=== PATIENT | male | born 1965 | race Hispanic/Latino ===

== ENCOUNTER 2017-11-17 18:06 | Emergency (ER) | payer SELFPAY ==
[~2017-11-17] VITALS: Ht 165.1 cm; Wt 72.0 kg
[~2017-11-17 18:06] MED LIST: ADVIL200 MG OR; AZITHROMYCIN250 MG PO; BACTRIM1 TAB OR; CIPROFLOXACN500 MG PO; DARVOCET-N 100100 MG OR; FLEXERIL PO; GLUCOPHAGE500 MG OR; GLUCOVANCE5 MG/500 M OR; GLYBURIDE2.5 MG OR; LASIX 40 MG TAB40 MG PO; LORTAB5 PO; MED FOR DIABETES; METFORMIN500 M1 PO; METFORMIN850 MG OR; MICRONASE5 MG OR; MOTRIN600 MG OR; NAPROSYN500 MG PO; PERCOCET 5/325M1 TAB OR; PERCOCET 5/325M1 TAB PO; PRILOSEC40 MG OR; TRAMADOL HCL50 MG OR; TRAMADOL HCL50 MG PO; ULTRAM50 M1 PO; ULTRAM50 MG OR; ULTRAM50 MG PO; ZANTAC150 MG OR; ZESTRIL2.5 MG OR; [UNRECOGNIZED DRUG - REMARK]
[2017-11-17 19:06] LABS: INFLUENZA A NONE DETECTED (NONE DETECT); INFLUENZA B NONE DETECTED (NONE DETECT)
[2017-11-17] MEDS ORDERED: CODEINE/GUAIFEN1 SOL PO (19:10)
[2017-11-17] MEDS ORDERED: ZITHROMAX250 MG PO (19:10)
[2017-11-17 19:15] VITALS: BP 139/74
== END 2017-11-17 19:15 | disposition home or self-care (01) | DRG 203 ==
LOC: ED 18:06
PROVIDERS: Emergency Medicine
DX: J40 Bronchitis, not specified as acute or chronic (principal); L40.9 Psoriasis, unspecified; E11.40 Type 2 diabetes mellitus with diabetic neuropathy, unspecified; J02.0 Streptococcal pharyngitis

== ENCOUNTER 2018-02-09 14:34 | Emergency (ER) | payer SELFPAY ==
[~2018-02-09] VITALS: Ht 165.1 cm; Wt 95.4 kg
[~2018-02-09 14:34] MED LIST changes: +CODEINE/GUAIFEN1 SOL PO; +ZITHROMAX250 MG PO
[2018-02-09] MEDS ORDERED: BENADRYL 50MG C50 MG PO (15:21)
[2018-02-09] MEDS ORDERED: PREDNISONE50 MG PO (15:21)
[2018-02-09 15:54] VITALS: BP 148/80
== END 2018-02-09 15:50 | disposition home or self-care (01) | DRG 607 ==
LOC: ED 14:34
DX: L27.0 Generalized skin eruption due to drugs and medicaments taken internally (principal); R50.9 Fever, unspecified; T39.315A Adverse effect of propionic acid derivatives, initial encounter; Y92.009 Unspecified place in unspecified non-institutional (private) residence as the place of occurrence of the external cause

== ENCOUNTER 2018-02-12 16:47 | Inpatient (IN) | payer OTHER ==
[~2018-02-12] VITALS: Ht 165.1 cm; Wt 93.2 kg
[~2018-02-12 16:47] MED LIST changes: +BENADRYL 50MG C50 MG PO; +PREDNISONE50 MG PO
[2018-02-12 18:09] LABS: HEMATOCRIT 35.7 % (39.0-50.0); HEMOGLOBIN 12.1 g/dl (14.0-18.0); IMMATURE GRANULOCYTES 0.6 % (0.0-1.0); MEAN CORPUSCULAR HGB 32.2 pG CALC (26.0-32.0); MEAN CORPUSCULAR HGB CONC 33.9 g/L CALC (32.0-36.0); NEUT# 6.87 thou/uL (1.82-7.42); RED BLOOD COUNT 3.76 mill/uL (4.70-6.10); RED CELL DISTRI WIDTH 13.2 % (11.5-15.5)
[2018-02-12 18:25] LABS: MEAN CELL VOLUME 94.9 fL CALC (80.0-100.0)
[2018-02-12 18:38] LABS: BILIRUBIN, TOTAL 0.1 mg/dL (0.0-1.4); C-REACTIVE PROTEIN 2.1 mg/dL (0-0.9); POTASSIUM 4.8 mmol/l (3.5-5.1); TOTAL PROTEIN 5.1 g/dL (6.3-8.2)
[2018-02-12 18:39] LABS: ALBUMIN 2.3 g/dL (3.2-5.0); CREATININE 2.5 mg/dL (0.7-1.3)
[2018-02-12] MEDS ORDERED: METFORMIN1000 MG PO (19:42)
[2018-02-12 20:10] VITALS: BP 170/89
[2018-02-13 00:03] VITALS: BP 161/84
[2018-02-13 05:31] VITALS: BP 168/91
[2018-02-13 06:39] LABS: URINE BILIRUBIN - DIPSTICK NEGATIVE (NEGATIVE); URINE BLOOD DIPSTICK SMALL (NEGATIVE); URINE COLOR YELLOW; URINE GLUCOSE - DIPSTICK 500 mg/dL (NEGATIVE); URINE KETONE NEGATIVE (NEGATIVE); URINE LEUK ESTERASE NEGATIVE (Negative); URINE NITRITE - DIPSTICK NEGATIVE (Negative); URINE PROTEIN - DIPSTICK >=300 mg/dL (NEG-TRACE); URINE UROBILINOGEN - DIPSTICK 0.2 E.U./dL (0.2)
[2018-02-13 06:44] LABS: BARBITURATES NEGATIVE (NEGATIVE); COCAINE NEGATIVE (NEGATIVE); METHADONE NEGATIVE (NEGATIVE); OXCYCODONE NEGATIVE (NEGATIVE); TETRAHYDROCANNABIONOL NEGATIVE (NEGATIVE); TRICYLIC ANTIDEPRESSANTS NEGATIVE (NEGATIVE); URINE CLARITY SL CLOUDY
[2018-02-13 06:52] LABS: URINE BACTERIA FEW hpf; URINE SQUAMOUS EPITHELIAL CELL MODERATE EPI/hpf (0-FEW)
[2018-02-13 07:32] VITALS: BP 185/89
[2018-02-13 08:59] LABS: CREATININE 1.7 mg/dL (0.7-1.3); POTASSIUM 4.6 mmol/l (3.5-5.1)
[2018-02-13 12:00] VITALS: BP 157/85
[2018-02-13 16:55] VITALS: BP 180/100
[2018-02-13] MEDS ORDERED: ENALAPRIL5 MG PO (18:35)
[2018-02-13 20:26] VITALS: BP 173/88
[2018-02-14] VITALS (7 sets, daily range): BP systolic 155–184; BP diastolic 82–95
[2018-02-15] VITALS (7 sets, daily range): BP systolic 125–176; BP diastolic 70–92
[2018-02-15 05:26] LABS: HEMATOCRIT 36.8 % (39.0-50.0); MEAN CELL VOLUME 92.9 fL CALC (80.0-100.0); MEAN CORPUSCULAR HGB 32.8 pG CALC (26.0-32.0); MEAN CORPUSCULAR HGB CONC 35.3 g/L CALC (32.0-36.0); RED BLOOD COUNT 3.96 mill/uL (4.70-6.10); RED CELL DISTRI WIDTH 13.1 % (11.5-15.5)
[2018-02-15 05:53] LABS: ANION GAP 8 (6-22 (CALC)); BUN 33 mg/dL (9-20); BUN/CREATININE RATIO 25 (12-20 (CALC)); CARBON DIOXIDE 20 mmol/l (22-30); CHLORIDE 115 mmol/l (95-108); CREATININE 1.3 mg/dL (0.7-1.3); GFR 58 ML/MIN (>=60 (CALC)); GFR FOR AFR.AMER. > 60 ML/MIN (>=60 (CALC)); HDL CHOLESTEROL 82 mg/dL (>=40); POTASSIUM 4.3 mmol/l (3.5-5.1); SODIUM 139 mmol/l (137-146); TOTAL TRIGLYCERIDES 232 mg/dl (30-149); VLDL CHOLESTROL 46 mg/dl (8-62 (CALC))
[2018-02-15 06:00] LABS: CALCULATED LDLCHOLESTEROL 197 mg/dL (62-129 (CALC)); TOTAL CHOLESTEROL 325 mg/dl (0-199)
[2018-02-16 00:25] VITALS: BP 140/81
[2018-02-16 04:38] VITALS: BP 135/73
[2018-02-16 07:44] LABS: HEMATOCRIT 37.1 % (39.0-50.0); MEAN CELL VOLUME 92.3 fL CALC (80.0-100.0); MEAN CORPUSCULAR HGB 32.3 pG CALC (26.0-32.0); RED BLOOD COUNT 4.02 mill/uL (4.70-6.10); RED CELL DISTRI WIDTH 12.9 % (11.5-15.5)
[2018-02-16 08:05] VITALS: BP 159/88
[2018-02-16 08:05] LABS: CREATININE 1.5 mg/dL (0.7-1.3); POTASSIUM 4.1 mmol/l (3.5-5.1)
[2018-02-16 11:25] VITALS: BP 181/91
[2018-02-16] MEDS ORDERED: LIPITOR20 M1 PO (12:17)
[2018-02-16] MEDS ORDERED: PREDNISONE10 MG PO (12:17)
[2018-02-16] MEDS ORDERED: AMLODIPINE BESYL5 MG PO (12:17)
== END 2018-02-16 15:02 | disposition home or self-care (01) | DRG 596 ==
LOC: ED 16:47 → ED-I 18:41 → ED 18:57 → MS2 18:58
PROVIDERS: Emergency Medicine; Internal Medicine; Nurse Practitioner Family; ADMIT Internal Medicine; ATTEND Internal Medicine
DX: L51.8 Other erythema multiforme (principal); N17.9 Acute kidney failure, unspecified; T39.315A Adverse effect of propionic acid derivatives, initial encounter; T36.0X5A Adverse effect of penicillins, initial encounter; E11.65 Type 2 diabetes mellitus with hyperglycemia; I10 Essential (primary) hypertension; E78.5 Hyperlipidemia, unspecified; Z79.84 Long term (current) use of oral hypoglycemic drugs; Z88.0 Allergy status to penicillin

== ENCOUNTER → 2019-01-13 | Outpatient (REF) | payer SELFPAY ==
[~2019-01-13] MED LIST changes: +AMLODIPINE BESYL5 MG PO; +CLEOCIN300 MG PO; +ENALAPRIL5 MG PO; +LIPITOR20 M1 PO; +METFORMIN1000 MG PO; +PREDNISONE10 MG PO; +TORADOL PO; +TRAMADOL HYDROC50 MG PO
== END | disposition home or self-care (01) | DRG 684 ==
LOC: ULTRASND 09:30
PROVIDERS: ATTEND Physician Assistant Medical
DX: N18.4 Chronic kidney disease, stage 4 (severe) (principal); R60.0 Localized edema

== ENCOUNTER → 2019-01-18 | Outpatient (REF) | payer SELFPAY | END | disposition home or self-care (01) | DRG 948 | LOC: DI 16:56 | PROVIDERS: ATTEND Physician Assistant Medical | DX: R60.0 Localized edema (principal) ==

== ENCOUNTER 2019-02-16 18:58 | Emergency (ER) | payer SELFPAY ==
[~2019-02-16] VITALS: Ht 165.1 cm; Wt 97.6 kg
[2019-02-16 20:22] LABS: HEMATOCRIT 32.2 % (39.0-50.0); IMMATURE GRANULOCYTES 0.5 % (0.0-5.0); MEAN CELL VOLUME 95.3 fL CALC (80.0-100.0); MEAN CORPUSCULAR HGB 31.4 pG CALC (26.0-32.0); MEAN CORPUSCULAR HGB CONC 32.9 g/L CALC (32.0-36.0); NEUT# 5.67 thou/uL (1.82-7.42); RED BLOOD COUNT 3.38 mill/uL (4.70-6.10); RED CELL DISTRI WIDTH 13.2 % (11.5-15.5)
[2019-02-16 20:23] LABS: URINE BILIRUBIN - DIPSTICK NEGATIVE (NEGATIVE); URINE BLOOD DIPSTICK MODERATE (NEGATIVE); URINE COLOR YELLOW; URINE GLUCOSE - DIPSTICK 500 mg/dL (NEGATIVE); URINE KETONE NEGATIVE (NEGATIVE); URINE LEUK ESTERASE NEGATIVE (NEGATIVE); URINE NITRITE - DIPSTICK NEGATIVE (Negative); URINE PROTEIN - DIPSTICK >=300 mg/dL (NEG-TRACE); URINE SPECIFIC GRAVITY 1.025; URINE UROBILINOGEN - DIPSTICK 0.2 E.U./dL (0.2)
[2019-02-16 20:27] LABS: HEMOGLOBIN 10.6 g/dl (14.0-18.0)
[2019-02-16 20:39] LABS: BILIRUBIN, TOTAL 0.1 mg/dL (0.0-1.4); TOTAL PROTEIN 5.4 g/dL (6.3-8.2)
[2019-02-16 20:44] LABS: ALBUMIN 2.5 g/dL (3.2-5.0); CREATININE 3.6 mg/dL (0.7-1.3)
[2019-02-16 20:45] LABS: POTASSIUM 6.2 mmol/l (3.5-5.1)
[2019-02-16 22:39] VITALS: BP 147/76
== END 2019-02-16 22:40 | disposition home or self-care (01) | DRG 641 ==
LOC: ED 18:58
PROVIDERS: Emergency Medicine
DX: E87.5 Hyperkalemia (principal); E11.22 Type 2 diabetes mellitus with diabetic chronic kidney disease; N18.9 Chronic kidney disease, unspecified

== ENCOUNTER 2019-08-29 20:00 | Emergency (ER) | payer SELFPAY ==
[~2019-08-29] VITALS: Ht 165.1 cm; Wt 90.0 kg
[2019-08-29 20:52] LABS: HEMATOCRIT 28.8 % (39.0-50.0); HEMOGLOBIN 9.2 g/dl (14.0-18.0); IMMATURE GRANULOCYTES 0.5 % (0.0-5.0); MEAN CELL VOLUME 95.7 fL CALC (80.0-100.0); MEAN CORPUSCULAR HGB 30.6 pG CALC (26.0-32.0); MEAN CORPUSCULAR HGB CONC 31.9 g/L CALC (32.0-36.0); NEUT# 6.16 thou/uL (1.82-7.42); RED BLOOD COUNT 3.01 mill/uL (4.70-6.10); RED CELL DISTRI WIDTH 13.8 % (11.5-15.5)
[2019-08-29] MEDS ORDERED: LASIX 20 MG TAB20 MG PO (21:14)
[2019-08-29] MEDS ORDERED: GLIMEPIRIDE2 MG PO (21:15)
[2019-08-29] MEDS ORDERED: ROCALTROL0.25 MCG PO (21:15)
[2019-08-29] MEDS ORDERED: AFEDITAB30 MG PO (21:16)
[2019-08-29] MEDS ORDERED: SODIUM BICAR650 MG PO (21:18)
[2019-08-29 21:54] LABS: MAGNESIUM 2.2 mg/dL (1.6-2.3); TOTAL PROTEIN 6.4 g/dL (6.3-8.2)
[2019-08-29 21:56] LABS: BILIRUBIN, TOTAL 0.2 mg/dL (0.0-1.4); CREATININE 8.2 mg/dL (0.7-1.3); POTASSIUM 5.3 mmol/l (3.5-5.1)
[2019-08-30 00:35] VITALS: BP 145/80
== END 2019-08-30 00:35 | disposition home or self-care (01) | DRG 638 ==
LOC: ED 20:00
DX: E11.649 Type 2 diabetes mellitus with hypoglycemia without coma (principal); I12.0 Hypertensive chronic kidney disease with stage 5 chronic kidney disease or end stage renal disease; E11.22 Type 2 diabetes mellitus with diabetic chronic kidney disease; N18.6 End stage renal disease; Z79.84 Long term (current) use of oral hypoglycemic drugs

== ENCOUNTER 2019-11-04 08:48 | Emergency (ER) | payer MEDICAID ==
[~2019-11-04] VITALS: Ht 165.1 cm; Wt 90.9 kg
[~2019-11-04 08:48] MED LIST changes: +AFEDITAB30 MG PO; +GLIMEPIRIDE4 MG PO; +LASIX 20 MG TAB20 MG PO; +NIFEDIPINE ER30 M1 PO; +ROCALTROL0.25 MCG PO; +SODIUM BICAR650 MG PO
[2019-11-04 09:26] LABS: IMMATURE GRANULOCYTES 5.4 % (0.0-5.0); MEAN CELL VOLUME 95.7 fL CALC (80.0-100.0); MEAN CORPUSCULAR HGB 29.1 pG CALC (26.0-32.0); MEAN CORPUSCULAR HGB CONC 30.4 g/L CALC (32.0-36.0); NEUT# 8.14 thou/uL (1.82-7.42); RED BLOOD COUNT 2.34 mill/uL (4.70-6.10); RED CELL DISTRI WIDTH 15.3 % (11.5-15.5)
[2019-11-04 09:31] LABS: HEMATOCRIT 22.4 % (39.0-50.0); HEMOGLOBIN 6.8 g/dl (14.0-18.0)
[2019-11-04 09:55] LABS: ALBUMIN 2.9 g/dL (3.2-5.0); ALKALINE PHOSPHATASE 110 u/l (38-126); CHLORIDE 115 mmol/l (95-108); SGOT/AST 21 u/l (17-59); SODIUM 139 mmol/l (137-146); TOTAL PROTEIN 5.8 g/dL (6.3-8.2)
[2019-11-04 10:14] LABS: ANION GAP 25 (6-22 (CALC)); BILIRUBIN, TOTAL 0.3 mg/dL (0.0-1.4); BUN/CREATININE RATIO 7 (12-20 (CALC)); GFR 2 ML/MIN (>=60 (CALC)); GFR FOR AFR.AMER. 3 ML/MIN (>=60 (CALC)); POTASSIUM 6.1 mmol/l (3.5-5.1)
[2019-11-04 10:15] LABS: BUN 140 mg/dL (9-20)
[2019-11-04 10:16] LABS: CARBON DIOXIDE < 5 mmol/l (22-30); CREATININE 19.8 mg/dL (0.7-1.3)
[2019-11-04 11:20] VITALS: BP 120/60
[2019-11-04 11:32] VITALS: BP 120/60
--- NOTE | 2019-11-06 08:05 | NUR ---
PRELIMINARY BLOOD CULTURE SHOWS GRAM POSITIVE COCCI, FAXED TO [facility].
== END 2019-11-04 11:32 | disposition short-term general hospital (02) ==
LOC: ED 08:48
PROVIDERS: Family Medicine
DX: N17.9 Acute kidney failure, unspecified (principal); K35.80 Unspecified acute appendicitis; D64.9 Anemia, unspecified; I95.9 Hypotension, unspecified; E87.5 Hyperkalemia; E11.22 Type 2 diabetes mellitus with diabetic chronic kidney disease; I12.9 Hypertensive chronic kidney disease with stage 1 through stage 4 chronic kidney disease, or unspecified chronic kidney disease; N18.9 Chronic kidney disease, unspecified
CPT/HCPCS: P9016

== ENCOUNTER 2020-02-11 | Emergency (ER) | payer MEDICAID ==
[2020-02-11 18:50] LABS: IMMATURE GRANULOCYTES 0.3 % (0.0-5.0); MEAN CELL VOLUME 96.4 fL CALC (80.0-100.0); MEAN CORPUSCULAR HGB 29.9 pG CALC (26.0-32.0); MEAN CORPUSCULAR HGB CONC 31.1 g/L CALC (32.0-36.0); NEUT# 8.37 thou/uL (1.82-7.42); RED BLOOD COUNT 3.34 mill/uL (4.70-6.10); RED CELL DISTRI WIDTH 15.7 % (11.5-15.5)
[2020-02-11 18:51] LABS: ALBUMIN 3.8 g/dL (3.2-5.0); BILIRUBIN, TOTAL 0.5 mg/dL (0.0-1.4); CREATININE 7.7 mg/dL (0.7-1.3); POTASSIUM 4.6 mmol/l (3.5-5.1)
[2020-02-11 18:53] LABS: HEMATOCRIT 32.2 % (39.0-50.0)
[2020-02-11 20:23] LABS: URINE BILIRUBIN - DIPSTICK NEGATIVE (NEGATIVE); URINE BLOOD DIPSTICK MODERATE (NEGATIVE); URINE COLOR YELLOW; URINE GLUCOSE - DIPSTICK 250 mg/dL (NEGATIVE); URINE KETONE NEGATIVE (NEGATIVE); URINE LEUK ESTERASE NEGATIVE (NEGATIVE); URINE NITRITE - DIPSTICK NEGATIVE (Negative); URINE PH 7.5 (4.5-8.0); URINE PROTEIN - DIPSTICK >=300 mg/dL (NEG-TRACE); URINE SPECIFIC GRAVITY 1.015; URINE UROBILINOGEN - DIPSTICK 0.2 E.U./dL (0.2)
[2020-02-11 21:13] LABS: URINE SQUAMOUS EPITHELIAL CELL FEW EPI/hpf (0-FEW)
== END 2020-02-11 22:37 | disposition home or self-care (01) | DRG 638 ==
DX: E11.649 Type 2 diabetes mellitus with hypoglycemia without coma (principal); E11.22 Type 2 diabetes mellitus with diabetic chronic kidney disease; I12.0 Hypertensive chronic kidney disease with stage 5 chronic kidney disease or end stage renal disease; N18.6 End stage renal disease; Z99.2 Dependence on renal dialysis
CPT/HCPCS: J1610

== ENCOUNTER 2020-02-13 19:24 | Observation (INO) | payer MEDICAID ==
[~2020-02-13] VITALS: Ht 165.1 cm; Wt 85.0 kg
--- NOTE | 2020-02-13 19:54 | NUR ---
PT COMPLAINT WAS COUGH BUT THOUGHT BS WAS LOW. DID NOT CHECK SUGAR AT HOME BECAUSE HE DOES NOT HAVE A MACHINE. ACCUCHECK SHOWED CRITICALLY LOW ON GLUCOMETER. PT STRAIGHT BACK TO ROOM 12
--- NOTE | 2020-02-13 20:08 | NUR ---
PT PRESENTS WITH CRITICAL LOW 8G AND IS ALERT TO ONLY PERSON. PT STATES HAVING A COLD AND NOT "FEELING LIKE EATING OR DRINKING" PT IS ALSO UNA8LE TO TELL HER NAME OR WHO SHE IS. PT WAS PREVIOUSLY HER TWO DAYS AGO FOR LOW 8G. SYMPTOMS REAPPEARED SAT NIGHT AND PROGRESSED. VITALS ARE STA8LE WILL CONTINUE TO MONITOR.
--- NOTE | 2020-02-13 20:20 | NUR ---
D 10 TITRATED TO 8E COMPLETED WITHIN 20 MINS 8Y MD ORDERS. PT IS DIAPHORETIC AND STARTED TO MOAN. PT CANNOT RECALL DO8,PLACE OR TIME. PT ALSO CANNOT SAY NAME. PT ONLY RESPONDED WITH [id number] SLURRED WORDS 8Y VER8AL STIMULATION. WILL CONTINUE TO MONITOR
[2020-02-13 20:33] LABS: HEMATOCRIT 30.7 % (39.0-50.0); HEMOGLOBIN 9.8 g/dl (14.0-18.0); IMMATURE GRANULOCYTES 0.2 % (0.0-5.0); MEAN CORPUSCULAR HGB 29.7 pG CALC (26.0-32.0); MEAN CORPUSCULAR HGB CONC 31.9 g/L CALC (32.0-36.0); NEUT# 9.76 thou/uL (1.82-7.42); RED BLOOD COUNT 3.3 mill/uL (4.70-6.10); RED CELL DISTRI WIDTH 15.2 % (11.5-15.5)
--- NOTE | 2020-02-13 20:34 | NUR ---
PT AOX4, IS A8LE TO RECOLLECT NAME. PT IS NO LONGER SWEATING.
[2020-02-13] MEDS ORDERED: NIFEDIPINE30 MG PO (20:44)
[2020-02-13] MEDS ORDERED: XARELTO20 MG PO (20:45)
[2020-02-13] MEDS ORDERED: ATORVASTATIN CA20 MG PO (20:46)
[2020-02-13] MEDS ORDERED: CALCITRIOL0.25 MC1 PO (20:47)
[2020-02-13] MEDS ORDERED: VITAMIN D50000 UNIT PO (20:48)
[2020-02-13] MEDS ORDERED: ASPIRIN81 MG PO (20:48)
[2020-02-13 21:00] LABS: BILIRUBIN, TOTAL 0.4 mg/dL (0.0-1.4); POTASSIUM 4.8 mmol/l (3.5-5.1); TOTAL PROTEIN 7.7 g/dL (6.3-8.2)
[2020-02-13 21:02] LABS: ACT PARTIAL THROMBO TIME 33.6 SECONDS (20.0-32.5); INTERNATIONAL NORMALIZED RATIO 1.1 RATIO (0.7-1.3); PROTHROMBIN TIME 11.5 SECONDS (9.0-12.5)
--- NOTE | 2020-02-13 21:30 | NUR ---
PT SITTING UP IN 8ED TALKING WITH AND EATING FOOD A LITTLE AT A TIME. CALL LIGHT WITHIN REACH
--- NOTE | 2020-02-13 22:01 | NUR ---
TOOK OVER CARE OF PT.
--- NOTE | 2020-02-13 22:07 | NUR ---
GAVE REPORT TO TETE
--- NOTE | 2020-02-13 22:10 | NUR ---
TOOK OVER PT CARE FROM BARRY ASH.
--- NOTE | 2020-02-13 23:00 | NUR ---
URINE COLLECTED AND SENT TO LAB. WAITING ON RESULTS AND PLAN OF DISCHARGE.
[2020-02-14] VITALS (7 sets, daily range): BP systolic 112–158; BP diastolic 69–88
[2020-02-14 00:30] LABS: URINE BILIRUBIN - DIPSTICK NEGATIVE (NEGATIVE); URINE BLOOD DIPSTICK MODERATE (NEGATIVE); URINE CLARITY CLEAR; URINE COLOR YELLOW; URINE GLUCOSE - DIPSTICK 250 mg/dL (NEGATIVE); URINE KETONE NEGATIVE (NEGATIVE); URINE LEUK ESTERASE NEGATIVE (Negative); URINE NITRITE - DIPSTICK NEGATIVE (Negative); URINE PH 6.5 (4.5-8.0); URINE PROTEIN - DIPSTICK >=300 mg/dL (NEG-TRACE); URINE SPECIFIC GRAVITY 1.025; URINE UROBILINOGEN - DIPSTICK 0.2 E.U./dL (0.2)
[2020-02-14 00:32] LABS: BARBITURATES NEGATIVE (NEGATIVE); COCAINE NEGATIVE (NEGATIVE); METHADONE NEGATIVE (NEGATIVE); OXCYCODONE NEGATIVE (NEGATIVE); TETRAHYDROCANNABIONOL NEGATIVE (NEGATIVE); TRICYLIC ANTIDEPRESSANTS NEGATIVE (NEGATIVE)
--- NOTE | 2020-02-14 00:35 | NUR ---
DR RDZ WAS GOING TO DISCHARGE PT SINCE URINE BACK BUT REPEAT BS 54. PT TO BE ADMITED FOR OBSERVATION.
--- NOTE | 2020-02-14 00:55 | NUR ---
PT BACK FROM BATHROOM, D 10 INFUSING PER ORDER. PT WILL BE STAYING FOR OBSERVATION..
--- NOTE | 2020-02-14 01:20 | NUR ---
CALLED ICU TO GIVE REPORT, SHAHID IN WITH PT WILL CALL BACK.
--- NOTE | 2020-02-14 01:50 | NUR ---
REPORT GIVEN TO BARRY KEY
--- NOTE | 2020-02-14 02:00 | NUR ---
Admission Note Report Given to: BARRY KEY Transported by: X Wheelchair Stretcher Transported with: X Nurse Transporter X Patent IV O2 Shipyard Laborer Location: ICU MS2 PT TO ICU BED 3 FOR MED SURGE OVERFLOW
--- NOTE | 2020-02-14 02:00 | NUR ---
PT. ARRIVES BY WHEELCHAIR NOT ON TELEMETRY. IMMEDIATELY PLACED ON TELEMETRY ON ARRIVAL ORDERED. PT. AWAKE, ALERT, ORIENTED X 3. DENIES COMPLAINTS OF PAIN AND DENIES FEELINGS OF LOW BLOOD SUGAR. PT. RESTING IN NO DISTRESS. MONIQUE. MAYNOR. RESPS EVEN AND UNLABORED. FAINT CRACKLES TO BASES BILAT. PT. WITH NOTED SCANT DRY COUGH. BOWEL SOUNDS ACTIVE. TESSIO CATH NOTED TO RT. CHEST WALL. SHUNT TO LT. FOREARM/AC AREA. PT. WAS AMBULATORY WITHOUT ASSISTANCE FROM ER WHEELCHAIR TO ICU BED. INSTRUCTIONS MARINE DRAFTER LIGHT PROVIDED AND BELONGINGS LIST COMPLETED.
--- NOTE | 2020-02-14 02:27 | NUR ---
PT. RESTING IN BED WITH EYES CLOSED IN NO DISTRESS. IV FLUIDS INFUSING PER PHYSICIAN ORDERS. LIGHTS DIMMED FOR COMFORT. PT. DENIES COMPLAINTS OR NEEDS AT THIS TIME.
--- NOTE | 2020-02-14 04:50 | NUR ---
LAB AT BEDSIDE AT THIS TIME. BLOOD SUGAR READS CRITICAL LOW. PT. PROVIDED WITH 2 APPLE JUICES AND PEANUT BUTTER CRACKERS. WILL CONTINUE TO CLOSELY MONITOR.
[2020-02-14 05:44] LABS: POTASSIUM 4.9 mmol/l (3.5-5.1)
[2020-02-14 05:49] LABS: CREATININE 7.4 mg/dL (0.7-1.3)
--- NOTE | 2020-02-14 07:05 | NUR ---
REPORT FROM SHAHID REDDY. PT RESTING IN BED. NO APPARENT DISTRESS NOTED. PT OCCITAN SPEAKING. DENIES ANY PAIN OR DISCOMFORT. PT UNHOOKED FROM FLUIDS AND MONITOR AT THIS TIME, PT AMBULATED TO BATHROOM WITH STEADY GAIT. PT REPORTS MODERATED SIZE BM. DISCUSSED POC. PT VERBALIZED UNDERSTANDING. CALL LIGHT WITHIN REACH. WILL CONTINUE TO MONITOR.
--- NOTE | 2020-02-14 08:44 | NUR ---
DR MONTAÑO AT BEDSIDE DISCUSSING POC.
--- NOTE | 2020-02-14 09:41 | NUR ---
PHARMACY AT BEDSIDE, FAMILY BOUGHT HOME MEDS IN AT THIS TIME.
[2020-02-14] MEDS ORDERED: GLIMEPIRIDE4 MG PO (09:50)
[2020-02-14] MEDS ORDERED: LEVOTHYROXIN25 MC1 PO (09:50)
--- NOTE | 2020-02-14 11:11 | NUR ---
PT BS 41. DR. MONTAÑO NOTIFIED. VERBAL ORDERS RECEIVED. JUICE AND CRACKERS PROVIDED. PT REMAINS ALERT AND ORIENTED. FAMILY AT BEDSIDE. NO APPARENT DISTRESS NOTED.
--- NOTE | 2020-02-14 14:55 | NUR ---
BS 61. SNACK AND JUICE PROVIDED AT THIS TIME. NO APPARENT DISTRESS NOTED. PT ASYMPTOMATIC. CALL LIGHT WITHIN REACH. WILL CONTINUE TO MONITOR.
--- NOTE | 2020-02-14 15:45 | NUR ---
BS 76.
[2020-02-14] MEDS ORDERED: ZITHROMAX250 MG PO (17:31)
--- NOTE | 2020-02-14 19:25 | NUR ---
PATIENT SITS ON SIDE OF BED REQUESTS TO HAVE IV TO WALKTO THE BATHROOM, WALKS TO THE BATHROOM WITH NO DIFFICULTY. HAD A BM, DENIES DIARRHEA. ALERT AND ORIENTED X4. NURSING ASSESSMENT PERFORMED, BS CHECKED 57 MG/DL, ENCOURAGED TO DRINK OJ AND EAT HIS DINNER AT SIDE OF BED, HE REPORTS HE HAS A COLD AND HAS LOW APPETITE. RAC 20 G IV INTACT, D5 1/2 NS INFUSING AT KVO. ANTIOBIOTIC INFUSING WELL. POC FOR TONIGHT DISCUSSED. SELF REPOSITIONS. HAS A DRY EQUIPMENT CLEANER AND TESTER COUGH. COMPLAINS OF RIGHT LOWER BACK PAIN, HE REPORTS "KIDNEY PAIN." WILL CONTINUE TO MONITOR. CALL LIGHT WITHIN REACH.
--- NOTE | 2020-02-14 23:12 | NUR ---
LET PT KNOW COUGH MEDICATION HAS BEEN ORDERED. PATIENT HAS CONTINUOUS COUGH AND COMPLAINS HE IS NOT ABLE TO SLEEP. PILLOW PROVIDED PER REQUEST. CALL LIGHT WITHIN REACH.
--- NOTE | 2020-02-15 00:14 | NUR ---
PATIENT PLACED ON 1.5 L/MIN NC, WHEN SLEEPING HE DESATS TO 88%. NO SOB NOTED. COUH MEDICATION WAS GIVEN. NO OTHER NEEDS AT THIS TIME. CALL LIGHT WITHIN REACH.
--- NOTE | 2020-02-15 02:07 | NUR ---
PATIENT SHEAR ASSEMBLER LIGHT, UNHOOKED FROM TELEMETRY. ABLE TO WALK TO BATHROOM WITHOUT DIFFICULTY. NOW LAYS WITH HOB ABOUT 30 DEGREES. NO COMPLAINTS. CALL LIGHT WITHIN REACH.
--- NOTE | 2020-02-15 03:27 | NUR ---
PATIENT'S BS 62 MG/DL. PROVIDED A YOGURT, ADDED SUAGR. PAIENT ABLE TO EAT ALMOST ALL OF IT. ALSO REMINDED HIM HE WILL BE DISCHARGE AT 0500 IF HE IS STABLE WITH HIS BS AND EVEYRTHING ELSE. PT REPORTS HE WILL DRIVE HOME, I TOLD HIM HE CANNOT BE DISCHARGED TO DRIVE HIMSELF HOME, IT IS NOT SAFE TO DRIVE HIMSELF ANYWHERE AT THIS TIME. PATIENT REPORTS HE HAS HIS DIALYSIS AT 0800 AND CAN CALL HIS ANA SO THAT SHE CAN ARRANGE TRASPORTATION FOR HIM. WILL BE MONITORING.
[2020-02-15 04:00] VITALS: BP 135/71
--- NOTE | 2020-02-15 05:20 | NUR ---
PATIENT REPORTS HE WILL BE GETTING PICKED UP AT 0700. AGREES TO HAVE A FROZEN TURKEY MEAL AND A BOILED VEGEATBLE BROUGHT FROM HOME.
--- NOTE | 2020-02-15 05:28 | NUR ---
PATIENT SITS ON SIDE OF BED TO EAT HIS MEAL.
--- NOTE | 2020-02-15 06:37 | NUR ---
PATIENT WAS GIVEN DISCHARGE INSTRUCTIONS AND WRITTEN IN [place]. PATIENT WAS EDUCATED REGARDING DISCHARGE INSTRUCTIONS. PATIENT AGREES AND ABLE TO VERBALIZE BACK WHAT HE WAS EXPLAINED. PATIENT REPORTS HE WILL BE BUTING A BLOOD SUGAR MONITOR TO CHECK HIS SUGARS. PATIENT REPORTS HE DOES NOT MISS HIS DIALYSIS APPOINTMENTS, REPORTS HIS RIDE WILL BE HERE AT 0700. BS WAS 106 MG/DL. IV SITE DISCONTINUED, IV FLUIDS DISCONTINUED. PATIENT HAS DRESSED UP. CALL LIGHT WITHIN REACH.
[2020-02-15 06:40] VITALS: BP 154/83
--- NOTE | 2020-02-15 07:01 | NUR ---
Discharge instructions given. Patient verbalizes understanding of same. Discharged in stable condition via Wheelchair to Home with family. All belongings sent with pt.
== END 2020-02-15 06:50 | disposition home or self-care (01) | DRG 917 ==
LOC: ED 19:24 → ED-I 02-14 00:28 → ED 02-14 01:04 → ICU 02-14 01:05
PROVIDERS: Emergency Medicine; ADMIT Internal Medicine; ATTEND Internal Medicine
DX: T38.3X1A Poisoning by insulin and oral hypoglycemic [antidiabetic] drugs, accidental (unintentional), initial encounter (principal); N18.6 End stage renal disease; I12.0 Hypertensive chronic kidney disease with stage 5 chronic kidney disease or end stage renal disease; E11.649 Type 2 diabetes mellitus with hypoglycemia without coma; E11.22 Type 2 diabetes mellitus with diabetic chronic kidney disease; D63.1 Anemia in chronic kidney disease; Z99.2 Dependence on renal dialysis; Z91.14 Patient's other noncompliance with medication regimen; Z79.84 Long term (current) use of oral hypoglycemic drugs
CPT/HCPCS: J1610

== ENCOUNTER 2022-06-17 06:13 | Observation (INO) | payer MEDICAID ==
[~2022-06-17] VITALS: Ht 165.1 cm; Wt 81.8 kg
[~2022-06-17 06:13] MED LIST changes: +ASPIRIN81 MG PO; +ATORVASTATIN CA20 MG PO; +CALCITRIOL0.25 MC1 PO; +LEVOTHYROXIN25 MC1 PO; +NIFEDIPINE30 MG PO; +VITAMIN D50000 UNIT PO; +XARELTO20 MG PO
--- NOTE | 2022-06-17 06:15 | NUR ---
PT IN WAITING ROOM AND IS HERE FOR DIALYSIS. PT SITTING IN CHAIR AND SMILING. PT STATES HE IS "EARLY" FOR HIS APPT.
--- NOTE | 2022-06-17 07:00 | NUR ---
pt amb to room with steady gait
[2022-06-17 07:06] VITALS: BP 156/68
[2022-06-17] MEDS ORDERED: COZAAR50 MG PO (07:14)
[2022-06-17] MEDS ORDERED: ROCALTROL0.5 MC1 PO (07:14)
[2022-06-17 07:15] VITALS: BP 154/77
[2022-06-17] MEDS ORDERED: PROCARDIA XL60 MG PO (07:15)
[2022-06-17] MEDS ORDERED: HYDRALAZINE HCL50 MG PO (07:15)
[2022-06-17] MEDS ORDERED: VITAMIN D1.25 MG PO (07:16)
[2022-06-17 07:31] VITALS: BP 153/79
[2022-06-17 07:45] LABS: HEMATOCRIT 28.7 % (39.0-50.0); HEMOGLOBIN 9.4 g/dl (14.0-18.0); IMMATURE GRANULOCYTES 0.6 % (0.0-5.0); MEAN CELL VOLUME 97.6 fL CALC (80.0-100.0); MEAN CORPUSCULAR HGB CONC 32.8 g/dL CAL (32.0-36.0); NEUT# 5.61 thou/uL (1.82-7.42); RED BLOOD COUNT 2.94 mill/uL (4.70-6.10); RED CELL DISTRI WIDTH 13.6 % (11.5-15.5)
[2022-06-17 07:46] VITALS: BP 132/92
--- NOTE | 2022-06-17 08:00 | NUR ---
BREAKFAST TRAY PROVIDED; PT ADVISED OF CONTINUED WAIT TIME FOR DIALYSIS; CALL LIGHT WITHIN REACH; MONITORING DEVICES IN PLACE
[2022-06-17 08:03] LABS: ALBUMIN 3.7 g/dL (3.2-5.0); POTASSIUM 4.4 mmol/l (3.5-5.1); TOTAL PROTEIN 6.5 g/dL (6.3-8.2)
[2022-06-17 08:05] LABS: BILIRUBIN, TOTAL 0.6 mg/dL (0.0-1.4)
--- NOTE | 2022-06-17 09:00 | NUR ---
PT RESTING ON STRECHER; NO S/S OF DISTRESS NOTED
--- NOTE | 2022-06-17 10:20 | NUR ---
PT TO DIALYSIS ROOM 286 VIA WC WITH TELE IN PLACE IN STABLE CONDITION;
[2022-06-17 10:25] VITALS: BP 132/92
--- NOTE | 2022-06-17 15:33 | NUR ---
patient dialysis initiated at 1508. accessed dialysis fistula to left upper arm with 15 g needles x 1 attempt with success. patient tolerated without incident. kee noted to upper arm above fistula access. area clean dry intact. patient denies c/o at present requesting to take 1.5 l off, this infor from at home via phone. stated"if you take more that than he will get sick and vomit." V/S B/P 166/71, resp 18, P 67. Patient resting eyes closed, fistula lines secured with tape and are visible.
--- NOTE | 2022-06-17 17:02 | NUR ---
patient talking on phone, no evidence of pain or discomfort noted. Fluid removal to total 1.5 l per patient request. Fistula needles intact and visible. Dialysis running smoothly. Hepatitis results obtainted with negative results noted.Patient SR on monitor, no edema, pulses regular strong. No issues noted this treatment
--- NOTE | 2022-06-17 19:13 | NUR ---
Dialysis complete, blood returned, patient tolerated tx. without incident. fistula lines deaccessed without incident, total UF 1500. patient B/P wnl Epogen 6000 units given per Md. orders and B/P paramaters
== END 2022-06-17 19:30 | disposition left against medical advice (07) ==
LOC: ED 06:13 → ED-I 08:12 → ED 08:27 → MS2 08:28
PROVIDERS: Family Medicine; ADMIT Internal Medicine; ATTEND Internal Medicine
DX: I12.0 Hypertensive chronic kidney disease with stage 5 chronic kidney disease or end stage renal disease (principal); E11.22 Type 2 diabetes mellitus with diabetic chronic kidney disease; N18.6 End stage renal disease; Z99.2 Dependence on renal dialysis; D63.1 Anemia in chronic kidney disease; N25.81 Secondary hyperparathyroidism of renal origin; E78.5 Hyperlipidemia, unspecified; Z20.822 Contact with and (suspected) exposure to COVID-19
CPT/HCPCS: G0378; J1644; Q5106 EC

== ENCOUNTER 2022-06-19 06:38 | Observation (INO) | payer MEDICAID ==
[2022-06-19] VITALS (9 sets, daily range): BP systolic 174–203; BP diastolic 81–96
[~2022-06-19] VITALS: Ht 165.1 cm; Wt 91.0 kg
[~2022-06-19 06:38] MED LIST changes: +COZAAR50 MG PO; +HYDRALAZINE HCL50 MG PO; +PROCARDIA XL60 MG PO; +ROCALTROL0.5 MC1 PO; +VITAMIN D1.25 MG PO
--- NOTE | 2022-06-19 07:35 | NUR ---
PT ambulated to tx room, stable
--- NOTE | 2022-06-19 08:00 | NUR ---
PATIENT REPORTS HAVING NO SYMPTOMS, IS JUST HERE FOR HIS DIALYSIS. LAST TREATMENT WAS ON 06/17/22.
[2022-06-19 08:02] LABS: HEMATOCRIT 30.2 % (39.0-50.0); HEMOGLOBIN 9.7 g/dl (14.0-18.0); IMMATURE GRANULOCYTES 0.5 % (0.0-5.0); MEAN CELL VOLUME 99.7 fL CALC (80.0-100.0); MEAN CORPUSCULAR HGB CONC 32.1 g/dL CAL (32.0-36.0); NEUT# 4.43 thou/uL (1.82-7.42); RED BLOOD COUNT 3.03 mill/uL (4.70-6.10); RED CELL DISTRI WIDTH 13.4 % (11.5-15.5)
--- NOTE | 2022-06-19 08:19 | NUR ---
REMOVED 7 MERLE FROM LEFT UPPER ARM. PT NOT IN ANY VISIBLE DISTRESS. NO REDNESS OR SWELLING NOTED
[2022-06-19 08:28] LABS: ALBUMIN 3.9 g/dL (3.2-5.0); POTASSIUM 4.3 mmol/l (3.5-5.1); TOTAL PROTEIN 6.7 g/dL (6.3-8.2)
[2022-06-19 08:31] LABS: BILIRUBIN, TOTAL 0.3 mg/dL (0.0-1.4); CREATININE 9.8 mg/dL (0.7-1.3)
--- NOTE | 2022-06-19 09:27 | NUR ---
REPORT GIVEN TO NURSE AT BEDSIDE. TAKES PATIENT TO [place] [id number].
--- NOTE | 2022-06-19 11:32 | NUR ---
1000 PATIENT ON DIALYSIS TREATMENT. ACCESSED FISTULA TO RIGHT UPPER ARM WITH 165 GAUGE NEEDLES X 1 ATTEMPT. PATIENT TOLERATED WITHOUT INCIDENT. RECEIVED A CALL FROM MILKA WITH DR EGAN'S OFFICE ABOUT FLUID REMOVAL FOR PATIENT TO REMOVE ONLY 1 LITER, LAST TREATMENT PATIENT FELT UNWELL. ACKNOWLEDGED AND PROCEDUE. TREATMENT GOING WELL, DIALYSIS LINES VISABLE AND INTACT AND SECURED, PATIENT RESTING EYES CLOSED.EDUCATED ON DISEASE PROCESS AND EPOGEN WITH PATIENT VERBALIZING UNDERSTANDING. NO EDEMA THIS TREATMENT, HEART REGULAR WITH PULSES STRONG. CONSENTS SIGNED. NO EVIDENCED OF CLOTTING OR REACTIONS TO TREATMENT NOTED THUS FAR. B/P WNL 120/60 HEART RATE AT 70, RESPIRATION EASY NON LABORED AT 18. NO TEMP. START WEIGHT AT 85.8 KILOGRAMS. CONDUCTIVITY AND PH WNL TO START TREATMENT. NO LOW BLOOD PRESSURE ISSUES NOTED.
--- NOTE | 2022-06-19 12:30 | NUR ---
DR EGAN AND DR MONTAÑO TO VISIT WITH PATIENT. NO NEW ORDERS NOTED. PATIENT TOLERATING DIALYSIS TREATMENT FISTULA LINES SECURED, VISABLE AND INTACT. NO ISSUES WITH PATIENT, ASSESSMENT NEGATIVE. PATIENT DENIES C/O OF ANY KIND.
--- NOTE | 2022-06-19 13:16 | NUR ---
PATIENT TOLERATED MEAL TRAY WITHOUT INCIDENT. DIALYSIS CONTINUES, NO HYPOTENSION NOTED, NO CLOTTING, DIALYSIS LINES INTACT, SECURED AND VISABLE. TOTAL FLUID REMOVAL GOAL FOR THIS TREATMENT AT 1200. NO CRAMPING PER PATIENT
--- NOTE | 2022-06-19 14:16 | NUR ---
1402 DIALYSIS TREATMENT COMPLETED. BLOOD RETURNED. PATIENT TOLERATED WITHOUT INCIDENT. FISTULA LINES DEACCESSED, NO EVIDENCE OF CLORRING, SEIZURES, HYPOTENSIONOR, OR ADVERSE REACTIONS NOTED FROM TREATMENT. AV FISTULA WITH BRUIE AND THRILL AFTER DEACCESS. START WEIGHT 85.8 END WEIGHT 84.6. REMOVED 1200 ML FLUIDS.
== END 2022-06-19 14:10 | disposition left against medical advice (07) ==
LOC: ED 06:38 → ED-I 08:24 → ED 08:36 → MS2 08:36 → ED 09:27 → ED-I 09:27 → MS2 14:10
PROVIDERS: Family Medicine; ADMIT Internal Medicine; ATTEND Internal Medicine
DX: I12.0 Hypertensive chronic kidney disease with stage 5 chronic kidney disease or end stage renal disease (principal); E11.22 Type 2 diabetes mellitus with diabetic chronic kidney disease; N18.6 End stage renal disease; Z99.2 Dependence on renal dialysis; D63.1 Anemia in chronic kidney disease; N25.81 Secondary hyperparathyroidism of renal origin; E78.5 Hyperlipidemia, unspecified
CPT/HCPCS: G0378; J1644; Q5106 EC

== ENCOUNTER 2022-06-24 08:42 | Observation (INO) | payer MEDICAID ==
[2022-06-24] VITALS (12 sets, daily range): BP systolic 130–149; BP diastolic 68–86
[~2022-06-24] VITALS: Ht 165.1 cm; Wt 77.2 kg
--- NOTE | 2022-06-24 08:42 | NUR ---
PT AMBUALTORY TO ROOM
--- NOTE | 2022-06-24 08:55 | NUR ---
PATIENT RESTING BED. ALERT AND ORIENTED TIMES 3. NAD. VITALS STABLE. CALL LIGHT IN REACH. UPDATED ON PLAN OF CARE. VERBALIZED UNDERSTANDING.
[2022-06-24 09:53] LABS: HEMATOCRIT 28.2 % (39.0-50.0); HEMOGLOBIN 9.2 g/dl (14.0-18.0); IMMATURE GRANULOCYTES 0.2 % (0.0-5.0); MEAN CELL VOLUME 98.9 fL CALC (80.0-100.0); MEAN CORPUSCULAR HGB 32.3 pG CALC (26.0-32.0); MEAN CORPUSCULAR HGB CONC 32.6 g/dL CAL (32.0-36.0); NEUT# 4.58 thou/uL (1.82-7.42); RED BLOOD COUNT 2.85 mill/uL (4.70-6.10)
[2022-06-24 10:19] LABS: BILIRUBIN, TOTAL 0.3 mg/dL (0.0-1.4); POTASSIUM 4.7 mmol/l (3.5-5.1); TOTAL PROTEIN 7.2 g/dL (6.3-8.2)
[2022-06-24 10:23] LABS: CREATININE 12.5 mg/dL (0.7-1.3)
--- NOTE | 2022-06-24 12:54 | NUR ---
PATIENT AMBULATED TO ROOM 286 WITH david SOTO FROM DIALYSIS. VITALS STABLE. TELEMETRY CONNECTED. PLAN OF CARE DISCUSSED AND VERBALIZED UNDERSTANDING. FAMILY BEDSIDE.
--- NOTE | 2022-06-24 13:21 | NUR ---
1308 DIALYSIS TREATMENT INITIATED. 15 G FISTULA NEEDLES INITIATED X 1 ATTEMPT,BRUIE AND THRILL NOTED TO LEFT UPPER FOREARM. PATIENT TOLERATED ACCESSEING FISTULA WITHOUT INCIDENT. START WEIGHT 87.0 KG. B/P 160/75, NO EDEMA NOTED CONSTRUCTION SPECIALIST READS SR AT 68, RESP 18, EASY NON LABORED.SKIN INTACT, PATIENT ALERT AND ORIENTED X 4, DENIES C/O OF PAIN OR DISCOMFORT AT PRESENT. PATIENT AMBULATED TO ROOM FROM ER WITH STEADY GAIT AND ERECT POSTURE
--- NOTE | 2022-06-24 14:09 | NUR ---
PATIENT RESTING EYES CLOSED, FISTULA LINES INTACT, SECURED AND VISABLE. NO EVIDENCE OF ISSUES NOTED AT PRESENT
--- NOTE | 2022-06-24 15:15 | NUR ---
INSTRUCTED PATIENT ON ESRD, DIET AND FLUIDS, AND IMPORTANCE OF KEEPING DIALYSIS APPOINTMENTS. PATIENT VERBALIZED UNDERSTANDING. DIALYSIS TREATMENT CONTINUES, NO INFILTRATION TO 15 G DIALYSIS NEEDLES. NO ADVERSE EFFECTS RELATED TO DIALYSIS TREATMENT. TOLERATING TREATMENT WITHOUT INCIDENT. ADEQUATE ARTERIAL AND VENOUS PRESSURES.
--- NOTE | 2022-06-24 16:51 | NUR ---
PATIENT TALKING ON PHONE DENIES C/O AT PRESENT. DIALYSIS TREATMENT CONTINUES. FISTULA LINE INTACT, SECURED AND VISABLE. NO ISSUES NOTED
--- NOTE | 2022-06-24 17:09 | NUR ---
1730 DIALYSIS TREATMENT COMPLETE BLOOD RETURNED. PATIENT TOLERATED TREATMENT WITHOUT INCIDENT 1.2 L REMOVED. NO ISSUES WITH ACCESS FISTULA, PATIENT SIGNED AMA WAS TRANSPORTED TO ER TO PRIVATE CAR TO HOME.
== END 2022-06-24 17:09 | disposition left against medical advice (07) ==
LOC: ED 08:42 → ED-I 10:20 → ED 10:42 → MS2 10:43
PROVIDERS: Family Medicine; ADMIT Internal Medicine; ATTEND Internal Medicine
DX: I12.0 Hypertensive chronic kidney disease with stage 5 chronic kidney disease or end stage renal disease (principal); E11.22 Type 2 diabetes mellitus with diabetic chronic kidney disease; N18.6 End stage renal disease; Z99.2 Dependence on renal dialysis; D63.1 Anemia in chronic kidney disease; N25.81 Secondary hyperparathyroidism of renal origin; E78.5 Hyperlipidemia, unspecified; Z20.822 Contact with and (suspected) exposure to COVID-19
CPT/HCPCS: G0378; J1644

== ENCOUNTER 2022-06-26 06:47 | Observation (INO) | payer MEDICAID ==
[~2022-06-26] VITALS: Ht 165.1 cm; Wt 82.0 kg
[2022-06-26 07:04] VITALS: BP 180/81
[2022-06-26] MEDS ORDERED: EMLA CREAM5 GM/TUBE EX (07:20)
[2022-06-26 07:21] LABS: HEMATOCRIT 29.4 % (39.0-50.0); HEMOGLOBIN 9.5 g/dl (14.0-18.0); IMMATURE GRANULOCYTES 1.1 % (0.0-5.0); MEAN CORPUSCULAR HGB 32.3 pG CALC (26.0-32.0); MEAN CORPUSCULAR HGB CONC 32.3 g/dL CAL (32.0-36.0); NEUT# 4.15 thou/uL (1.82-7.42); RED BLOOD COUNT 2.94 mill/uL (4.70-6.10); RED CELL DISTRI WIDTH 13.1 % (11.5-15.5)
[2022-06-26 07:32] LABS: ALBUMIN 3.9 g/dL (3.2-5.0); BILIRUBIN, TOTAL 0.3 mg/dL (0.0-1.4); POTASSIUM 4.2 mmol/l (3.5-5.1); TOTAL PROTEIN 7.2 g/dL (6.3-8.2)
[2022-06-26 07:35] LABS: CREATININE 10.2 mg/dL (0.7-1.3)
[2022-06-26 07:39] VITALS: BP 180/81
== END 2022-06-26 12:30 | disposition left against medical advice (07) ==
LOC: ED 06:47 → ED-I 07:09 → ED 07:09 → ED-I 07:10 → ED 07:20 → MS2 07:21
PROVIDERS: Family Medicine; ADMIT Internal Medicine; ATTEND Internal Medicine
DX: I12.0 Hypertensive chronic kidney disease with stage 5 chronic kidney disease or end stage renal disease (principal); E11.22 Type 2 diabetes mellitus with diabetic chronic kidney disease; N18.6 End stage renal disease; Z99.2 Dependence on renal dialysis; D63.1 Anemia in chronic kidney disease; N25.81 Secondary hyperparathyroidism of renal origin; E78.5 Hyperlipidemia, unspecified
CPT/HCPCS: G0378; J1644

== ENCOUNTER 2022-06-28 07:06 | Observation (INO) | payer MEDICAID ==
[~2022-06-28] VITALS: Ht 165.1 cm; Wt 82.0 kg
[~2022-06-28 07:06] MED LIST changes: +EMLA CREAM5 GM/TUBE EX
--- NOTE | 2022-06-28 07:25 | NUR ---
PATIENT AMBULATED TO ROOM WITH STEADY GAIT IN NAD. DENIES COMPLAINTS AT THIS TIME AND IS HERE FOR DIALYSIS. PROVIDER MET AT BEDSIDE.
[2022-06-28 07:28] VITALS: BP 144/81
[2022-06-28 07:30] VITALS: BP 159/83
[2022-06-28 07:46] VITALS: BP 132/77
[2022-06-28 07:49] LABS: HEMATOCRIT 30.1 % (39.0-50.0); HEMOGLOBIN 9.7 g/dl (14.0-18.0); IMMATURE GRANULOCYTES 0.2 % (0.0-5.0); MEAN CELL VOLUME 99.7 fL CALC (80.0-100.0); MEAN CORPUSCULAR HGB 32.1 pG CALC (26.0-32.0); MEAN CORPUSCULAR HGB CONC 32.2 g/dL CAL (32.0-36.0); NEUT# 3.89 thou/uL (1.82-7.42); RED BLOOD COUNT 3.02 mill/uL (4.70-6.10); RED CELL DISTRI WIDTH 13.2 % (11.5-15.5)
[2022-06-28 07:58] LABS: ALBUMIN 4.1 g/dL (3.2-5.0); BILIRUBIN, TOTAL 0.4 mg/dL (0.0-1.4); TOTAL PROTEIN 7.3 g/dL (6.3-8.2)
[2022-06-28 07:59] LABS: POTASSIUM 4.1 mmol/l (3.5-5.1)
[2022-06-28 08:00] VITALS: BP 136/80
[2022-06-28 08:04] LABS: CREATININE 10.1 mg/dL (0.7-1.3)
--- NOTE | 2022-06-28 08:14 | NUR ---
PT LAYING IN BED SLEEPING AND WAITING FOR DIALYSIS ADMISSION. NO DISTRESS NOTED.
[2022-06-28 08:16] VITALS: BP 132/73
[2022-06-28 08:31] VITALS: BP 129/71
--- NOTE | 2022-06-28 08:38 | NUR ---
TRANSPORTED TO DIALYSIS, REPORT GIVEN
--- NOTE | 2022-06-28 10:49 | NUR ---
902 DIALYSIS TREATMENT INITIATED. 15 G FISTULA NEEDLES X 1 ATTEMPT, BRUIE AND THRILL NOTED. ACCESSED FISTULA WITHOUT INCIDENT, PATIENT TOLERATED. SECURED WITH TAPE. DIALYSIS LINES SECURED, VISABLE AND INTACT. V/S WNL, NO ELEVATED TEMP FROM PATIENT WEIGHT 86.3 KG. PATIENT AMBULATED TO DIALYSIS ROOM, STEADY GAIT ERECT POSTURE. DEMIES C/O OF PAIN OR DISCOMFROT AT PRESENT.
--- NOTE | 2022-06-28 11:28 | NUR ---
DIALYSIS TREATMENT CONTINUES, PATIENT TOLERATING WITHOUT INCIDENT, FISTULA LINES SECURED, INTACT, AND VISABLE. NO C/O, NO SEIZURE ACTIVITY NOTED, NO HYPOTENSION, B/P WNL, NO EDEMA NOTED. TEMP WNL.NO EVIDENCE OF TRANSFUSION REACTION, NO EVIDENCE OF LINES, CARTRIDGE FISTULA LINES CLOTTING. NO INFILTRATION OF FISTULA LINES NOTED. FISTULA ACCESS WITH BRUIE AND THRILL NOTED, NO EVIDENCE OF INFECTION. 1500 ML IF FLUID TO BE REMOVED.
--- NOTE | 2022-06-28 13:48 | NUR ---
1320 TREATMENT COMPLETE, BLOOD RETURNED, PATIENT TOLERATED TREATMENT WITHOUT INCIDENT, 15G DIALYSIS FISTULA NEEDLES REMOVED, PATIENT HELD ACCESS X 10 MINUTES. NO EVIDENCE OF SEIZURES, HUPOTENSION, ELEVATED TEMP, ARTERIAL AND VENOUS PRESSURES REMAINED WNL THROUGHOUT TREATMENT. NO PREMATURE ENDING OF TREATMENT. NO CLOTTING. PATIENT EDUCATED ON ESRD AND EPOGEN INDICATING UNDERSTANDING, HOWEVER NOT SURE OF UNDERSTANDING, NO CARDIAC ISSUES, NO EDEMA, POSITIVE PULSES NOTED, FISTULA SITE WITHOUT EVIDENCE OF INFECTION OR INFILTRATION. B/P REMAINED ADEQUATE FOR PATIENT
--- NOTE | 2022-06-28 13:53 | NUR ---
PATIENT LEFT AMA Patient decides to leave AMA. Multiple attempts made to ecourage patient to remain here for continued treatment. Explained to patient all risks of leaving against medical advice including . Pt verbalized understanding of all risks. Pt also encouraged to return to [facility] at any time, especially if symptoms continue or become worse. Pt verbalized understanding. PATIENT AMBULATED TO ER TO PRIVATE CAR TO HOME. STEADY GAIT, ERECT POSTURE
== END 2022-06-28 13:30 | disposition left against medical advice (07) ==
LOC: ED 07:06 → ED-I 07:28 → ED 07:32 → MS2 07:33
PROVIDERS: Family Medicine; ADMIT Internal Medicine; ATTEND Internal Medicine
DX: I12.0 Hypertensive chronic kidney disease with stage 5 chronic kidney disease or end stage renal disease (principal); E11.22 Type 2 diabetes mellitus with diabetic chronic kidney disease; N18.6 End stage renal disease; D63.1 Anemia in chronic kidney disease; N25.81 Secondary hyperparathyroidism of renal origin; Z99.2 Dependence on renal dialysis
CPT/HCPCS: G0378; Q5106 EC

== ENCOUNTER 2022-07-06 07:04 | Emergency (ER) | payer MEDICAID ==
[~2022-07-06] VITALS: Ht 165.1 cm; Wt 81.8 kg
[2022-07-06 07:10] VITALS: BP 164/87
[2022-07-06 07:16] VITALS: BP 176/89
[2022-07-06 07:17] VITALS: BP 176/89
== END 2022-07-06 07:32 | disposition home or self-care (01) ==
LOC: ED 07:04
DX: E11.22 Type 2 diabetes mellitus with diabetic chronic kidney disease (principal); I12.0 Hypertensive chronic kidney disease with stage 5 chronic kidney disease or end stage renal disease; N18.6 End stage renal disease; E78.5 Hyperlipidemia, unspecified; Z99.2 Dependence on renal dialysis

== ENCOUNTER 2022-07-07 06:44 | Observation (INO) | payer MEDICAID ==
[~2022-07-07] VITALS: Ht 165.1 cm; Wt 81.8 kg
--- NOTE | 2022-07-07 07:15 | NUR ---
PATIENT TO ROOM FOR TRIAGE
[2022-07-07 07:16] VITALS: BP 174/85
[2022-07-07 07:30] VITALS: BP 170/84
--- NOTE | 2022-07-07 07:30 | NUR ---
PATIENT DENIES ANY COMPLAINTS IS HERE TO DAY FOR DIALYSIS
[2022-07-07 07:38] LABS: HEMATOCRIT 31.9 % (39.0-50.0); HEMOGLOBIN 10.3 g/dl (14.0-18.0); IMMATURE GRANULOCYTES 0.4 % (0.0-5.0); MEAN CELL VOLUME 98.8 fL CALC (80.0-100.0); MEAN CORPUSCULAR HGB 31.9 pG CALC (26.0-32.0); MEAN CORPUSCULAR HGB CONC 32.3 g/dL CAL (32.0-36.0); NEUT# 4.87 thou/uL (1.82-7.42); RED BLOOD COUNT 3.23 mill/uL (4.70-6.10); RED CELL DISTRI WIDTH 13.6 % (11.5-15.5)
[2022-07-07 07:46] VITALS: BP 175/89
[2022-07-07 08:01] LABS: POTASSIUM 4.2 mmol/l (3.5-5.1)
[2022-07-07 08:22] LABS: CREATININE 11.1 mg/dL (0.7-1.3)
--- NOTE | 2022-07-07 08:37 | NUR ---
Admission Note Report Given to: BARRY VITAL Transported by: Wheelchair Stretcher Transported with: X Nurse Transporter Patent IV O2 X Blasting Coal Miner Location: ICU X MS2 DIALYSIS NURSE COME FOR PATIENT, REPORT GIVEN. PATIENT REFUSING WHEELCHAIR. HOUSE SUP AWARE. CARE RELINQUISHED.
--- NOTE | 2022-07-07 09:04 | NUR ---
DIALYSIS: PT RECEIVED ON ER, PT STABLE, ALERT, NO C/O'S, LUNGS CLEAR, NO EDEMA NOTED, AVF ON HIS LEFT ARM WITH THRILL AND BRUIT, NO S/S OF INFECTION, VSS, BP 148/81, P 75, R 17, TEMP 97.5, PT CANNULATED WITH 15G NEEDLES W/O PROBLEMS, TX STARTED UNDER ASEPTIC TECHNIQUES, TARGET SET TO 1 LT ANNALISE, WILL MONITOR HIS BP. LAB REVIEWED, HD TX CONSENT SIGNED, ORDERS GIVEN BY DR. EGAN. MACHINE- [id number] CARDTIGE- [id number] PH-7.4 COND. EXP.- 13.9 COND. ACT.- 13.9
--- NOTE | 2022-07-07 09:40 | NUR ---
DIALYSIS: CONT. PT EDUCATED ABOUT PROCEDURE, DENIES ANY PAIN
--- NOTE | 2022-07-07 12:06 | NUR ---
DIALYSYS: BLOOD RETURNED UNDER ASEPTIC TECHNIQUES, 700 ML REMOVED, VSS, NO C/O'S, DENIES ANY PAIN, AVF WITH THRILL AND BRUIT, NO BLEEDING, PT TRANSFERED TO ER. PT STABLE, ALERT.
--- NOTE | 2022-07-07 12:39 | NUR ---
Patient decides to leave AMA. Multiple attempts made to ecourage patient to remain here for continued treatment. Explained to patient all risks of leaving against medical advice including . Pt verbalized understanding of all risks. Pt also encouraged to return to [facility] at any time, especially if symptoms continue or become worse. Pt verbalized understanding.
== END 2022-07-07 11:35 | disposition left against medical advice (07) ==
LOC: ED 06:44 → ED-I 07:40 → ED 07:51 → MS2 07:52
PROVIDERS: Family Medicine; ADMIT Internal Medicine; ATTEND Internal Medicine
DX: I12.0 Hypertensive chronic kidney disease with stage 5 chronic kidney disease or end stage renal disease (principal); E11.22 Type 2 diabetes mellitus with diabetic chronic kidney disease; N18.6 End stage renal disease; E11.649 Type 2 diabetes mellitus with hypoglycemia without coma; D63.1 Anemia in chronic kidney disease; N25.81 Secondary hyperparathyroidism of renal origin; E78.5 Hyperlipidemia, unspecified; Z99.2 Dependence on renal dialysis
CPT/HCPCS: G0378

== ENCOUNTER 2022-07-09 06:48 | Observation (INO) | payer MEDICAID ==
[~2022-07-09] VITALS: Ht 165.1 cm; Wt 85.8 kg
--- NOTE | 2022-07-09 07:45 | NUR ---
PATIENT AMBULATED TO ROOM WITH STEADY EVEN GAIT IN NAD. PROVIDER MET AT BEDSIDE.
[2022-07-09 07:49] VITALS: BP 145/73
[2022-07-09 08:00] VITALS: BP 136/78
[2022-07-09 08:09] LABS: HEMATOCRIT 30.7 % (39.0-50.0); IMMATURE GRANULOCYTES 0.1 % (0.0-5.0); MEAN CELL VOLUME 97.5 fL CALC (80.0-100.0); MEAN CORPUSCULAR HGB 31.7 pG CALC (26.0-32.0); MEAN CORPUSCULAR HGB CONC 32.6 g/dL CAL (32.0-36.0); NEUT# 4.87 thou/uL (1.82-7.42); RED BLOOD COUNT 3.15 mill/uL (4.70-6.10); RED CELL DISTRI WIDTH 13.5 % (11.5-15.5)
[2022-07-09 08:26] LABS: POTASSIUM 4.3 mmol/l (3.5-5.1)
[2022-07-09 08:31] LABS: CREATININE 11.6 mg/dL (0.7-1.3)
--- NOTE | 2022-07-09 08:45 | NUR ---
Reassessment of patient completed. No distress noted.
--- NOTE | 2022-07-09 09:45 | NUR ---
Reassessment of patient completed. No distress noted.
--- NOTE | 2022-07-09 10:07 | NUR ---
PATIENT ESCORTED TO DIALYSIS ROOM UPSTAIRS AND HAND OFF REPORT PROVIDED. SAMUEL.
[2022-07-09 10:08] VITALS: BP 136/78
--- NOTE | 2022-07-09 10:32 | NUR ---
DIALYSIS: PT RECEIVED FROM ER AMBULATORY WITH RN, PT STABLE, ALERT, NO C/O'S, LUNGS CLEAR, NO EDEMA NOTED, HD TX CONSENT SIGNED, AVF WITH THRILL AND BRUIT, PT CANNULATED WITH 15G NEEDLES W/O PROBLEMS, PT WANTS TO TAKE 3 HOURS TODAY, DR. EGAN NOTIFIED, TX STARTED UNDER ASEPTIC TECHNIQUES, TARGET SET TO 1.5 LTS ANNALISE, WILL MONITOR HGIS BP. PT DENIES ANY PAIN. ORDERS RECEIVED BY DR. EGAN. BP-147/78, P-67, R-18, TEMP-96.8. PT EDUCATED ABOUT PROCEDURE. MACHINE- [id number] CARTRIDGE [id number] PH-7.2 COND. ACT.-13.7 COND. EXP.-13.9 WATER TEMP-78.6
--- NOTE | 2022-07-09 13:52 | NUR ---
DIALYSIS POST: BLOOD RETURNED UNDER ASEPTIC TECHNIQUES, 1.5 LTS REMOVED W/O PROBLEMS, AVF WITH THRILL AND BRUIT, NO BLEEDING, PT SIGNED AMA, PT EDUCATED TO COME TO ER NEED IT. PT LEFT FROM DIALYSIS AMBULATORY, PT STABLE, ALERT, NO C/O'S, DENIES ANY PAIN.
--- NOTE | 2022-07-09 15:18 | NUR ---
Patient decides to leave AMA. Multiple attempts made to ecourage patient to remain here for continued treatment. Explained to patient all risks of leaving against medical advice including . Pt verbalized understanding of all risks. Pt also encouraged to return to [facility] at any time, especially if symptoms continue or become worse. Pt verbalized understanding. Patient left at [phone]
== END 2022-07-09 13:39 | disposition left against medical advice (07) ==
LOC: ED 06:48 → ED-I 08:07 → MS2 08:41 → ED 08:41 → MS2 13:39
PROVIDERS: Family Medicine; ADMIT Internal Medicine; ATTEND Internal Medicine
DX: I12.0 Hypertensive chronic kidney disease with stage 5 chronic kidney disease or end stage renal disease (principal); E11.22 Type 2 diabetes mellitus with diabetic chronic kidney disease; N18.6 End stage renal disease; Z99.2 Dependence on renal dialysis; D63.1 Anemia in chronic kidney disease; N25.81 Secondary hyperparathyroidism of renal origin; E78.5 Hyperlipidemia, unspecified
CPT/HCPCS: G0378; J1644

== ENCOUNTER 2022-07-16 07:19 | Observation (INO) | payer MEDICAID ==
[~2022-07-16] VITALS: Ht 165.1 cm; Wt 87.0 kg
[2022-07-16 07:26] VITALS: BP 180/77
--- NOTE | 2022-07-16 07:28 | NUR ---
PATIENT AMBULATORY TO ROOM IN NAD. PROVIDER NOTIFIED OF PATIENT STATUS.
[2022-07-16 07:30] VITALS: BP 175/83
[2022-07-16 07:47] LABS: HEMATOCRIT 28.6 % (39.0-50.0); HEMOGLOBIN 9.5 g/dl (14.0-18.0); IMMATURE GRANULOCYTES 0.1 % (0.0-5.0); MEAN CELL VOLUME 95.7 fL CALC (80.0-100.0); MEAN CORPUSCULAR HGB 31.8 pG CALC (26.0-32.0); MEAN CORPUSCULAR HGB CONC 33.2 g/dL CAL (32.0-36.0); NEUT# 4.72 thou/uL (1.82-7.42); RED BLOOD COUNT 2.99 mill/uL (4.70-6.10); RED CELL DISTRI WIDTH 12.9 % (11.5-15.5)
[2022-07-16 08:00] VITALS: BP 149/71
--- NOTE | 2022-07-16 08:05 | NUR ---
Admission Note Report Given to: BARRY VITAL Transported by: Wheelchair Stretcher Transported with: X Nurse Transporter Patent IV O2 X Rn Imaging Location: ICU X MS2 DIALYSIS NURSE TO ED FOR PATIENT. PATIENT REFUSING WHEELCHAIR. CARE RELINQUISHED.
[2022-07-16 08:09] LABS: POTASSIUM 4.3 mmol/l (3.5-5.1)
[2022-07-16 08:14] LABS: CREATININE 12.6 mg/dL (0.7-1.3)
--- NOTE | 2022-07-16 08:17 | NUR ---
CRITICAL LAB CALLED IN FROM LAB. [facility]. 12.6 CALLED DIALYSIS NURSE AND INFORMED OF THE LAB LEVEL. SHE WILL INFORM MD SHE IS THE NURSE FOR THIS PATIENT.
--- NOTE | 2022-07-16 08:18 | NUR ---
Admission Note Report Given to: BARRY VITAL Transported by: Wheelchair Stretcher Transported with: X Nurse Transporter Patent IV O2 X Return Checker Location: ICU X MS2 DIALYYSIS NURSE COMES TO ED FOR PATIENT. PATIENT REFUSES WHEELCHAIR. AMBULATES TO FLOOR WITH STEADY GAIT.
--- NOTE | 2022-07-16 09:05 | NUR ---
DIALYSIS PRE: PT RECEIVED AMBULATORY FROM ER WITH LINE INSTALLER, PT STABLE, ALERT, DENIES ANY PAIN, PT WITH AVF ON HIS LEFT UPPER ARM WITH THRILL AND BRUIT, NO EDEMA NOTED, PT EDUCATED ABOUT PROCEDURE, HD TX CONSENT SIGNED, PT CANNULATED WITH 15G NEEDLES W/O PROBLEMS, TARGET SET TO 1.5 LTS ANNALISE. LUNGS CLEAR, TX STARTED UNDER ASEPTIC TECHNIQUES.WILL MONITOR HIS BP. MACHINE-[id number] CARTRIDGE [id number] PH-7.0 WATER TEMP-78.6 COND EXP.-13.9 COND ACT.-13.9
--- NOTE | 2022-07-16 13:15 | NUR ---
DIALYSIS POST: BLOOD RETURNED UNDER ASEPTIC TECHNIQUES, 1.5 LTS REMOVED W/O PROBLEMS, AVF WITH THRILL AND BRUIT, NO BLEEDING, PT DENIES ANY PAIN, VSS. AMA SIGNED. PT LEFT FROM THE UNIT AMBULATORY.
== END 2022-07-16 12:50 | disposition left against medical advice (07) ==
LOC: ED 07:19 → MS2 07:46
PROVIDERS: Family Medicine; ADMIT Internal Medicine; ATTEND Internal Medicine
DX: I12.0 Hypertensive chronic kidney disease with stage 5 chronic kidney disease or end stage renal disease (principal); E11.22 Type 2 diabetes mellitus with diabetic chronic kidney disease; N18.6 End stage renal disease; Z99.2 Dependence on renal dialysis; D63.1 Anemia in chronic kidney disease; N25.81 Secondary hyperparathyroidism of renal origin; E78.5 Hyperlipidemia, unspecified; Z20.822 Contact with and (suspected) exposure to COVID-19
CPT/HCPCS: G0378

== ENCOUNTER 2022-07-18 07:14 | Emergency (ER) | payer MEDICAID ==
[2022-07-18] VITALS (7 sets, daily range): BP systolic 135–151; BP diastolic 65–88
[~2022-07-18] VITALS: Ht 165.1 cm; Wt 82.0 kg
[2022-07-18 08:05] LABS: HEMATOCRIT 28.7 % (39.0-50.0); HEMOGLOBIN 9.4 g/dl (14.0-18.0); IMMATURE GRANULOCYTES 0.2 % (0.0-5.0); MEAN CELL VOLUME 96.6 fL CALC (80.0-100.0); MEAN CORPUSCULAR HGB 31.6 pG CALC (26.0-32.0); MEAN CORPUSCULAR HGB CONC 32.8 g/dL CAL (32.0-36.0); NEUT# 4.27 thou/uL (1.82-7.42); RED BLOOD COUNT 2.97 mill/uL (4.70-6.10); RED CELL DISTRI WIDTH 12.9 % (11.5-15.5)
[2022-07-18 08:49] LABS: ALBUMIN 4.2 g/dL (3.2-5.0); BILIRUBIN, TOTAL 0.4 mg/dL (0.0-1.4); POTASSIUM 4.1 mmol/l (3.5-5.1); TOTAL PROTEIN 7.5 g/dL (6.3-8.2)
[2022-07-18 08:56] LABS: CREATININE 11.1 mg/dL (0.7-1.3)
== END 2022-07-18 10:13 | disposition left against medical advice (07) ==
LOC: ED 07:14 → ED-I 08:30 → ED 09:11 → MS2 09:12 → ED 09:12
PROVIDERS: Emergency Medicine
DX: I12.0 Hypertensive chronic kidney disease with stage 5 chronic kidney disease or end stage renal disease (principal); E11.22 Type 2 diabetes mellitus with diabetic chronic kidney disease; N18.6 End stage renal disease
CPT/HCPCS: Q5106 EC

== ENCOUNTER 2022-08-01 07:08 | Observation (INO) | payer MEDICAID ==
[~2022-08-01] VITALS: Ht 165.1 cm; Wt 81.8 kg
[2022-08-01 07:13] VITALS: BP 156/78
[2022-08-01 07:30] VITALS: BP 163/84
[2022-08-01] MEDS ORDERED: EMLA CREAM5 GM/TUBE EX (07:30)
[2022-08-01 07:35] LABS: HEMATOCRIT 29.6 % (39.0-50.0); HEMOGLOBIN 9.7 g/dl (14.0-18.0); IMMATURE GRANULOCYTES 0.1 % (0.0-5.0); MEAN CELL VOLUME 96.7 fL CALC (80.0-100.0); MEAN CORPUSCULAR HGB 31.7 pG CALC (26.0-32.0); MEAN CORPUSCULAR HGB CONC 32.8 g/dL CAL (32.0-36.0); NEUT# 4.36 thou/uL (1.82-7.42); RED BLOOD COUNT 3.06 mill/uL (4.70-6.10); RED CELL DISTRI WIDTH 14.5 % (11.5-15.5)
[2022-08-01 07:59] LABS: POTASSIUM 4.8 mmol/l (3.5-5.1)
[2022-08-01 08:01] VITALS: BP 142/77
[2022-08-01 08:06] LABS: CREATININE 11.4 mg/dL (0.7-1.3)
[2022-08-01 09:03] VITALS: BP 142/77
== END 2022-08-01 14:00 | disposition left against medical advice (07) ==
LOC: ED 07:08 → ED-I 07:58 → ED 08:11 → MS2 08:12
PROVIDERS: Family Medicine; ADMIT Internal Medicine; ATTEND Internal Medicine
DX: I12.0 Hypertensive chronic kidney disease with stage 5 chronic kidney disease or end stage renal disease (principal); E11.22 Type 2 diabetes mellitus with diabetic chronic kidney disease; N18.6 End stage renal disease; Z99.2 Dependence on renal dialysis; D63.1 Anemia in chronic kidney disease; N25.81 Secondary hyperparathyroidism of renal origin; E78.5 Hyperlipidemia, unspecified; Z20.822 Contact with and (suspected) exposure to COVID-19
CPT/HCPCS: G0378; J1644; Q5106 EC

== ENCOUNTER 2022-08-03 06:59 | Observation (INO) | payer MEDICAID ==
[~2022-08-03] VITALS: Ht 165.1 cm; Wt 78.2 kg
[2022-08-03 07:30] LABS: HEMATOCRIT 30.4 % (39.0-50.0); HEMOGLOBIN 9.9 g/dl (14.0-18.0); IMMATURE GRANULOCYTES 0.3 % (0.0-5.0); MEAN CELL VOLUME 97.4 fL CALC (80.0-100.0); MEAN CORPUSCULAR HGB 31.7 pG CALC (26.0-32.0); MEAN CORPUSCULAR HGB CONC 32.6 g/dL CAL (32.0-36.0); NEUT# 4.2 thou/uL (1.82-7.42); RED BLOOD COUNT 3.12 mill/uL (4.70-6.10); RED CELL DISTRI WIDTH 14.6 % (11.5-15.5)
[2022-08-03 07:33] VITALS: BP 155/76
[2022-08-03 08:02] LABS: BILIRUBIN, TOTAL 0.5 mg/dL (0.0-1.4); POTASSIUM 4.3 mmol/l (3.5-5.1); TOTAL PROTEIN 7.2 g/dL (6.3-8.2)
[2022-08-03 08:07] LABS: CREATININE 10.8 mg/dL (0.7-1.3)
== END 2022-08-03 13:18 | disposition home or self-care (01) ==
LOC: ED 06:59 → ED-I 08:18 → ED 08:44 → MS2 08:45
PROVIDERS: Family Medicine; ADMIT Internal Medicine; ATTEND Internal Medicine
DX: I12.0 Hypertensive chronic kidney disease with stage 5 chronic kidney disease or end stage renal disease (principal); E11.22 Type 2 diabetes mellitus with diabetic chronic kidney disease; N18.6 End stage renal disease; Z99.2 Dependence on renal dialysis; D63.1 Anemia in chronic kidney disease; N25.81 Secondary hyperparathyroidism of renal origin
CPT/HCPCS: G0378; Q5106 EC

== ENCOUNTER 2022-08-06 07:13 | Observation (INO) | payer MEDICAID ==
[~2022-08-06] VITALS: Ht 165.1 cm; Wt 81.8 kg
[2022-08-06 07:22] VITALS: BP 153/73
[2022-08-06 07:30] VITALS: BP 155/81
[2022-08-06 07:36] LABS: HEMATOCRIT 29.3 % (39.0-50.0); HEMOGLOBIN 9.7 g/dl (14.0-18.0); IMMATURE GRANULOCYTES 0.1 % (0.0-5.0); MEAN CORPUSCULAR HGB 32.1 pG CALC (26.0-32.0); MEAN CORPUSCULAR HGB CONC 33.1 g/dL CAL (32.0-36.0); NEUT# 5.49 thou/uL (1.82-7.42); RED BLOOD COUNT 3.02 mill/uL (4.70-6.10); RED CELL DISTRI WIDTH 14.5 % (11.5-15.5)
[2022-08-06 07:57] LABS: ALBUMIN 4.2 g/dL (3.2-5.0); BILIRUBIN, TOTAL 0.6 mg/dL (0.0-1.4); TOTAL PROTEIN 7.2 g/dL (6.3-8.2)
[2022-08-06 08:00] LABS: CREATININE 12.7 mg/dL (0.7-1.3)
[2022-08-06 08:29] VITALS: BP 155/81
== END 2022-08-06 13:20 | disposition left against medical advice (07) ==
LOC: ED 07:13 → ED-I 07:50 → ED 08:07 → MS2 08:08
PROVIDERS: Family Medicine; ADMIT Internal Medicine; ATTEND Internal Medicine
DX: I12.0 Hypertensive chronic kidney disease with stage 5 chronic kidney disease or end stage renal disease (principal); E11.22 Type 2 diabetes mellitus with diabetic chronic kidney disease; N18.6 End stage renal disease; Z99.2 Dependence on renal dialysis; D63.1 Anemia in chronic kidney disease; N25.81 Secondary hyperparathyroidism of renal origin; E78.5 Hyperlipidemia, unspecified
CPT/HCPCS: G0378; Q5106 EC

== ENCOUNTER 2022-08-08 07:18 | Observation (INO) | payer MEDICAID ==
[~2022-08-08] VITALS: Ht 165.1 cm; Wt 81.8 kg
[2022-08-08 07:27] VITALS: BP 162/82
[2022-08-08 07:30] VITALS: BP 151/83
--- NOTE | 2022-08-08 07:32 | NUR ---
PATIENT AMBULATORY TO ROOM IN [facility].
[2022-08-08 07:55] LABS: HEMATOCRIT 29.5 % (39.0-50.0); HEMOGLOBIN 9.8 g/dl (14.0-18.0); IMMATURE GRANULOCYTES 0.2 % (0.0-5.0); MEAN CELL VOLUME 96.7 fL CALC (80.0-100.0); MEAN CORPUSCULAR HGB 32.1 pG CALC (26.0-32.0); MEAN CORPUSCULAR HGB CONC 33.2 g/dL CAL (32.0-36.0); NEUT# 4.07 thou/uL (1.82-7.42); RED BLOOD COUNT 3.05 mill/uL (4.70-6.10); RED CELL DISTRI WIDTH 14.6 % (11.5-15.5)
[2022-08-08 08:01] VITALS: BP 158/82
[2022-08-08 08:18] LABS: ALBUMIN 4.3 g/dL (3.2-5.0); BILIRUBIN, TOTAL 0.4 mg/dL (0.0-1.4); POTASSIUM 4.4 mmol/l (3.5-5.1); TOTAL PROTEIN 7.1 g/dL (6.3-8.2)
[2022-08-08 08:23] LABS: CREATININE 11.1 mg/dL (0.7-1.3)
--- NOTE | 2022-08-08 08:30 | NUR ---
Reassessment of patient completed. No distress noted.
[2022-08-08 08:31] VITALS: BP 171/83
[2022-08-08 08:57] VITALS: BP 171/83
--- NOTE | 2022-08-08 08:57 | NUR ---
Admission Note Report Given to: BARRY VITAL Transported by: X Wheelchair Stretcher Transported with: X Nurse Transporter Patent IV O2 X Garment Parts Cutter Machine Location: ICU X MS2
--- NOTE | 2022-08-08 09:27 | NUR ---
DIALYSIS PRE: PT RECEIVED FROM ER AMBULATORY WITH RN, PT STABLE, ALERT, NO C/O'S, LUNGS CLEAR, NO EDEMA NOTED, PT WITH AVF ON HIS LEFT UPPER ARM WITH THRILL AND BRUIT, PT EDUACTED ABOUT PROCEDURE, HD TX CONSENT SIGNED, ORDERS RECEIVED BY DR. EGAN. PT DENIES ANY PAIN, PT CANNULATED WITH 15G NEEDLES W/O PROBLEMS, TARGET SET TO 1 LT. PT REQUESTED TO TAKE 3.5 HOURS. TX STARTED UNDER ASEPTIC TECHNIQUES, VSS BP 145/83 P 74 R 20 TEMP 96.5. MACHINE-[id number] CARTRIDGE [id number] PH-7.2 COND ACT-13.9 COND EXP-13.9 WATER TEMP-89.6
--- NOTE | 2022-08-08 13:01 | NUR ---
DIALYSIS POST: DR EGAN ROUNDED, BLOOD RETURNED UNDER ASEPTIC TECHNIQUES, 1 LT REMOVED W/O PROBLEMS, AVF HELD BY 10 MIN, NO BLEEDING, VSS BP 152/75 P 67 R 20 TEMP 97.6 WEIGHT 85KG. AMA SIGNED, PT LEFT FROM THE UNIT AMBULATORY WITH FOOD PREPARER. PT DENIES ANY PAIN.
== END 2022-08-08 12:55 | disposition left against medical advice (07) ==
LOC: ED 07:18 → ED-I 08:15 → ED 08:28 → MS2 08:29
PROVIDERS: Family Medicine; ADMIT Internal Medicine; ATTEND Internal Medicine
DX: I12.0 Hypertensive chronic kidney disease with stage 5 chronic kidney disease or end stage renal disease (principal); E11.22 Type 2 diabetes mellitus with diabetic chronic kidney disease; N18.6 End stage renal disease; Z99.2 Dependence on renal dialysis; D63.1 Anemia in chronic kidney disease; N25.81 Secondary hyperparathyroidism of renal origin; E78.5 Hyperlipidemia, unspecified
CPT/HCPCS: G0378; J1644; Q5106 EC

== ENCOUNTER 2022-08-10 06:30 | Observation (INO) | payer MEDICAID ==
[~2022-08-10] VITALS: Ht 165.1 cm; Wt 81.6 kg
[2022-08-10 07:18] VITALS: BP 200/90
[2022-08-10 07:19] VITALS: BP 208/95
[2022-08-10 08:15] LABS: HEMATOCRIT 28.7 % (39.0-50.0); HEMOGLOBIN 9.5 g/dl (14.0-18.0); IMMATURE GRANULOCYTES 0.2 % (0.0-5.0); MEAN CORPUSCULAR HGB 32.4 pG CALC (26.0-32.0); MEAN CORPUSCULAR HGB CONC 33.1 g/dL CAL (32.0-36.0); NEUT# 3.99 thou/uL (1.82-7.42); RED BLOOD COUNT 2.93 mill/uL (4.70-6.10); RED CELL DISTRI WIDTH 15.2 % (11.5-15.5)
[2022-08-10 08:35] LABS: ALBUMIN 4.1 g/dL (3.2-5.0); BILIRUBIN, TOTAL 0.5 mg/dL (0.0-1.4); TOTAL PROTEIN 7.1 g/dL (6.3-8.2)
[2022-08-10 11:39] VITALS: BP 156/86
== END 2022-08-10 14:15 | disposition left against medical advice (07) ==
LOC: ED 06:30 → ED-I 09:27 → MS2 09:39 → ED 09:39 → MS2 14:15
PROVIDERS: Family Medicine; ADMIT Internal Medicine; ATTEND Internal Medicine
DX: I12.0 Hypertensive chronic kidney disease with stage 5 chronic kidney disease or end stage renal disease (principal); E11.22 Type 2 diabetes mellitus with diabetic chronic kidney disease; N18.6 End stage renal disease; I16.0 Hypertensive urgency; E21.3 Hyperparathyroidism, unspecified; D63.1 Anemia in chronic kidney disease; Z99.2 Dependence on renal dialysis
CPT/HCPCS: G0378; J1644; Q5106 EC

== ENCOUNTER 2022-08-13 06:38 | Observation (INO) | payer MEDICAID ==
[~2022-08-13] VITALS: Ht 165.1 cm; Wt 89.0 kg
[2022-08-13 07:35] LABS: HEMATOCRIT 30.3 % (39.0-50.0); IMMATURE GRANULOCYTES 0.2 % (0.0-5.0); MEAN CELL VOLUME 97.4 fL CALC (80.0-100.0); MEAN CORPUSCULAR HGB 32.2 pG CALC (26.0-32.0); NEUT# 4.09 thou/uL (1.82-7.42); RED BLOOD COUNT 3.11 mill/uL (4.70-6.10); RED CELL DISTRI WIDTH 15.2 % (11.5-15.5)
[2022-08-13 07:48] LABS: ALBUMIN 4.3 g/dL (3.2-5.0); BILIRUBIN, TOTAL 0.5 mg/dL (0.0-1.4); POTASSIUM 4.5 mmol/l (3.5-5.1); TOTAL PROTEIN 6.9 g/dL (6.3-8.2)
[2022-08-13 07:57] LABS: CREATININE 12.8 mg/dL (0.7-1.3)
[2022-08-13 09:28] VITALS: BP 151/72
== END 2022-08-13 14:00 | disposition left against medical advice (07) ==
LOC: ED 06:38 → ED-I 07:50 → MS2 08:13 → ED 08:13 → MS2 14:00
PROVIDERS: Family Medicine; ADMIT Internal Medicine; ATTEND Internal Medicine
DX: I12.0 Hypertensive chronic kidney disease with stage 5 chronic kidney disease or end stage renal disease (principal); E11.22 Type 2 diabetes mellitus with diabetic chronic kidney disease; N18.6 End stage renal disease; Z99.2 Dependence on renal dialysis; D63.1 Anemia in chronic kidney disease; N25.81 Secondary hyperparathyroidism of renal origin
CPT/HCPCS: G0378; J1644; Q5106 EC

== ENCOUNTER 2022-08-15 06:38 | Observation (INO) | payer MEDICAID ==
[~2022-08-15] VITALS: Ht 165.1 cm; Wt 81.0 kg
[2022-08-15 07:18] LABS: HEMATOCRIT 31.1 % (39.0-50.0); HEMOGLOBIN 10.1 g/dl (14.0-18.0); IMMATURE GRANULOCYTES 0.2 % (0.0-5.0); MEAN CELL VOLUME 97.5 fL CALC (80.0-100.0); MEAN CORPUSCULAR HGB 31.7 pG CALC (26.0-32.0); MEAN CORPUSCULAR HGB CONC 32.5 g/dL CAL (32.0-36.0); NEUT# 4.4 thou/uL (1.82-7.42); RED BLOOD COUNT 3.19 mill/uL (4.70-6.10); RED CELL DISTRI WIDTH 14.9 % (11.5-15.5)
[2022-08-15 07:53] LABS: ALBUMIN 4.3 g/dL (3.2-5.0); BILIRUBIN, TOTAL 0.3 mg/dL (0.0-1.4); POTASSIUM 4.4 mmol/l (3.5-5.1); TOTAL PROTEIN 6.9 g/dL (6.3-8.2)
[2022-08-15 08:00] LABS: CREATININE 11.6 mg/dL (0.7-1.3)
[2022-08-15 11:18] VITALS: BP 173/88
== END 2022-08-15 12:53 | disposition left against medical advice (07) ==
LOC: ED 06:38 → ED-I 07:50 → ED 08:07 → MS2 08:08 → ED 08:08 → MS2 08:25 → ED 08:37 → MS2 12:53
PROVIDERS: Family Medicine; ADMIT Internal Medicine; ATTEND Internal Medicine
DX: I12.0 Hypertensive chronic kidney disease with stage 5 chronic kidney disease or end stage renal disease (principal); E11.22 Type 2 diabetes mellitus with diabetic chronic kidney disease; N18.6 End stage renal disease; Z99.2 Dependence on renal dialysis; D63.1 Anemia in chronic kidney disease; N25.81 Secondary hyperparathyroidism of renal origin; E78.5 Hyperlipidemia, unspecified
CPT/HCPCS: G0378

== ENCOUNTER 2022-08-17 06:58 | Observation (INO) | payer MEDICAID ==
[2022-08-17] VITALS (7 sets, daily range): BP systolic 141–180; BP diastolic 70–90
[~2022-08-17] VITALS: Ht 165.1 cm; Wt 88.2 kg
[2022-08-17 07:30] LABS: HEMATOCRIT 33.2 % (39.0-50.0); HEMOGLOBIN 10.9 g/dl (14.0-18.0); IMMATURE GRANULOCYTES 0.1 % (0.0-5.0); MEAN CELL VOLUME 97.6 fL CALC (80.0-100.0); MEAN CORPUSCULAR HGB 32.1 pG CALC (26.0-32.0); MEAN CORPUSCULAR HGB CONC 32.8 g/dL CAL (32.0-36.0); NEUT# 4.53 thou/uL (1.82-7.42); RED BLOOD COUNT 3.4 mill/uL (4.70-6.10)
[2022-08-17 07:51] LABS: ALBUMIN 4.9 g/dL (3.2-5.0); BILIRUBIN, TOTAL 0.4 mg/dL (0.0-1.4); TOTAL PROTEIN 7.7 g/dL (6.3-8.2)
[2022-08-17 07:53] LABS: POTASSIUM 4.4 mmol/l (3.5-5.1)
[2022-08-17 07:55] LABS: CREATININE 11.1 mg/dL (0.7-1.3)
== END 2022-08-17 12:44 | disposition left against medical advice (07) ==
LOC: ED 06:58 → ED-I 08:11 → ED 08:14 → MS2 08:14
PROVIDERS: Family Medicine; ADMIT Internal Medicine; ATTEND Internal Medicine
DX: I12.0 Hypertensive chronic kidney disease with stage 5 chronic kidney disease or end stage renal disease (principal); E11.22 Type 2 diabetes mellitus with diabetic chronic kidney disease; N18.6 End stage renal disease; Z99.2 Dependence on renal dialysis; D63.1 Anemia in chronic kidney disease; N25.81 Secondary hyperparathyroidism of renal origin
CPT/HCPCS: G0378

== ENCOUNTER 2022-08-20 07:10 | Observation (INO) | payer MEDICAID ==
[~2022-08-20] VITALS: Ht 165.1 cm; Wt 83.9 kg
[2022-08-20 07:24] VITALS: BP 187/79
[2022-08-20 07:31] VITALS: BP 179/88
[2022-08-20 07:32] LABS: HEMOGLOBIN 9.9 g/dl (14.0-18.0); IMMATURE GRANULOCYTES 0.2 % (0.0-5.0); MEAN CELL VOLUME 95.8 fL CALC (80.0-100.0); MEAN CORPUSCULAR HGB 31.6 pG CALC (26.0-32.0); NEUT# 3.86 thou/uL (1.82-7.42); RED BLOOD COUNT 3.13 mill/uL (4.70-6.10); RED CELL DISTRI WIDTH 14.4 % (11.5-15.5)
[2022-08-20 07:44] LABS: ANION GAP 22 (6-22 (CALC)); BUN 71 mg/dL (9-20); CARBON DIOXIDE 21 mmol/l (22-30); CHLORIDE 99 mmol/l (95-108); POTASSIUM 4.8 mmol/l (3.5-5.1); SODIUM 137 mmol/l (137-146)
[2022-08-20 08:02] LABS: BUN/CREATININE RATIO 5 (12-20 (CALC)); GFR FOR AFR.AMER. 4 ML/MIN (>=60 (CALC)); GFR OTHER RACES 4 ML/MIN (>=60 (CALC))
[2022-08-20 08:03] LABS: CREATININE > 14.0 mg/dL (0.7-1.3)
[2022-08-20 08:11] VITALS: BP 187/79
== END 2022-08-20 12:16 | disposition left against medical advice (07) ==
LOC: ED 07:10 → ED-I 07:34 → ED 07:34 → MS2 07:45
PROVIDERS: Family Medicine; ADMIT Internal Medicine; ATTEND Internal Medicine
DX: I12.0 Hypertensive chronic kidney disease with stage 5 chronic kidney disease or end stage renal disease (principal); E11.22 Type 2 diabetes mellitus with diabetic chronic kidney disease; N18.6 End stage renal disease; D63.1 Anemia in chronic kidney disease; E78.5 Hyperlipidemia, unspecified; Z99.2 Dependence on renal dialysis; Z20.822 Contact with and (suspected) exposure to COVID-19
CPT/HCPCS: G0378; Q5106 EC

== ENCOUNTER 2022-08-22 06:50 | Observation (INO) | payer MEDICAID ==
[~2022-08-22] VITALS: Ht 165.1 cm; Wt 81.8 kg
[2022-08-22] VITALS (9 sets, daily range): BP systolic 153–183; BP diastolic 74–91
--- NOTE | 2022-08-22 07:05 | NUR ---
PT TO ROOM WITH STEADY GAIT
[2022-08-22 07:32] LABS: HEMATOCRIT 30.1 % (39.0-50.0); IMMATURE GRANULOCYTES 0.3 % (0.0-5.0); MEAN CELL VOLUME 95.6 fL CALC (80.0-100.0); MEAN CORPUSCULAR HGB 31.7 pG CALC (26.0-32.0); MEAN CORPUSCULAR HGB CONC 33.2 g/dL CAL (32.0-36.0); NEUT# 3.89 thou/uL (1.82-7.42); RED BLOOD COUNT 3.15 mill/uL (4.70-6.10)
[2022-08-22 08:48] LABS: ALBUMIN 4.7 g/dL (3.2-5.0); BILIRUBIN, TOTAL 0.4 mg/dL (0.0-1.4); POTASSIUM 4.5 mmol/l (3.5-5.1); TOTAL PROTEIN 7.7 g/dL (6.3-8.2)
[2022-08-22 08:54] LABS: CREATININE 11.9 mg/dL (0.7-1.3)
--- NOTE | 2022-08-22 08:54 | NUR ---
Reassessment of patient completed. No distress noted.
[2022-08-22] MEDS ORDERED: APRESOLINE50 MG PO (09:09)
[2022-08-22] MEDS ORDERED: HYDRALAZINE HYD50 MG PO (09:10)
--- NOTE | 2022-08-22 09:24 | NUR ---
PT TRANSFERED TO RM 286, REPORT GIVEN TO RN.
--- NOTE | 2022-08-22 10:17 | NUR ---
PRE-DIALYSIS NOTE: PT ARRIVES AMBULATORY, ACCOMPANIED BY TRAIN ATTENDANT. VERBAL REPORT RECEIVED, CARE OF PT ASSUMED AT THIS TIME. FOR HEMODIALYSIS TREATMENT. CONSENT HAS BEEN OBTAINED AND SIGNED BY PHYSICIAN. TREATMENT ORDERS OBTAINED FROM DR. CYR. EDUCATION PROVIDED VERBALLY, ALLOWING TIME FOR PT TO ASK ANY QUESTIONS. PT VERBALIZES UNDERSTANDING AND DENIES FURTHER QUESTIONS. LABS REVIEWED. WEIGHT: 88.2 KG VS: 181/84 mmH 69 bpm 20 RR/MIN 97.6 F HD ACCESS: PT WITH AVF ON HIS LEFT UPPER ARM WITH THRILL AND BRUIT, PT CANNULATED WITH 15G NEEDLES W/O PROBLEMS HEMODIALYSIS TREATMENT INITIATED AT 0936 WITHOUT DIFFICULTY OR COMPLICATION. PT TOLERATED PROCEDURE WELL. WILL REMAIN WITH PT FOR MONITORING. TX STARTED UNDER ASEPTIC TECHNIQUES, [employer] SET TO 2 LTS ANNALISE. LUNGS CLEAR, NO EDEMA NOTED, PT DENIES ANY PAIN, WILL MONITOR HIS BP. MACHINE # [id number] DIALYZER F [id number] CARTRIDGE LOT - [id number] PH - 7.2 COND. EXP. - 13.7 COND. ACT. - 13.8 WATER TEMP - 88.2 F
--- NOTE | 2022-08-22 13:32 | NUR ---
BLOOD RETURNED UNDER ASEPTIC TECHNIQUES, AVF HEL BY 10 MIN, NO BLEEDING, 2 LTS REMOVED W/O PROBLEMS, DR. JULISA ORTA, AMA SIGNED, BP 111/61 P 66 R 20 TEMP 96.9 F, PT DENIES ANY PAIN. PT LEFT FROM THE UNIT AMBULATORY.
== END 2022-08-22 13:32 | disposition left against medical advice (07) ==
LOC: ED 06:50 → ED-I 08:15 → ED 09:00 → MS2 09:01
PROVIDERS: Emergency Medicine; ADMIT Internal Medicine; ATTEND Internal Medicine
DX: I12.0 Hypertensive chronic kidney disease with stage 5 chronic kidney disease or end stage renal disease (principal); E11.22 Type 2 diabetes mellitus with diabetic chronic kidney disease; N18.6 End stage renal disease; Z99.2 Dependence on renal dialysis; D63.1 Anemia in chronic kidney disease; N25.81 Secondary hyperparathyroidism of renal origin; E78.5 Hyperlipidemia, unspecified
CPT/HCPCS: G0378

== ENCOUNTER 2022-08-24 07:11 | Observation (INO) | payer MEDICAID ==
[~2022-08-24] VITALS: Ht 165.1 cm; Wt 81.0 kg
[~2022-08-24 07:11] MED LIST changes: +APRESOLINE50 MG PO; +HYDRALAZINE HYD50 MG PO
[2022-08-24 07:21] VITALS: BP 159/81
[2022-08-24 07:46] LABS: HEMOGLOBIN 10.4 g/dl (14.0-18.0); IMMATURE GRANULOCYTES 0.1 % (0.0-5.0); MEAN CELL VOLUME 97.9 fL CALC (80.0-100.0); MEAN CORPUSCULAR HGB 31.8 pG CALC (26.0-32.0); MEAN CORPUSCULAR HGB CONC 32.5 g/dL CAL (32.0-36.0); NEUT# 4.49 thou/uL (1.82-7.42); RED BLOOD COUNT 3.27 mill/uL (4.70-6.10)
[2022-08-24 08:09] LABS: ALBUMIN 4.6 g/dL (3.2-5.0); BILIRUBIN, TOTAL 0.4 mg/dL (0.0-1.4); POTASSIUM 4.5 mmol/l (3.5-5.1); TOTAL PROTEIN 7.6 g/dL (6.3-8.2)
[2022-08-24 08:11] LABS: CREATININE 11.1 mg/dL (0.7-1.3)
[2022-08-24 09:29] VITALS: BP 159/81
== END 2022-08-24 13:46 | disposition left against medical advice (07) ==
LOC: ED 07:11 → MS2 08:55
PROVIDERS: Emergency Medicine; ADMIT Internal Medicine; ATTEND Internal Medicine
DX: I12.0 Hypertensive chronic kidney disease with stage 5 chronic kidney disease or end stage renal disease (principal); E11.22 Type 2 diabetes mellitus with diabetic chronic kidney disease; N18.6 End stage renal disease; Z99.2 Dependence on renal dialysis; D63.1 Anemia in chronic kidney disease; N25.81 Secondary hyperparathyroidism of renal origin; E78.5 Hyperlipidemia, unspecified
CPT/HCPCS: G0378

== ENCOUNTER 2022-08-26 07:08 | Observation (INO) | payer MEDICAID ==
[~2022-08-26] VITALS: Ht 165.1 cm; Wt 86.0 kg
[2022-08-26 07:14] VITALS: BP 155/75
[2022-08-26 07:31] VITALS: BP 156/66
[2022-08-26 07:59] LABS: HEMATOCRIT 31.2 % (39.0-50.0); HEMOGLOBIN 10.2 g/dl (14.0-18.0); IMMATURE GRANULOCYTES 0.1 % (0.0-5.0); MEAN CELL VOLUME 97.5 fL CALC (80.0-100.0); MEAN CORPUSCULAR HGB 31.9 pG CALC (26.0-32.0); MEAN CORPUSCULAR HGB CONC 32.7 g/dL CAL (32.0-36.0); NEUT# 4.47 thou/uL (1.82-7.42); RED BLOOD COUNT 3.2 mill/uL (4.70-6.10); RED CELL DISTRI WIDTH 13.7 % (11.5-15.5)
[2022-08-26 08:00] VITALS: BP 135/69
[2022-08-26 08:17] LABS: ALBUMIN 4.4 g/dL (3.2-5.0); BILIRUBIN, TOTAL 0.4 mg/dL (0.0-1.4); TOTAL PROTEIN 7.8 g/dL (6.3-8.2)
[2022-08-26 08:20] LABS: CREATININE 11.1 mg/dL (0.7-1.3)
[2022-08-26 08:30] VITALS: BP 136/68
[2022-08-26 09:37] VITALS: BP 136/68
== END 2022-08-26 13:25 | disposition left against medical advice (07) ==
LOC: ED 07:08 → ED-I 08:05 → ED 08:26 → MS2 08:27
PROVIDERS: Family Medicine; ADMIT Internal Medicine; ATTEND Internal Medicine
DX: I12.0 Hypertensive chronic kidney disease with stage 5 chronic kidney disease or end stage renal disease (principal); E11.22 Type 2 diabetes mellitus with diabetic chronic kidney disease; N18.6 End stage renal disease; Z99.2 Dependence on renal dialysis; E78.5 Hyperlipidemia, unspecified; D63.1 Anemia in chronic kidney disease; N25.81 Secondary hyperparathyroidism of renal origin; Z20.822 Contact with and (suspected) exposure to COVID-19
CPT/HCPCS: G0378; J1644; Q5106 EC

== ENCOUNTER 2022-08-27 07:25 | Observation (INO) | payer MEDICAID ==
[~2022-08-27] VITALS: Ht 165.1 cm; Wt 81.8 kg
[2022-08-27 07:34] VITALS: BP 152/80
[2022-08-27 08:01] LABS: HEMATOCRIT 31.3 % (39.0-50.0); HEMOGLOBIN 10.3 g/dl (14.0-18.0); IMMATURE GRANULOCYTES 0.3 % (0.0-5.0); MEAN CORPUSCULAR HGB 31.6 pG CALC (26.0-32.0); MEAN CORPUSCULAR HGB CONC 32.9 g/dL CAL (32.0-36.0); NEUT# 4.59 thou/uL (1.82-7.42); RED BLOOD COUNT 3.26 mill/uL (4.70-6.10); RED CELL DISTRI WIDTH 13.8 % (11.5-15.5)
[2022-08-27 08:09] LABS: ALBUMIN 4.6 g/dL (3.2-5.0); BILIRUBIN, TOTAL 0.3 mg/dL (0.0-1.4); POTASSIUM 3.9 mmol/l (3.5-5.1); TOTAL PROTEIN 8.3 g/dL (6.3-8.2)
[2022-08-27 08:24] LABS: CREATININE 8.7 mg/dL (0.7-1.3)
== END 2022-08-27 12:20 | disposition left against medical advice (07) ==
LOC: ED 07:25 → ED-I 08:25 → ED 08:39 → MS2 08:40
PROVIDERS: Family Medicine; ADMIT Internal Medicine; ATTEND Internal Medicine
DX: I12.0 Hypertensive chronic kidney disease with stage 5 chronic kidney disease or end stage renal disease (principal); E11.22 Type 2 diabetes mellitus with diabetic chronic kidney disease; N18.6 End stage renal disease; Z99.2 Dependence on renal dialysis; D63.1 Anemia in chronic kidney disease; E78.5 Hyperlipidemia, unspecified
CPT/HCPCS: G0378; J1644; Q5106 EC

== ENCOUNTER 2022-09-02 07:08 | Observation (INO) | payer MEDICAID ==
[~2022-09-02] VITALS: Ht 165.1 cm; Wt 82.0 kg
[2022-09-02 07:29] LABS: HEMATOCRIT 29.7 % (39.0-50.0); HEMOGLOBIN 9.8 g/dl (14.0-18.0); IMMATURE GRANULOCYTES 0.1 % (0.0-5.0); MEAN CELL VOLUME 97.4 fL CALC (80.0-100.0); MEAN CORPUSCULAR HGB 32.1 pG CALC (26.0-32.0); NEUT# 4.44 thou/uL (1.82-7.42); RED BLOOD COUNT 3.05 mill/uL (4.70-6.10); RED CELL DISTRI WIDTH 13.8 % (11.5-15.5)
[2022-09-02 08:02] LABS: ALBUMIN 4.3 g/dL (3.2-5.0); BILIRUBIN, TOTAL 0.5 mg/dL (0.0-1.4); POTASSIUM 4.5 mmol/l (3.5-5.1); TOTAL PROTEIN 7.2 g/dL (6.3-8.2)
[2022-09-02 08:14] LABS: CREATININE 14.7 mg/dL (0.7-1.3)
--- NOTE | 2022-09-02 08:55 | NUR ---
PT TO DIALYSIS
--- NOTE | 2022-09-02 09:00 | NUR ---
PATIENT TO DEPARTMENT. NO REPORT RECEIVED. VSS. PT AWARE OF WAIT TIME. CALL RAYO WITHIN REACH.
[2022-09-02 09:15] VITALS: BP 115/56
--- NOTE | 2022-09-02 11:00 | NUR ---
PATIENT AWARE OF WAIT TIME FOR DIALYSIS. HE WOULD LIKE TO LEAVE AMA AND COME BACK AT A LATER TIME TODAY. DISCUSSED THE RISKS OF LEAVING WITH HIM AND HE STILL CHOSE TO LEAVE. PATIENT AMBULATED OUT OF DEPT WITH A STEADY GAIT.
== END 2022-09-02 11:00 | disposition left against medical advice (07) ==
LOC: ED 07:08 → ED-I 08:24 → ED 08:24 → ANR-I 08:31
PROVIDERS: Family Medicine; ADMIT Internal Medicine; ATTEND Internal Medicine
DX: I12.0 Hypertensive chronic kidney disease with stage 5 chronic kidney disease or end stage renal disease (principal); N18.6 End stage renal disease; E11.22 Type 2 diabetes mellitus with diabetic chronic kidney disease; Z99.2 Dependence on renal dialysis; Z53.8 Procedure and treatment not carried out for other reasons
CPT/HCPCS: G0378

== ENCOUNTER 2022-09-02 18:25 | Observation (INO) | payer MEDICAID ==
[~2022-09-02] VITALS: Ht 165.1 cm; Wt 80.0 kg
[2022-09-02 18:40] VITALS: BP 148/75
== END 2022-09-03 04:00 | disposition home or self-care (01) ==
LOC: WW 18:25 → ANR-I 18:40 → WW 18:59 → ANR-I 19:00
PROVIDERS: ADMIT Internal Medicine; ATTEND Internal Medicine
DX: I12.0 Hypertensive chronic kidney disease with stage 5 chronic kidney disease or end stage renal disease (principal); E11.22 Type 2 diabetes mellitus with diabetic chronic kidney disease; N18.6 End stage renal disease; Z99.2 Dependence on renal dialysis; D63.1 Anemia in chronic kidney disease
CPT/HCPCS: G0378; J1644

== ENCOUNTER → 2022-09-02 | Emergency (ER) | payer MEDICAID ==
--- NOTE | 2022-09-02 18:24 | NUR ---
pt ambulated to room for bedside triage.
== END | disposition home or self-care (01) ==
LOC: ED 14:46
DX: I12.0 Hypertensive chronic kidney disease with stage 5 chronic kidney disease or end stage renal disease (principal); E11.22 Type 2 diabetes mellitus with diabetic chronic kidney disease; N18.6 End stage renal disease; Z99.2 Dependence on renal dialysis

== ENCOUNTER 2022-09-04 07:24 | Observation (INO) | payer MEDICAID ==
[~2022-09-04] VITALS: Ht 165.1 cm; Wt 88.0 kg
[2022-09-04 07:34] VITALS: BP 162/76
[2022-09-04 07:55] LABS: HEMATOCRIT 28.7 % (39.0-50.0); HEMOGLOBIN 9.4 g/dl (14.0-18.0); MEAN CORPUSCULAR HGB 32.1 pG CALC (26.0-32.0); MEAN CORPUSCULAR HGB CONC 32.8 g/dL CAL (32.0-36.0); NEUT# 4.12 thou/uL (1.82-7.42); RED BLOOD COUNT 2.93 mill/uL (4.70-6.10); RED CELL DISTRI WIDTH 13.8 % (11.5-15.5)
[2022-09-04 08:03] LABS: POTASSIUM 4.5 mmol/l (3.5-5.1)
[2022-09-04 08:07] LABS: CREATININE 13.7 mg/dL (0.7-1.3)
[2022-09-04 09:08] VITALS: BP 172/70
== END 2022-09-04 12:00 | disposition left against medical advice (07) ==
LOC: ED 07:24 → ED-I 07:53 → ED 07:53 → MS2 08:25 → ED 08:25 → MS2 12:00
PROVIDERS: Family Medicine; ADMIT Internal Medicine; ATTEND Internal Medicine
DX: I12.0 Hypertensive chronic kidney disease with stage 5 chronic kidney disease or end stage renal disease (principal); E11.22 Type 2 diabetes mellitus with diabetic chronic kidney disease; N18.6 End stage renal disease; Z99.2 Dependence on renal dialysis; D63.1 Anemia in chronic kidney disease; N25.81 Secondary hyperparathyroidism of renal origin; E78.5 Hyperlipidemia, unspecified
CPT/HCPCS: G0378; Q5106 EC

== ENCOUNTER 2022-09-06 07:07 | Observation (INO) | payer MEDICAID ==
[~2022-09-06] VITALS: Ht 165.1 cm; Wt 81.8 kg
[2022-09-06 07:23] VITALS: BP 161/81
--- NOTE | 2022-09-06 07:26 | NUR ---
PATIENT AMBULATORY TO ROOM IN [facility].
[2022-09-06 07:30] VITALS: BP 138/70
[2022-09-06 07:31] LABS: HEMOGLOBIN 9.9 g/dl (14.0-18.0); IMMATURE GRANULOCYTES 0.5 % (0.0-5.0); MEAN CELL VOLUME 97.4 fL CALC (80.0-100.0); MEAN CORPUSCULAR HGB 32.1 pG CALC (26.0-32.0); NEUT# 3.59 thou/uL (1.82-7.42); RED BLOOD COUNT 3.08 mill/uL (4.70-6.10); RED CELL DISTRI WIDTH 13.4 % (11.5-15.5)
[2022-09-06 08:01] VITALS: BP 121/64
[2022-09-06 08:05] LABS: POTASSIUM 4.7 mmol/l (3.5-5.1)
[2022-09-06 08:15] LABS: CREATININE 14.8 mg/dL (0.7-1.3)
[2022-09-06 08:30] VITALS: BP 120/65
--- NOTE | 2022-09-06 08:30 | NUR ---
Reassessment of patient completed. No distress noted.
[2022-09-06 09:00] VITALS: BP 111/62
[2022-09-06 10:30] VITALS: BP 111/62
== END 2022-09-06 10:07 | disposition left against medical advice (07) ==
LOC: ED 07:07 → ED-I 08:12 → ED 08:40 → MS2 08:41
PROVIDERS: Family Medicine; ADMIT Internal Medicine; ATTEND Internal Medicine
DX: I12.0 Hypertensive chronic kidney disease with stage 5 chronic kidney disease or end stage renal disease (principal); E11.22 Type 2 diabetes mellitus with diabetic chronic kidney disease; N18.6 End stage renal disease; Z99.2 Dependence on renal dialysis; E78.5 Hyperlipidemia, unspecified; N25.81 Secondary hyperparathyroidism of renal origin; D63.1 Anemia in chronic kidney disease
CPT/HCPCS: G0378

== ENCOUNTER 2022-09-06 12:04 | Observation (INO) | payer MEDICAID ==
[2022-09-06] VITALS (14 sets, daily range): BP systolic 97–169; BP diastolic 59–106
[~2022-09-06] VITALS: Ht 165.1 cm; Wt 83.9 kg
--- NOTE | 2022-09-06 12:17 | NUR ---
PATIENT AMBULATORY TO ROOM IN NAD. PROVIDER NOTIFIED
--- NOTE | 2022-09-06 13:15 | NUR ---
Reassessment of patient completed. No distress noted.
--- NOTE | 2022-09-06 13:47 | NUR ---
TRANSPORTED PATIENT UPSTAIRS TO DIALYSIS ROOM 286. BEDSIDE REPORT GIVEN. PATIENT AMBULATORY AND IN NAD.
--- NOTE | 2022-09-06 17:00 | NUR ---
Patient decides to leave AMA. Multiple attempts made to ecourage patient to remain here for continued treatment. Explained to patient all risks of leaving against medical advice including . Pt verbalized understanding of all risks. Pt also encouraged to return to [facility] at any time, especially if symptoms continue or become worse. Pt verbalized understanding.
--- NOTE | 2022-09-06 17:00 | NUR ---
DIALYSIS NOTE START TIME:1359 END TIME:1646 TIME COMPLETED:2.5 HOURS FLUID REMOVED:1999 PRE TX WEIGHT:57.6KG POST TX WEIGHT:55.6KG TAB SERIAL #[id number] PH: 7.3 WATER TEMP: 88.5F EXPECTED CONDUCTIVITY: 13.7 R/O REJECTION:99% ACTUAL CONDUCTIVITY: 13.8 DIALYZER: OPTIFLUX 200NR HEP B ANTIGEN:NEGATIVE 08/06/22 HEP B ANTIBODY:<5 06/17/22 PRE TX VS: 164/80mmHg HR 73bpm T 97.2F POST TX VS: 107/59mmHg HR 71bpm T 97.2F INFORMED CONSENT SIGNED BY PATIENT AND DR. EGAN, WITNESSED BY Howie GOMEZ RN. LABS REVIEWED, ASSESMENT COMPLETED. ORDERS FOR HEMODIALYSIS OBTAINED FROM DR. EGAN. EDUCATION PROVIDED TO PATIENT. ACCESS: LUE AVF +THRILL +BRUIT, CANNULATION WITH 15G NEEDLES W/O DIFFICULTY, ASEPTIC TECHNIQUE MAINTAINED. COLD SPRAY USED PRIOR TO CANNULATION FOR COMFORT. POST TX NEEDLE REMOVED AND INTACT, PRESSURE MAINTAINED X 10 MINUTES WITH FISTUAL CLAMPS UNTIL BLEEDING SUBSIDED. DRY DRESSING APPLIED AND SECURED WITH PAPER TAPE. MEDICATIONS ADMINISTERED:EMLA CREAM TOPICAL, NACL 0.9% 1000ML X2, HEPARIN 2000UNIT LOADING DOSE, RETACRIT 10,000 UNITS. ASSESMENT: PATIENT RECEIVED AMBULATORY TO DIALYSIS ROOM FROM ED, ACCOMPANIED BY Shelby URIBE RN, REPORT RECEIVED. PT IS AMBULATORY WITH STEADY BALANCED GAIT. A/OX3, PLEASANT AND COOPERATIVE. VOICES NO COMPLAINTS. RESPIRATIONS REGULAR AND UNLABORED. LUNGS CLEAR, NO GROSS EDEMA NOTED. PT REQUEST TREATMENT DURATION OF 2.5 HOURS ONLY. PT DOES DECIDE TO LEAVE AMA AFTER HEMODIALYSIS COMPLETED, SEE AMA NOTE.
== END 2022-09-06 16:57 | disposition left against medical advice (07) ==
LOC: ED 12:04 → ED-I 13:06 → ED 13:48 → ED-I 14:37 → ED 14:39 → MS2 14:40
PROVIDERS: ADMIT Internal Medicine; ATTEND Internal Medicine
DX: I12.0 Hypertensive chronic kidney disease with stage 5 chronic kidney disease or end stage renal disease (principal); E11.22 Type 2 diabetes mellitus with diabetic chronic kidney disease; N18.6 End stage renal disease; Z99.2 Dependence on renal dialysis; N25.81 Secondary hyperparathyroidism of renal origin; D63.1 Anemia in chronic kidney disease; E78.5 Hyperlipidemia, unspecified
CPT/HCPCS: G0378; J1644; Q5106 EC

== ENCOUNTER 2022-09-09 07:50 | Observation (INO) | payer MEDICAID ==
[~2022-09-09] VITALS: Ht 165.1 cm; Wt 87.6 kg
[2022-09-09 08:03] VITALS: BP 166/82
[2022-09-09 08:16] VITALS: BP 140/89
[2022-09-09 08:18] LABS: HEMATOCRIT 29.3 % (39.0-50.0); HEMOGLOBIN 9.6 g/dl (14.0-18.0); IMMATURE GRANULOCYTES 0.4 % (0.0-5.0); MEAN CELL VOLUME 96.1 fL CALC (80.0-100.0); MEAN CORPUSCULAR HGB 31.5 pG CALC (26.0-32.0); MEAN CORPUSCULAR HGB CONC 32.8 g/dL CAL (32.0-36.0); NEUT# 4.67 thou/uL (1.82-7.42); RED BLOOD COUNT 3.05 mill/uL (4.70-6.10); RED CELL DISTRI WIDTH 13.3 % (11.5-15.5)
[2022-09-09 08:30] VITALS: BP 169/88
[2022-09-09 08:30] LABS: POTASSIUM 4.5 mmol/l (3.5-5.1)
[2022-09-09 08:40] LABS: CREATININE 16.2 mg/dL (0.7-1.3)
[2022-09-09 08:45] VITALS: BP 167/87
--- NOTE | 2022-09-09 08:45 | NUR ---
PAIALEM STATES ALL MEDS TAKEN PRESCRIBED TODAY.
--- NOTE | 2022-09-09 09:37 | NUR ---
TRANSPORT TO ROOM 284
--- NOTE | 2022-09-09 13:05 | NUR ---
DIALYSIS NOTE START TIME:1006 END TIME:1253 TIME COMPLETED:2.5 HOURS FLUID REMOVED:1800 PRE TX WEIGHT:81.8KG POST TX WEIGHT:80KG TABLO SERIAL #[id number] PH: 7.2 WATER TEMP: 84.9F EXPECTED CONDUCTIVITY: 13.7 R/O REJECTION:99% ACTUAL CONDUCTIVITY: 13.8 DIALYZER: OPTIFLUX 200NR HEP B ANTIGEN:NEGATIVE 09/09/22 HEP B ANTIBODY: PENDING, DRAWN 09/09/22 PRE TX VS: 159/79mmHg HR 72bpm T 97.8F POST TX VS: 176/87mmHg HR 70bpm T 97.8F INFORMED CONSENT SIGNED BY PATIENT AND DR. EGAN, WITNESSED BY Janice DIEZ RN. LABS REVIEWED, ASSESMENT COMPLETED. ORDERS FOR HEMODIALYSIS OBTAINED FROM DR EGAN. EDUCATION PROVIDED TO PATIENT. ACCESS: LUE AVF +THRILL +BRUIT, CANNULATION WITH 15G NEEDLES W/O DIFFICULTY, PER Eri GOMEZ, RN. ASEPTIC TECHNIQUE MAINTAINED. COLD SPRAY USED PRIOR TO CANNULATION FOR COMFORT. POST TX NEEDLE REMOVED AND INTACT, PRESSURE MAINTAINED X 10 MINUTES WITH FISTUAL CLAMPS UNTIL BLEEDING SUBSIDED. DRY DRESSING APPLIED AND SECURED
== END 2022-09-09 13:00 | disposition left against medical advice (07) ==
LOC: ED 07:50 → ED-I 08:25 → ED 09:01 → MS2 09:02
PROVIDERS: Family Medicine; ADMIT Internal Medicine; ATTEND Internal Medicine
DX: I12.0 Hypertensive chronic kidney disease with stage 5 chronic kidney disease or end stage renal disease (principal); E11.22 Type 2 diabetes mellitus with diabetic chronic kidney disease; N18.6 End stage renal disease; Z99.2 Dependence on renal dialysis; D63.1 Anemia in chronic kidney disease; N25.81 Secondary hyperparathyroidism of renal origin; E78.5 Hyperlipidemia, unspecified; Z20.822 Contact with and (suspected) exposure to COVID-19
CPT/HCPCS: G0378; J1644; Q5106 EC

== ENCOUNTER 2022-09-11 07:57 | Observation (INO) | payer MEDICAID ==
[~2022-09-11] VITALS: Ht 165.1 cm; Wt 81.0 kg
--- NOTE | 2022-09-11 08:01 | NUR ---
PT TO ROOM WITH STEADY GAIT
[2022-09-11 08:03] VITALS: BP 166/83
[2022-09-11 08:15] VITALS: BP 166/81
[2022-09-11] MEDS ORDERED: VITAMIN D1.25 MG PO (08:26)
[2022-09-11 08:31] VITALS: BP 152/77
[2022-09-11 08:40] LABS: HEMATOCRIT 29.6 % (39.0-50.0); HEMOGLOBIN 9.7 g/dl (14.0-18.0); IMMATURE GRANULOCYTES 0.4 % (0.0-5.0); MEAN CELL VOLUME 96.4 fL CALC (80.0-100.0); MEAN CORPUSCULAR HGB 31.6 pG CALC (26.0-32.0); MEAN CORPUSCULAR HGB CONC 32.8 g/dL CAL (32.0-36.0); NEUT# 4.58 thou/uL (1.82-7.42); RED BLOOD COUNT 3.07 mill/uL (4.70-6.10); RED CELL DISTRI WIDTH 13.4 % (11.5-15.5)
[2022-09-11 08:45] VITALS: BP 159/83
[2022-09-11 08:50] LABS: ALBUMIN 4.3 g/dL (3.2-5.0); BILIRUBIN, TOTAL 0.4 mg/dL (0.0-1.4); POTASSIUM 4.2 mmol/l (3.5-5.1); TOTAL PROTEIN 7.5 g/dL (6.3-8.2)
--- NOTE | 2022-09-11 09:00 | NUR ---
Reassessment of patient completed. No distress noted.
[2022-09-11 09:01] VITALS: BP 147/77
[2022-09-11 09:11] LABS: CREATININE 14.9 mg/dL (0.7-1.3)
--- NOTE | 2022-09-11 09:35 | NUR ---
PT PICKED UP FROM ED, REFUSES OFFER FOR TRANSPORT IN WHEELCHAIR OR STRETCHER. AMBULATORY ACCOMPANIED BY Howie GOMEZ RN. GAIT STEADY AND BALANCED. PT BROUGHT UP TO ROOM 286 FOR HEMODIALYSIS TREATMENT. REPORT RECEIVED FROM Alex MORALES RN PRIOR TO TRANSFERRING PATIENT.
[2022-09-11 10:30] VITALS: BP 147/77
--- NOTE | 2022-09-11 10:30 | NUR ---
Admission Note Report Given to: BARRY KNENEDY Transported by: X Wheelchair Stretcher Transported with: X Nurse Transporter Patent IV O2 X Product Safety Head Location: ICU X MS2
--- NOTE | 2022-09-11 13:00 | NUR ---
AMA NOTE Patient decides to leave AMA. Multiple attempts made to ecourage patient to remain here for continued treatment. Explained to patient all risks of leaving against medical advice including . Pt verbalized understanding of all risks. Pt also encouraged to return to [facility] at any time, especially if symptoms continue or become worse. Pt verbalized understanding.
--- NOTE | 2022-09-11 13:11 | NUR ---
DIALYSIS NOTE START TIME:952 END TIME:0 TIME COMPLETED:2.5 HOURS FLUID REMOVED:1999 PRE TX WEIGHT:86.4KG POST TX WEIGHT:84.4KG TABLO SERIAL #[id number] PH: 7.4 WATER TEMP:73.4F EXPECTED CONDUCTIVITY: 13.7 R/O REJECTION:99% ACTUAL CONDUCTIVITY: 13.8 DIALYZER:[id number] TABLO CARTRIDGE LOT # [id number] HEP B ANTIGEN:NEGATIVE 09/09/22 HEP B ANTIBODY: <5, 06/17/22 PRE TX VS: 142/71mmHg HR 70bpm T 97.2F POST TX VS: 130/67mmHg HR 63bpm T 97.6F INFORMED CONSENT SIGNED BY PATIENT AND DR. EGAN, WITNESSED BY Howie GOMEZ RN. LABS REVIEWED, ASSESMENT COMPLETED. ORDERS FOR HEMODIALYSIS OBTAINED FROM DR EGAN. EDUCATION PROVIDED TO PATIENT. ACCESS: LUE AVF +THRILL +BRUIT, CANNULATION WITH 15G NEEDLES W/O DIFFICULTY, PER Eri GOMEZ RN. ASEPTIC TECHNIQUE MAINTAINED. COLD SPRAY USED PRIOR TO CANNULATION FOR COMFORT. POST TX NEEDLE REMOVED AND INTACT, PRESSURE MAINTAINED X 10 MINUTES WITH FISTUAL CLAMPS UNTIL BLEEDING SUBSIDED. DRY DRESSING APPLIED AND SECURED.
== END 2022-09-11 13:00 | disposition left against medical advice (07) ==
LOC: ED 07:57 → ED-I 08:15 → ED 09:41 → MS2 09:42
PROVIDERS: Emergency Medicine; ADMIT Internal Medicine; ATTEND Internal Medicine
DX: I12.0 Hypertensive chronic kidney disease with stage 5 chronic kidney disease or end stage renal disease (principal); E11.22 Type 2 diabetes mellitus with diabetic chronic kidney disease; N18.6 End stage renal disease; Z99.2 Dependence on renal dialysis; D63.1 Anemia in chronic kidney disease; N25.81 Secondary hyperparathyroidism of renal origin; E78.5 Hyperlipidemia, unspecified
CPT/HCPCS: G0378; J1644; Q5106 EC

== ENCOUNTER 2022-09-13 07:59 | Observation (INO) | payer MEDICAID ==
[~2022-09-13] VITALS: Ht 165.1 cm; Wt 81.0 kg
[2022-09-13 08:18] VITALS: BP 153/74
[2022-09-13 08:30] VITALS: BP 131/73
[2022-09-13 08:59] LABS: HEMATOCRIT 29.2 % (39.0-50.0); HEMOGLOBIN 9.5 g/dl (14.0-18.0); IMMATURE GRANULOCYTES 0.1 % (0.0-5.0); MEAN CORPUSCULAR HGB 31.9 pG CALC (26.0-32.0); MEAN CORPUSCULAR HGB CONC 32.5 g/dL CAL (32.0-36.0); NEUT# 4.79 thou/uL (1.82-7.42); RED BLOOD COUNT 2.98 mill/uL (4.70-6.10)
[2022-09-13 09:00] VITALS: BP 128/71
[2022-09-13 09:11] LABS: ALBUMIN 4.3 g/dL (3.2-5.0); BILIRUBIN, TOTAL 0.4 mg/dL (0.0-1.4); POTASSIUM 4.6 mmol/l (3.5-5.1); TOTAL PROTEIN 7.2 g/dL (6.3-8.2)
[2022-09-13 09:25] LABS: CREATININE 15.2 mg/dL (0.7-1.3)
[2022-09-13 09:30] VITALS: BP 122/56
[2022-09-13 09:59] VITALS: BP 122/56
== END 2022-09-13 13:15 | disposition left against medical advice (07) ==
LOC: ED 07:59 → ED-I 09:22 → ED 09:57 → MS2 09:58 → ED 10:00 → ED-I 11:03 → MS2 13:15
PROVIDERS: Emergency Medicine; ADMIT Internal Medicine; ATTEND Internal Medicine
DX: I12.0 Hypertensive chronic kidney disease with stage 5 chronic kidney disease or end stage renal disease (principal); E11.22 Type 2 diabetes mellitus with diabetic chronic kidney disease; N18.6 End stage renal disease; Z99.2 Dependence on renal dialysis; D63.1 Anemia in chronic kidney disease; N25.81 Secondary hyperparathyroidism of renal origin; E78.5 Hyperlipidemia, unspecified
CPT/HCPCS: G0378; J1644; Q5106 EC

== ENCOUNTER 2022-09-16 07:43 | Observation (INO) | payer MEDICAID ==
[~2022-09-16] VITALS: Ht 165.1 cm; Wt 81.0 kg
--- NOTE | 2022-09-16 07:43 | NUR ---
PT AMBUALTORY TO ROOM AT THIS TIME
[2022-09-16 07:51] VITALS: BP 158/81
[2022-09-16 08:00] VITALS: BP 145/91
[2022-09-16 08:07] LABS: HEMATOCRIT 30.9 % (39.0-50.0); HEMOGLOBIN 10.1 g/dl (14.0-18.0); IMMATURE GRANULOCYTES 0.1 % (0.0-5.0); MEAN CELL VOLUME 96.6 fL CALC (80.0-100.0); MEAN CORPUSCULAR HGB 31.6 pG CALC (26.0-32.0); MEAN CORPUSCULAR HGB CONC 32.7 g/dL CAL (32.0-36.0); NEUT# 4.81 thou/uL (1.82-7.42); RED BLOOD COUNT 3.2 mill/uL (4.70-6.10)
[2022-09-16 08:27] LABS: ALBUMIN 4.6 g/dL (3.2-5.0); BILIRUBIN, TOTAL 0.5 mg/dL (0.0-1.4); POTASSIUM 4.6 mmol/l (3.5-5.1); TOTAL PROTEIN 7.9 g/dL (6.3-8.2)
[2022-09-16 08:30] VITALS: BP 136/72
--- NOTE | 2022-09-16 08:30 | NUR ---
Reassessment of patient completed. No distress noted.
[2022-09-16 08:36] LABS: CREATININE 16.6 mg/dL (0.7-1.3)
[2022-09-16 09:00] VITALS: BP 120/73
[2022-09-16 09:30] VITALS: BP 149/77
--- NOTE | 2022-09-16 09:30 | NUR ---
Reassessment of patient completed. No distress noted.
--- NOTE | 2022-09-16 10:15 | NUR ---
PT TO DIALYSIS AT THIS TIME
[2022-09-16 10:17] VITALS: BP 149/77
--- NOTE | 2022-09-16 10:20 | NUR ---
ADMIT NOTE: REPORT RECEIVED FROM Trista ALCANTAR RN, PT AMBULATORY TO DIALYSIS SUITE AFTER DECLINING TRANSPORT BY WHEEL CHAIR OR STRETCHER. PT DECLINES TELEMETRY. ADMISSION COMPLETED.
--- NOTE | 2022-09-16 12:50 | NUR ---
DIALYSIS NOTE: START TIME:1029 END TIME:1246 TIME COMPLETED: 2 HOURS FLUID REMOVED: 2000 ml PRE TX WEIGHT: 86.8 KG POST TX WEIGHT: 84.8 KG PRE TX VS: NIBP 153/77 mmHg HR 73 bpm RR 18/MIN T 97.4 F POST TX VS: NIBP 95/56 mmHg HR 63 bpm RR 18/MIN T 97.1 F HEP B ANTIGEN: NEGATIVE HEP B ANTIBODY: NEGATIVE VERIFIED INFORMED CONSENT SIGNED BY PATIENT AND DR. EGAN, WITNESSED BY Howie GOMEZ RN. LABS REVIEWED, ASSESMENT COMPLETED. ORDERS FOR HEMODIALYSIS OBTAINED FROM DR. EGAN. EDUCATION PROVIDED TO PATIENT. ACCESS: LUE AVF, +THRILL, +BRUIT. CANNULATION COMPLETED WITH 15G NEEDLES. POST DIALYSIS TX NEEDLES REMOVED AND PRESSURE HELD WITH FISTULA CLAMP FOR 10 MINUTES UNTIL BLEEDING CONTROLLED, DRY DRESSING APPLIED AND SECURED WITH PAPER TAPE. MEDICATIONS ADMINISTERED: HEPARIN 2,000 UNITS LOADING DOSE, TYLENOL 650MG PO, EMLA CREAM TOPICAL ONE HOUR PRIOR TO CANNULATION, SEE E-MAR. ASSESMENT: PT A/OX3, PLEASANT AND COOPERATIVE. AMBULATORY FROM ED, REFUSED OFFER OF WHEEL CHAIR PER ED NURSE. RESPIRATIONS REGULAR AND UNLABORED. LUNGS CLEAR. REFUSES TELEMETRY. NO GROSS EDEMA NOTED. POST HD TX PT ELECTS TO SIGN OUT AMA, SEE AMA NOTE. TABLO SERIAL #:[id number] DIALYZER/LOT #: OPTIFLUX [id number] CARTRIDGE LOT #: [id number] PH: 7.2 WATER TEMP: 73 R/O REJECTION: 98.9% EXPECTED CONDUCTIVITY: 13.7 ACTUAL CONDUCTIVITY: 13.7
--- NOTE | 2022-09-16 13:00 | NUR ---
AMA NOTE: Patient decides to leave AMA. Multiple attempts made to ecourage patient to remain here for continued treatment. Explained to patient all risks of leaving against medical advice including . Pt verbalized understanding of all risks. Pt also encouraged to return to [facility] at any time, especially if symptoms continue or become worse. Pt verbalized understanding.
== END 2022-09-16 13:00 | disposition left against medical advice (07) ==
LOC: ED 07:43 → ED-I 08:25 → ED 08:50 → MS2 08:51
PROVIDERS: Family Medicine; ADMIT Internal Medicine; ATTEND Internal Medicine
DX: I12.0 Hypertensive chronic kidney disease with stage 5 chronic kidney disease or end stage renal disease (principal); E11.22 Type 2 diabetes mellitus with diabetic chronic kidney disease; N18.6 End stage renal disease; Z99.2 Dependence on renal dialysis; D63.1 Anemia in chronic kidney disease; N25.81 Secondary hyperparathyroidism of renal origin; E78.5 Hyperlipidemia, unspecified; Z20.822 Contact with and (suspected) exposure to COVID-19
CPT/HCPCS: G0378; J1644

== ENCOUNTER 2022-09-18 08:07 | Observation (INO) | payer MEDICAID ==
[2022-09-18] VITALS (7 sets, daily range): BP systolic 139–167; BP diastolic 73–79
[~2022-09-18] VITALS: Ht 165.1 cm; Wt 81.8 kg
[2022-09-18 08:35] LABS: HEMATOCRIT 31.3 % (39.0-50.0); HEMOGLOBIN 10.2 g/dl (14.0-18.0); IMMATURE GRANULOCYTES 0.1 % (0.0-5.0); MEAN CELL VOLUME 97.5 fL CALC (80.0-100.0); MEAN CORPUSCULAR HGB 31.8 pG CALC (26.0-32.0); MEAN CORPUSCULAR HGB CONC 32.6 g/dL CAL (32.0-36.0); NEUT# 4.65 thou/uL (1.82-7.42); RED BLOOD COUNT 3.21 mill/uL (4.70-6.10); RED CELL DISTRI WIDTH 14.1 % (11.5-15.5)
[2022-09-18 09:20] LABS: ALBUMIN 4.3 g/dL (3.2-5.0); BILIRUBIN, TOTAL 0.4 mg/dL (0.0-1.4); POTASSIUM 4.8 mmol/l (3.5-5.1); TOTAL PROTEIN 7.2 g/dL (6.3-8.2)
== END 2022-09-18 13:45 | disposition left against medical advice (07) ==
LOC: ED 08:07 → ED-I 08:48 → ED 09:57 → MS2 09:58
PROVIDERS: Family Medicine; ADMIT Internal Medicine; ATTEND Internal Medicine
DX: I12.0 Hypertensive chronic kidney disease with stage 5 chronic kidney disease or end stage renal disease (principal); E11.22 Type 2 diabetes mellitus with diabetic chronic kidney disease; N18.6 End stage renal disease; Z99.2 Dependence on renal dialysis; D63.1 Anemia in chronic kidney disease; N25.81 Secondary hyperparathyroidism of renal origin; E78.5 Hyperlipidemia, unspecified
CPT/HCPCS: G0378

== ENCOUNTER 2022-09-20 08:06 | Observation (INO) | payer MEDICAID ==
[2022-09-20] VITALS (8 sets, daily range): BP systolic 134–164; BP diastolic 72–115
[~2022-09-20] VITALS: Ht 165.1 cm; Wt 87.8 kg
[2022-09-20 08:46] LABS: HEMATOCRIT 31.9 % (39.0-50.0); HEMOGLOBIN 10.3 g/dl (14.0-18.0); IMMATURE GRANULOCYTES 0.1 % (0.0-5.0); MEAN CELL VOLUME 97.3 fL CALC (80.0-100.0); MEAN CORPUSCULAR HGB 31.4 pG CALC (26.0-32.0); MEAN CORPUSCULAR HGB CONC 32.3 g/dL CAL (32.0-36.0); NEUT# 4.55 thou/uL (1.82-7.42); RED BLOOD COUNT 3.28 mill/uL (4.70-6.10); RED CELL DISTRI WIDTH 13.7 % (11.5-15.5)
[2022-09-20 08:53] LABS: ALBUMIN 4.5 g/dL (3.2-5.0); BILIRUBIN, TOTAL 0.4 mg/dL (0.0-1.4); POTASSIUM 4.7 mmol/l (3.5-5.1); TOTAL PROTEIN 7.8 g/dL (6.3-8.2)
[2022-09-20 09:03] LABS: CREATININE 14.4 mg/dL (0.7-1.3)
== END 2022-09-20 13:00 | disposition left against medical advice (07) ==
LOC: ED 08:06 → ED-I 09:00 → ED 09:27 → MS2 09:27
PROVIDERS: Family Medicine; ADMIT Internal Medicine; ATTEND Internal Medicine
DX: I12.0 Hypertensive chronic kidney disease with stage 5 chronic kidney disease or end stage renal disease (principal); E11.22 Type 2 diabetes mellitus with diabetic chronic kidney disease; N18.6 End stage renal disease; Z99.2 Dependence on renal dialysis; D63.1 Anemia in chronic kidney disease; N25.81 Secondary hyperparathyroidism of renal origin; E78.5 Hyperlipidemia, unspecified
CPT/HCPCS: G0378; J1644

== ENCOUNTER 2022-09-23 08:09 | Observation (INO) | payer MEDICAID ==
[~2022-09-23] VITALS: Ht 165.1 cm; Wt 89.0 kg
[2022-09-23 08:33] LABS: HEMATOCRIT 29.3 % (39.0-50.0); HEMOGLOBIN 9.8 g/dl (14.0-18.0); IMMATURE GRANULOCYTES 0.1 % (0.0-5.0); MEAN CELL VOLUME 95.1 fL CALC (80.0-100.0); MEAN CORPUSCULAR HGB 31.8 pG CALC (26.0-32.0); MEAN CORPUSCULAR HGB CONC 33.4 g/dL CAL (32.0-36.0); NEUT# 4.37 thou/uL (1.82-7.42); RED BLOOD COUNT 3.08 mill/uL (4.70-6.10); RED CELL DISTRI WIDTH 13.2 % (11.5-15.5)
[2022-09-23 08:43] LABS: ALBUMIN 4.3 g/dL (3.2-5.0); BILIRUBIN, TOTAL 0.5 mg/dL (0.0-1.4); POTASSIUM 4.7 mmol/l (3.5-5.1); TOTAL PROTEIN 7.6 g/dL (6.3-8.2)
[2022-09-23 08:57] LABS: CREATININE 15.6 mg/dL (0.7-1.3)
[2022-09-23 10:36] VITALS: BP 150/70
== END 2022-09-23 13:42 | disposition left against medical advice (07) ==
LOC: ED 08:09 → ED-I 08:21 → ED 08:21 → MS2 09:00
PROVIDERS: Family Medicine; ADMIT Internal Medicine; ATTEND Internal Medicine
DX: I12.0 Hypertensive chronic kidney disease with stage 5 chronic kidney disease or end stage renal disease (principal); E11.22 Type 2 diabetes mellitus with diabetic chronic kidney disease; N18.6 End stage renal disease; Z99.2 Dependence on renal dialysis; D63.1 Anemia in chronic kidney disease; N25.81 Secondary hyperparathyroidism of renal origin; E78.5 Hyperlipidemia, unspecified
CPT/HCPCS: G0378; J1644

== ENCOUNTER 2022-09-25 07:54 | Observation (INO) | payer MEDICAID ==
[~2022-09-25] VITALS: Ht 165.1 cm; Wt 88.6 kg
[2022-09-25 07:58] VITALS: BP 153/72
[2022-09-25 08:00] VITALS: BP 150/71
[2022-09-25 08:24] LABS: HEMATOCRIT 30.6 % (39.0-50.0); HEMOGLOBIN 10.1 g/dl (14.0-18.0); IMMATURE GRANULOCYTES 0.1 % (0.0-5.0); MEAN CELL VOLUME 95.3 fL CALC (80.0-100.0); MEAN CORPUSCULAR HGB 31.5 pG CALC (26.0-32.0); NEUT# 4.25 thou/uL (1.82-7.42); RED BLOOD COUNT 3.21 mill/uL (4.70-6.10); RED CELL DISTRI WIDTH 13.2 % (11.5-15.5)
[2022-09-25 08:30] VITALS: BP 148/78
[2022-09-25 08:34] LABS: ALBUMIN 4.3 g/dL (3.2-5.0); BILIRUBIN, TOTAL 0.4 mg/dL (0.0-1.4); CREATININE 13.7 mg/dL (0.7-1.3); POTASSIUM 4.8 mmol/l (3.5-5.1); TOTAL PROTEIN 7.6 g/dL (6.3-8.2)
[2022-09-25 09:00] VITALS: BP 123/61
[2022-09-25 10:39] VITALS: BP 123/61
== END 2022-09-25 13:38 | disposition left against medical advice (07) ==
LOC: ED 07:54 → ED-I 08:17 → ED 08:17 → MS2 08:41
PROVIDERS: Emergency Medicine; ADMIT Internal Medicine; ATTEND Internal Medicine
DX: I12.0 Hypertensive chronic kidney disease with stage 5 chronic kidney disease or end stage renal disease (principal); E11.22 Type 2 diabetes mellitus with diabetic chronic kidney disease; N18.6 End stage renal disease; Z99.2 Dependence on renal dialysis; E78.5 Hyperlipidemia, unspecified; D63.1 Anemia in chronic kidney disease; N25.81 Secondary hyperparathyroidism of renal origin
CPT/HCPCS: G0378; J1644

== ENCOUNTER 2022-09-27 07:46 | Observation (INO) | payer MEDICAID ==
[~2022-09-27] VITALS: Ht 165.1 cm; Wt 85.4 kg
[2022-09-27 08:00] VITALS: BP 218/96
[2022-09-27 08:03] VITALS: BP 233/106
[2022-09-27 08:16] VITALS: BP 175/84
[2022-09-27 08:28] LABS: HEMATOCRIT 28.4 % (39.0-50.0); HEMOGLOBIN 9.2 g/dl (14.0-18.0); IMMATURE GRANULOCYTES 0.3 % (0.0-5.0); MEAN CELL VOLUME 96.3 fL CALC (80.0-100.0); MEAN CORPUSCULAR HGB 31.2 pG CALC (26.0-32.0); MEAN CORPUSCULAR HGB CONC 32.4 g/dL CAL (32.0-36.0); NEUT# 4.54 thou/uL (1.82-7.42); RED BLOOD COUNT 2.95 mill/uL (4.70-6.10); RED CELL DISTRI WIDTH 13.1 % (11.5-15.5)
[2022-09-27 08:30] VITALS: BP 174/84
[2022-09-27 08:46] VITALS: BP 198/146
[2022-09-27 09:05] LABS: ALBUMIN 4.1 g/dL (3.2-5.0); BILIRUBIN, TOTAL 0.4 mg/dL (0.0-1.4); POTASSIUM 4.6 mmol/l (3.5-5.1)
[2022-09-27 09:12] LABS: CREATININE 12.7 mg/dL (0.7-1.3)
[2022-09-27 10:00] VITALS: BP 214/97
== END 2022-09-27 13:30 | disposition left against medical advice (07) ==
LOC: ED 07:46 → ED-I 09:00 → MS2 09:30 → ED 09:30 → MS2 13:30
PROVIDERS: Emergency Medicine; ADMIT Internal Medicine; ATTEND Internal Medicine
DX: I12.0 Hypertensive chronic kidney disease with stage 5 chronic kidney disease or end stage renal disease (principal); E11.22 Type 2 diabetes mellitus with diabetic chronic kidney disease; N18.6 End stage renal disease; Z99.2 Dependence on renal dialysis; D63.1 Anemia in chronic kidney disease; N25.81 Secondary hyperparathyroidism of renal origin; E78.5 Hyperlipidemia, unspecified
CPT/HCPCS: G0378

== ENCOUNTER 2022-09-30 07:44 | Observation (INO) | payer MEDICAID ==
[~2022-09-30] VITALS: Ht 165.1 cm; Wt 89.9 kg
--- NOTE | 2022-09-30 07:46 | NUR ---
PATIENT TO ROOM FOR TRIAGE
[2022-09-30 07:49] VITALS: BP 143/69
[2022-09-30 08:00] VITALS: BP 151/78
[2022-09-30 08:14] LABS: HEMOGLOBIN 9.1 g/dl (14.0-18.0); IMMATURE GRANULOCYTES 0.3 % (0.0-5.0); MEAN CELL VOLUME 95.6 fL CALC (80.0-100.0); MEAN CORPUSCULAR HGB 31.1 pG CALC (26.0-32.0); MEAN CORPUSCULAR HGB CONC 32.5 g/dL CAL (32.0-36.0); NEUT# 4.72 thou/uL (1.82-7.42); RED BLOOD COUNT 2.93 mill/uL (4.70-6.10); RED CELL DISTRI WIDTH 13.3 % (11.5-15.5)
[2022-09-30 08:21] LABS: ALBUMIN 4.3 g/dL (3.2-5.0); BILIRUBIN, TOTAL 0.4 mg/dL (0.0-1.4); POTASSIUM 4.8 mmol/l (3.5-5.1); TOTAL PROTEIN 7.3 g/dL (6.3-8.2)
[2022-09-30] MEDS ORDERED: EMLA CREAM5 GM/TUBE EX (08:27)
[2022-09-30 08:30] VITALS: BP 136/67
--- NOTE | 2022-09-30 08:30 | NUR ---
PATIENT AMBULATES TO AND FROM BATHROOM. WAITING ON ADMIT
[2022-09-30 09:00] VITALS: BP 132/68
[2022-09-30 09:32] LABS: CREATININE 15.4 mg/dL (0.7-1.3)
--- NOTE | 2022-09-30 09:35 | NUR ---
Admission Note Report Given to: BARRY GARCIA Transported by: Wheelchair Stretcher Transported with: X Nurse Transporter Patent IV O2 X Guide Dog Trainer Location: ICU X MS2 PATIENT REFUSING WHEELCHAIR
--- NOTE | 2022-09-30 09:40 | NUR ---
pt ambulatory to room in no distress with steady gait. no appreciable swelling. Lungs clear, HR nsr 74. Has EMLA cream applied to LUE. Jolanta Martino at bedside and accessed fistula LUE with #16 dialysis needles, good pulsing blod return both lines, + thrill and bruit noted.Initiated dialysis as ordered.
[2022-09-30 10:00] VITALS: BP 148/72
--- NOTE | 2022-09-30 12:38 | NUR ---
POST DIALYSIS NOTE: START TIME: 953 END TIME: 1237 TIME COMPLETED: 2 HOURS AND 30 MINUTES FLUID REMOVED: 2500ml PRE TX WEIGHT: 89.9 KG POST TX WEIGHT: 87.2 KG PRE TX VS: NIBP 148/72 mmHg HR 73 bpm RR 18/MIN T 97.7 F POST TX VS: NIBP 1128/83 mmHg HR 74 bpm RR 18/MIN T 98.5 F HEP B ANTIGEN: NEGATIVE (09/09/22) HEP B ANTIBODY: NEGATIVE (09/09/22) VERIFIED INFORMED CONSENT SIGNED BY PATIENT AND DR. EGAN, WITNESSED BY JOSE BARRERA, BARRY LABS REVIEWED, ASSESMENT COMPLETED. ORDERS FOR HEMODIALYSIS OBTAINED FROM DR. EGAN. EDUCATION PROVIDED TO PATIENT. DIALYSIS TX NEEDLES REMOVED AND PRESSURE HELD WITH FISTULA CLAMP FOR 10 MINUTES UNTIL BLEEDING CONTROLLED, DRY DRESSING APPLIED AND SECURED WITH PAPER TAPE.LUE AVF + THRILL, + BRUIT MEDICATIONS ADMINISTERED: HEPARIN 2,000 UNITS LOADING DOSE, TYLENOL 650MG PO, EMLA CREAM TOPICAL ONE HOUR PRIOR TO CANNULATION, SEE E-MAR. ASSESMENT: PT A/OX3, PLEASANT AND COOPERATIVE. AMBULATORY FROM ED, REFUSED OFFER OF WHEEL CHAIR PER ED NURSE. RESPIRATIONS REGULAR AND UNLABORED. LUNGS CLEAR. TELEMETRY INTACT. NO GROSS EDEMA NOTED. POST HD TX PT ELECTS TO SIGN OUT AMA, SEE AMA NOTE. [employer] SERIAL #:[id number] DIALYZER/LOT #: OPTIFLUX [id number] CARTRIDGE LOT #: [id number] PH: 7.2 WATER TEMP: 73.5 R/O REJECTION: 98.9% EXPECTED CONDUCTIVITY: 13.7 ACTUAL CONDUCTIVITY: 13.8
--- NOTE | 2022-09-30 12:50 | NUR ---
Patient decides to leave AMA. Multiple attempts made to ecourage patient to remain here for continued treatment. Explained to patient all risks of leaving against medical advice including . Pt verbalized understanding of all risks. Pt also encouraged to return to [facility] at any time, especially if symptoms continue or become worse. Pt verbalized understanding. Pt left ambulatory in no distress, declined wc.
== END 2022-09-30 12:50 | disposition left against medical advice (07) ==
LOC: ED 07:44 → ED-I 08:28 → ED 08:28 → MS2 08:44
PROVIDERS: Family Medicine; ADMIT Internal Medicine; ATTEND Internal Medicine
DX: I12.0 Hypertensive chronic kidney disease with stage 5 chronic kidney disease or end stage renal disease (principal); E11.22 Type 2 diabetes mellitus with diabetic chronic kidney disease; N18.6 End stage renal disease; Z99.2 Dependence on renal dialysis; D63.1 Anemia in chronic kidney disease; N25.81 Secondary hyperparathyroidism of renal origin; E78.5 Hyperlipidemia, unspecified
CPT/HCPCS: G0378; J1644; Q5106 EC

== ENCOUNTER 2022-10-02 12:24 | Emergency (ER) | payer MEDICAID ==
[~2022-10-02] VITALS: Ht 165.1 cm; Wt 89.0 kg
[2022-10-02 12:42] VITALS: BP 144/78
== END 2022-10-02 13:00 | disposition left against medical advice (07) | DRG 951 ==
LOC: ED 12:24 → LWOBS 12:52
DX: Z53.21 Procedure and treatment not carried out due to patient leaving prior to being seen by health care provider (principal)

== ENCOUNTER 2022-10-03 07:47 | Observation (INO) | payer MEDICAID ==
[~2022-10-03] VITALS: Ht 165.1 cm; Wt 85.0 kg
[2022-10-03 07:59] VITALS: BP 159/83
[2022-10-03 08:00] VITALS: BP 145/70
[2022-10-03 08:16] VITALS: BP 144/71
[2022-10-03 08:17] LABS: HEMATOCRIT 25.9 % (39.0-50.0); HEMOGLOBIN 8.5 g/dl (14.0-18.0); IMMATURE GRANULOCYTES 0.3 % (0.0-5.0); MEAN CELL VOLUME 95.2 fL CALC (80.0-100.0); MEAN CORPUSCULAR HGB 31.3 pG CALC (26.0-32.0); MEAN CORPUSCULAR HGB CONC 32.8 g/dL CAL (32.0-36.0); NEUT# 4.55 thou/uL (1.82-7.42); RED BLOOD COUNT 2.72 mill/uL (4.70-6.10); RED CELL DISTRI WIDTH 13.4 % (11.5-15.5)
[2022-10-03 08:30] VITALS: BP 155/75
[2022-10-03 08:40] LABS: ALBUMIN 4.4 g/dL (3.2-5.0); BILIRUBIN, TOTAL 0.3 mg/dL (0.0-1.4); POTASSIUM 4.8 mmol/l (3.5-5.1); TOTAL PROTEIN 7.1 g/dL (6.3-8.2)
[2022-10-03 08:50] LABS: CREATININE 16.7 mg/dL (0.7-1.3)
[2022-10-03 09:57] VITALS: BP 155/75
== END 2022-10-03 12:30 | disposition left against medical advice (07) ==
LOC: ED 07:47 → ED-I 08:26 → ED 09:33 → MS2 09:34
PROVIDERS: Internal Medicine; ADMIT Internal Medicine; ATTEND Internal Medicine
DX: I12.0 Hypertensive chronic kidney disease with stage 5 chronic kidney disease or end stage renal disease (principal); E11.22 Type 2 diabetes mellitus with diabetic chronic kidney disease; N18.6 End stage renal disease; Z99.2 Dependence on renal dialysis; D63.1 Anemia in chronic kidney disease; N25.81 Secondary hyperparathyroidism of renal origin; E78.5 Hyperlipidemia, unspecified; I95.9 Hypotension, unspecified
CPT/HCPCS: G0378; J1644; Q5106 EC

== ENCOUNTER 2022-10-04 08:37 | Observation (INO) | payer MEDICAID ==
[~2022-10-04] VITALS: Ht 165.1 cm; Wt 88.0 kg
[2022-10-04 08:46] VITALS: BP 178/83
[2022-10-04 08:52] LABS: HEMATOCRIT 29.5 % (39.0-50.0); HEMOGLOBIN 9.6 g/dl (14.0-18.0); IMMATURE GRANULOCYTES 0.2 % (0.0-5.0); MEAN CELL VOLUME 96.1 fL CALC (80.0-100.0); MEAN CORPUSCULAR HGB 31.3 pG CALC (26.0-32.0); MEAN CORPUSCULAR HGB CONC 32.5 g/dL CAL (32.0-36.0); NEUT# 4.18 thou/uL (1.82-7.42); RED BLOOD COUNT 3.07 mill/uL (4.70-6.10); RED CELL DISTRI WIDTH 13.6 % (11.5-15.5)
[2022-10-04 09:00] VITALS: BP 189/89
[2022-10-04 09:18] LABS: ALBUMIN 4.4 g/dL (3.2-5.0); BILIRUBIN, TOTAL 0.4 mg/dL (0.0-1.4); POTASSIUM 4.3 mmol/l (3.5-5.1); TOTAL PROTEIN 7.4 g/dL (6.3-8.2)
[2022-10-04 09:19] LABS: CREATININE 13.4 mg/dL (0.7-1.3)
[2022-10-04 09:30] VITALS: BP 188/99
[2022-10-04 09:45] VITALS: BP 182/83
[2022-10-04 10:00] VITALS: BP 173/87
[2022-10-04 10:29] VITALS: BP 173/87
== END 2022-10-04 13:15 | disposition left against medical advice (07) ==
LOC: ED 08:37 → ED-I 09:00 → ED 09:34 → MS2 09:35
PROVIDERS: Family Medicine; ADMIT Internal Medicine; ATTEND Internal Medicine
DX: I12.0 Hypertensive chronic kidney disease with stage 5 chronic kidney disease or end stage renal disease (principal); E11.22 Type 2 diabetes mellitus with diabetic chronic kidney disease; N18.6 End stage renal disease; Z99.2 Dependence on renal dialysis; D63.1 Anemia in chronic kidney disease; N25.81 Secondary hyperparathyroidism of renal origin; E78.5 Hyperlipidemia, unspecified
CPT/HCPCS: G0378

== ENCOUNTER 2022-10-07 08:17 | Observation (INO) | payer MEDICAID ==
[~2022-10-07] VITALS: Ht 165.1 cm; Wt 98.8 kg
[2022-10-07 08:29] VITALS: BP 126/65
[2022-10-07 08:30] VITALS: BP 147/66
[2022-10-07 08:48] LABS: HEMATOCRIT 26.9 % (39.0-50.0); HEMOGLOBIN 8.8 g/dl (14.0-18.0); IMMATURE GRANULOCYTES 0.1 % (0.0-5.0); MEAN CELL VOLUME 96.8 fL CALC (80.0-100.0); MEAN CORPUSCULAR HGB 31.7 pG CALC (26.0-32.0); MEAN CORPUSCULAR HGB CONC 32.7 g/dL CAL (32.0-36.0); NEUT# 4.64 thou/uL (1.82-7.42); RED BLOOD COUNT 2.78 mill/uL (4.70-6.10); RED CELL DISTRI WIDTH 13.7 % (11.5-15.5)
[2022-10-07 09:00] VITALS: BP 124/63
[2022-10-07 09:23] LABS: ALBUMIN 4.3 g/dL (3.2-5.0); BILIRUBIN, TOTAL 0.3 mg/dL (0.0-1.4); POTASSIUM 4.8 mmol/l (3.5-5.1); TOTAL PROTEIN 7.2 g/dL (6.3-8.2)
[2022-10-07 09:30] VITALS: BP 141/75
[2022-10-07 10:01] VITALS: BP 125/73
[2022-10-07 11:20] VITALS: BP 125/73
== END 2022-10-07 14:00 | disposition left against medical advice (07) ==
LOC: ED 08:17 → ED-I 09:25 → ED 09:54 → MS2 09:55
PROVIDERS: Family Medicine; ADMIT Internal Medicine; ATTEND Internal Medicine
DX: I12.0 Hypertensive chronic kidney disease with stage 5 chronic kidney disease or end stage renal disease (principal); E11.22 Type 2 diabetes mellitus with diabetic chronic kidney disease; N18.6 End stage renal disease; Z99.2 Dependence on renal dialysis; D63.1 Anemia in chronic kidney disease; N25.81 Secondary hyperparathyroidism of renal origin; E78.5 Hyperlipidemia, unspecified
CPT/HCPCS: G0378; J1644; Q5106 EC

== ENCOUNTER 2022-10-09 07:59 | Observation (INO) | payer MEDICAID ==
[~2022-10-09] VITALS: Ht 165.1 cm; Wt 89.2 kg
[2022-10-09 08:12] VITALS: BP 186/89
[2022-10-09 08:31] LABS: HEMATOCRIT 27.9 % (39.0-50.0); IMMATURE GRANULOCYTES 0.3 % (0.0-5.0); MEAN CELL VOLUME 97.6 fL CALC (80.0-100.0); MEAN CORPUSCULAR HGB 31.5 pG CALC (26.0-32.0); MEAN CORPUSCULAR HGB CONC 32.3 g/dL CAL (32.0-36.0); NEUT# 4.56 thou/uL (1.82-7.42); RED BLOOD COUNT 2.86 mill/uL (4.70-6.10); RED CELL DISTRI WIDTH 14.1 % (11.5-15.5)
[2022-10-09 08:57] LABS: POTASSIUM 5.3 mmol/l (3.5-5.1)
[2022-10-09 08:58] LABS: CREATININE 14.9 mg/dL (0.7-1.3)
[2022-10-09 10:30] VITALS: BP 186/89
== END 2022-10-09 13:31 | disposition left against medical advice (07) ==
LOC: ED 07:59 → ED-I 08:48 → ED 09:04 → MS2 09:05
PROVIDERS: Internal Medicine; ADMIT Internal Medicine; ATTEND Internal Medicine
DX: I12.0 Hypertensive chronic kidney disease with stage 5 chronic kidney disease or end stage renal disease (principal); E11.22 Type 2 diabetes mellitus with diabetic chronic kidney disease; N18.6 End stage renal disease; Z99.2 Dependence on renal dialysis; D63.1 Anemia in chronic kidney disease; N25.81 Secondary hyperparathyroidism of renal origin; E87.5 Hyperkalemia; E78.5 Hyperlipidemia, unspecified
CPT/HCPCS: G0378; J1644; Q5106 EC

== ENCOUNTER 2022-10-11 08:40 | Observation (INO) | payer MEDICAID ==
[~2022-10-11] VITALS: Ht 165.1 cm; Wt 88.8 kg
[2022-10-11 08:49] VITALS: BP 186/82
--- NOTE | 2022-10-11 08:50 | NUR ---
PATIENT TO ROOM FOR TRIAGE
--- NOTE | 2022-10-11 08:50 | NUR ---
PT TO ROOM WITH STEADY GAIT
[2022-10-11 09:16] LABS: HEMATOCRIT 28.7 % (39.0-50.0); HEMOGLOBIN 9.2 g/dl (14.0-18.0); IMMATURE GRANULOCYTES 0.7 % (0.0-5.0); MEAN CORPUSCULAR HGB 31.7 pG CALC (26.0-32.0); MEAN CORPUSCULAR HGB CONC 32.1 g/dL CAL (32.0-36.0); NEUT# 5.04 thou/uL (1.82-7.42); RED BLOOD COUNT 2.9 mill/uL (4.70-6.10); RED CELL DISTRI WIDTH 14.2 % (11.5-15.5)
[2022-10-11 09:32] LABS: ALBUMIN 4.2 g/dL (3.2-5.0); BILIRUBIN, TOTAL 0.4 mg/dL (0.0-1.4); TOTAL PROTEIN 7.1 g/dL (6.3-8.2)
[2022-10-11 09:48] LABS: CREATININE 13.3 mg/dL (0.7-1.3)
--- NOTE | 2022-10-11 10:47 | NUR ---
Admission Note Report Given to: NACHO Transported by: Wheelchair Stretcher Transported with: X Nurse Transporter Patent IV O2 X Respiratory Therapy Instructor Location: ICU X MS2 TO DIALYSIS
[2022-10-11 10:48] VITALS: BP 186/82
--- NOTE | 2022-10-11 10:50 | NUR ---
ADMIT NOTE: PT ARRIVAL FROM ED @ 1050. ACCOMPANIED BY Niru FRANKLIN LPN. ARRIVES WITH ELEVATOR REPAIRER ATTATCHED. DECLINED WHEELCHAIR FOR TRANSPORT, ARRIVES AMBULATORY.
--- NOTE | 2022-10-11 13:45 | NUR ---
DIALYSIS NOTE- START TIME: 1056 END TIME: 1340 TIME COMPLETED: 2.5 HOURS FLUID REMOVED: 2400 ml PRE TX WEIGHT: 89 KG POST TX WEIGHT: 87.5 KG PRE TX VS: NIBP 203/95 mmHg HR 72 bpm RR 18/MIN T 97.2 F POST TX VS: NIBP 140/80 mmHg HR 69 bpm RR 18/MIN T 97.4 F HEP B ANTIGEN: NEGATIVE (10/04/22) HEP B ANTIBODY: NEGATIVE (09/09/22) VERIFIED INFORMED CONSENT SIGNED BY PATIENT AND DR. EGAN, WITNESSED BY Howie GOMEZ RN. LABS REVIEWED, ASSESMENT COMPLETED. ORDERS FOR HEMODIALYSIS OBTAINED FROM DR. EGAN. EDUCATION PROVIDED TO PATIENT. ACCESS: LUE AVF, +THRILL, +BRUIT. CANNULATION COMPLETED WITH 15G NEEDLES. POST DIALYSIS TX NEEDLES REMOVED AND PRESSURE HELD WITH FISTULA CLAMP FOR 10 MINUTES UNTIL BLEEDING CONTROLLED, DRY DRESSING APPLIED AND SECURED WITH PAPER TAPE. MEDICATIONS ADMINISTERED: HEPARIN 3,000 UNITS LOADING DOSE, TYLENOL 650MG PO, LIDOCAINE 5% TOPICAL, RETACRIT 10,000 UNITS, SEE E-MAR. ASSESMENT: PT A/OX3, PLEASANT AND COOPERATIVE. AMBULATORY FROM ED, REFUSED OFFER OF WHEEL CHAIR PER ED NURSE. RESPIRATIONS REGULAR AND UNLABORED. LUNGS CLEAR. SR ON TELEMETRY. ABDOMINE SOFT AND SLIGHTLY DISTENDED. NO GROSS EDEMA NOTED. PT ELECTS TO SIGN OUT AMA, TREATMENT ENDED PER PT'S REQUEST, SEE AMA NOTE. [facility] SERIAL #: [id number] DIALYZER/LOT #: OPTIFLUX [id number] CARTRIDGE LOT #: [id number] PH: 7.2 WATER TEMP: 72.6 R/O REJECTION: 98.9% EXPECTED CONDUCTIVITY: 13.7 ACTUAL CONDUCTIVITY: 13.6
--- NOTE | 2022-10-11 13:50 | NUR ---
AMA NOTE: Patient decides to leave AMA. Multiple attempts made to ecourage patient to remain here for continued treatment. Explained to patient all risks of leaving against medical advice including . Pt verbalized understanding of all risks. Pt also encouraged to return to [facility] at any time, especially if symptoms continue or become worse. Pt verbalized understanding. DR. MONTAÑO AWARE, REGULATORY ANALYST REMOVED FROM PT AND TURNED INTO MS NURSES STATION.
[2022-10-21] MEDS ORDERED: EMLA CREAM5 GM/TUBE EX (09:27)
[2022-10-25] MEDS ORDERED: ROCALTROL0.5 MC1 PO (11:38)
== END 2022-10-11 13:50 | disposition left against medical advice (07) ==
LOC: ED 08:40 → ED-I 09:39 → ED 09:52 → MS2 09:53
PROVIDERS: Emergency Medicine; ADMIT Internal Medicine; ATTEND Internal Medicine
DX: I12.0 Hypertensive chronic kidney disease with stage 5 chronic kidney disease or end stage renal disease (principal); E11.22 Type 2 diabetes mellitus with diabetic chronic kidney disease; N18.6 End stage renal disease; Z99.2 Dependence on renal dialysis; D63.1 Anemia in chronic kidney disease; N25.81 Secondary hyperparathyroidism of renal origin; E78.5 Hyperlipidemia, unspecified
CPT/HCPCS: G0378; J1644; Q5106 EC

== ENCOUNTER 2022-10-14 08:41 | Observation (INO) | payer MEDICAID ==
[~2022-10-14] VITALS: Ht 165.1 cm; Wt 80.0 kg
[2022-10-14] VITALS (7 sets, daily range): BP systolic 188–211; BP diastolic 85–111
[2022-10-14 09:52] LABS: HEMATOCRIT 26.7 % (39.0-50.0); HEMOGLOBIN 8.8 g/dl (14.0-18.0); IMMATURE GRANULOCYTES 0.3 % (0.0-5.0); MEAN CELL VOLUME 98.2 fL CALC (80.0-100.0); MEAN CORPUSCULAR HGB 32.4 pG CALC (26.0-32.0); NEUT# 5.11 thou/uL (1.82-7.42); RED BLOOD COUNT 2.72 mill/uL (4.70-6.10); RED CELL DISTRI WIDTH 14.3 % (11.5-15.5)
[2022-10-14 10:05] LABS: ALBUMIN 4.1 g/dL (3.2-5.0); BILIRUBIN, TOTAL 0.4 mg/dL (0.0-1.4); POTASSIUM 4.8 mmol/l (3.5-5.1); TOTAL PROTEIN 7.2 g/dL (6.3-8.2)
[2022-10-14 10:19] LABS: CREATININE 14.6 mg/dL (0.7-1.3)
== END 2022-10-14 14:00 | disposition left against medical advice (07) ==
LOC: ED 08:41 → ED-I 09:20 → ED 10:26 → MS2 10:27
PROVIDERS: Family Medicine; ADMIT Internal Medicine; ATTEND Internal Medicine
DX: I12.0 Hypertensive chronic kidney disease with stage 5 chronic kidney disease or end stage renal disease (principal); E11.22 Type 2 diabetes mellitus with diabetic chronic kidney disease; N18.6 End stage renal disease; Z99.2 Dependence on renal dialysis; D63.1 Anemia in chronic kidney disease; N25.81 Secondary hyperparathyroidism of renal origin; E78.5 Hyperlipidemia, unspecified
CPT/HCPCS: G0378; J1644; Q5106 EC

== ENCOUNTER 2022-10-16 09:19 | Observation (INO) | payer MEDICAID ==
[~2022-10-16] VITALS: Ht 165.1 cm; Wt 80.0 kg
--- NOTE | 2022-10-16 09:26 | NUR ---
PT TO ER BED 1 FOR TRIAGE AT THIS TIME.
[2022-10-16 09:30] VITALS: BP 196/93
[2022-10-16 09:45] VITALS: BP 203/98
[2022-10-16 10:00] VITALS: BP 172/81
[2022-10-16 10:10] LABS: HEMATOCRIT 27.1 % (39.0-50.0); HEMOGLOBIN 8.9 g/dl (14.0-18.0); IMMATURE GRANULOCYTES 0.3 % (0.0-5.0); MEAN CELL VOLUME 98.2 fL CALC (80.0-100.0); MEAN CORPUSCULAR HGB 32.2 pG CALC (26.0-32.0); MEAN CORPUSCULAR HGB CONC 32.8 g/dL CAL (32.0-36.0); NEUT# 4.66 thou/uL (1.82-7.42); RED BLOOD COUNT 2.76 mill/uL (4.70-6.10); RED CELL DISTRI WIDTH 14.5 % (11.5-15.5)
[2022-10-16 10:28] LABS: ALBUMIN 3.9 g/dL (3.2-5.0); BILIRUBIN, TOTAL 0.4 mg/dL (0.0-1.4); POTASSIUM 4.1 mmol/l (3.5-5.1); TOTAL PROTEIN 7.2 g/dL (6.3-8.2)
[2022-10-16 10:29] LABS: CREATININE 13.7 mg/dL (0.7-1.3)
--- NOTE | 2022-10-16 11:20 | NUR ---
Admission Note Report Given to: BARRY KENNEDY Transported by: Wheelchair Stretcher Transported with: X Nurse Transporter Patent IV O2 X Regulatory Compliance Officer Location: ICU X MS2
--- NOTE | 2022-10-16 11:25 | NUR ---
ADMIT NOTE PT ARRIVES TO ROOM 286 FROM ED AT 1125 FOR DIALYSIS TREATMENT. PT IS AMBULATORY AND ACCOMPANIED BY Shelby HUSSEIN RN, VERBAL REPORT RECIEVED, CARE OF PT ASSUMED AT THIS TIME.
[2022-10-16 11:30] VITALS: BP 172/81
--- NOTE | 2022-10-16 12:10 | NUR ---
DR. MONTAÑO IN ROOM WITH PATIENT.
--- NOTE | 2022-10-16 14:00 | NUR ---
DIALYSIS NOTE: START TIME: 1135 END TIME: 1358 TIME COMPLETED: 2 HOURS FLUID REMOVED: 2500 ml PRE TX WEIGHT: 88.8 KG POST TX WEIGHT: 85.8 KG PRE TX VS: NIBP 166/85 mmHg HR 73 bpm RR 18/MIN T 97 POST TX VS: NIBP 113/67 mmHg HR 69 bpm RR 18/MIN T 97.6 HEP B ANTIGEN: NEGATIVE (10/04/22) HEP B ANTIBODY: NEGATIVE (09/09/22) VERIFIED INFORMED CONSENT SIGNED BY PATIENT AND DR. EGAN, WITNESSED BY Howie GOMEZ RN. LABS REVIEWED, ASSESMENT COMPLETED. ORDERS FOR HEMODIALYSIS OBTAINED FROM DR. EGAN. EDUCATION PROVIDED TO PATIENT. ACCESS: LUE AVF, +THRILL, +BRUIT. CANNULATION COMPLETED WITH 15G NEEDLES. POST DIALYSIS TX NEEDLES REMOVED AND PRESSURE HELD WITH FISTULA CLAMP FOR 10 MINUTES UNTIL BLEEDING CONTROLLED, DRY DRESSING APPLIED AND SECURED WITH PAPER TAPE. MEDICATIONS ADMINISTERED: HEPARIN 3,000 UNITS LOADING DOSE, TYLENOL 650MG PO, LIDOCAINE 5% TOPICAL, NO RETACRIT PER PHARMACY, SEE E-MAR. ASSESMENT: PT A/OX3, PLEASANT AND COOPERATIVE. AMBULATORY FROM ED, REFUSED OFFER OF WHEEL CHAIR PER ED NURSE. RESPIRATIONS REGULAR AND UNLABORED. LUNGS CLEAR. SR ON TELEMETRY. ABDOMINE SOFT AND SLIGHTLY DISTENDED. NO GROSS EDEMA NOTED. PT ELECTS TO SIGN OUT AMA, TREATMENT ENDED PER PT'S REQUEST, SEE AMA NOTE. [employer] SERIAL #: [id number] DIALYZER/LOT #: OPTIFLUX [id number] CARTRIDGE LOT #: [id number] PH: 7.2 WATER TEMP: 77.1 R/O REJECTION: 98.9% EXPECTED CONDUCTIVITY: 13.7 ACTUAL CONDUCTIVITY: 13.7
--- NOTE | 2022-10-16 14:06 | NUR ---
Pharmacy consulted to dose Retacrit. Hgb=8.9, however Retacrit to be held due to uncontrolled hypertension. Systolic BP maintaining >170 mmHg during this visit with highest reading of 203/98.
--- NOTE | 2022-10-16 14:10 | NUR ---
AMA NOTE: Patient decides to leave AMA. Multiple attempts made to ecourage patient to remain here for continued treatment. Explained to patient all risks of leaving against medical advice including . Pt verbalized understanding of all risks. Pt also encouraged to return to [facility] at any time, especially if symptoms continue or become worse. Pt verbalized understanding. DR. MONTAÑO AWARE, TELEMETRY REMOVED FROM PT AND RETURNED TO ED.
[2022-10-21] MEDS ORDERED: EMLA CREAM5 GM/TUBE EX (09:27)
[2022-10-25] MEDS ORDERED: ROCALTROL0.5 MC1 PO (11:38)
== END 2022-10-16 14:03 | disposition left against medical advice (07) ==
LOC: ED 09:19 → ED-I 10:00 → ED 11:01 → MS2 11:02
PROVIDERS: Emergency Medicine; ADMIT Internal Medicine; ATTEND Internal Medicine
DX: I12.0 Hypertensive chronic kidney disease with stage 5 chronic kidney disease or end stage renal disease (principal); E11.22 Type 2 diabetes mellitus with diabetic chronic kidney disease; N18.6 End stage renal disease; E78.5 Hyperlipidemia, unspecified; D63.1 Anemia in chronic kidney disease; N25.81 Secondary hyperparathyroidism of renal origin; R10.9 Unspecified abdominal pain; Z99.2 Dependence on renal dialysis
CPT/HCPCS: G0378; J1644

== ENCOUNTER 2022-10-23 08:37 | Observation (INO) | payer MEDICAID ==
[~2022-10-23] VITALS: Ht 165.1 cm; Wt 73.0 kg
[2022-10-23 08:52] VITALS: BP 205/88
[2022-10-23 09:00] LABS: HEMATOCRIT 28.6 % (39.0-50.0); HEMOGLOBIN 9.3 g/dl (14.0-18.0); IMMATURE GRANULOCYTES 0.4 % (0.0-5.0); MEAN CELL VOLUME 97.9 fL CALC (80.0-100.0); MEAN CORPUSCULAR HGB 31.8 pG CALC (26.0-32.0); MEAN CORPUSCULAR HGB CONC 32.5 g/dL CAL (32.0-36.0); NEUT# 5.2 thou/uL (1.82-7.42); RED BLOOD COUNT 2.92 mill/uL (4.70-6.10); RED CELL DISTRI WIDTH 14.8 % (11.5-15.5)
[2022-10-23 09:19] LABS: ALBUMIN 4.4 g/dL (3.2-5.0); BILIRUBIN, TOTAL 0.4 mg/dL (0.0-1.4); POTASSIUM 4.7 mmol/l (3.5-5.1); TOTAL PROTEIN 7.6 g/dL (6.3-8.2)
[2022-10-23 09:33] LABS: CREATININE 15.6 mg/dL (0.7-1.3)
[2022-10-23 10:30] VITALS: BP 205/88
[2022-10-25] MEDS ORDERED: ROCALTROL0.5 MC1 PO (11:38)
== END 2022-10-23 13:45 | disposition left against medical advice (07) ==
LOC: ED 08:37 → ED-I 09:44 → ED 09:49 → MS2 09:50
PROVIDERS: Family Medicine; ADMIT Internal Medicine; ATTEND Internal Medicine
DX: I12.0 Hypertensive chronic kidney disease with stage 5 chronic kidney disease or end stage renal disease (principal); E11.22 Type 2 diabetes mellitus with diabetic chronic kidney disease; N18.6 End stage renal disease; Z99.2 Dependence on renal dialysis; E78.5 Hyperlipidemia, unspecified; D63.1 Anemia in chronic kidney disease; N25.81 Secondary hyperparathyroidism of renal origin
CPT/HCPCS: G0378; J1644

== ENCOUNTER 2022-10-30 09:07 | Observation (INO) | payer MEDICAID ==
[~2022-10-30] VITALS: Ht 165.1 cm; Wt 81.8 kg
[2022-10-30 09:23] VITALS: BP 194/98
[2022-10-30 09:25] LABS: HEMOGLOBIN 9.7 g/dl (14.0-18.0); IMMATURE GRANULOCYTES 0.1 % (0.0-5.0); MEAN CELL VOLUME 97.7 fL CALC (80.0-100.0); MEAN CORPUSCULAR HGB 31.6 pG CALC (26.0-32.0); MEAN CORPUSCULAR HGB CONC 32.3 g/dL CAL (32.0-36.0); NEUT# 5.51 thou/uL (1.82-7.42); RED BLOOD COUNT 3.07 mill/uL (4.70-6.10); RED CELL DISTRI WIDTH 14.5 % (11.5-15.5)
[2022-10-30 09:45] LABS: ALBUMIN 4.5 g/dL (3.2-5.0); BILIRUBIN, TOTAL 0.4 mg/dL (0.0-1.4); POTASSIUM 4.9 mmol/l (3.5-5.1); TOTAL PROTEIN 7.6 g/dL (6.3-8.2)
[2022-10-30 10:01] VITALS: BP 194/98
[2022-10-30 10:11] LABS: CREATININE 14.3 mg/dL (0.7-1.3)
[2022-10-30 13:25] VITALS: BP 200/102
== END 2022-10-30 13:30 | disposition left against medical advice (07) ==
LOC: ED 09:07 → ED-I 09:15 → ED 09:54 → MS2 09:55
PROVIDERS: Family Medicine; ADMIT Internal Medicine; ATTEND Internal Medicine
DX: I12.0 Hypertensive chronic kidney disease with stage 5 chronic kidney disease or end stage renal disease (principal); E11.22 Type 2 diabetes mellitus with diabetic chronic kidney disease; N18.6 End stage renal disease; Z99.2 Dependence on renal dialysis; D63.1 Anemia in chronic kidney disease; N25.81 Secondary hyperparathyroidism of renal origin; E78.5 Hyperlipidemia, unspecified
CPT/HCPCS: G0378; J1644

== ENCOUNTER 2022-11-01 08:43 | Observation (INO) | payer MEDICAID ==
[~2022-11-01] VITALS: Ht 165.1 cm; Wt 90.0 kg
[2022-11-01 09:33] LABS: ALBUMIN 4.2 g/dL (3.2-5.0); BILIRUBIN, TOTAL 0.4 mg/dL (0.0-1.4); HEMATOCRIT 28.7 % (39.0-50.0); HEMOGLOBIN 9.4 g/dl (14.0-18.0); IMMATURE GRANULOCYTES 0.3 % (0.0-5.0); MEAN CELL VOLUME 98.3 fL CALC (80.0-100.0); MEAN CORPUSCULAR HGB 32.2 pG CALC (26.0-32.0); MEAN CORPUSCULAR HGB CONC 32.8 g/dL CAL (32.0-36.0); NEUT# 5.11 thou/uL (1.82-7.42); RED BLOOD COUNT 2.92 mill/uL (4.70-6.10); RED CELL DISTRI WIDTH 14.4 % (11.5-15.5); TOTAL PROTEIN 7.3 g/dL (6.3-8.2)
[2022-11-01 09:45] LABS: CREATININE 15.2 mg/dL (0.7-1.3)
[2022-11-01 13:10] VITALS: BP 165/89
== END 2022-11-01 13:30 | disposition left against medical advice (07) ==
LOC: ED 08:43 → ED-I 09:34 → ED 09:53 → MS2 09:54
PROVIDERS: Family Medicine; ADMIT Internal Medicine; ATTEND Internal Medicine
DX: I12.0 Hypertensive chronic kidney disease with stage 5 chronic kidney disease or end stage renal disease (principal); E11.22 Type 2 diabetes mellitus with diabetic chronic kidney disease; N18.6 End stage renal disease; Z99.2 Dependence on renal dialysis; D63.1 Anemia in chronic kidney disease; N25.81 Secondary hyperparathyroidism of renal origin; E78.5 Hyperlipidemia, unspecified
CPT/HCPCS: G0378; J1644

== ENCOUNTER 2022-11-04 08:29 | Observation (INO) | payer MEDICAID ==
[~2022-11-04] VITALS: Ht 165.1 cm; Wt 82.0 kg
[2022-11-04 08:59] LABS: HEMATOCRIT 29.1 % (39.0-50.0); HEMOGLOBIN 9.6 g/dl (14.0-18.0); IMMATURE GRANULOCYTES 0.6 % (0.0-5.0); MEAN CORPUSCULAR HGB 32.3 pG CALC (26.0-32.0); NEUT# 5.57 thou/uL (1.82-7.42); RED BLOOD COUNT 2.97 mill/uL (4.70-6.10); RED CELL DISTRI WIDTH 14.3 % (11.5-15.5)
[2022-11-04 09:06] VITALS: BP 169/90
[2022-11-04 09:23] LABS: ALBUMIN 4.4 g/dL (3.2-5.0); BILIRUBIN, TOTAL 0.4 mg/dL (0.0-1.4); POTASSIUM 4.7 mmol/l (3.5-5.1); TOTAL PROTEIN 7.5 g/dL (6.3-8.2)
[2022-11-04 09:37] LABS: CREATININE 17.5 mg/dL (0.7-1.3)
[2022-11-04 12:50] VITALS: BP 147/91
== END 2022-11-04 12:00 | disposition left against medical advice (07) ==
LOC: ED 08:29 → ED-I 09:15 → ED 09:20 → MS2 09:21
PROVIDERS: Family Medicine; ADMIT Internal Medicine; ATTEND Internal Medicine
DX: I12.0 Hypertensive chronic kidney disease with stage 5 chronic kidney disease or end stage renal disease (principal); E11.22 Type 2 diabetes mellitus with diabetic chronic kidney disease; N18.6 End stage renal disease; Z99.2 Dependence on renal dialysis; D63.1 Anemia in chronic kidney disease; N25.81 Secondary hyperparathyroidism of renal origin; E78.5 Hyperlipidemia, unspecified
CPT/HCPCS: G0378; J1644

== ENCOUNTER 2022-11-06 08:52 | Observation (INO) | payer MEDICAID ==
[~2022-11-06] VITALS: Ht 165.1 cm; Wt 72.7 kg
[2022-11-06 09:31] VITALS: BP 201/100
[2022-11-06 09:35] LABS: HEMATOCRIT 28.5 % (39.0-50.0); HEMOGLOBIN 9.3 g/dl (14.0-18.0); IMMATURE GRANULOCYTES 0.6 % (0.0-5.0); MEAN CELL VOLUME 98.3 fL CALC (80.0-100.0); MEAN CORPUSCULAR HGB 32.1 pG CALC (26.0-32.0); MEAN CORPUSCULAR HGB CONC 32.6 g/dL CAL (32.0-36.0); NEUT# 4.81 thou/uL (1.82-7.42); RED BLOOD COUNT 2.9 mill/uL (4.70-6.10); RED CELL DISTRI WIDTH 14.2 % (11.5-15.5)
[2022-11-06 09:46] VITALS: BP 166/83
[2022-11-06 10:01] LABS: ALBUMIN 4.2 g/dL (3.2-5.0); BILIRUBIN, TOTAL 0.3 mg/dL (0.0-1.4); POTASSIUM 4.7 mmol/l (3.5-5.1); TOTAL PROTEIN 7.7 g/dL (6.3-8.2)
[2022-11-06 10:11] LABS: CREATININE 14.9 mg/dL (0.7-1.3)
[2022-11-06 10:16] VITALS: BP 214/104
[2022-11-06 13:25] VITALS: BP 185/109
== END 2022-11-06 13:30 | disposition left against medical advice (07) ==
LOC: ED 08:52 → ED-I 10:15 → ED 10:15 → MS2 10:22
PROVIDERS: Family Medicine; ADMIT Internal Medicine; ATTEND Internal Medicine
DX: I12.0 Hypertensive chronic kidney disease with stage 5 chronic kidney disease or end stage renal disease (principal); E11.22 Type 2 diabetes mellitus with diabetic chronic kidney disease; N18.6 End stage renal disease; Z99.2 Dependence on renal dialysis; D63.1 Anemia in chronic kidney disease; N25.81 Secondary hyperparathyroidism of renal origin; E78.5 Hyperlipidemia, unspecified; J06.9 Acute upper respiratory infection, unspecified
CPT/HCPCS: G0378; J1644

== ENCOUNTER 2022-11-08 08:58 | Observation (INO) | payer MEDICAID ==
[~2022-11-08] VITALS: Ht 165.1 cm; Wt 80.0 kg
[2022-11-08 11:00] VITALS: BP 199/99
[2022-11-08 11:00] LABS: CREATININE 14.7 mg/dL (0.7-1.3); POTASSIUM 5.2 mmol/l (3.5-5.1)
[2022-11-08 11:16] VITALS: BP 183/88
[2022-11-08 11:31] VITALS: BP 186/92
[2022-11-08 12:02] LABS: HEMATOCRIT 29.1 % (39.0-50.0); HEMOGLOBIN 9.6 g/dl (14.0-18.0); IMMATURE GRANULOCYTES 0.2 % (0.0-5.0); MEAN CORPUSCULAR HGB 32.3 pG CALC (26.0-32.0); NEUT# 4.37 thou/uL (1.82-7.42); RED BLOOD COUNT 2.97 mill/uL (4.70-6.10); RED CELL DISTRI WIDTH 14.1 % (11.5-15.5)
[2022-11-08 14:11] VITALS: BP 191/102
== END 2022-11-08 14:20 | disposition left against medical advice (07) ==
LOC: ED 08:58 → ED-I 11:00 → ED 11:16 → MS2 11:17
PROVIDERS: Emergency Medicine; ADMIT Internal Medicine; ATTEND Internal Medicine
DX: I12.0 Hypertensive chronic kidney disease with stage 5 chronic kidney disease or end stage renal disease (principal); E11.22 Type 2 diabetes mellitus with diabetic chronic kidney disease; N18.6 End stage renal disease; Z99.2 Dependence on renal dialysis; D63.1 Anemia in chronic kidney disease; N25.81 Secondary hyperparathyroidism of renal origin; E78.5 Hyperlipidemia, unspecified
CPT/HCPCS: G0378; J1644

== ENCOUNTER 2022-11-11 08:49 | Observation (INO) | payer MEDICAID ==
[~2022-11-11] VITALS: Ht 165.1 cm; Wt 92.0 kg
[2022-11-11 09:28] LABS: HEMATOCRIT 28.7 % (39.0-50.0); HEMOGLOBIN 9.4 g/dl (14.0-18.0); IMMATURE GRANULOCYTES 0.1 % (0.0-5.0); MEAN CELL VOLUME 97.6 fL CALC (80.0-100.0); MEAN CORPUSCULAR HGB CONC 32.8 g/dL CAL (32.0-36.0); NEUT# 5.49 thou/uL (1.82-7.42); RED BLOOD COUNT 2.94 mill/uL (4.70-6.10); RED CELL DISTRI WIDTH 14.1 % (11.5-15.5)
[2022-11-11 09:41] LABS: ALBUMIN 4.3 g/dL (3.2-5.0); BILIRUBIN, TOTAL 0.4 mg/dL (0.0-1.4); TOTAL PROTEIN 7.3 g/dL (6.3-8.2)
[2022-11-11 09:58] LABS: CREATININE 16.6 mg/dL (0.7-1.3); POTASSIUM 5.5 mmol/l (3.5-5.1)
[2022-11-11 14:15] VITALS: BP 180/93
== END 2022-11-11 15:00 | disposition left against medical advice (07) ==
LOC: ED 08:49 → ED-I 10:11 → ED 11:02 → MS2 11:03
PROVIDERS: Family Medicine; ADMIT Internal Medicine; ATTEND Internal Medicine
DX: I12.0 Hypertensive chronic kidney disease with stage 5 chronic kidney disease or end stage renal disease (principal); E11.22 Type 2 diabetes mellitus with diabetic chronic kidney disease; N18.6 End stage renal disease; Z99.2 Dependence on renal dialysis; D63.1 Anemia in chronic kidney disease; N25.81 Secondary hyperparathyroidism of renal origin; E78.5 Hyperlipidemia, unspecified
CPT/HCPCS: G0378; J1644

== ENCOUNTER 2022-11-13 09:11 | Observation (INO) | payer MEDICAID ==
[~2022-11-13] VITALS: Ht 165.1 cm; Wt 81.0 kg
[2022-11-13 09:20] VITALS: BP 130/56
[2022-11-13 09:30] VITALS: BP 131/68
[2022-11-13 10:46] LABS: HEMATOCRIT 26.8 % (39.0-50.0); HEMOGLOBIN 8.8 g/dl (14.0-18.0); IMMATURE GRANULOCYTES 0.3 % (0.0-5.0); MEAN CELL VOLUME 97.5 fL CALC (80.0-100.0); MEAN CORPUSCULAR HGB CONC 32.8 g/dL CAL (32.0-36.0); NEUT# 5.37 thou/uL (1.82-7.42); RED BLOOD COUNT 2.75 mill/uL (4.70-6.10); RED CELL DISTRI WIDTH 13.9 % (11.5-15.5)
[2022-11-13 10:55] LABS: ALBUMIN 4.4 g/dL (3.2-5.0); BILIRUBIN, TOTAL 0.4 mg/dL (0.0-1.4); POTASSIUM 4.9 mmol/l (3.5-5.1); TOTAL PROTEIN 7.3 g/dL (6.3-8.2)
[2022-11-13 11:09] LABS: CREATININE 15.1 mg/dL (0.7-1.3)
[2022-11-13 14:10] VITALS: BP 128/60
== END 2022-11-13 14:20 | disposition left against medical advice (07) ==
LOC: ED 09:11 → MS2 09:51
PROVIDERS: Emergency Medicine; ADMIT Internal Medicine; ATTEND Internal Medicine
DX: I12.0 Hypertensive chronic kidney disease with stage 5 chronic kidney disease or end stage renal disease (principal); E11.22 Type 2 diabetes mellitus with diabetic chronic kidney disease; N18.6 End stage renal disease; Z99.2 Dependence on renal dialysis; D63.1 Anemia in chronic kidney disease; N25.81 Secondary hyperparathyroidism of renal origin; E78.5 Hyperlipidemia, unspecified
CPT/HCPCS: G0378; J1644

== ENCOUNTER 2022-11-15 08:59 | Observation (INO) | payer MEDICAID ==
[~2022-11-15] VITALS: Ht 165.1 cm; Wt 83.9 kg
--- NOTE | 2022-11-15 09:00 | NUR ---
PATIENT AMBULATED TO ROOM IN NAD. PROVIDER NOTIFIED OF PATIENT STATUS.
[2022-11-15 09:32] LABS: HEMATOCRIT 27.8 % (39.0-50.0); IMMATURE GRANULOCYTES 0.3 % (0.0-5.0); MEAN CELL VOLUME 97.2 fL CALC (80.0-100.0); MEAN CORPUSCULAR HGB 31.5 pG CALC (26.0-32.0); MEAN CORPUSCULAR HGB CONC 32.4 g/dL CAL (32.0-36.0); NEUT# 5.55 thou/uL (1.82-7.42); RED BLOOD COUNT 2.86 mill/uL (4.70-6.10); RED CELL DISTRI WIDTH 13.7 % (11.5-15.5)
[2022-11-15 09:51] LABS: ALBUMIN 4.1 g/dL (3.2-5.0); BILIRUBIN, TOTAL 0.4 mg/dL (0.0-1.4); POTASSIUM 4.9 mmol/l (3.5-5.1)
--- NOTE | 2022-11-15 10:00 | NUR ---
Reassessment of patient completed. No distress noted
--- NOTE | 2022-11-15 10:35 | NUR ---
Admission Note Report Given to: NACHO Transported by: X Wheelchair Stretcher Transported with: X Nurse Transporter Patent IV O2 X Refueling Rampman Location: ICU X MS2
--- NOTE | 2022-11-15 10:35 | NUR ---
PT RECEIVED TO ROOM 386 FROM ED AT 1035, PT AMBULATORY, TELEMETRY ON, ACCOMPANIED BY NURSE TECH.
--- NOTE | 2022-11-15 10:44 | NUR ---
DIALYSIS TREATMENT INITIATED AT 1044.
--- NOTE | 2022-11-15 12:27 | NUR ---
DR. Vishal MONTAÑO IN TO SEE PT.
[2022-11-15 12:56] VITALS: BP 124/63
--- NOTE | 2022-11-15 12:56 | NUR ---
DIALYSIS TREATMENT COMPLETED AT 1256. SEE HEMODIALYSIS TREATMENT INTERVENTION IN [facility] AND TABLO TREATMENT REPORT FOR DETAILS.
--- NOTE | 2022-11-15 13:00 | NUR ---
AMA Patient decides to leave AMA. Multiple attempts made to ecourage patient to remain here for continued treatment. Explained to patient all risks of leaving against medical advice including . Pt verbalized understanding of all risks. Pt also encouraged to return to [facility] at any time, especially if symptoms continue or become worse. Pt verbalized understanding. TELEMETRY REMOVED AND TURNED INTO MS NURSES STATION. DR. MONTAÑO MADE AWRE PT SIGNING OUT AMA.
[2022-11-20] MEDS ORDERED: EMLA CREAM5 GM/TUBE EX (10:03)
== END 2022-11-15 13:00 | disposition left against medical advice (07) ==
LOC: ED 08:59 → ED-I 09:58 → ED 10:26 → MS2 10:27
PROVIDERS: Family Medicine; ADMIT Internal Medicine; ATTEND Internal Medicine
DX: I12.0 Hypertensive chronic kidney disease with stage 5 chronic kidney disease or end stage renal disease (principal); E11.22 Type 2 diabetes mellitus with diabetic chronic kidney disease; N18.6 End stage renal disease; D63.1 Anemia in chronic kidney disease; N25.81 Secondary hyperparathyroidism of renal origin; E78.5 Hyperlipidemia, unspecified; Z99.2 Dependence on renal dialysis
CPT/HCPCS: G0378; J1644

== ENCOUNTER 2022-11-18 08:45 | Observation (INO) | payer MEDICAID ==
[~2022-11-18] VITALS: Ht 165.1 cm; Wt 81.8 kg
--- NOTE | 2022-11-18 08:45 | NUR ---
PT TO ROOM W/STEADY GAIT.
[2022-11-18 08:51] VITALS: BP 185/87
[2022-11-18 09:00] VITALS: BP 185/95
[2022-11-18 09:11] LABS: HEMATOCRIT 30.1 % (39.0-50.0); HEMOGLOBIN 9.7 g/dl (14.0-18.0); IMMATURE GRANULOCYTES 0.5 % (0.0-5.0); MEAN CORPUSCULAR HGB 31.9 pG CALC (26.0-32.0); MEAN CORPUSCULAR HGB CONC 32.2 g/dL CAL (32.0-36.0); NEUT# 4.51 thou/uL (1.82-7.42); RED BLOOD COUNT 3.04 mill/uL (4.70-6.10); RED CELL DISTRI WIDTH 13.8 % (11.5-15.5)
[2022-11-18 09:23] LABS: ALBUMIN 4.2 g/dL (3.2-5.0); BILIRUBIN, TOTAL 0.4 mg/dL (0.0-1.4); TOTAL PROTEIN 7.2 g/dL (6.3-8.2)
[2022-11-18 09:40] LABS: POTASSIUM 5.6 mmol/l (3.5-5.1)
[2022-11-18 09:41] LABS: CREATININE 17.4 mg/dL (0.7-1.3)
--- NOTE | 2022-11-18 09:45 | NUR ---
CHECKED ON PT. PT IS IN NAD. NO CONCERNS AT THIS TIME.
[2022-11-18 10:01] VITALS: BP 147/73
--- NOTE | 2022-11-18 10:55 | NUR ---
PT TO [facility] AMBULATORY FOR DIALYSIS W/STEADY GAIT.
--- NOTE | 2022-11-18 11:09 | NUR ---
DIALYSIS TREATMENT INITIATED AT 1109. PT INSIST ON ONLY TWO HOURS OF TREATMENT, EDUCATION PROVIDED ON BENEFITS OF EXTENDING HEMODIALYSIS TREATMENT TO AT LEAST THREE HOURS. PT VERBALIZES UNDERSTANDING. CONTINUE TO REQUEST TWO HOUR TREATMENT ONLY.
[2022-11-18 11:10] VITALS: BP 175/91
--- NOTE | 2022-11-18 12:15 | NUR ---
Rubio YANEZ TELEVISION PICTURE TUBE REBUILDER IN TO SEE PT DURING HEMODIALYSIS TREATMENT.
--- NOTE | 2022-11-18 13:22 | NUR ---
DIALYSIS TREATMENT COMPLETED AT 1322. SEE HEMODIALYSIS TREATMENT INTERVENTION IN [facility] AND TABLO TREATMENT REPORT FOR DETAILS.
--- NOTE | 2022-11-18 13:30 | NUR ---
AMA Patient decides to leave AMA. Multiple attempts made to ecourage patient to remain here for continued treatment. Explained to patient all risks of leaving against medical advice including . Pt verbalized understanding of all risks. Pt also encouraged to return to [facility] at any time, especially if symptoms continue or become worse. Pt verbalized understanding. DR. MONTAÑO AWARE PT SIGNING OUT AMA. TELEMETRY REMOVED AND TURNED INTO MS NURSES STATION.
[2022-11-20] MEDS ORDERED: EMLA CREAM5 GM/TUBE EX (10:03)
== END 2022-11-18 13:30 | disposition left against medical advice (07) ==
LOC: ED 08:45 → MS2 10:18
PROVIDERS: Emergency Medicine; ADMIT Internal Medicine; ATTEND Internal Medicine
DX: I12.0 Hypertensive chronic kidney disease with stage 5 chronic kidney disease or end stage renal disease (principal); E11.22 Type 2 diabetes mellitus with diabetic chronic kidney disease; N18.6 End stage renal disease; Z99.2 Dependence on renal dialysis; D63.1 Anemia in chronic kidney disease; N25.81 Secondary hyperparathyroidism of renal origin; E78.5 Hyperlipidemia, unspecified
CPT/HCPCS: G0378; J1644

== ENCOUNTER 2022-11-22 08:47 | Observation (INO) | payer MEDICAID ==
[~2022-11-22] VITALS: Ht 165.1 cm; Wt 83.9 kg
--- NOTE | 2022-11-22 09:00 | NUR ---
PATIENT AMBULATORY TO ROOM IN NAD. PROVIDER NOTIFIED OF PATIENT STATUS.
[2022-11-22 09:02] VITALS: BP 131/74
[2022-11-22 09:11] LABS: BASO% 0.5 % (0-3); EOS% 7.5 % (0-8); HEMATOCRIT 28.4 % (39.0-50.0); HEMOGLOBIN 9.4 g/dl (14.0-18.0); IMMATURE GRANULOCYTES 0.2 % (0.0-5.0); LYMPH% 25.9 % (15-41); MEAN CELL VOLUME 97.3 fL CALC (80.0-100.0); MEAN CORPUSCULAR HGB 32.2 pG CALC (26.0-32.0); MEAN CORPUSCULAR HGB CONC 33.1 g/dL CAL (32.0-36.0); MONO% 7.9 % (2-13); NEUT# 3.24 thou/uL (1.82-7.42); RED BLOOD COUNT 2.92 mill/uL (4.70-6.10); RED CELL DISTRI WIDTH 13.9 % (11.5-15.5)
[2022-11-22 09:28] LABS: ALBUMIN 4.2 g/dL (3.2-5.0); BILIRUBIN, TOTAL 0.3 mg/dL (0.0-1.4); POTASSIUM 4.9 mmol/l (3.5-5.1); TOTAL PROTEIN 7.3 g/dL (6.3-8.2)
[2022-11-22 09:31] VITALS: BP 126/64
[2022-11-22 10:00] VITALS: BP 124/64
--- NOTE | 2022-11-22 10:07 | NUR ---
Reassessment of patient completed. No distress noted.
[2022-11-22 10:31] VITALS: BP 114/67
--- NOTE | 2022-11-22 11:07 | NUR ---
PT ARRIVES TO ROOM 286 FROM ED FOR HEMODIALYSIS AT 1107. PT IS AMBULATORY, TELEMETRY ATTATCHED. ACCOMPANIED BY Simi SERRANO LPN. HAND OFF REPORT RECEIVED FROM Simi SERRANO LPN. CARE OF PT ASSUMED AT THIS TIME.
--- NOTE | 2022-11-22 11:11 | NUR ---
REPORT GIVEN TO NACHO IN DIALYSIS. PATIENT TRANSFERRED TO FLOOR WITHOUT ANY DIFFICULTIES. WEIGHT COLLCTED AND COMMUNICATED.
--- NOTE | 2022-11-22 11:15 | NUR ---
HEMODIALYSIS TREATMENT INITIATED AT 1115. SEE HEMODIALYSIS TREATMENT PROCESS INTERVENTION AND TABLO TREATMENT FLOWSHEET FOR TREATMENT SPECIFIC DETAILS.
--- NOTE | 2022-11-22 11:30 | NUR ---
CARDIZEM GTT TURNED OFF AT 1130. PT AFIB WITH A CONTROLLED RATE 70S-80S.
--- NOTE | 2022-11-22 11:50 | NUR ---
Rubio YANEZ APRN IN TO SEE PT.
--- NOTE | 2022-11-22 11:54 | NUR ---
DR. MONTAÑO IN TO SEE PT.
[2022-11-22 14:00] VITALS: BP 130/70
--- NOTE | 2022-11-22 14:00 | NUR ---
HEMODIALYSIS TREATMENT COMPLETED AT 1358. SEE HEMODIALYSIS TREATMENT PROCESS INTERVENTION AND TABLO TREATMENT FLOWSHEET FOR TREATMENT SPECIFIC DETAILS.
--- NOTE | 2022-11-22 14:10 | NUR ---
AMA Patient decides to leave AMA. Multiple attempts made to ecourage patient to remain here for continued treatment. Explained to patient all risks of leaving against medical advice including . Pt verbalized understanding of all risks. Pt also encouraged to return to [facility] at any time, especially if symptoms continue or become worse. Pt verbalized understanding. DR. MONTAÑO AWARE PT ELECTING TO SIGN OUT AMA. GREEN FEED ATTENDANT REMOVED AND TURNED INTO MS NURSES STATION.
== END 2022-11-22 14:10 | disposition left against medical advice (07) ==
LOC: ED 08:47 → ED-I 09:25 → ED 09:25 → MS2 10:08
PROVIDERS: Family Medicine; ADMIT Internal Medicine; ATTEND Internal Medicine
DX: I12.0 Hypertensive chronic kidney disease with stage 5 chronic kidney disease or end stage renal disease (principal); E11.22 Type 2 diabetes mellitus with diabetic chronic kidney disease; N18.6 End stage renal disease; Z99.2 Dependence on renal dialysis; D63.1 Anemia in chronic kidney disease; N25.81 Secondary hyperparathyroidism of renal origin; E78.5 Hyperlipidemia, unspecified
CPT/HCPCS: G0378; J1644

== ENCOUNTER 2022-11-25 07:27 | Observation (INO) | payer MEDICAID ==
[~2022-11-25] VITALS: Ht 165.1 cm; Wt 88.0 kg
[2022-11-25 07:35] VITALS: BP 123/57
[2022-11-25 08:00] VITALS: BP 135/71
[2022-11-25 08:00] LABS: BASO% 0.5 % (0-3); EOS% 5.7 % (0-8); HEMATOCRIT 28.8 % (39.0-50.0); HEMOGLOBIN 9.5 g/dl (14.0-18.0); IMMATURE GRANULOCYTES 0.3 % (0.0-5.0); LYMPH% 21.5 % (15-41); MONO% 5.3 % (2-13); NEUT# 4.92 thou/uL (1.82-7.42); NEUT% 66.7 % (42-76); RED BLOOD COUNT 2.97 mill/uL (4.70-6.10); RED CELL DISTRI WIDTH 13.9 % (11.5-15.5)
[2022-11-25 08:13] LABS: ALBUMIN 4.4 g/dL (3.2-5.0); BILIRUBIN, TOTAL 0.3 mg/dL (0.0-1.4); POTASSIUM 4.9 mmol/l (3.5-5.1); TOTAL PROTEIN 7.4 g/dL (6.3-8.2)
[2022-11-25 08:32] LABS: CREATININE 15.6 mg/dL (0.7-1.3)
[2022-11-25 08:34] VITALS: BP 135/71
== END 2022-11-25 11:00 | disposition left against medical advice (07) ==
LOC: ED 07:27 → ED-I 07:50 → ED 08:13 → MS2 08:14
PROVIDERS: Family Medicine; ADMIT Internal Medicine; ATTEND Internal Medicine
DX: I12.0 Hypertensive chronic kidney disease with stage 5 chronic kidney disease or end stage renal disease (principal); E11.22 Type 2 diabetes mellitus with diabetic chronic kidney disease; N18.6 End stage renal disease; Z99.2 Dependence on renal dialysis; D63.1 Anemia in chronic kidney disease; N25.81 Secondary hyperparathyroidism of renal origin; E78.5 Hyperlipidemia, unspecified
CPT/HCPCS: G0378; J1644

== ENCOUNTER 2022-11-29 08:48 | Observation (INO) | payer MEDICAID ==
[~2022-11-29] VITALS: Ht 165.1 cm; Wt 68.2 kg
[2022-11-29 08:55] VITALS: BP 168/77
[2022-11-29 09:00] VITALS: BP 150/83
[2022-11-29 09:21] LABS: BASO% 0.8 % (0-3); EOS% 5.7 % (0-8); HEMOGLOBIN 9.2 g/dl (14.0-18.0); IMMATURE GRANULOCYTES 0.2 % (0.0-5.0); LYMPH% 19.7 % (15-41); MEAN CELL VOLUME 96.6 fL CALC (80.0-100.0); MEAN CORPUSCULAR HGB 31.7 pG CALC (26.0-32.0); MEAN CORPUSCULAR HGB CONC 32.9 g/dL CAL (32.0-36.0); MONO% 11.9 % (2-13); NEUT# 3.22 thou/uL (1.82-7.42); NEUT% 61.7 % (42-76); RED BLOOD COUNT 2.9 mill/uL (4.70-6.10)
[2022-11-29 09:30] VITALS: BP 140/73
[2022-11-29 09:41] LABS: ALBUMIN 4.4 g/dL (3.2-5.0); BILIRUBIN, TOTAL 0.3 mg/dL (0.0-1.4); POTASSIUM 4.9 mmol/l (3.5-5.1); TOTAL PROTEIN 7.8 g/dL (6.3-8.2)
[2022-11-29 09:53] LABS: CREATININE 14.6 mg/dL (0.7-1.3)
[2022-11-29 10:32] VITALS: BP 170/87
== END 2022-11-29 13:30 | disposition left against medical advice (07) ==
LOC: ED 08:48 → ED-I 09:20 → ED 10:01 → MS2 10:02
PROVIDERS: Family Medicine; ADMIT Internal Medicine; ATTEND Internal Medicine
DX: I12.0 Hypertensive chronic kidney disease with stage 5 chronic kidney disease or end stage renal disease (principal); E11.22 Type 2 diabetes mellitus with diabetic chronic kidney disease; N18.6 End stage renal disease; Z99.2 Dependence on renal dialysis; D63.1 Anemia in chronic kidney disease; N25.81 Secondary hyperparathyroidism of renal origin; E78.5 Hyperlipidemia, unspecified
CPT/HCPCS: G0378; J1644

== ENCOUNTER 2022-12-02 08:40 | Emergency (ER) | payer MEDICAID ==
[~2022-12-02] VITALS: Ht 165.1 cm; Wt 70.5 kg
[2022-12-02 09:15] VITALS: BP 136/67
== END 2022-12-02 11:17 | disposition left against medical advice (07) ==
LOC: ED 08:40
DX: I12.0 Hypertensive chronic kidney disease with stage 5 chronic kidney disease or end stage renal disease (principal); E11.22 Type 2 diabetes mellitus with diabetic chronic kidney disease; N18.6 End stage renal disease; Z99.2 Dependence on renal dialysis; E78.5 Hyperlipidemia, unspecified; F17.200 Nicotine dependence, unspecified, uncomplicated; Z53.29 Procedure and treatment not carried out because of patient's decision for other reasons

== ENCOUNTER 2022-12-04 08:51 | Observation (INO) | payer MEDICAID ==
[~2022-12-04] VITALS: Ht 165.1 cm; Wt 83.9 kg
--- NOTE | 2022-12-04 08:52 | NUR ---
PATIENT AMBULATORY TO ROOM IN NAD. PROVIDER NOTIFIED OF PATIENT STATUS.
[2022-12-04 08:57] VITALS: BP 144/83
[2022-12-04 09:00] VITALS: BP 150/75
[2022-12-04 09:16] LABS: BASO% 0.8 % (0-3); EOS% 4.6 % (0-8); HEMATOCRIT 27.3 % (39.0-50.0); HEMOGLOBIN 9.1 g/dl (14.0-18.0); IMMATURE GRANULOCYTES 0.2 % (0.0-5.0); LYMPH% 17.4 % (15-41); MEAN CELL VOLUME 95.5 fL CALC (80.0-100.0); MEAN CORPUSCULAR HGB 31.8 pG CALC (26.0-32.0); MEAN CORPUSCULAR HGB CONC 33.3 g/dL CAL (32.0-36.0); MONO% 6.9 % (2-13); NEUT# 4.28 thou/uL (1.82-7.42); NEUT% 70.1 % (42-76); RED BLOOD COUNT 2.86 mill/uL (4.70-6.10); RED CELL DISTRI WIDTH 13.6 % (11.5-15.5)
[2022-12-04 09:39] LABS: ALBUMIN 4.2 g/dL (3.2-5.0); BILIRUBIN, TOTAL 0.2 mg/dL (0.0-1.4); POTASSIUM 4.9 mmol/l (3.5-5.1); TOTAL PROTEIN 7.2 g/dL (6.3-8.2)
[2022-12-04 09:48] LABS: CREATININE 14.4 mg/dL (0.7-1.3)
--- NOTE | 2022-12-04 09:56 | NUR ---
Reassessment of patient completed. No distress noted.
--- NOTE | 2022-12-04 10:18 | NUR ---
PT SITTING UP IN BED WITH EYES CLOSED, APPEARS TO BE SLEEPING.
--- NOTE | 2022-12-04 10:45 | NUR ---
Admission Note Report Given to: NACHO REDDY Transported by: X Wheelchair Stretcher Transported with: Nurse X Transporter Patent IV O2 X Mason Tender Location: ICU X MS2
--- NOTE | 2022-12-04 10:50 | NUR ---
PT ARRIVES FROM ED ACCOMPANIED BY Gene CAZARES ACQUISITION LEAD, AMBULATORY. TELEMETRY ATTATCHED.
--- NOTE | 2022-12-04 11:01 | NUR ---
HEMODIALYSIS TREATMENT INITIATED AT 1101. SEE HEMODIALYSIS TREATMENT PROCESS INTERVENTION AND TABLO TREATMENT FLOWSHEET FOR TREATMENT SPECIFIC DETAILS.
--- NOTE | 2022-12-04 11:39 | NUR ---
DR. EGAN IN TO SEE PT.
--- NOTE | 2022-12-04 12:55 | NUR ---
DR. MONTAÑO IN TO SEE PT.
--- NOTE | 2022-12-04 13:16 | NUR ---
HEMODIALYSIS TREATMENT COMPLETED AT 1316. SEE HEMODIALYSIS TREATMENT PROCESS INTERVENTION AND TABLO TREATMENT FLOWSHEET FOR TREATMENT SPECIFIC DETAILS.
[2022-12-04 13:20] VITALS: BP 169/89
--- NOTE | 2022-12-04 13:30 | NUR ---
AMA Patient decides to leave AMA. Multiple attempts made to ecourage patient to remain here for continued treatment. Explained to patient all risks of leaving against medical advice including . Pt verbalized understanding of all risks. Pt also encouraged to return to [facility] at any time, especially if symptoms continue or become worse. Pt verbalized understanding. DR. MONTAÑO AWARE PT SIGNING OUT AMA. TELEMETRY COLLECTED AND TURNED INTO MS NURSES STATION.
== END 2022-12-04 13:30 | disposition left against medical advice (07) ==
LOC: ED 08:51 → ED-I 09:50 → ED 10:22 → MS2 10:23
PROVIDERS: Family Medicine; ADMIT Internal Medicine; ATTEND Internal Medicine
DX: I12.0 Hypertensive chronic kidney disease with stage 5 chronic kidney disease or end stage renal disease (principal); E11.22 Type 2 diabetes mellitus with diabetic chronic kidney disease; N18.6 End stage renal disease; Z99.2 Dependence on renal dialysis; E78.5 Hyperlipidemia, unspecified; D63.1 Anemia in chronic kidney disease; N25.81 Secondary hyperparathyroidism of renal origin
CPT/HCPCS: G0378; J1644

== ENCOUNTER 2022-12-06 08:52 | Observation (INO) | payer MEDICAID ==
[2022-12-06] VITALS (7 sets, daily range): BP systolic 132–167; BP diastolic 75–95
[~2022-12-06] VITALS: Ht 165.1 cm; Wt 88.8 kg
[2022-12-06 09:34] LABS: BASO% 0.8 % (0-3); EOS% 5.1 % (0-8); HEMATOCRIT 27.3 % (39.0-50.0); HEMOGLOBIN 9.2 g/dl (14.0-18.0); IMMATURE GRANULOCYTES 0.2 % (0.0-5.0); LYMPH% 18.9 % (15-41); MEAN CELL VOLUME 95.1 fL CALC (80.0-100.0); MEAN CORPUSCULAR HGB 32.1 pG CALC (26.0-32.0); MEAN CORPUSCULAR HGB CONC 33.7 g/dL CAL (32.0-36.0); MONO% 7.5 % (2-13); NEUT# 4.4 thou/uL (1.82-7.42); NEUT% 67.5 % (42-76); RED BLOOD COUNT 2.87 mill/uL (4.70-6.10); RED CELL DISTRI WIDTH 13.5 % (11.5-15.5)
[2022-12-06 09:50] LABS: ALBUMIN 4.4 g/dL (3.2-5.0); POTASSIUM 4.7 mmol/l (3.5-5.1); TOTAL PROTEIN 7.6 g/dL (6.3-8.2)
[2022-12-06 10:19] LABS: BILIRUBIN, TOTAL 0.3 mg/dL (0.0-1.4)
[2022-12-06 10:20] LABS: CREATININE 14.3 mg/dL (0.7-1.3)
== END 2022-12-06 14:13 | disposition left against medical advice (07) ==
LOC: ED 08:52 → ED-I 09:40 → ED 10:25 → MS2 10:26
PROVIDERS: Family Medicine; ADMIT Internal Medicine; ATTEND Internal Medicine
DX: I12.0 Hypertensive chronic kidney disease with stage 5 chronic kidney disease or end stage renal disease (principal); E11.22 Type 2 diabetes mellitus with diabetic chronic kidney disease; N18.6 End stage renal disease; Z99.2 Dependence on renal dialysis; D63.1 Anemia in chronic kidney disease; N25.81 Secondary hyperparathyroidism of renal origin; E78.5 Hyperlipidemia, unspecified
CPT/HCPCS: G0378

== ENCOUNTER 2022-12-09 09:02 | Observation (INO) | payer MEDICAID ==
[~2022-12-09] VITALS: Ht 165.1 cm; Wt 100.0 kg
[2022-12-09 09:30] VITALS: BP 135/58
[2022-12-09 10:01] VITALS: BP 148/71
[2022-12-09 10:10] LABS: BASO% 0.9 % (0-3); EOS% 4.9 % (0-8); HEMATOCRIT 26.4 % (39.0-50.0); HEMOGLOBIN 8.9 g/dl (14.0-18.0); IMMATURE GRANULOCYTES 0.4 % (0.0-5.0); LYMPH% 18.4 % (15-41); MEAN CELL VOLUME 95.7 fL CALC (80.0-100.0); MEAN CORPUSCULAR HGB 32.2 pG CALC (26.0-32.0); MEAN CORPUSCULAR HGB CONC 33.7 g/dL CAL (32.0-36.0); MONO% 7.8 % (2-13); NEUT# 3.74 thou/uL (1.82-7.42); NEUT% 67.6 % (42-76); RED BLOOD COUNT 2.76 mill/uL (4.70-6.10); RED CELL DISTRI WIDTH 13.5 % (11.5-15.5)
[2022-12-09 10:16] VITALS: BP 151/81
[2022-12-09 11:20] VITALS: BP 163/77
[2022-12-09 12:01] LABS: ALBUMIN 4.2 g/dL (3.2-5.0); BILIRUBIN, TOTAL 0.2 mg/dL (0.0-1.4); POTASSIUM 4.5 mmol/l (3.5-5.1); TOTAL PROTEIN 7.3 g/dL (6.3-8.2)
[2022-12-09 12:15] LABS: CREATININE 15.2 mg/dL (0.7-1.3)
== END 2022-12-09 13:35 | disposition left against medical advice (07) ==
LOC: ED 09:02 → ED-I 09:51 → ED 10:40 → MS2 10:41
PROVIDERS: Family Medicine; ADMIT Internal Medicine; ATTEND Internal Medicine
DX: I12.0 Hypertensive chronic kidney disease with stage 5 chronic kidney disease or end stage renal disease (principal); E11.22 Type 2 diabetes mellitus with diabetic chronic kidney disease; N18.6 End stage renal disease; Z99.2 Dependence on renal dialysis; D63.1 Anemia in chronic kidney disease; N25.81 Secondary hyperparathyroidism of renal origin; E78.5 Hyperlipidemia, unspecified

== ENCOUNTER 2022-12-11 08:58 | Emergency (ER) | payer MEDICAID ==
[~2022-12-11] VITALS: Ht 165.1 cm; Wt 80.0 kg
[2022-12-11 09:06] VITALS: BP 169/89
[2022-12-11 09:15] VITALS: BP 161/82
[2022-12-11 09:18] LABS: BASO% 0.8 % (0-3); EOS% 4.6 % (0-8); HEMATOCRIT 27.1 % (39.0-50.0); HEMOGLOBIN 9.1 g/dl (14.0-18.0); IMMATURE GRANULOCYTES 0.4 % (0.0-5.0); MEAN CELL VOLUME 96.1 fL CALC (80.0-100.0); MEAN CORPUSCULAR HGB 32.3 pG CALC (26.0-32.0); MEAN CORPUSCULAR HGB CONC 33.6 g/dL CAL (32.0-36.0); MONO% 8.9 % (2-13); NEUT# 4.56 thou/uL (1.82-7.42); NEUT% 64.3 % (42-76); RED BLOOD COUNT 2.82 mill/uL (4.70-6.10); RED CELL DISTRI WIDTH 13.6 % (11.5-15.5)
[2022-12-11 09:30] VITALS: BP 162/78
[2022-12-11 09:35] LABS: ALBUMIN 4.4 g/dL (3.2-5.0); POTASSIUM 4.8 mmol/l (3.5-5.1); TOTAL PROTEIN 7.5 g/dL (6.3-8.2)
[2022-12-11 09:42] LABS: BILIRUBIN, TOTAL 0.3 mg/dL (0.0-1.4); CREATININE 14.3 mg/dL (0.7-1.3)
[2022-12-11 09:45] VITALS: BP 165/81
[2022-12-11 10:00] VITALS: BP 138/78
[2022-12-11] MEDS ORDERED: EMLA CREAM5 GM/TUBE EX (10:18)
[2022-12-11 13:05] VITALS: BP 157/77
== END 2022-12-11 13:15 | disposition left against medical advice (07) ==
LOC: ED 08:58 → DIA 08:58 → ED 09:34 → ED-I 09:34 → DIA 09:52 → ED 09:52 → ED-I 09:52 → DIA 09:52
PROVIDERS: Family Medicine
DX: I12.0 Hypertensive chronic kidney disease with stage 5 chronic kidney disease or end stage renal disease (principal); N18.6 End stage renal disease; E11.22 Type 2 diabetes mellitus with diabetic chronic kidney disease; Z99.2 Dependence on renal dialysis; E78.5 Hyperlipidemia, unspecified; Z53.29 Procedure and treatment not carried out because of patient's decision for other reasons
CPT/HCPCS: J1644

== ENCOUNTER 2022-12-16 08:54 | Emergency (ER) | payer MEDICAID ==
[~2022-12-16] VITALS: Ht 165.1 cm; Wt 83.9 kg
[2022-12-16 09:28] LABS: BASO% 0.9 % (0-3); EOS% 5.9 % (0-8); HEMATOCRIT 27.6 % (39.0-50.0); HEMOGLOBIN 9.1 g/dl (14.0-18.0); IMMATURE GRANULOCYTES 0.3 % (0.0-5.0); LYMPH% 19.6 % (15-41); MEAN CELL VOLUME 97.2 fL CALC (80.0-100.0); MONO% 8.3 % (2-13); NEUT# 4.15 thou/uL (1.82-7.42); RED BLOOD COUNT 2.84 mill/uL (4.70-6.10); RED CELL DISTRI WIDTH 13.9 % (11.5-15.5)
[2022-12-16 09:37] LABS: ALBUMIN 4.6 g/dL (3.2-5.0); TOTAL PROTEIN 7.9 g/dL (6.3-8.2)
[2022-12-16 09:40] VITALS: BP 129/65
[2022-12-16 09:44] LABS: BILIRUBIN, TOTAL 0.3 mg/dL (0.0-1.4); CREATININE 17.9 mg/dL (0.7-1.3)
[2022-12-16 09:45] LABS: POTASSIUM 5.2 mmol/l (3.5-5.1)
[2022-12-16 14:05] VITALS: BP 146/74
== END 2022-12-16 14:10 | disposition left against medical advice (07) ==
LOC: ED 08:54 → DIA 09:54 → ED 09:54 → DIA 14:10
PROVIDERS: Family Medicine
DX: I12.0 Hypertensive chronic kidney disease with stage 5 chronic kidney disease or end stage renal disease (principal); E11.22 Type 2 diabetes mellitus with diabetic chronic kidney disease; N18.6 End stage renal disease; Z99.2 Dependence on renal dialysis; E78.5 Hyperlipidemia, unspecified
CPT/HCPCS: J1644

== ENCOUNTER 2022-12-18 08:34 | Emergency (ER) | payer MEDICAID ==
[~2022-12-18] VITALS: Ht 165.1 cm; Wt 81.6 kg
[2022-12-18 08:43] VITALS: BP 153/76
[2022-12-18 08:47] VITALS: BP 151/72
[2022-12-18 09:01] VITALS: BP 130/79
[2022-12-18 09:15] VITALS: BP 136/80
[2022-12-18 10:29] LABS: BASO% 0.9 % (0-3); HEMATOCRIT 25.8 % (39.0-50.0); HEMOGLOBIN 8.6 g/dl (14.0-18.0); IMMATURE GRANULOCYTES 0.5 % (0.0-5.0); LYMPH% 17.5 % (15-41); MEAN CELL VOLUME 96.6 fL CALC (80.0-100.0); MEAN CORPUSCULAR HGB 32.2 pG CALC (26.0-32.0); MEAN CORPUSCULAR HGB CONC 33.3 g/dL CAL (32.0-36.0); MONO% 7.7 % (2-13); NEUT# 4.55 thou/uL (1.82-7.42); NEUT% 68.4 % (42-76); RED BLOOD COUNT 2.67 mill/uL (4.70-6.10); RED CELL DISTRI WIDTH 14.1 % (11.5-15.5)
[2022-12-18 10:51] LABS: POTASSIUM 4.8 mmol/l (3.5-5.1)
[2022-12-18 11:03] LABS: CREATININE 15.6 mg/dL (0.7-1.3)
[2022-12-18 12:05] VITALS: BP 130/66
== END 2022-12-18 12:15 | disposition left against medical advice (07) ==
LOC: ED 08:34 → DIA 08:45
PROVIDERS: Internal Medicine
DX: I12.0 Hypertensive chronic kidney disease with stage 5 chronic kidney disease or end stage renal disease (principal); E11.22 Type 2 diabetes mellitus with diabetic chronic kidney disease; N18.6 End stage renal disease; Z99.2 Dependence on renal dialysis; E78.5 Hyperlipidemia, unspecified; Z53.29 Procedure and treatment not carried out because of patient's decision for other reasons
CPT/HCPCS: J1644

== ENCOUNTER 2022-12-20 08:41 | Emergency (ER) | payer MEDICAID ==
[~2022-12-20] VITALS: Ht 165.1 cm; Wt 89.0 kg
[2022-12-20 09:28] LABS: EOS% 5.2 % (0-8); HEMATOCRIT 29.3 % (39.0-50.0); HEMOGLOBIN 9.4 g/dl (14.0-18.0); IMMATURE GRANULOCYTES 0.4 % (0.0-5.0); LYMPH% 18.6 % (15-41); MEAN CELL VOLUME 97.3 fL CALC (80.0-100.0); MEAN CORPUSCULAR HGB 31.2 pG CALC (26.0-32.0); MEAN CORPUSCULAR HGB CONC 32.1 g/dL CAL (32.0-36.0); NEUT# 4.81 thou/uL (1.82-7.42); NEUT% 67.8 % (42-76); RED BLOOD COUNT 3.01 mill/uL (4.70-6.10); RED CELL DISTRI WIDTH 14.3 % (11.5-15.5)
[2022-12-20 09:43] LABS: ALBUMIN 4.7 g/dL (3.2-5.0); BILIRUBIN, TOTAL 0.2 mg/dL (0.0-1.4); POTASSIUM 4.7 mmol/l (3.5-5.1); TOTAL PROTEIN 8.4 g/dL (6.3-8.2)
[2022-12-20 12:57] VITALS: BP 129/76
== END 2022-12-20 13:00 | disposition left against medical advice (07) ==
LOC: ED 08:41 → DIA 08:58
PROVIDERS: Family Medicine
DX: I12.0 Hypertensive chronic kidney disease with stage 5 chronic kidney disease or end stage renal disease (principal); E11.22 Type 2 diabetes mellitus with diabetic chronic kidney disease; N18.6 End stage renal disease; Z99.2 Dependence on renal dialysis; E78.5 Hyperlipidemia, unspecified; Z53.29 Procedure and treatment not carried out because of patient's decision for other reasons
CPT/HCPCS: J1644

== ENCOUNTER 2022-12-23 08:57 | Emergency (ER) | payer MEDICAID ==
[~2022-12-23] VITALS: Ht 165.1 cm; Wt 89.0 kg
[2022-12-23 09:03] VITALS: BP 197/116
[2022-12-23 09:16] VITALS: BP 184/78
[2022-12-23 09:30] VITALS: BP 174/90
[2022-12-23 09:33] LABS: BASO% 0.9 % (0-3); EOS% 5.3 % (0-8); HEMATOCRIT 27.5 % (39.0-50.0); HEMOGLOBIN 8.8 g/dl (14.0-18.0); IMMATURE GRANULOCYTES 0.3 % (0.0-5.0); LYMPH% 13.5 % (15-41); MEAN CELL VOLUME 96.5 fL CALC (80.0-100.0); MEAN CORPUSCULAR HGB 30.9 pG CALC (26.0-32.0); MONO% 6.5 % (2-13); NEUT# 4.84 thou/uL (1.82-7.42); NEUT% 73.5 % (42-76); RED BLOOD COUNT 2.85 mill/uL (4.70-6.10); RED CELL DISTRI WIDTH 14.4 % (11.5-15.5)
[2022-12-23 09:46] VITALS: BP 180/87
[2022-12-23 10:00] LABS: ALBUMIN 4.1 g/dL (3.2-5.0); POTASSIUM 4.9 mmol/l (3.5-5.1)
[2022-12-23 10:02] VITALS: BP 189/94
[2022-12-23 10:08] LABS: BILIRUBIN, TOTAL 0.3 mg/dL (0.0-1.4)
[2022-12-23 10:18] LABS: CREATININE 16.7 mg/dL (0.7-1.3)
== END 2022-12-23 13:00 | disposition left against medical advice (07) ==
LOC: ED 08:57 → DIA 09:19 → ED 09:19 → DIA 13:00
PROVIDERS: Family Medicine
DX: I12.0 Hypertensive chronic kidney disease with stage 5 chronic kidney disease or end stage renal disease (principal); E11.22 Type 2 diabetes mellitus with diabetic chronic kidney disease; N18.6 End stage renal disease; Z99.2 Dependence on renal dialysis; E78.5 Hyperlipidemia, unspecified; Z53.29 Procedure and treatment not carried out because of patient's decision for other reasons

== ENCOUNTER 2022-12-25 08:56 | Emergency (ER) | payer MEDICAID ==
[2022-12-25] VITALS (7 sets, daily range): BP systolic 144–193; BP diastolic 84–99
[~2022-12-25] VITALS: Ht 165.1 cm; Wt 81.0 kg
[2022-12-25 09:33] LABS: BASO% 0.8 % (0-3); EOS% 5.9 % (0-8); HEMATOCRIT 28.7 % (39.0-50.0); HEMOGLOBIN 9.2 g/dl (14.0-18.0); IMMATURE GRANULOCYTES 0.1 % (0.0-5.0); MEAN CELL VOLUME 97.3 fL CALC (80.0-100.0); MEAN CORPUSCULAR HGB 31.2 pG CALC (26.0-32.0); MEAN CORPUSCULAR HGB CONC 32.1 g/dL CAL (32.0-36.0); MONO% 5.9 % (2-13); NEUT# 5.01 thou/uL (1.82-7.42); NEUT% 69.3 % (42-76); RED BLOOD COUNT 2.95 mill/uL (4.70-6.10); RED CELL DISTRI WIDTH 14.6 % (11.5-15.5)
[2022-12-25 09:42] LABS: ALBUMIN 4.4 g/dL (3.2-5.0); BILIRUBIN, TOTAL 0.3 mg/dL (0.0-1.4); POTASSIUM 4.8 mmol/l (3.5-5.1); TOTAL PROTEIN 7.5 g/dL (6.3-8.2)
[2022-12-25 09:53] LABS: CREATININE 14.9 mg/dL (0.7-1.3)
== END 2022-12-25 13:20 | disposition left against medical advice (07) ==
LOC: ED 08:56 → DIA 09:27 → ED 09:27 → DIA 13:20
PROVIDERS: Family Medicine
DX: I12.0 Hypertensive chronic kidney disease with stage 5 chronic kidney disease or end stage renal disease (principal); E11.22 Type 2 diabetes mellitus with diabetic chronic kidney disease; N18.6 End stage renal disease; Z99.2 Dependence on renal dialysis; E78.5 Hyperlipidemia, unspecified
CPT/HCPCS: J1644

== ENCOUNTER 2022-12-27 09:02 | Emergency (ER) | payer MEDICAID ==
[~2022-12-27] VITALS: Ht 165.1 cm; Wt 89.0 kg
[2022-12-27 10:10] VITALS: BP 130/79
[2022-12-27 10:41] LABS: BASO% 0.8 % (0-3); HEMATOCRIT 27.6 % (39.0-50.0); IMMATURE GRANULOCYTES 0.1 % (0.0-5.0); LYMPH% 12.9 % (15-41); MEAN CELL VOLUME 96.8 fL CALC (80.0-100.0); MEAN CORPUSCULAR HGB 31.6 pG CALC (26.0-32.0); MEAN CORPUSCULAR HGB CONC 32.6 g/dL CAL (32.0-36.0); NEUT# 5.13 thou/uL (1.82-7.42); NEUT% 72.2 % (42-76); RED BLOOD COUNT 2.85 mill/uL (4.70-6.10); RED CELL DISTRI WIDTH 14.4 % (11.5-15.5)
[2022-12-27 11:06] LABS: POTASSIUM 4.7 mmol/l (3.5-5.1)
[2022-12-27 11:32] LABS: CREATININE 14.7 mg/dL (0.7-1.3)
== END 2022-12-27 12:30 | disposition left against medical advice (07) ==
LOC: ED 09:02 → DIA 09:24
PROVIDERS: Internal Medicine Nephrology
DX: I12.0 Hypertensive chronic kidney disease with stage 5 chronic kidney disease or end stage renal disease (principal); E11.22 Type 2 diabetes mellitus with diabetic chronic kidney disease; N18.6 End stage renal disease; Z99.2 Dependence on renal dialysis; E78.5 Hyperlipidemia, unspecified; Z53.29 Procedure and treatment not carried out because of patient's decision for other reasons
CPT/HCPCS: J1644

== ENCOUNTER 2022-12-30 08:59 | Emergency (ER) | payer MEDICAID ==
[~2022-12-30] VITALS: Ht 165.1 cm; Wt 81.6 kg
[2022-12-30] VITALS (9 sets, daily range): BP systolic 97–170; BP diastolic 53–80
[2022-12-30 09:27] LABS: BASO% 0.4 % (0-3); EOS% 5.4 % (0-8); IMMATURE GRANULOCYTES 0.2 % (0.0-5.0); LYMPH% 11.4 % (15-41); MEAN CELL VOLUME 97.2 fL CALC (80.0-100.0); MEAN CORPUSCULAR HGB 31.3 pG CALC (26.0-32.0); MEAN CORPUSCULAR HGB CONC 32.1 g/dL CAL (32.0-36.0); MONO% 8.4 % (2-13); NEUT# 6.73 thou/uL (1.82-7.42); NEUT% 74.2 % (42-76); RED BLOOD COUNT 2.88 mill/uL (4.70-6.10)
[2022-12-30 09:40] LABS: ALBUMIN 4.5 g/dL (3.2-5.0); BILIRUBIN, TOTAL 0.3 mg/dL (0.2-1.3); POTASSIUM 4.8 mmol/l (3.5-5.1); TOTAL PROTEIN 8.1 g/dL (6.3-8.2)
[2022-12-30 09:54] LABS: CREATININE 16.9 mg/dL (0.7-1.3)
== END 2022-12-30 14:00 | disposition left against medical advice (07) ==
LOC: ED 08:59 → DIA 09:53 → ED 09:53 → DIA 14:00
PROVIDERS: Family Medicine
DX: I12.0 Hypertensive chronic kidney disease with stage 5 chronic kidney disease or end stage renal disease (principal); E11.22 Type 2 diabetes mellitus with diabetic chronic kidney disease; N18.6 End stage renal disease; Z99.2 Dependence on renal dialysis; E78.5 Hyperlipidemia, unspecified; Z53.29 Procedure and treatment not carried out because of patient's decision for other reasons
CPT/HCPCS: J1644

== ENCOUNTER 2023-01-01 08:38 | Emergency (ER) | payer MEDICAID ==
[~2023-01-01] VITALS: Ht 165.1 cm; Wt 89.0 kg
[2023-01-01 09:31] LABS: BASO% 0.9 % (0-3); EOS% 5.2 % (0-8); HEMATOCRIT 28.7 % (39.0-50.0); HEMOGLOBIN 9.1 g/dl (14.0-18.0); IMMATURE GRANULOCYTES 0.2 % (0.0-5.0); LYMPH% 13.7 % (15-41); MEAN CELL VOLUME 96.6 fL CALC (80.0-100.0); MEAN CORPUSCULAR HGB 30.6 pG CALC (26.0-32.0); MEAN CORPUSCULAR HGB CONC 31.7 g/dL CAL (32.0-36.0); MONO% 8.2 % (2-13); NEUT# 4.67 thou/uL (1.82-7.42); NEUT% 71.8 % (42-76); RED BLOOD COUNT 2.97 mill/uL (4.70-6.10); RED CELL DISTRI WIDTH 13.6 % (11.5-15.5)
[2023-01-01 09:46] LABS: ALBUMIN 4.1 g/dL (3.2-5.0); BILIRUBIN, TOTAL 0.2 mg/dL (0.2-1.3); POTASSIUM 4.7 mmol/l (3.5-5.1); TOTAL PROTEIN 7.3 g/dL (6.3-8.2)
[2023-01-01 10:02] LABS: CREATININE 14.5 mg/dL (0.7-1.3)
--- NOTE | 2023-01-01 10:30 | NUR ---
PT ESCORTED FROM ED TO DIALYSIS TREATMENT ROOM FOR PRESCRIBED HEMODIALYSIS. HAND-OFF ENDORSEMENT RECEIVED FROM Rubio CAZARES RN.
--- NOTE | 2023-01-01 10:45 | NUR ---
HEMODIALYSIS TREATMENT INITIATED AT 1045. SEE HEMODIALYSIS TREATMENT PROCESS INTERVENTION AND TABLO TREATMENT FLOWSHEET FOR TREATMENT SPECIFIC DETAILS.
--- NOTE | 2023-01-01 12:59 | NUR ---
HEMODIALYSIS TREATMENT COMPLETED AT 1259. SEE HEMODIALYSIS TREATMENT PROCESS INTERVENTION AND TABLO TREATMENT FLOWSHEET FOR TREATMENT SPECIFIC DETAILS.
[2023-01-01 13:00] VITALS: BP 142/78
--- NOTE | 2023-01-01 13:10 | NUR ---
AMA Patient decides to leave AMA. Multiple attempts made to ecourage patient to remain here for continued treatment. Explained to patient all risks of leaving against medical advice including . Pt verbalized understanding of all risks. Pt also encouraged to return to [facility] at any time, especially if symptoms continue or become worse. Pt verbalized understanding. DR. EGAN AND DR. DEL REAL AWARE PT ELECTS TO SIGN OUT AMA.
== END 2023-01-01 13:10 | disposition left against medical advice (07) ==
LOC: ED 08:38 → DIA 09:11 → ED 09:11
PROVIDERS: Emergency Medicine
DX: I12.0 Hypertensive chronic kidney disease with stage 5 chronic kidney disease or end stage renal disease (principal); E11.22 Type 2 diabetes mellitus with diabetic chronic kidney disease; N18.6 End stage renal disease; Z99.2 Dependence on renal dialysis; E78.5 Hyperlipidemia, unspecified; R31.9 Hematuria, unspecified; D63.1 Anemia in chronic kidney disease
CPT/HCPCS: J1644

== ENCOUNTER 2023-01-06 08:58 | Emergency (ER) | payer MEDICAID ==
[~2023-01-06] VITALS: Ht 165.1 cm; Wt 88.6 kg
[2023-01-06] VITALS (8 sets, daily range): BP systolic 144–166; BP diastolic 74–83
--- NOTE | 2023-01-06 10:45 | NUR ---
PT ESCORTED FROM ED 6 TO DIALYSIS TREATMENT ROOM FOR PRESCRIBED HEMODIALYSIS. HAND-OFF REPORT RECEIVED FROM Shelby MCGUIRE RN.
--- NOTE | 2023-01-06 11:00 | NUR ---
HEMODIALYSIS TREATMENT INITIATED AT 1100. SEE HEMODIALYSIS TREATMENT PROCESS INTERVENTION AND TABLO TREATMENT FLOWSHEET FOR TREATMENT SPECIFIC DETAILS.
[2023-01-06 11:16] LABS: BASO% 1.1 % (0-3); EOS% 6.2 % (0-8); HEMATOCRIT 26.2 % (39.0-50.0); HEMOGLOBIN 8.4 g/dl (14.0-18.0); IMMATURE GRANULOCYTES 0.3 % (0.0-5.0); LYMPH% 12.5 % (15-41); MEAN CELL VOLUME 95.3 fL CALC (80.0-100.0); MEAN CORPUSCULAR HGB 30.5 pG CALC (26.0-32.0); MEAN CORPUSCULAR HGB CONC 32.1 g/dL CAL (32.0-36.0); MONO% 8.9 % (2-13); NEUT# 4.74 thou/uL (1.82-7.42); RED BLOOD COUNT 2.75 mill/uL (4.70-6.10); RED CELL DISTRI WIDTH 13.7 % (11.5-15.5)
[2023-01-06 11:28] LABS: ALBUMIN 4.4 g/dL (3.2-5.0); POTASSIUM 5.1 mmol/l (3.5-5.1); TOTAL PROTEIN 7.3 g/dL (6.3-8.2)
[2023-01-06 11:45] LABS: BILIRUBIN, TOTAL 0.2 mg/dL (0.2-1.3)
[2023-01-06 11:46] LABS: CREATININE 16.9 mg/dL (0.7-1.3)
--- NOTE | 2023-01-06 13:04 | NUR ---
HEMODIALYSIS TREATMENT ENDED AT 1304 PER PT'S REQUEST. PT ELECTING TO SIGN OUT AMA. SEE HEMODIALYSIS TREATMENT PROCESS INTERVENTION AND TABLO TREATMENT FLOWSHEET FOR TREATMENT SPECIFIC DETAILS.
--- NOTE | 2023-01-06 13:15 | NUR ---
AMA Patient decides to leave AMA. Multiple attempts made to ecourage patient to remain here for continued treatment. Explained to patient all risks of leaving against medical advice including . Pt verbalized understanding of all risks. Pt also encouraged to return to [facility] at any time, especially if symptoms continue or become worse. Pt verbalized understanding. DR. EGAN AND DR. HERZOG AWARE PT ELECTS TO SIGN OUT AMA.
== END 2023-01-06 13:15 | disposition left against medical advice (07) ==
LOC: ED 08:58 → DIA 09:19
PROVIDERS: Family Medicine
DX: I12.0 Hypertensive chronic kidney disease with stage 5 chronic kidney disease or end stage renal disease (principal); E11.22 Type 2 diabetes mellitus with diabetic chronic kidney disease; N18.6 End stage renal disease; Z99.2 Dependence on renal dialysis; E78.5 Hyperlipidemia, unspecified; Z53.29 Procedure and treatment not carried out because of patient's decision for other reasons
CPT/HCPCS: J1644

== ENCOUNTER 2023-01-08 08:41 | Emergency (ER) | payer MEDICAID ==
[2023-01-08] VITALS (7 sets, daily range): BP systolic 135–167; BP diastolic 71–79
[~2023-01-08] VITALS: Ht 165.1 cm; Wt 77.0 kg
[2023-01-08 10:41] LABS: BASO% 0.9 % (0-3); EOS% 7.2 % (0-8); HEMOGLOBIN 8.6 g/dl (14.0-18.0); IMMATURE GRANULOCYTES 0.3 % (0.0-5.0); LYMPH% 16.7 % (15-41); MEAN CELL VOLUME 95.7 fL CALC (80.0-100.0); MEAN CORPUSCULAR HGB 30.5 pG CALC (26.0-32.0); MEAN CORPUSCULAR HGB CONC 31.9 g/dL CAL (32.0-36.0); MONO% 8.5 % (2-13); NEUT# 4.36 thou/uL (1.82-7.42); NEUT% 66.4 % (42-76); RED BLOOD COUNT 2.82 mill/uL (4.70-6.10); RED CELL DISTRI WIDTH 13.5 % (11.5-15.5)
[2023-01-08 10:59] LABS: ALBUMIN 4.2 g/dL (3.2-5.0); TOTAL PROTEIN 7.1 g/dL (6.3-8.2)
[2023-01-08 11:11] LABS: CREATININE 15.8 mg/dL (0.7-1.3)
== END 2023-01-08 12:45 | disposition left against medical advice (07) ==
LOC: ED 08:41 → DIA 10:09 → ED 10:09 → DIA 12:45
PROVIDERS: Family Medicine
DX: I12.0 Hypertensive chronic kidney disease with stage 5 chronic kidney disease or end stage renal disease (principal); E11.22 Type 2 diabetes mellitus with diabetic chronic kidney disease; N18.6 End stage renal disease; Z99.2 Dependence on renal dialysis; E78.5 Hyperlipidemia, unspecified; Z53.29 Procedure and treatment not carried out because of patient's decision for other reasons

== ENCOUNTER 2023-01-10 08:37 | Emergency (ER) | payer MEDICAID ==
[~2023-01-10] VITALS: Ht 165.1 cm; Wt 88.8 kg
[2023-01-10 12:16] LABS: POTASSIUM 4.6 mmol/l (3.5-5.1)
[2023-01-10 12:23] LABS: BASO% 0.7 % (0-3); EOS% 5.4 % (0-8); HEMATOCRIT 25.8 % (39.0-50.0); HEMOGLOBIN 8.5 g/dl (14.0-18.0); IMMATURE GRANULOCYTES 0.2 % (0.0-5.0); LYMPH% 12.9 % (15-41); MEAN CELL VOLUME 94.9 fL CALC (80.0-100.0); MEAN CORPUSCULAR HGB 31.3 pG CALC (26.0-32.0); MEAN CORPUSCULAR HGB CONC 32.9 g/dL CAL (32.0-36.0); MONO% 7.6 % (2-13); NEUT# 5.94 thou/uL (1.82-7.42); NEUT% 73.2 % (42-76); RED BLOOD COUNT 2.72 mill/uL (4.70-6.10); RED CELL DISTRI WIDTH 13.7 % (11.5-15.5)
[2023-01-10 12:24] LABS: CREATININE 15.2 mg/dL (0.7-1.3)
[2023-01-10 13:40] VITALS: BP 158/80
== END 2023-01-10 13:45 | disposition left against medical advice (07) ==
LOC: ED 08:37 → DIA 09:03
PROVIDERS: Internal Medicine Nephrology
DX: I12.0 Hypertensive chronic kidney disease with stage 5 chronic kidney disease or end stage renal disease (principal); E11.22 Type 2 diabetes mellitus with diabetic chronic kidney disease; N18.6 End stage renal disease; Z99.2 Dependence on renal dialysis; E78.5 Hyperlipidemia, unspecified; Z53.29 Procedure and treatment not carried out because of patient's decision for other reasons
CPT/HCPCS: J1644

== ENCOUNTER 2023-01-13 08:48 | Emergency (ER) | payer MEDICAID ==
[~2023-01-13] VITALS: Ht 165.1 cm; Wt 81.0 kg
[2023-01-13 09:17] LABS: BASO% 0.9 % (0-3); EOS% 5.9 % (0-8); HEMATOCRIT 30.4 % (39.0-50.0); HEMOGLOBIN 9.6 g/dl (14.0-18.0); IMMATURE GRANULOCYTES 0.2 % (0.0-5.0); LYMPH% 13.6 % (15-41); MEAN CELL VOLUME 95.6 fL CALC (80.0-100.0); MEAN CORPUSCULAR HGB 30.2 pG CALC (26.0-32.0); MEAN CORPUSCULAR HGB CONC 31.6 g/dL CAL (32.0-36.0); MONO% 4.4 % (2-13); NEUT# 6.87 thou/uL (1.82-7.42); RED BLOOD COUNT 3.18 mill/uL (4.70-6.10); RED CELL DISTRI WIDTH 13.5 % (11.5-15.5)
[2023-01-13 09:31] LABS: ALBUMIN 4.4 g/dL (3.2-5.0); POTASSIUM 4.9 mmol/l (3.5-5.1); TOTAL PROTEIN 7.6 g/dL (6.3-8.2)
[2023-01-13 09:50] LABS: BILIRUBIN, TOTAL 0.2 mg/dL (0.2-1.3)
[2023-01-13 09:51] LABS: CREATININE 17.5 mg/dL (0.7-1.3)
--- NOTE | 2023-01-13 10:30 | NUR ---
PT ESCORTED FROM ED 3 TO DIALYSIS SUITE FOR PRESCRIBED DIALYSIS TREATMENT. PT DECLINES OFFER FOR TRANSPORT WITH WHEELCHAIR. INSIST ON AMBULATING. PT ACCOMPANIED BY WRITE. GAIT STEADY AND BALANCED. HAND-OFF REPORT RECEIVED FROM Rubio VAZQUEZ RN.
[2023-01-13 10:45] VITALS: BP 169/83
--- NOTE | 2023-01-13 10:45 | NUR ---
HEMODIALYSIS TREATMENT INITIATED AT 1045. SEE HEMODIALYSIS TREATMENT PROCESS INTERVENTION AND TABLO TREATMENT FLOWSHEET FOR TREATMENT SPECIFIC DETAILS.
--- NOTE | 2023-01-13 12:59 | NUR ---
HEMODIALYSIS TREATMENT COMPLETED AT 1259 PER PT'S REQUEST. PT DECLINES FURTHER TREATMENT AT THIS TIME. EDUCATION PROVIDED REGARDING IMPORTANCE OF COMPLETING ENTIRE PRESCRIBED TX. PT VERBALIZES UNDERSTANDING. CONTINUES TO REQUEST TX TO BE ENDED. SEE HEMODIALYSIS TREATMENT PROCESS INTERVENTION AND TABLO TREATMENT FLOWSHEET FOR TREATMENT SPECIFIC DETAILS.
--- NOTE | 2023-01-13 13:15 | NUR ---
AMA Patient decides to leave AMA. Multiple attempts made to ecourage patient to remain here for continued treatment. Explained to patient all risks of leaving against medical advice including . Pt verbalized understanding of all risks. Pt also encouraged to return to [facility] at any time, especially if symptoms continue or become worse. Pt verbalized understanding. DR. CYR AND DR. SARMIENTO AWARE PT ELECTS TO SIGN OUT AMA.
[2023-01-17] MEDS ORDERED: EMLA CREAM5 GM/TUBE EX (09:19)
== END 2023-01-13 13:15 | disposition left against medical advice (07) ==
LOC: ED 08:48 → DIA 09:15
PROVIDERS: Emergency Medicine
DX: I12.0 Hypertensive chronic kidney disease with stage 5 chronic kidney disease or end stage renal disease (principal); E11.22 Type 2 diabetes mellitus with diabetic chronic kidney disease; N18.6 End stage renal disease; Z99.2 Dependence on renal dialysis; E78.5 Hyperlipidemia, unspecified
CPT/HCPCS: J1644

== ENCOUNTER 2023-01-15 09:01 | Emergency (ER) | payer MEDICAID ==
[~2023-01-15] VITALS: Ht 165.1 cm; Wt 83.9 kg
[2023-01-15] VITALS (8 sets, daily range): BP systolic 177–222; BP diastolic 78–131
--- NOTE | 2023-01-15 11:15 | NUR ---
PT ESCORTED FROM ED TO DIALYSIS SUITE FOR PRESCRIBED DIALYSIS TREATMENT. PT DECLINES OFFER FOR TRANSPORT WITH WHEELCHAIR. INSIST ON AMBULATING. PT ACCOMPANIED BY STATION USHER. GAIT STEADY AND BALANCED. HAND-OFF REPORT RECEIVED FROM Shelby MCGUIRE RN.
--- NOTE | 2023-01-15 11:40 | NUR ---
HEMODIALYSIS TREATMENT INITIATED AT 1140. SEE HEMODIALYSIS TREATMENT PROCESS INTERVENTION AND TABLO TREATMENT FLOWSHEET FOR TREATMENT SPECIFIC DETAILS.
[2023-01-15 12:15] LABS: BASO% 0.8 % (0-3); EOS% 4.7 % (0-8); HEMATOCRIT 27.6 % (39.0-50.0); HEMOGLOBIN 8.6 g/dl (14.0-18.0); IMMATURE GRANULOCYTES 0.9 % (0.0-5.0); LYMPH% 12.8 % (15-41); MEAN CELL VOLUME 95.2 fL CALC (80.0-100.0); MEAN CORPUSCULAR HGB 29.7 pG CALC (26.0-32.0); MEAN CORPUSCULAR HGB CONC 31.2 g/dL CAL (32.0-36.0); MONO% 8.7 % (2-13); NEUT# 6.16 thou/uL (1.82-7.42); NEUT% 72.1 % (42-76); RED BLOOD COUNT 2.9 mill/uL (4.70-6.10); RED CELL DISTRI WIDTH 13.6 % (11.5-15.5)
[2023-01-15 12:26] LABS: ALBUMIN 4.1 g/dL (3.2-5.0); TOTAL PROTEIN 7.1 g/dL (6.3-8.2)
[2023-01-15 12:46] LABS: BILIRUBIN, TOTAL 0.1 mg/dL (0.2-1.3)
[2023-01-15 12:47] LABS: CREATININE 15.4 mg/dL (0.7-1.3)
--- NOTE | 2023-01-15 13:57 | NUR ---
HEMODIALYSIS TREATMENT COMPLETED AT 1357 PER PT'S REQUEST. PT DECLINES FURTHER TREATMENT AT THIS TIME. EDUCATION PROVIDED REGARDING IMPORTANCE OF COMPLETING ENTIRE PRESCRIBED TX. PT VERBALIZES UNDERSTANDING. CONTINUES TO REQUEST TX TO BE ENDED. SEE HEMODIALYSIS TREATMENT PROCESS INTERVENTION AND TABLO TREATMENT FLOWSHEET FOR TREATMENT SPECIFIC DETAILS.
--- NOTE | 2023-01-15 14:10 | NUR ---
AMA Patient decides to leave AMA. Multiple attempts made to ecourage patient to remain here for continued treatment. Explained to patient all risks of leaving against medical advice including . Pt verbalized understanding of all risks. Pt also encouraged to return to [facility] at any time, especially if symptoms continue or become worse. Pt verbalized understanding. DR. HERZOG AND DR. CYR AWARE PT SIGNING OUT AMA.
[2023-01-17] MEDS ORDERED: EMLA CREAM5 GM/TUBE EX (09:19)
== END 2023-01-15 14:10 | disposition left against medical advice (07) ==
LOC: ED 09:01 → DIA 09:38 → ED 09:38 → DIA 14:10
PROVIDERS: Family Medicine
DX: I12.0 Hypertensive chronic kidney disease with stage 5 chronic kidney disease or end stage renal disease (principal); E11.22 Type 2 diabetes mellitus with diabetic chronic kidney disease; N18.6 End stage renal disease; Z99.2 Dependence on renal dialysis; E78.5 Hyperlipidemia, unspecified; Z53.29 Procedure and treatment not carried out because of patient's decision for other reasons
CPT/HCPCS: J1644

== ENCOUNTER 2023-01-20 08:51 | Emergency (ER) | payer MEDICAID ==
[~2023-01-20] VITALS: Ht 165.1 cm; Wt 88.8 kg
[2023-01-20 09:14] VITALS: BP 135/70
[2023-01-20 09:17] VITALS: BP 135/70
--- NOTE | 2023-01-20 10:21 | NUR ---
HEMODIALYSIS TREATMENT INITIATED AT 1021 . SEE HEMODIALYSIS TREATMENT PROCESS INTERVENTION AND TABLO TREATMENT FLOWSHEET FOR TREATMENT SPECIFIC DETAILS.
[2023-01-20 10:58] LABS: BASO% 0.9 % (0-3); EOS% 4.9 % (0-8); HEMATOCRIT 26.9 % (39.0-50.0); HEMOGLOBIN 8.4 g/dl (14.0-18.0); IMMATURE GRANULOCYTES 0.1 % (0.0-5.0); LYMPH% 15.7 % (15-41); MEAN CELL VOLUME 95.1 fL CALC (80.0-100.0); MEAN CORPUSCULAR HGB 29.7 pG CALC (26.0-32.0); MEAN CORPUSCULAR HGB CONC 31.2 g/dL CAL (32.0-36.0); MONO% 7.8 % (2-13); NEUT# 5.35 thou/uL (1.82-7.42); NEUT% 70.6 % (42-76); RED BLOOD COUNT 2.83 mill/uL (4.70-6.10); RED CELL DISTRI WIDTH 13.4 % (11.5-15.5)
[2023-01-20 11:09] LABS: ALBUMIN 4.1 g/dL (3.2-5.0); BILIRUBIN, TOTAL 0.2 mg/dL (0.2-1.3); POTASSIUM 4.6 mmol/l (3.5-5.1); TOTAL PROTEIN 7.3 g/dL (6.3-8.2)
[2023-01-20 11:30] LABS: CREATININE 14.6 mg/dL (0.7-1.3)
--- NOTE | 2023-01-20 12:36 | NUR ---
HEMODIALYSIS TREATMENT COMPLETED AT 1236 PER PT'S REQUEST. PT DECLINES FURTHER TREATMENT AT THIS TIME. EDUCATION PROVIDED REGARDING IMPORTANCE OF COMPLETING ENTIRE PRESCRIBED TX. PT VERBALIZES UNDERSTANDING. CONTINUES TO REQUEST TX TO BE ENDED. SEE HEMODIALYSIS TREATMENT PROCESS INTERVENTION AND TABLO TREATMENT FLOWSHEET FOR TREATMENT SPECIFIC DETAILS.
--- NOTE | 2023-01-20 12:45 | NUR ---
AMA Patient decides to leave AMA. Multiple attempts made to ecourage patient to remain here for continued treatment. Explained to patient all risks of leaving against medical advice including . Pt verbalized understanding of all risks. Pt also encouraged to return to [facility] at any time, especially if symptoms continue or become worse. Pt verbalized understanding. DR. HERZOG AWARE PT SIGNING OUT AMA.
== END 2023-01-20 12:45 | disposition home or self-care (01) ==
LOC: ED 08:51 → DIA 09:49 → ED 09:49
PROVIDERS: Family Medicine
DX: I12.0 Hypertensive chronic kidney disease with stage 5 chronic kidney disease or end stage renal disease (principal); E11.22 Type 2 diabetes mellitus with diabetic chronic kidney disease; N18.6 End stage renal disease; Z99.2 Dependence on renal dialysis; E78.5 Hyperlipidemia, unspecified
CPT/HCPCS: J1644

== ENCOUNTER 2023-01-22 09:01 | Emergency (ER) | payer MEDICAID ==
[~2023-01-22] VITALS: Ht 165.1 cm; Wt 89.2 kg
[2023-01-22 09:16] VITALS: BP 128/76
[2023-01-22 09:31] VITALS: BP 120/60
[2023-01-22 10:00] VITALS: BP 126/73
--- NOTE | 2023-01-22 10:15 | NUR ---
PT ESCORTED FROM ED 5 TO DIALYSIS SUITE FOR PRESCRIBED DIALYSIS TREATMENT. PT DECLINES OFFER FOR TRANSPORT WITH WHEELCHAIR. INSIST ON AMBULATING. PT ACCOMPANIED BY Howie GOMEZ RN. GAIT STEADY AND BALANCED. HAND-OFF REPORT RECEIVED FROM MIKE BAINS.
[2023-01-22 10:21] VITALS: BP 131/66
--- NOTE | 2023-01-22 10:21 | NUR ---
HEMODIALYSIS TREATMENT INITIATED AT 1021. SEE HEMODIALYSIS TREATMENT PROCESS INTERVENTION AND TABLO TREATMENT FLOWSHEET FOR TREATMENT SPECIFIC DETAILS.
[2023-01-22 10:59] LABS: BASO% 0.8 % (0-3); EOS% 4.4 % (0-8); HEMATOCRIT 28.7 % (39.0-50.0); HEMOGLOBIN 9.1 g/dl (14.0-18.0); IMMATURE GRANULOCYTES 0.3 % (0.0-5.0); LYMPH% 14.4 % (15-41); MEAN CORPUSCULAR HGB 30.1 pG CALC (26.0-32.0); MEAN CORPUSCULAR HGB CONC 31.7 g/dL CAL (32.0-36.0); MONO% 6.3 % (2-13); NEUT# 5.47 thou/uL (1.82-7.42); NEUT% 73.8 % (42-76); RED BLOOD COUNT 3.02 mill/uL (4.70-6.10); RED CELL DISTRI WIDTH 13.6 % (11.5-15.5)
[2023-01-22 11:50] LABS: ALBUMIN 4.2 g/dL (3.2-5.0); POTASSIUM 4.6 mmol/l (3.5-5.1); TOTAL PROTEIN 7.3 g/dL (6.3-8.2)
[2023-01-22 11:53] LABS: BILIRUBIN, TOTAL 0.3 mg/dL (0.2-1.3); CREATININE 12.3 mg/dL (0.7-1.3)
--- NOTE | 2023-01-22 13:10 | NUR ---
HEMODIALYSIS TREATMENT COMPLETED AT 1310 PER PT'S REQUEST. PT DECLINES FURTHER TREATMENT AT THIS TIME. EDUCATION PROVIDED REGARDING IMPORTANCE OF COMPLETING ENTIRE PRESCRIBED TX. PT VERBALIZES UNDERSTANDING. CONTINUES TO REQUEST TX TO BE ENDED. SEE HEMODIALYSIS TREATMENT PROCESS INTERVENTION AND TABLO TREATMENT FLOWSHEET FOR TREATMENT SPECIFIC DETAILS.
--- NOTE | 2023-01-22 13:15 | NUR ---
AMA Patient decides to leave AMA. Multiple attempts made to ecourage patient to remain here for continued treatment. Explained to patient all risks of leaving against medical advice including . Pt verbalized understanding of all risks. Pt also encouraged to return to [facility] at any time, especially if symptoms continue or become worse. Pt verbalized understanding. DR. HERZOG AND DR. EGAN AWARE PT ELECTS TO SIGN OUT AMA.
== END 2023-01-22 13:15 | disposition left against medical advice (07) ==
LOC: ED 09:01 → DIA 09:57 → ED 09:57 → DIA 13:15
PROVIDERS: Family Medicine
DX: I12.0 Hypertensive chronic kidney disease with stage 5 chronic kidney disease or end stage renal disease (principal); E11.22 Type 2 diabetes mellitus with diabetic chronic kidney disease; N18.6 End stage renal disease; Z99.2 Dependence on renal dialysis; E78.5 Hyperlipidemia, unspecified
CPT/HCPCS: J1644

== ENCOUNTER 2023-01-24 08:38 | Emergency (ER) | payer MEDICAID ==
[~2023-01-24] VITALS: Ht 165.1 cm; Wt 89.0 kg
[2023-01-24 10:20] VITALS: BP 148/76
[2023-01-24 11:19] LABS: BASO% 0.9 % (0-3); EOS% 5.5 % (0-8); HEMATOCRIT 29.7 % (39.0-50.0); HEMOGLOBIN 9.3 g/dl (14.0-18.0); IMMATURE GRANULOCYTES 0.4 % (0.0-5.0); MEAN CELL VOLUME 94.9 fL CALC (80.0-100.0); MEAN CORPUSCULAR HGB 29.7 pG CALC (26.0-32.0); MEAN CORPUSCULAR HGB CONC 31.3 g/dL CAL (32.0-36.0); MONO% 7.8 % (2-13); NEUT# 5.72 thou/uL (1.82-7.42); NEUT% 69.4 % (42-76); RED BLOOD COUNT 3.13 mill/uL (4.70-6.10); RED CELL DISTRI WIDTH 13.4 % (11.5-15.5)
[2023-01-24 11:25] LABS: CREATININE 14.2 mg/dL (0.7-1.3)
== END 2023-01-24 13:15 | disposition left against medical advice (07) ==
LOC: ED 08:38 → DIA 10:07 → ED 13:15
PROVIDERS: Internal Medicine Nephrology
DX: I12.0 Hypertensive chronic kidney disease with stage 5 chronic kidney disease or end stage renal disease (principal); E11.22 Type 2 diabetes mellitus with diabetic chronic kidney disease; N18.6 End stage renal disease; Z99.2 Dependence on renal dialysis; E78.5 Hyperlipidemia, unspecified; Z53.29 Procedure and treatment not carried out because of patient's decision for other reasons

== ENCOUNTER 2023-01-27 09:08 | Emergency (ER) | payer MEDICAID ==
[~2023-01-27] VITALS: Ht 177.8 cm; Wt 89.0 kg
[2023-01-27 10:10] VITALS: BP 141/74
[2023-01-27 10:29] VITALS: BP 142/71
[2023-01-27 10:45] LABS: BASO% 0.5 % (0-3); EOS% 5.3 % (0-8); HEMATOCRIT 29.7 % (39.0-50.0); HEMOGLOBIN 9.2 g/dl (14.0-18.0); IMMATURE GRANULOCYTES 0.1 % (0.0-5.0); LYMPH% 11.8 % (15-41); MEAN CELL VOLUME 96.1 fL CALC (80.0-100.0); MEAN CORPUSCULAR HGB 29.8 pG CALC (26.0-32.0); MONO% 6.9 % (2-13); NEUT# 5.92 thou/uL (1.82-7.42); NEUT% 75.4 % (42-76); RED BLOOD COUNT 3.09 mill/uL (4.70-6.10); RED CELL DISTRI WIDTH 13.7 % (11.5-15.5)
[2023-01-27 10:51] LABS: ALBUMIN 4.3 g/dL (3.2-5.0); BILIRUBIN, TOTAL 0.3 mg/dL (0.2-1.3); POTASSIUM 4.7 mmol/l (3.5-5.1); TOTAL PROTEIN 7.3 g/dL (6.3-8.2)
[2023-01-27 10:58] LABS: CREATININE 15.8 mg/dL (0.7-1.3)
== END 2023-01-27 12:39 | disposition left against medical advice (07) ==
LOC: ED 09:08 → DIA 09:28 → ED 10:00 → DIA 12:39
PROVIDERS: Family Medicine
DX: I12.0 Hypertensive chronic kidney disease with stage 5 chronic kidney disease or end stage renal disease (principal); E11.22 Type 2 diabetes mellitus with diabetic chronic kidney disease; N18.6 End stage renal disease; Z99.2 Dependence on renal dialysis; E78.5 Hyperlipidemia, unspecified; Z53.29 Procedure and treatment not carried out because of patient's decision for other reasons
CPT/HCPCS: J1644

== ENCOUNTER 2023-01-29 09:09 | Emergency (ER) | payer MEDICAID ==
[~2023-01-29] VITALS: Ht 177.8 cm; Wt 83.9 kg
[2023-01-29 10:54] LABS: BASO% 0.9 % (0-3); HEMATOCRIT 30.2 % (39.0-50.0); HEMOGLOBIN 9.3 g/dl (14.0-18.0); IMMATURE GRANULOCYTES 0.4 % (0.0-5.0); LYMPH% 16.3 % (15-41); MEAN CELL VOLUME 95.3 fL CALC (80.0-100.0); MEAN CORPUSCULAR HGB 29.3 pG CALC (26.0-32.0); MEAN CORPUSCULAR HGB CONC 30.8 g/dL CAL (32.0-36.0); MONO% 7.1 % (2-13); NEUT# 5.35 thou/uL (1.82-7.42); NEUT% 69.3 % (42-76); RED BLOOD COUNT 3.17 mill/uL (4.70-6.10); RED CELL DISTRI WIDTH 13.8 % (11.5-15.5)
[2023-01-29 11:29] LABS: ALBUMIN 4.3 g/dL (3.2-5.0); BILIRUBIN, TOTAL 0.2 mg/dL (0.2-1.3); TOTAL PROTEIN 7.4 g/dL (6.3-8.2)
[2023-01-29 11:42] LABS: CREATININE 15.3 mg/dL (0.7-1.3)
[2023-01-29 13:01] VITALS: BP 141/54
== END 2023-01-29 13:15 | disposition left against medical advice (07) ==
LOC: ED 09:09 → DIA 10:06 → ED 10:31 → DIA 13:15
PROVIDERS: Family Medicine
DX: I12.0 Hypertensive chronic kidney disease with stage 5 chronic kidney disease or end stage renal disease (principal); E11.22 Type 2 diabetes mellitus with diabetic chronic kidney disease; N18.6 End stage renal disease; Z99.2 Dependence on renal dialysis; E78.5 Hyperlipidemia, unspecified; D63.1 Anemia in chronic kidney disease

== ENCOUNTER 2023-01-31 09:04 | Emergency (ER) | payer MEDICAID ==
[~2023-01-31] VITALS: Ht 177.8 cm; Wt 89.0 kg
[2023-01-31 09:14] VITALS: BP 174/80
[2023-01-31 09:30] VITALS: BP 154/82
[2023-01-31 10:00] VITALS: BP 132/75
[2023-01-31 11:20] LABS: BASO% 0.8 % (0-3); EOS% 5.9 % (0-8); HEMATOCRIT 29.5 % (39.0-50.0); HEMOGLOBIN 9.3 g/dl (14.0-18.0); IMMATURE GRANULOCYTES 0.1 % (0.0-5.0); LYMPH% 15.5 % (15-41); MEAN CELL VOLUME 94.6 fL CALC (80.0-100.0); MEAN CORPUSCULAR HGB 29.8 pG CALC (26.0-32.0); MEAN CORPUSCULAR HGB CONC 31.5 g/dL CAL (32.0-36.0); MONO% 8.2 % (2-13); NEUT# 5.19 thou/uL (1.82-7.42); NEUT% 69.5 % (42-76); RED BLOOD COUNT 3.12 mill/uL (4.70-6.10); RED CELL DISTRI WIDTH 13.7 % (11.5-15.5)
[2023-01-31 11:34] LABS: ALBUMIN 4.3 g/dL (3.2-5.0); BILIRUBIN, TOTAL 0.2 mg/dL (0.2-1.3); POTASSIUM 4.9 mmol/l (3.5-5.1); TOTAL PROTEIN 7.1 g/dL (6.3-8.2)
== END 2023-01-31 14:00 | disposition left against medical advice (07) ==
LOC: ED 09:04 → DIA 10:28 → ED 10:28 → DIA 14:00
PROVIDERS: Family Medicine
DX: I12.0 Hypertensive chronic kidney disease with stage 5 chronic kidney disease or end stage renal disease (principal); E11.22 Type 2 diabetes mellitus with diabetic chronic kidney disease; N18.6 End stage renal disease; Z99.2 Dependence on renal dialysis; E78.5 Hyperlipidemia, unspecified; Z53.29 Procedure and treatment not carried out because of patient's decision for other reasons
CPT/HCPCS: J1644

== ENCOUNTER 2023-02-03 07:00 | Emergency (ER) | payer MEDICAID ==
[~2023-02-03] VITALS: Ht 177.8 cm; Wt 89.0 kg
[2023-02-03 07:07] VITALS: BP 165/85
[2023-02-03 07:15] VITALS: BP 164/87
[2023-02-03 07:30] VITALS: BP 160/93
--- NOTE | 2023-02-03 08:00 | NUR ---
PT ESCORTED FROM ED TO DIALYSIS SUITE FOR PRESCRIBED DIALYSIS TREATMENT. PT DECLINES OFFER FOR TRANSPORT WITH WHEELCHAIR. INSIST ON AMBULATING. PT ACCOMPANIED BY Howie GOMEZ RN. GAIT STEADY AND BALANCED. HAND-OFF REPORT RECEIVED FROM Shelby MCGUIRE RN.
--- NOTE | 2023-02-03 08:08 | NUR ---
HEMODIALYSIS TREATMENT INITIATED AT 0808. SEE HEMODIALYSIS TREATMENT PROCESS INTERVENTION AND TABLO TREATMENT FLOWSHEET FOR TREATMENT SPECIFIC DETAILS.
[2023-02-03 08:39] LABS: BASO% 0.9 % (0-3); HEMATOCRIT 28.6 % (39.0-50.0); HEMOGLOBIN 8.8 g/dl (14.0-18.0); IMMATURE GRANULOCYTES 0.2 % (0.0-5.0); LYMPH% 16.3 % (15-41); MEAN CELL VOLUME 94.7 fL CALC (80.0-100.0); MEAN CORPUSCULAR HGB 29.1 pG CALC (26.0-32.0); MEAN CORPUSCULAR HGB CONC 30.8 g/dL CAL (32.0-36.0); MONO% 7.5 % (2-13); NEUT# 4.41 thou/uL (1.82-7.42); NEUT% 69.1 % (42-76); RED BLOOD COUNT 3.02 mill/uL (4.70-6.10); RED CELL DISTRI WIDTH 13.6 % (11.5-15.5)
[2023-02-03 09:00] LABS: ALBUMIN 4.2 g/dL (3.2-5.0); BILIRUBIN, TOTAL 0.2 mg/dL (0.2-1.3); POTASSIUM 5.1 mmol/l (3.5-5.1); TOTAL PROTEIN 7.1 g/dL (6.3-8.2)
[2023-02-03 09:22] LABS: CREATININE 16.4 mg/dL (0.7-1.3)
--- NOTE | 2023-02-03 10:28 | NUR ---
HEMODIALYSIS TREATMENT COMPLETED AT 1028 PER PT'S REQUEST. PT DECLINES FURTHER TREATMENT AT THIS TIME. EDUCATION PROVIDED REGARDING IMPORTANCE OF COMPLETING ENTIRE PRESCRIBED TX. PT VERBALIZES UNDERSTANDING. CONTINUES TO REQUEST TX TO BE ENDED. SEE HEMODIALYSIS TREATMENT PROCESS INTERVENTION AND TABLO TREATMENT FLOWSHEET FOR TREATMENT SPECIFIC DETAILS.
[2023-02-03 10:30] VITALS: BP 162/79
--- NOTE | 2023-02-03 10:40 | NUR ---
AMA Patient decides to leave AMA. Multiple attempts made to ecourage patient to remain here for continued treatment. Explained to patient all risks of leaving against medical advice including . Pt verbalized understanding of all risks. Pt also encouraged to return to [facility] at any time, especially if symptoms continue or become worse. Pt verbalized understanding. DR. HERZOG AND DR. EGAN AWARE PT SIGNING OUT AMA.
== END 2023-02-03 10:40 | disposition left against medical advice (07) ==
LOC: ED 07:00 → DIA 07:39 → ED 07:39 → DIA 10:40
PROVIDERS: Family Medicine
DX: I12.0 Hypertensive chronic kidney disease with stage 5 chronic kidney disease or end stage renal disease (principal); E11.22 Type 2 diabetes mellitus with diabetic chronic kidney disease; N18.6 End stage renal disease; Z99.2 Dependence on renal dialysis; E78.5 Hyperlipidemia, unspecified
CPT/HCPCS: J1644

== ENCOUNTER 2023-02-05 08:34 | Emergency (ER) | payer MEDICAID ==
[~2023-02-05] VITALS: Ht 177.8 cm; Wt 88.8 kg
--- NOTE | 2023-02-05 10:15 | NUR ---
PT ESCORTED FROM ED TO DIALYSIS SUITE FOR PRESCRIBED DIALYSIS TREATMENT. PT DECLINES OFFER FOR TRANSPORT WITH WHEELCHAIR. INSIST ON AMBULATING. PT ACCOMPANIED BY Howie OGMEZ RN. GAIT STEADY AND BALANCED. HAND-OFF REPORT RECEIVED FROM Howie MOORE RN.
[2023-02-05 10:27] VITALS: BP 176/90
--- NOTE | 2023-02-05 10:27 | NUR ---
HEMODIALYSIS TREATMENT INITIATED AT 1027. SEE HEMODIALYSIS TREATMENT PROCESS INTERVENTION AND TABLO TREATMENT FLOWSHEET FOR TREATMENT SPECIFIC DETAILS.
[2023-02-05 11:38] LABS: BASO% 0.8 % (0-3); EOS% 6.3 % (0-8); HEMOGLOBIN 9.2 g/dl (14.0-18.0); IMMATURE GRANULOCYTES 0.1 % (0.0-5.0); LYMPH% 13.6 % (15-41); MEAN CELL VOLUME 94.5 fL CALC (80.0-100.0); MEAN CORPUSCULAR HGB CONC 31.7 g/dL CAL (32.0-36.0); MONO% 8.2 % (2-13); NEUT# 5.16 thou/uL (1.82-7.42); RED BLOOD COUNT 3.07 mill/uL (4.70-6.10); RED CELL DISTRI WIDTH 13.8 % (11.5-15.5)
[2023-02-05 11:42] LABS: POTASSIUM 4.8 mmol/l (3.5-5.1)
[2023-02-05 11:58] LABS: CREATININE 16.7 mg/dL (0.7-1.3)
--- NOTE | 2023-02-05 12:41 | NUR ---
HEMODIALYSIS TREATMENT COMPLETED AT 1241 PER PT'S REQUEST. PT DECLINES FURTHER TREATMENT AT THIS TIME. EDUCATION PROVIDED REGARDING IMPORTANCE OF COMPLETING ENTIRE PRESCRIBED TX. PT VERBALIZES UNDERSTANDING. CONTINUES TO REQUEST TX TO BE ENDED. SEE HEMODIALYSIS TREATMENT PROCESS INTERVENTION AND TABLO TREATMENT FLOWSHEET FOR TREATMENT SPECIFIC DETAILS.
--- NOTE | 2023-02-05 12:50 | NUR ---
AMA Patient decides to leave AMA. Multiple attempts made to ecourage patient to remain here for continued treatment. Explained to patient all risks of leaving against medical advice including . Pt verbalized understanding of all risks. Pt also encouraged to return to [facility] at any time, especially if symptoms continue or become worse. Pt verbalized understanding. AND DR. EGAN AWARE PT SIGNING OUT AMA.
== END 2023-02-05 13:00 | disposition left against medical advice (07) ==
LOC: ED 08:34 → DIA 09:12 → ED 13:00
PROVIDERS: Internal Medicine Nephrology
DX: I12.0 Hypertensive chronic kidney disease with stage 5 chronic kidney disease or end stage renal disease (principal); E11.22 Type 2 diabetes mellitus with diabetic chronic kidney disease; N18.6 End stage renal disease; Z99.2 Dependence on renal dialysis; E78.5 Hyperlipidemia, unspecified; Z53.29 Procedure and treatment not carried out because of patient's decision for other reasons
CPT/HCPCS: J1644

== ENCOUNTER 2023-02-07 08:39 | Emergency (ER) | payer MEDICAID ==
[~2023-02-07] VITALS: Ht 177.8 cm; Wt 88.8 kg
[2023-02-07 09:00] VITALS: BP 157/80
[2023-02-07 09:30] VITALS: BP 138/70
[2023-02-07 10:00] VITALS: BP 137/74
[2023-02-07 10:30] VITALS: BP 137/73
[2023-02-07 11:00] VITALS: BP 139/80
[2023-02-07 11:30] VITALS: BP 143/86
[2023-02-07 12:44] LABS: BASO% 0.7 % (0-3); EOS% 5.5 % (0-8); HEMATOCRIT 29.3 % (39.0-50.0); HEMOGLOBIN 9.1 g/dl (14.0-18.0); IMMATURE GRANULOCYTES 0.1 % (0.0-5.0); LYMPH% 14.3 % (15-41); MEAN CELL VOLUME 94.2 fL CALC (80.0-100.0); MEAN CORPUSCULAR HGB 29.3 pG CALC (26.0-32.0); MEAN CORPUSCULAR HGB CONC 31.1 g/dL CAL (32.0-36.0); MONO% 7.5 % (2-13); NEUT# 5.19 thou/uL (1.82-7.42); NEUT% 71.9 % (42-76); RED BLOOD COUNT 3.11 mill/uL (4.70-6.10); RED CELL DISTRI WIDTH 13.7 % (11.5-15.5)
[2023-02-07 12:46] LABS: POTASSIUM 4.7 mmol/l (3.5-5.1)
[2023-02-07 13:02] LABS: CREATININE 16.1 mg/dL (0.7-1.3)
== END 2023-02-07 14:10 | disposition left against medical advice (07) ==
LOC: ED 08:39 → DIA 08:50 → ED 08:50
PROVIDERS: Internal Medicine Nephrology
DX: I12.0 Hypertensive chronic kidney disease with stage 5 chronic kidney disease or end stage renal disease (principal); E11.22 Type 2 diabetes mellitus with diabetic chronic kidney disease; N18.6 End stage renal disease; Z99.2 Dependence on renal dialysis; E78.5 Hyperlipidemia, unspecified; Z53.29 Procedure and treatment not carried out because of patient's decision for other reasons
CPT/HCPCS: J1644

== ENCOUNTER 2023-02-10 09:06 | Emergency (ER) | payer MEDICAID ==
[~2023-02-10] VITALS: Ht 177.8 cm; Wt 80.0 kg
[2023-02-10 09:16] VITALS: BP 141/81
[2023-02-10 09:30] VITALS: BP 151/76
[2023-02-10 11:30] VITALS: BP 168/83
[2023-02-10 11:33] VITALS: BP 151/76
[2023-02-10 11:56] LABS: BASO% 0.8 % (0-3); EOS% 6.4 % (0-8); HEMATOCRIT 28.9 % (39.0-50.0); HEMOGLOBIN 9.1 g/dl (14.0-18.0); IMMATURE GRANULOCYTES 0.2 % (0.0-5.0); LYMPH% 13.4 % (15-41); MEAN CELL VOLUME 94.8 fL CALC (80.0-100.0); MEAN CORPUSCULAR HGB 29.8 pG CALC (26.0-32.0); MEAN CORPUSCULAR HGB CONC 31.5 g/dL CAL (32.0-36.0); MONO% 7.4 % (2-13); NEUT# 5.92 thou/uL (1.82-7.42); NEUT% 71.8 % (42-76); RED BLOOD COUNT 3.05 mill/uL (4.70-6.10); RED CELL DISTRI WIDTH 13.7 % (11.5-15.5)
[2023-02-10 12:10] LABS: ALBUMIN 4.3 g/dL (3.2-5.0); BILIRUBIN, TOTAL 0.2 mg/dL (0.2-1.3); TOTAL PROTEIN 7.3 g/dL (6.3-8.2)
[2023-02-10 12:19] LABS: CREATININE 17.5 mg/dL (0.7-1.3); POTASSIUM 5.4 mmol/l (3.5-5.1)
== END 2023-02-10 14:00 | disposition left against medical advice (07) ==
LOC: ED 09:06 → DIA 09:42 → ED 09:42 → DIA 14:00
PROVIDERS: Family Medicine
DX: I12.0 Hypertensive chronic kidney disease with stage 5 chronic kidney disease or end stage renal disease (principal); E11.22 Type 2 diabetes mellitus with diabetic chronic kidney disease; N18.6 End stage renal disease; Z99.2 Dependence on renal dialysis; E78.5 Hyperlipidemia, unspecified; Z53.29 Procedure and treatment not carried out because of patient's decision for other reasons

== ENCOUNTER 2023-02-12 09:14 | Emergency (ER) | payer MEDICAID ==
[~2023-02-12] VITALS: Ht 177.8 cm; Wt 90.0 kg
[2023-02-12 09:40] VITALS: BP 212/96
[2023-02-12 09:46] VITALS: BP 202/95
[2023-02-12 10:01] VITALS: BP 201/98
[2023-02-12 10:30] VITALS: BP 201/98
[2023-02-12 13:43] LABS: BASO% 0.7 % (0-3); EOS% 6.7 % (0-8); HEMATOCRIT 28.2 % (39.0-50.0); HEMOGLOBIN 8.8 g/dl (14.0-18.0); IMMATURE GRANULOCYTES 0.3 % (0.0-5.0); LYMPH% 16.2 % (15-41); MEAN CELL VOLUME 94.3 fL CALC (80.0-100.0); MEAN CORPUSCULAR HGB 29.4 pG CALC (26.0-32.0); MEAN CORPUSCULAR HGB CONC 31.2 g/dL CAL (32.0-36.0); MONO% 9.4 % (2-13); NEUT# 4.76 thou/uL (1.82-7.42); NEUT% 66.7 % (42-76); RED BLOOD COUNT 2.99 mill/uL (4.70-6.10); RED CELL DISTRI WIDTH 13.9 % (11.5-15.5)
[2023-02-12 13:55] LABS: ALBUMIN 4.2 g/dL (3.2-5.0); BILIRUBIN, TOTAL 0.2 mg/dL (0.2-1.3); TOTAL PROTEIN 7.1 g/dL (6.3-8.2)
[2023-02-12 14:03] LABS: CREATININE 17.2 mg/dL (0.7-1.3); POTASSIUM 5.2 mmol/l (3.5-5.1)
== END 2023-02-12 10:30 | disposition left against medical advice (07) ==
LOC: ED 09:14
PROVIDERS: Family Medicine
DX: I12.0 Hypertensive chronic kidney disease with stage 5 chronic kidney disease or end stage renal disease (principal); E11.22 Type 2 diabetes mellitus with diabetic chronic kidney disease; N18.6 End stage renal disease; Z99.2 Dependence on renal dialysis; E78.5 Hyperlipidemia, unspecified; Z53.29 Procedure and treatment not carried out because of patient's decision for other reasons

== ENCOUNTER 2023-02-12 12:13 | Emergency (ER) | payer MEDICAID ==
[~2023-02-12] VITALS: Ht 177.8 cm; Wt 90.8 kg
[2023-02-12 12:36] VITALS: BP 200/84
[2023-02-12 12:45] VITALS: BP 214/97
--- NOTE | 2023-02-12 13:13 | NUR ---
HEMODIALYSIS TREATMENT INITIATED AT 1313. SEE HEMODIALYSIS TREATMENT PROCESS INTERVENTION AND TABLO TREATMENT FLOWSHEET FOR TREATMENT SPECIFIC DETAILS.
--- NOTE | 2023-02-12 15:26 | NUR ---
HEMODIALYSIS TREATMENT COMPLETED AT 1526. SEE HEMODIALYSIS TREATMENT PROCESS INTERVENTION AND TABLO TREATMENT FLOWSHEET FOR TREATMENT SPECIFIC DETAILS.
--- NOTE | 2023-02-12 15:26 | NUR ---
HEMODIALYSIS TREATMENT COMPLETED AT 1526 PER PT'S REQUEST. PT DECLINES FURTHER TREATMENT AT THIS TIME. EDUCATION PROVIDED REGARDING IMPORTANCE OF COMPLETING ENTIRE PRESCRIBED TX. PT VERBALIZES UNDERSTANDING. CONTINUES TO REQUEST TX TO BE ENDED. SEE HEMODIALYSIS TREATMENT PROCESS INTERVENTION AND TABLO TREATMENT FLOWSHEET FOR TREATMENT SPECIFIC DETAILS.
--- NOTE | 2023-02-12 15:30 | NUR ---
AMA Patient decides to leave AMA. Multiple attempts made to ecourage patient to remain here for continued treatment. Explained to patient all risks of leaving against medical advice including . Pt verbalized understanding of all risks. Pt also encouraged to return to [facility] at any time, especially if symptoms continue or become worse. Pt verbalized understanding.
--- NOTE | 2023-02-16 13:00 | NUR ---
PT ESCORTED FROM ED TO DIALYSIS SUITE FOR PRESCRIBED DIALYSIS TREATMENT. PT DECLINES OFFER FOR TRANSPORT WITH WHEELCHAIR. INSIST ON AMBULATING. PT ACCOMPANIED BY Howie GOMEZ RN. GAIT STEADY AND BALANCED. HAND-OFF REPORT RECEIVED FROM Marta PAYNE RN.
== END 2023-02-12 15:30 | disposition left against medical advice (07) ==
LOC: ED 12:13 → DIA 12:56
DX: I12.0 Hypertensive chronic kidney disease with stage 5 chronic kidney disease or end stage renal disease (principal); E11.22 Type 2 diabetes mellitus with diabetic chronic kidney disease; N18.6 End stage renal disease; Z99.2 Dependence on renal dialysis; E78.5 Hyperlipidemia, unspecified; Z53.29 Procedure and treatment not carried out because of patient's decision for other reasons

== ENCOUNTER 2023-02-17 09:43 | Emergency (ER) | payer MEDICAID ==
[~2023-02-17] VITALS: Ht 177.8 cm; Wt 44.0 kg
[2023-02-17 09:55] VITALS: BP 171/86
[2023-02-17 10:01] VITALS: BP 163/85
[2023-02-17 11:15] VITALS: BP 160/80
[2023-02-17 11:42] LABS: BASO% 0.8 % (0-3); EOS% 7.1 % (0-8); HEMATOCRIT 27.4 % (39.0-50.0); HEMOGLOBIN 8.7 g/dl (14.0-18.0); IMMATURE GRANULOCYTES 0.1 % (0.0-5.0); LYMPH% 13.9 % (15-41); MEAN CELL VOLUME 92.9 fL CALC (80.0-100.0); MEAN CORPUSCULAR HGB 29.5 pG CALC (26.0-32.0); MEAN CORPUSCULAR HGB CONC 31.8 g/dL CAL (32.0-36.0); MONO% 7.7 % (2-13); NEUT# 5.47 thou/uL (1.82-7.42); NEUT% 70.4 % (42-76); RED BLOOD COUNT 2.95 mill/uL (4.70-6.10); RED CELL DISTRI WIDTH 13.6 % (11.5-15.5)
[2023-02-17 11:47] LABS: ALBUMIN 4.2 g/dL (3.2-5.0)
[2023-02-17 11:54] LABS: BILIRUBIN, TOTAL 0.3 mg/dL (0.2-1.3); CREATININE 17.1 mg/dL (0.7-1.3)
[2023-02-17 11:55] LABS: POTASSIUM 5.3 mmol/l (3.5-5.1)
[2023-02-17 13:07] VITALS: BP 160/80
[2023-02-17 13:48] VITALS: BP 160/80
== END 2023-02-17 14:09 | disposition left against medical advice (07) ==
LOC: ED 09:43 → DIA 10:20 → ED 14:09
PROVIDERS: Family Medicine
DX: I12.0 Hypertensive chronic kidney disease with stage 5 chronic kidney disease or end stage renal disease (principal); E11.22 Type 2 diabetes mellitus with diabetic chronic kidney disease; N18.6 End stage renal disease; Z99.2 Dependence on renal dialysis; E78.5 Hyperlipidemia, unspecified

== ENCOUNTER 2023-02-19 07:47 | Emergency (ER) | payer MEDICAID ==
[~2023-02-19] VITALS: Ht 177.8 cm; Wt 82.0 kg
[2023-02-19 08:11] VITALS: BP 152/87
[2023-02-19 08:31] VITALS: BP 145/75
[2023-02-19 09:33] LABS: BASO% 1.1 % (0-3); EOS% 8.5 % (0-8); HEMATOCRIT 27.3 % (39.0-50.0); HEMOGLOBIN 8.6 g/dl (14.0-18.0); LYMPH% 15.9 % (15-41); MEAN CELL VOLUME 93.2 fL CALC (80.0-100.0); MEAN CORPUSCULAR HGB 29.4 pG CALC (26.0-32.0); MEAN CORPUSCULAR HGB CONC 31.5 g/dL CAL (32.0-36.0); MONO% 7.2 % (2-13); NEUT# 4.11 thou/uL (1.82-7.42); NEUT% 67.3 % (42-76); RED BLOOD COUNT 2.93 mill/uL (4.70-6.10); RED CELL DISTRI WIDTH 13.5 % (11.5-15.5)
[2023-02-19 10:02] LABS: ALBUMIN 4.3 g/dL (3.2-5.0); BILIRUBIN, TOTAL 0.2 mg/dL (0.2-1.3); POTASSIUM 4.8 mmol/l (3.5-5.1); TOTAL PROTEIN 7.1 g/dL (6.3-8.2)
[2023-02-19 10:09] LABS: CREATININE 16.3 mg/dL (0.7-1.3)
[2023-02-19 11:44] VITALS: BP 170/85
[2023-02-19 12:19] VITALS: BP 170/85
== END 2023-02-19 09:00 | disposition left against medical advice (07) ==
LOC: ED 07:47 → DIA 08:03
PROVIDERS: Emergency Medicine
DX: I12.0 Hypertensive chronic kidney disease with stage 5 chronic kidney disease or end stage renal disease (principal); E11.22 Type 2 diabetes mellitus with diabetic chronic kidney disease; N18.6 End stage renal disease; Z99.2 Dependence on renal dialysis; E78.5 Hyperlipidemia, unspecified; Z53.29 Procedure and treatment not carried out because of patient's decision for other reasons

== ENCOUNTER 2023-02-21 09:01 | Emergency (ER) | payer MEDICAID ==
[~2023-02-21] VITALS: Ht 177.8 cm; Wt 88.8 kg
[2023-02-21 09:16] VITALS: BP 131/73
[2023-02-21 10:01] VITALS: BP 147/76
[2023-02-21 12:11] LABS: BASO% 0.8 % (0-3); EOS% 7.1 % (0-8); HEMATOCRIT 27.5 % (39.0-50.0); HEMOGLOBIN 8.8 g/dl (14.0-18.0); IMMATURE GRANULOCYTES 0.2 % (0.0-5.0); MEAN CELL VOLUME 92.6 fL CALC (80.0-100.0); MEAN CORPUSCULAR HGB 29.6 pG CALC (26.0-32.0); MONO% 7.9 % (2-13); NEUT# 4.57 thou/uL (1.82-7.42); RED BLOOD COUNT 2.97 mill/uL (4.70-6.10); RED CELL DISTRI WIDTH 13.2 % (11.5-15.5)
[2023-02-21 12:32] LABS: ALBUMIN 4.3 g/dL (3.2-5.0); BILIRUBIN, TOTAL 0.2 mg/dL (0.2-1.3); TOTAL PROTEIN 7.1 g/dL (6.3-8.2)
[2023-02-21 12:40] LABS: CREATININE 15.5 mg/dL (0.7-1.3); POTASSIUM 5.2 mmol/l (3.5-5.1)
[2023-02-21 14:04] VITALS: BP 130/70
== END 2023-02-21 14:15 | disposition home or self-care (01) ==
LOC: ED 09:01 → DIA 09:16 → ED 09:16
PROVIDERS: Family Medicine
DX: I12.0 Hypertensive chronic kidney disease with stage 5 chronic kidney disease or end stage renal disease (principal); E11.22 Type 2 diabetes mellitus with diabetic chronic kidney disease; N18.6 End stage renal disease; Z99.2 Dependence on renal dialysis; E78.5 Hyperlipidemia, unspecified

== ENCOUNTER 2023-02-26 10:23 | Emergency (ER) | payer MEDICAID ==
[~2023-02-26] VITALS: Ht 177.8 cm; Wt 89.0 kg
[2023-02-26 11:43] LABS: BASO% 0.9 % (0-3); EOS% 6.8 % (0-8); HEMATOCRIT 27.5 % (39.0-50.0); HEMOGLOBIN 8.6 g/dl (14.0-18.0); LYMPH% 14.8 % (15-41); MEAN CELL VOLUME 93.2 fL CALC (80.0-100.0); MEAN CORPUSCULAR HGB 29.2 pG CALC (26.0-32.0); MEAN CORPUSCULAR HGB CONC 31.3 g/dL CAL (32.0-36.0); MONO% 7.8 % (2-13); NEUT# 4.62 thou/uL (1.82-7.42); NEUT% 69.7 % (42-76); RED BLOOD COUNT 2.95 mill/uL (4.70-6.10); RED CELL DISTRI WIDTH 13.1 % (11.5-15.5)
[2023-02-26 12:03] LABS: POTASSIUM 4.9 mmol/l (3.5-5.1)
[2023-02-26 12:13] LABS: CREATININE 16.5 mg/dL (0.7-1.3)
[2023-02-26 13:27] VITALS: BP 193/100
== END 2023-02-26 11:23 | disposition left against medical advice (07) ==
LOC: ED 10:23 → DIA 10:47
PROVIDERS: Internal Medicine Nephrology
DX: I12.0 Hypertensive chronic kidney disease with stage 5 chronic kidney disease or end stage renal disease (principal); E11.22 Type 2 diabetes mellitus with diabetic chronic kidney disease; N18.6 End stage renal disease; Z99.2 Dependence on renal dialysis; E78.5 Hyperlipidemia, unspecified; Z53.29 Procedure and treatment not carried out because of patient's decision for other reasons

== ENCOUNTER 2023-02-28 09:30 | Emergency (ER) | payer MEDICAID ==
[~2023-02-28] VITALS: Ht 177.8 cm; Wt 88.2 kg
[2023-02-28 09:38] VITALS: BP 154/82
[2023-02-28 10:01] VITALS: BP 135/90
[2023-02-28 10:30] VITALS: BP 125/66
[2023-02-28 11:00] VITALS: BP 142/71
--- NOTE | 2023-02-28 11:40 | NUR ---
PT ESCORTED FROM ED TO DIALYSIS SUITE FOR PRESCRIBED DIALYSIS TREATMENT. PT DECLINES OFFER FOR TRANSPORT WITH WHEELCHAIR. INSIST ON AMBULATING. PT ACCOMPANIED BY Howie GOMEZ RN. GAIT STEADY AND BALANCED. HAND-OFF REPORT RECEIVED FROM Shelby ACOSTA RN.
--- NOTE | 2023-02-28 11:51 | NUR ---
HEMODIALYSIS TREATMENT INITIATED AT 1151. SEE HEMODIALYSIS TREATMENT PROCESS INTERVENTION AND TABLO TREATMENT FLOWSHEET FOR TREATMENT SPECIFIC DETAILS.
[2023-02-28 12:33] LABS: BASO% 0.7 % (0-3); EOS% 7.3 % (0-8); HEMATOCRIT 28.6 % (39.0-50.0); IMMATURE GRANULOCYTES 0.1 % (0.0-5.0); LYMPH% 17.1 % (15-41); MEAN CELL VOLUME 92.6 fL CALC (80.0-100.0); MEAN CORPUSCULAR HGB 29.1 pG CALC (26.0-32.0); MEAN CORPUSCULAR HGB CONC 31.5 g/dL CAL (32.0-36.0); MONO% 7.5 % (2-13); NEUT# 4.68 thou/uL (1.82-7.42); NEUT% 67.3 % (42-76); RED BLOOD COUNT 3.09 mill/uL (4.70-6.10); RED CELL DISTRI WIDTH 13.3 % (11.5-15.5)
[2023-02-28 12:43] LABS: ALBUMIN 4.3 g/dL (3.2-5.0); POTASSIUM 4.8 mmol/l (3.5-5.1); TOTAL PROTEIN 7.1 g/dL (6.3-8.2)
[2023-02-28 12:49] LABS: BILIRUBIN, TOTAL 0.3 mg/dL (0.2-1.3)
[2023-02-28 14:06] VITALS: BP 148/76
--- NOTE | 2023-02-28 14:06 | NUR ---
HEMODIALYSIS TREATMENT COMPLETED AT 1406 PER PT'S REQUEST. PT DECLINES FURTHER TREATMENT AT THIS TIME. EDUCATION PROVIDED REGARDING IMPORTANCE OF COMPLETING ENTIRE PRESCRIBED TX. PT VERBALIZES UNDERSTANDING. CONTINUES TO REQUEST TX TO BE ENDED. SEE HEMODIALYSIS TREATMENT PROCESS INTERVENTION AND TABLO TREATMENT FLOWSHEET FOR TREATMENT SPECIFIC DETAILS.
--- NOTE | 2023-02-28 14:20 | NUR ---
AMA Patient decides to leave AMA. Multiple attempts made to ecourage patient to remain here for continued treatment. Explained to patient all risks of leaving against medical advice including . Pt verbalized understanding of all risks. Pt also encouraged to return to [facility] at any time, especially if symptoms continue or become worse. Pt verbalized understanding. DR. HERZOG AND DR. EGAN AWARE PT SIGNING OUT AMA.
== END 2023-02-28 11:48 | disposition left against medical advice (07) ==
LOC: ED 09:30 → DIA 09:51
PROVIDERS: Family Medicine
DX: I12.0 Hypertensive chronic kidney disease with stage 5 chronic kidney disease or end stage renal disease (principal); E11.22 Type 2 diabetes mellitus with diabetic chronic kidney disease; N18.6 End stage renal disease; Z99.2 Dependence on renal dialysis; E78.5 Hyperlipidemia, unspecified; Z53.29 Procedure and treatment not carried out because of patient's decision for other reasons

== ENCOUNTER 2023-03-03 09:24 | Emergency (ER) | payer MEDICAID ==
[~2023-03-03] VITALS: Ht 177.8 cm; Wt 88.0 kg
[2023-03-03 09:50] VITALS: BP 154/84
[2023-03-03 10:00] VITALS: BP 146/74
--- NOTE | 2023-03-03 11:07 | NUR ---
HEMODIALYSIS TREATMENT INITIATED AT 1107 . SEE HEMODIALYSIS TREATMENT PROCESS INTERVENTION AND TABLO TREATMENT FLOWSHEET FOR TREATMENT SPECIFIC DETAILS.
[2023-03-03 11:29] LABS: BASO% 0.9 % (0-3); EOS% 7.3 % (0-8); HEMATOCRIT 29.2 % (39.0-50.0); HEMOGLOBIN 9.4 g/dl (14.0-18.0); IMMATURE GRANULOCYTES 0.1 % (0.0-5.0); LYMPH% 13.6 % (15-41); MEAN CELL VOLUME 91.8 fL CALC (80.0-100.0); MEAN CORPUSCULAR HGB 29.6 pG CALC (26.0-32.0); MEAN CORPUSCULAR HGB CONC 32.2 g/dL CAL (32.0-36.0); MONO% 6.4 % (2-13); NEUT# 5.74 thou/uL (1.82-7.42); NEUT% 71.7 % (42-76); RED BLOOD COUNT 3.18 mill/uL (4.70-6.10); RED CELL DISTRI WIDTH 13.3 % (11.5-15.5)
[2023-03-03 11:37] LABS: ALBUMIN 4.3 g/dL (3.2-5.0); BILIRUBIN, TOTAL 0.3 mg/dL (0.2-1.3); POTASSIUM 5.1 mmol/l (3.5-5.1); TOTAL PROTEIN 7.2 g/dL (6.3-8.2)
[2023-03-03 12:37] LABS: CREATININE 18.8 mg/dL (0.7-1.3)
--- NOTE | 2023-03-03 12:54 | NUR ---
HEMODIALYSIS TREATMENT COMPLETED AT 1254 PER PT'S REQUEST. PT DECLINES FURTHER TREATMENT AT THIS TIME. EDUCATION PROVIDED REGARDING IMPORTANCE OF COMPLETING ENTIRE PRESCRIBED TX. PT VERBALIZES UNDERSTANDING. CONTINUES TO REQUEST TX TO BE ENDED.
--- NOTE | 2023-03-03 13:00 | NUR ---
Patient decides to leave AMA. Multiple attempts made to ecourage patient to remain here for continued treatment. Explained to patient all risks of leaving against medical advice including . Pt verbalized understanding of all risks. Pt also encouraged to return to [facility] at any time, especially if symptoms continue or become worse. Pt verbalized understanding. Dr Moran and Dr Barrett is aware.
[2023-03-03 13:19] VITALS: BP 160/81
== END 2023-03-03 13:00 | disposition left against medical advice (07) ==
LOC: ED 09:24 → DIA 10:13
PROVIDERS: Family Medicine
DX: I12.0 Hypertensive chronic kidney disease with stage 5 chronic kidney disease or end stage renal disease (principal); E11.22 Type 2 diabetes mellitus with diabetic chronic kidney disease; N18.6 End stage renal disease; Z99.2 Dependence on renal dialysis; E78.5 Hyperlipidemia, unspecified; Z53.29 Procedure and treatment not carried out because of patient's decision for other reasons

== ENCOUNTER 2023-03-05 09:37 | Emergency (ER) | payer MEDICAID ==
[~2023-03-05] VITALS: Ht 177.8 cm; Wt 88.4 kg
[2023-03-05 09:50] VITALS: BP 143/84
[2023-03-05 10:00] VITALS: BP 145/77
[2023-03-05 11:22] LABS: BASO% 0.9 % (0-3); EOS% 7.7 % (0-8); HEMATOCRIT 28.1 % (39.0-50.0); HEMOGLOBIN 8.9 g/dl (14.0-18.0); IMMATURE GRANULOCYTES 0.1 % (0.0-5.0); LYMPH% 14.8 % (15-41); MEAN CORPUSCULAR HGB 29.5 pG CALC (26.0-32.0); MEAN CORPUSCULAR HGB CONC 31.7 g/dL CAL (32.0-36.0); MONO% 6.7 % (2-13); NEUT# 4.79 thou/uL (1.82-7.42); NEUT% 69.8 % (42-76); RED BLOOD COUNT 3.02 mill/uL (4.70-6.10); RED CELL DISTRI WIDTH 13.6 % (11.5-15.5)
[2023-03-05 11:27] LABS: ALBUMIN 4.3 g/dL (3.2-5.0); BILIRUBIN, TOTAL 0.3 mg/dL (0.2-1.3); TOTAL PROTEIN 7.1 g/dL (6.3-8.2)
[2023-03-05 11:35] LABS: CREATININE 18.2 mg/dL (0.7-1.3)
[2023-03-05 13:43] VITALS: BP 170/85
== END 2023-03-05 13:15 | disposition left against medical advice (07) ==
LOC: ED 09:37 → DIA 10:01 → ED 10:01 → DIA 13:15
PROVIDERS: Internal Medicine Nephrology
DX: I12.0 Hypertensive chronic kidney disease with stage 5 chronic kidney disease or end stage renal disease (principal); E11.22 Type 2 diabetes mellitus with diabetic chronic kidney disease; N18.6 End stage renal disease; E78.5 Hyperlipidemia, unspecified; Z99.2 Dependence on renal dialysis; Z53.29 Procedure and treatment not carried out because of patient's decision for other reasons
CPT/HCPCS: Q5106 EC

== ENCOUNTER 2023-03-07 09:45 | Emergency (ER) | payer MEDICAID ==
[~2023-03-07] VITALS: Ht 177.8 cm; Wt 88.4 kg
[2023-03-07 10:05] VITALS: BP 134/95
[2023-03-07 11:01] VITALS: BP 156/77
[2023-03-07 11:28] LABS: BASO% 0.8 % (0-3); EOS% 6.7 % (0-8); HEMATOCRIT 24.7 % (39.0-50.0); HEMOGLOBIN 7.9 g/dl (14.0-18.0); IMMATURE GRANULOCYTES 0.1 % (0.0-5.0); LYMPH% 12.7 % (15-41); MEAN CELL VOLUME 92.5 fL CALC (80.0-100.0); MEAN CORPUSCULAR HGB 29.6 pG CALC (26.0-32.0); MONO% 6.9 % (2-13); NEUT# 5.8 thou/uL (1.82-7.42); NEUT% 72.8 % (42-76); RED BLOOD COUNT 2.67 mill/uL (4.70-6.10); RED CELL DISTRI WIDTH 13.5 % (11.5-15.5)
[2023-03-07 11:39] LABS: ALBUMIN 4.3 g/dL (3.2-5.0); BILIRUBIN, TOTAL 0.3 mg/dL (0.2-1.3); POTASSIUM 4.9 mmol/l (3.5-5.1); TOTAL PROTEIN 7.1 g/dL (6.3-8.2)
== END 2023-03-07 12:43 | disposition left against medical advice (07) ==
LOC: ED 09:45 → DIA 10:15 → ED 12:43
PROVIDERS: Family Medicine
DX: I12.0 Hypertensive chronic kidney disease with stage 5 chronic kidney disease or end stage renal disease (principal); E11.22 Type 2 diabetes mellitus with diabetic chronic kidney disease; N18.6 End stage renal disease; Z99.2 Dependence on renal dialysis; E78.5 Hyperlipidemia, unspecified; Z53.29 Procedure and treatment not carried out because of patient's decision for other reasons

== ENCOUNTER 2023-03-10 09:39 | Emergency (ER) | payer MEDICAID ==
[~2023-03-10] VITALS: Ht 177.8 cm; Wt 85.0 kg
[2023-03-10 09:49] VITALS: BP 155/83
[2023-03-10 10:00] VITALS: BP 151/81
[2023-03-10 10:30] VITALS: BP 161/85
[2023-03-10 11:35] VITALS: BP 161/85
== END 2023-03-10 11:35 | disposition left against medical advice (07) ==
LOC: ED 09:39
DX: I12.0 Hypertensive chronic kidney disease with stage 5 chronic kidney disease or end stage renal disease (principal); E11.22 Type 2 diabetes mellitus with diabetic chronic kidney disease; N18.6 End stage renal disease; Z99.2 Dependence on renal dialysis; E78.5 Hyperlipidemia, unspecified; Z53.29 Procedure and treatment not carried out because of patient's decision for other reasons

== ENCOUNTER 2023-03-14 09:20 | Emergency (ER) | payer MEDICAID ==
[~2023-03-14] VITALS: Ht 154.9 cm; Wt 87.8 kg
[2023-03-14 09:37] VITALS: BP 205/97
[2023-03-14 09:40] VITALS: BP 210/100
[2023-03-14 10:00] VITALS: BP 194/96
[2023-03-14 10:36] VITALS: BP 206/109
--- NOTE | 2023-03-14 10:50 | NUR ---
PT ESCORTED FROM ED TO DIALYSIS SUITE FOR PRESCRIBED DIALYSIS TREATMENT. PT DECLINES OFFER FOR TRANSPORT WITH WHEELCHAIR. INSIST ON AMBULATING. PT ACCOMPANIED BY Howie GOMZE RN. GAIT STEADY AND BALANCED. HAND-OFF REPORT RECEIVED FROM Howie TOMAS RN.
[2023-03-14 11:00] VITALS: BP 173/89
--- NOTE | 2023-03-14 11:00 | NUR ---
HEMODIALYSIS TREATMENT INITIATED AT 1100. SEE HEMODIALYSIS TREATMENT PROCESS INTERVENTION AND TABLO TREATMENT FLOWSHEET FOR TREATMENT SPECIFIC DETAILS.
[2023-03-14 12:23] LABS: BASO% 0.8 % (0-3); EOS% 6.3 % (0-8); HEMATOCRIT 28.8 % (39.0-50.0); IMMATURE GRANULOCYTES 0.7 % (0.0-5.0); LYMPH% 15.6 % (15-41); MEAN CELL VOLUME 93.5 fL CALC (80.0-100.0); MEAN CORPUSCULAR HGB 29.2 pG CALC (26.0-32.0); MEAN CORPUSCULAR HGB CONC 31.3 g/dL CAL (32.0-36.0); MONO% 7.7 % (2-13); NEUT# 4.14 thou/uL (1.82-7.42); NEUT% 68.9 % (42-76); RED BLOOD COUNT 3.08 mill/uL (4.70-6.10); RED CELL DISTRI WIDTH 13.4 % (11.5-15.5)
[2023-03-14 12:38] LABS: ANION GAP 22 (6-22 (CALC)); BUN 64 mg/dL (9-20); CARBON DIOXIDE 20 mmol/l (22-30); CHLORIDE 105 mmol/l (95-108); SODIUM 142 mmol/l (137-146)
[2023-03-14 13:07] LABS: BUN/CREATININE RATIO 4 (12-20 (CALC)); GFR FOR AFR.AMER. 4 ML/MIN (>=60 (CALC)); GFR OTHER RACES 3 ML/MIN (>=60 (CALC)); POTASSIUM 5.2 mmol/l (3.5-5.1)
[2023-03-14 13:08] LABS: CREATININE 14.7 mg/dL (0.7-1.3)
--- NOTE | 2023-03-14 13:48 | NUR ---
HEMODIALYSIS TREATMENT COMPLETED AT 1348 PER PT'S REQUEST. PT DECLINES FURTHER TREATMENT AT THIS TIME. EDUCATION PROVIDED REGARDING IMPORTANCE OF COMPLETING ENTIRE PRESCRIBED TX. PT VERBALIZES UNDERSTANDING. CONTINUES TO REQUEST TX TO BE ENDED. SEE HEMODIALYSIS TREATMENT PROCESS INTERVENTION AND TABLO TREATMENT FLOWSHEET FOR TREATMENT SPECIFIC DETAILS.
--- NOTE | 2023-03-14 14:00 | NUR ---
AMA Patient decides to leave AMA. Multiple attempts made to ecourage patient to remain here for continued treatment. Explained to patient all risks of leaving against medical advice including . Pt verbalized understanding of all risks. Pt also encouraged to return to [facility] at any time, especially if symptoms continue or become worse. Pt verbalized understanding. DR. MILES AND DR. EGAN AWARE PT SIGNING OUT AMA.
== END 2023-03-14 14:00 | disposition left against medical advice (07) ==
LOC: ED 09:20 → DIA 09:53 → ED 10:45 → DIA 14:00
PROVIDERS: Internal Medicine Nephrology
DX: I12.0 Hypertensive chronic kidney disease with stage 5 chronic kidney disease or end stage renal disease (principal); E11.22 Type 2 diabetes mellitus with diabetic chronic kidney disease; N18.6 End stage renal disease; Z99.2 Dependence on renal dialysis; E78.5 Hyperlipidemia, unspecified; Z53.29 Procedure and treatment not carried out because of patient's decision for other reasons

== ENCOUNTER 2023-03-17 09:40 | Emergency (ER) | payer MEDICAID ==
[~2023-03-17] VITALS: Ht 154.9 cm; Wt 89.0 kg
[2023-03-17 09:52] VITALS: BP 125/77
[2023-03-17 10:00] VITALS: BP 110/55
[2023-03-17 10:30] VITALS: BP 109/57
--- NOTE | 2023-03-17 10:35 | NUR ---
PT ESCORTED FROM ED TO DIALYSIS SUITE FOR PRESCRIBED DIALYSIS TREATMENT. PT DECLINES OFFER FOR TRANSPORT WITH WHEELCHAIR. INSIST ON AMBULATING. PT ACCOMPANIED BY Alex SCHMITT RN. GAIT STEADY AND BALANCED.
--- NOTE | 2023-03-17 10:51 | NUR ---
HEMODIALYSIS TREATMENT INITIATED AT 1051. SEE HEMODIALYSIS TREATMENT PROCESS INTERVENTION AND TABLO TREATMENT FLOWSHEET FOR TREATMENT SPECIFIC DETAILS.
[2023-03-17 11:37] VITALS: BP 137/73
--- NOTE | 2023-03-17 11:40 | NUR ---
DR EGAN IN TO SEE PATIENT.
[2023-03-17 11:44] LABS: BASO% 0.6 % (0-3); EOS% 6.6 % (0-8); HEMATOCRIT 28.9 % (39.0-50.0); HEMOGLOBIN 9.1 g/dl (14.0-18.0); IMMATURE GRANULOCYTES 0.3 % (0.0-5.0); LYMPH% 15.4 % (15-41); MEAN CELL VOLUME 91.7 fL CALC (80.0-100.0); MEAN CORPUSCULAR HGB 28.9 pG CALC (26.0-32.0); MEAN CORPUSCULAR HGB CONC 31.5 g/dL CAL (32.0-36.0); MONO% 5.6 % (2-13); NEUT# 4.96 thou/uL (1.82-7.42); NEUT% 71.5 % (42-76); RED BLOOD COUNT 3.15 mill/uL (4.70-6.10); RED CELL DISTRI WIDTH 13.4 % (11.5-15.5)
[2023-03-17 11:55] LABS: ALBUMIN 4.2 g/dL (3.2-5.0); BILIRUBIN, TOTAL 0.3 mg/dL (0.2-1.3); POTASSIUM 4.9 mmol/l (3.5-5.1); TOTAL PROTEIN 7.1 g/dL (6.3-8.2)
[2023-03-17 12:22] LABS: CREATININE 16.4 mg/dL (0.7-1.3)
--- NOTE | 2023-03-17 13:29 | NUR ---
PATIENT LEFT AMA, PER REQUEST.
--- NOTE | 2023-03-17 13:30 | NUR ---
HEMODIALYSIS TREATMENT COMPLETED AT 1323 PER PT'S REQUEST. PT DECLINES FURTHER TREATMENT AT THIS TIME. EDUCATION PROVIDED REGARDING IMPORTANCE OF COMPLETING ENTIRE PRESCRIBED TX. PT VERBALIZES UNDERSTANDING. CONTINUES TO REQUEST TX TO BE ENDED. SEE HEMODIALYSIS TREATMENT PROCESS INTERVENTION AND TABLO TREATMENT FLOWSHEET FOR TREATMENT SPECIFIC DETAILS.
== END 2023-03-17 13:29 | disposition left against medical advice (07) ==
LOC: ED 09:40 → DIA 10:25 → ED 10:25
PROVIDERS: Family Medicine
DX: I12.0 Hypertensive chronic kidney disease with stage 5 chronic kidney disease or end stage renal disease (principal); E11.22 Type 2 diabetes mellitus with diabetic chronic kidney disease; N18.6 End stage renal disease; Z99.2 Dependence on renal dialysis; E78.5 Hyperlipidemia, unspecified; Z53.29 Procedure and treatment not carried out because of patient's decision for other reasons

== ENCOUNTER 2023-03-19 07:44 | Emergency (ER) | payer MEDICAID ==
[2023-03-19] VITALS (9 sets, daily range): BP systolic 123–162; BP diastolic 63–86
[~2023-03-19] VITALS: Ht 154.9 cm; Wt 87.8 kg
[2023-03-19] MEDS ORDERED: LOSARTAN POTASS50 MG PO (07:57)
--- NOTE | 2023-03-19 09:10 | NUR ---
PT ESCORTED FROM ED TO DIALYSIS SUITE FOR PRESCRIBED DIALYSIS TREATMENT. PT DECLINES OFFER FOR TRANSPORT WITH WHEELCHAIR. INSIST ON AMBULATING. PT ACCOMPANIED BY Chastity CORREA RN. GAIT STEADY AND BALANCED.
--- NOTE | 2023-03-19 09:17 | NUR ---
HEMODIALYSIS TREATMENT INITIATED AT 9:17. SEE HEMODIALYSIS TREATMENT PROCESS INTERVENTION AND TABLO TREATMENT FLOWSHEET FOR TREATMENT SPECIFIC DETAILS.
[2023-03-19 10:17] LABS: BASO% 0.6 % (0-3); EOS% 4.5 % (0-8); HEMATOCRIT 29.3 % (39.0-50.0); HEMOGLOBIN 9.5 g/dl (14.0-18.0); IMMATURE GRANULOCYTES 0.4 % (0.0-5.0); LYMPH% 13.2 % (15-41); MEAN CELL VOLUME 90.7 fL CALC (80.0-100.0); MEAN CORPUSCULAR HGB 29.4 pG CALC (26.0-32.0); MEAN CORPUSCULAR HGB CONC 32.4 g/dL CAL (32.0-36.0); MONO% 6.5 % (2-13); NEUT# 5.28 thou/uL (1.82-7.42); NEUT% 74.8 % (42-76); RED BLOOD COUNT 3.23 mill/uL (4.70-6.10); RED CELL DISTRI WIDTH 13.6 % (11.5-15.5)
[2023-03-19 10:42] LABS: ALBUMIN 4.5 g/dL (3.2-5.0); BILIRUBIN, TOTAL 0.3 mg/dL (0.2-1.3); TOTAL PROTEIN 7.5 g/dL (6.3-8.2)
[2023-03-19 10:47] LABS: POTASSIUM 3.9 mmol/l (3.5-5.1)
[2023-03-19 10:48] LABS: CREATININE 9.3 mg/dL (0.7-1.3)
--- NOTE | 2023-03-19 12:02 | NUR ---
HEMODIALYSIS TREATMENT COMPLETED AT 1202. SEE HEMODIALYSIS TREATMENT PROCESS INTERVENTION AND TABLO TREATMENT FLOWSHEET FOR TREATMENT SPECIFIC DETAILS.
--- NOTE | 2023-03-19 12:05 | NUR ---
Patient decides to leave AMA. Multiple attempts made to ecourage patient to remain here for continued treatment. Explained to patient all risks of leaving against medical advice including . Pt verbalized understanding of all risks. Pt also encouraged to return to [facility] at any time, especially if symptoms continue or become worse. Pt verbalized understanding. Dr. Moran is aware.
== END 2023-03-19 12:05 | disposition left against medical advice (07) ==
LOC: ED 07:44 → DIA 08:23
PROVIDERS: Family Medicine
DX: I12.0 Hypertensive chronic kidney disease with stage 5 chronic kidney disease or end stage renal disease (principal); E11.22 Type 2 diabetes mellitus with diabetic chronic kidney disease; N18.6 End stage renal disease; Z99.2 Dependence on renal dialysis; E78.5 Hyperlipidemia, unspecified; Z53.29 Procedure and treatment not carried out because of patient's decision for other reasons
CPT/HCPCS: Q5106 EC

== ENCOUNTER 2023-03-21 09:40 | Emergency (ER) | payer MEDICAID ==
[~2023-03-21] VITALS: Ht 154.9 cm; Wt 87.4 kg
[~2023-03-21 09:40] MED LIST changes: +LOSARTAN POTASS50 MG PO
[2023-03-21 09:54] VITALS: BP 182/92
[2023-03-21 10:00] VITALS: BP 163/85
--- NOTE | 2023-03-21 10:00 | NUR ---
PT ESCORTED FROM ED TO DIALYSIS SUITE FOR PRESCRIBED DIALYSIS TREATMENT. PT DECLINES OFFER FOR TRANSPORT WITH WHEELCHAIR. INSIST ON AMBULATING. PT ACCOMPANIED BY MASOUD REDDY. GAIT STEADY AND BALANCED. HAND-OFF REPORT RECEIVED FROM JASON REDDY.
--- NOTE | 2023-03-21 10:30 | NUR ---
HEMODIALYSIS TREATMENT INITIATED AT . 1030 SEE HEMODIALYSIS TREATMENT PROCESS INTERVENTION AND TABLO TREATMENT FLOWSHEET FOR TREATMENT SPECIFIC DETAILS.
[2023-03-21 11:14] LABS: BASO% 0.4 % (0-3); HEMATOCRIT 30.6 % (39.0-50.0); HEMOGLOBIN 9.8 g/dl (14.0-18.0); IMMATURE GRANULOCYTES 0.6 % (0.0-5.0); LYMPH% 14.7 % (15-41); MEAN CELL VOLUME 91.1 fL CALC (80.0-100.0); MEAN CORPUSCULAR HGB 29.2 pG CALC (26.0-32.0); MONO% 7.6 % (2-13); NEUT# 4.89 thou/uL (1.82-7.42); NEUT% 72.7 % (42-76); RED BLOOD COUNT 3.36 mill/uL (4.70-6.10); RED CELL DISTRI WIDTH 13.7 % (11.5-15.5)
[2023-03-21 11:21] LABS: POTASSIUM 4.8 mmol/l (3.5-5.1)
[2023-03-21 11:22] LABS: CREATININE 14.9 mg/dL (0.7-1.3)
[2023-03-21 12:45] VITALS: BP 156/79
--- NOTE | 2023-03-21 12:45 | NUR ---
HEMODIALYSIS TREATMENT COMPLETED AT 1245 PER PT'S REQUEST. PT DECLINES FURTHER TREATMENT AT THIS TIME. EDUCATION PROVIDED REGARDING IMPORTANCE OF COMPLETING ENTIRE PRESCRIBED TX. PT VERBALIZES UNDERSTANDING. CONTINUES TO REQUEST TX TO BE ENDED. SEE HEMODIALYSIS TREATMENT PROCESS INTERVENTION AND TABLO TREATMENT FLOWSHEET FOR TREATMENT SPECIFIC DETAILS.
--- NOTE | 2023-03-21 12:45 | NUR ---
Patient decides to leave AMA. Multiple attempts made to ecourage patient to remain here for continued treatment. Explained to patient all risks of leaving against medical advice including . Pt verbalized understanding of all risks. Pt also encouraged to return to [facility] at any time, especially if symptoms continue or become worse. Pt verbalized understanding.
[2023-03-21 13:23] VITALS: BP 156/79
== END 2023-03-21 12:45 | disposition home or self-care (01) ==
LOC: ED 09:40 → DIA 10:00
PROVIDERS: Internal Medicine Nephrology
DX: I12.0 Hypertensive chronic kidney disease with stage 5 chronic kidney disease or end stage renal disease (principal); E11.22 Type 2 diabetes mellitus with diabetic chronic kidney disease; N18.6 End stage renal disease; Z99.2 Dependence on renal dialysis; E78.5 Hyperlipidemia, unspecified

== ENCOUNTER 2023-03-24 09:34 | Emergency (ER) | payer MEDICAID ==
[~2023-03-24] VITALS: Ht 154.9 cm; Wt 88.6 kg
--- NOTE | 2023-03-24 11:00 | NUR ---
PT ESCORTED FROM ED TO DIALYSIS SUITE FOR PRESCRIBED DIALYSIS TREATMENT. PT DECLINES OFFER FOR TRANSPORT WITH WHEELCHAIR. INSIST ON AMBULATING. PT ACCOMPANIED BY Howie GOMEZ RN. GAIT STEADY AND BALANCED. HAND-OFF REPORT RECEIVED FROM Shelby CHASE RN.
[2023-03-24 11:15] VITALS: BP 125/63
--- NOTE | 2023-03-24 11:15 | NUR ---
HEMODIALYSIS TREATMENT INITIATED AT 1115. SEE HEMODIALYSIS TREATMENT PROCESS INTERVENTION AND TABLO TREATMENT FLOWSHEET FOR TREATMENT SPECIFIC DETAILS.
[2023-03-24 11:49] LABS: BASO% 0.7 % (0-3); EOS% 5.1 % (0-8); HEMATOCRIT 27.4 % (39.0-50.0); HEMOGLOBIN 8.8 g/dl (14.0-18.0); IMMATURE GRANULOCYTES 0.1 % (0.0-5.0); LYMPH% 11.3 % (15-41); MEAN CELL VOLUME 90.4 fL CALC (80.0-100.0); MEAN CORPUSCULAR HGB CONC 32.1 g/dL CAL (32.0-36.0); MONO% 12.4 % (2-13); NEUT# 5.07 thou/uL (1.82-7.42); NEUT% 70.4 % (42-76); RED BLOOD COUNT 3.03 mill/uL (4.70-6.10); RED CELL DISTRI WIDTH 13.8 % (11.5-15.5)
[2023-03-24 12:07] LABS: ALBUMIN 4.2 g/dL (3.2-5.0); BILIRUBIN, TOTAL 0.3 mg/dL (0.2-1.3); POTASSIUM 4.9 mmol/l (3.5-5.1)
[2023-03-24 12:17] LABS: CREATININE 16.9 mg/dL (0.7-1.3)
--- NOTE | 2023-03-24 13:00 | NUR ---
HEMODIALYSIS TREATMENT COMPLETED AT 1300 PER PT'S REQUEST. PT DECLINES FURTHER TREATMENT AT THIS TIME. EDUCATION PROVIDED REGARDING IMPORTANCE OF COMPLETING ENTIRE PRESCRIBED TX. PT VERBALIZES UNDERSTANDING. CONTINUES TO REQUEST TX TO BE ENDED. SEE HEMODIALYSIS TREATMENT PROCESS INTERVENTION AND TABLO TREATMENT FLOWSHEET FOR TREATMENT SPECIFIC DETAILS.
--- NOTE | 2023-03-24 13:45 | NUR ---
AMA Patient decides to leave AMA. Multiple attempts made to ecourage patient to remain here for continued treatment. Explained to patient all risks of leaving against medical advice including . Pt verbalized understanding of all risks. Pt also encouraged to return to [facility] at any time, especially if symptoms continue or become worse. Pt verbalized understanding. DR. EGAN AND DR. HERZOG AWARE PT SIGNING OUT AMA.
== END 2023-03-24 13:48 | disposition left against medical advice (07) ==
LOC: ED 09:34 → DIA 10:38
PROVIDERS: Family Medicine
DX: I12.0 Hypertensive chronic kidney disease with stage 5 chronic kidney disease or end stage renal disease (principal); E11.22 Type 2 diabetes mellitus with diabetic chronic kidney disease; N18.6 End stage renal disease; Z99.2 Dependence on renal dialysis; E78.5 Hyperlipidemia, unspecified; Z53.29 Procedure and treatment not carried out because of patient's decision for other reasons

== ENCOUNTER 2023-03-26 09:37 | Emergency (ER) | payer MEDICAID ==
[~2023-03-26] VITALS: Ht 154.9 cm; Wt 88.0 kg
[2023-03-26 09:50] VITALS: BP 173/87
[2023-03-26 10:00] VITALS: BP 152/76
[2023-03-26 10:31] VITALS: BP 158/90
[2023-03-26 16:58] LABS: BASO% 0.9 % (0-3); EOS% 5.7 % (0-8); HEMATOCRIT 26.9 % (39.0-50.0); HEMOGLOBIN 8.6 g/dl (14.0-18.0); IMMATURE GRANULOCYTES 0.2 % (0.0-5.0); MEAN CELL VOLUME 92.1 fL CALC (80.0-100.0); MEAN CORPUSCULAR HGB 29.5 pG CALC (26.0-32.0); MONO% 11.9 % (2-13); NEUT# 3.66 thou/uL (1.82-7.42); NEUT% 65.3 % (42-76); RED BLOOD COUNT 2.92 mill/uL (4.70-6.10); RED CELL DISTRI WIDTH 13.8 % (11.5-15.5)
[2023-03-26 17:16] LABS: ALBUMIN 4.2 g/dL (3.2-5.0); BILIRUBIN, TOTAL 0.2 mg/dL (0.2-1.3); POTASSIUM 4.5 mmol/l (3.5-5.1); TOTAL PROTEIN 7.1 g/dL (6.3-8.2)
[2023-03-26 17:24] LABS: CREATININE 16.3 mg/dL (0.7-1.3)
== END 2023-03-26 11:00 | disposition left against medical advice (07) ==
LOC: ED 09:37
PROVIDERS: Family Medicine
DX: I12.0 Hypertensive chronic kidney disease with stage 5 chronic kidney disease or end stage renal disease (principal); E11.22 Type 2 diabetes mellitus with diabetic chronic kidney disease; N18.6 End stage renal disease; Z99.2 Dependence on renal dialysis; E78.5 Hyperlipidemia, unspecified; Z53.29 Procedure and treatment not carried out because of patient's decision for other reasons

== ENCOUNTER 2023-03-26 13:52 | Emergency (ER) | payer MEDICAID ==
[~2023-03-26] VITALS: Ht 154.9 cm; Wt 88.2 kg
[2023-03-26 17:55] VITALS: BP 161/77
[2023-03-26 18:02] VITALS: BP 161/77
== END 2023-03-26 18:02 | disposition left against medical advice (07) ==
LOC: ED 13:52 → DIA 14:51
DX: I12.0 Hypertensive chronic kidney disease with stage 5 chronic kidney disease or end stage renal disease (principal); E11.22 Type 2 diabetes mellitus with diabetic chronic kidney disease; N18.6 End stage renal disease; Z99.2 Dependence on renal dialysis; E78.5 Hyperlipidemia, unspecified; Z53.29 Procedure and treatment not carried out because of patient's decision for other reasons
CPT/HCPCS: J1644; Q5106 EC

== ENCOUNTER 2023-03-28 09:21 | Emergency (ER) | payer MEDICAID ==
[~2023-03-28] VITALS: Ht 154.9 cm; Wt 87.2 kg
[2023-03-28 09:30] VITALS: BP 175/81
[2023-03-28 09:46] VITALS: BP 144/70
--- NOTE | 2023-03-28 10:55 | NUR ---
PT ESCORTED FROM ED TO DIALYSIS SUITE FOR PRESCRIBED DIALYSIS TREATMENT. PT DECLINES OFFER FOR TRANSPORT WITH WHEELCHAIR. INSISTING ON AMBULATING. PT ACCOMPANIED BY Alex SCHMITT RN. GAIT STEADY AND BALANCED.
[2023-03-28 11:07] VITALS: BP 163/88
--- NOTE | 2023-03-28 11:07 | NUR ---
HEMODIALYSIS TREATMENT INITIATED AT 1107. SEE HEMODIALYSIS TREATMENT PROCESS INTERVENTION AND TABLO TREATMENT FLOWSHEET FOR TREATMENT SPECIFIC DETAILS.
[2023-03-28 11:51] LABS: BASO% 0.8 % (0-3); HEMATOCRIT 28.6 % (39.0-50.0); IMMATURE GRANULOCYTES 0.2 % (0.0-5.0); LYMPH% 15.6 % (15-41); MEAN CELL VOLUME 91.1 fL CALC (80.0-100.0); MEAN CORPUSCULAR HGB 28.7 pG CALC (26.0-32.0); MEAN CORPUSCULAR HGB CONC 31.5 g/dL CAL (32.0-36.0); MONO% 7.3 % (2-13); NEUT# 4.66 thou/uL (1.82-7.42); NEUT% 71.1 % (42-76); RED BLOOD COUNT 3.14 mill/uL (4.70-6.10); RED CELL DISTRI WIDTH 13.5 % (11.5-15.5)
[2023-03-28 11:52] LABS: ALBUMIN 4.3 g/dL (3.2-5.0); POTASSIUM 4.8 mmol/l (3.5-5.1); TOTAL PROTEIN 7.3 g/dL (6.3-8.2)
[2023-03-28 12:09] LABS: BILIRUBIN, TOTAL 0.3 mg/dL (0.2-1.3)
[2023-03-28 12:10] LABS: CREATININE 16.6 mg/dL (0.7-1.3)
--- NOTE | 2023-03-28 13:54 | NUR ---
HEMODIALYSIS TREATMENT COMPLETED AT 1354 PER PT'S REQUEST. PT DECLINES FURTHER TREATMENT AT THIS TIME. EDUCATION PROVIDED REGARDING IMPORTANCE OF COMPLETING ENTIRE PRESCRIBED TX. PT VERBALIZED UNDERSTANDING. PT CONTINUES TO REQUEST TX TO BE ENDED. SEE HEMODIALYSIS TREATMENT PROCESS INTERVENTION AND TABLO TREATMENT FLOWSHEET FOR TREATMENT SPECIFIC DETAILS.
--- NOTE | 2023-03-28 14:00 | NUR ---
PATIENT SIGNED OUT AMA.
== END 2023-03-28 14:00 | disposition left against medical advice (07) ==
LOC: ED 09:21 → DIA 09:32
PROVIDERS: Family Medicine
DX: I12.0 Hypertensive chronic kidney disease with stage 5 chronic kidney disease or end stage renal disease (principal); E11.22 Type 2 diabetes mellitus with diabetic chronic kidney disease; N18.6 End stage renal disease; Z99.2 Dependence on renal dialysis; E78.5 Hyperlipidemia, unspecified

== ENCOUNTER 2023-04-02 09:12 | Emergency (ER) | payer MEDICAID ==
[~2023-04-02] VITALS: Ht 160 cm; Wt 88.0 kg
[2023-04-02 09:28] VITALS: BP 157/82
[2023-04-02 09:31] VITALS: BP 163/85
[2023-04-02 10:00] VITALS: BP 155/75
--- NOTE | 2023-04-02 10:00 | NUR ---
PT ESCORTED FROM ED TO DIALYSIS SUITE FOR PRESCRIBED DIALYSIS TREATMENT. PT DECLINES OFFER FOR TRANSPORT WITH WHEELCHAIR. INSIST ON AMBULATING. PT ACCOMPANIED BY MASOUD REDDY. GAIT STEADY AND BALANCED. HAND-OFF REPORT RECEIVED FROM SALOME BAINS.
--- NOTE | 2023-04-02 10:38 | NUR ---
HEMODIALYSIS TREATMENT INITIATED AT . 1038 SEE HEMODIALYSIS TREATMENT PROCESS INTERVENTION AND TABLO TREATMENT FLOWSHEET FOR TREATMENT SPECIFIC DETAILS.
[2023-04-02 10:54] LABS: BASO% 0.4 % (0-3); HEMATOCRIT 28.9 % (39.0-50.0); HEMOGLOBIN 9.2 g/dl (14.0-18.0); IMMATURE GRANULOCYTES 0.1 % (0.0-5.0); LYMPH% 9.6 % (15-41); MEAN CELL VOLUME 91.5 fL CALC (80.0-100.0); MEAN CORPUSCULAR HGB 29.1 pG CALC (26.0-32.0); MEAN CORPUSCULAR HGB CONC 31.8 g/dL CAL (32.0-36.0); MONO% 7.4 % (2-13); NEUT# 7.26 thou/uL (1.82-7.42); NEUT% 79.5 % (42-76); RED BLOOD COUNT 3.16 mill/uL (4.70-6.10); RED CELL DISTRI WIDTH 13.8 % (11.5-15.5)
[2023-04-02 11:07] LABS: ALBUMIN 4.1 g/dL (3.2-5.0); BILIRUBIN, TOTAL 0.3 mg/dL (0.2-1.3)
[2023-04-02 11:16] LABS: CREATININE 16.5 mg/dL (0.7-1.3); POTASSIUM 5.2 mmol/l (3.5-5.1)
[2023-04-02 13:13] VITALS: BP 132/69
--- NOTE | 2023-04-02 13:13 | NUR ---
HEMODIALYSIS TREATMENT COMPLETED AT . 1313 SEE HEMODIALYSIS TREATMENT PROCESS INTERVENTION AND TABLO TREATMENT FLOWSHEET FOR TREATMENT SPECIFIC DETAILS.
--- NOTE | 2023-04-02 13:25 | NUR ---
Patient decides to leave AMA. Multiple attempts made to ecourage patient to remain here for continued treatment. Explained to patient all risks of leaving against medical advice including . Pt verbalized understanding of all risks. Pt also encouraged to return to [facility] at any time, especially if symptoms continue or become worse. Pt verbalized understanding.
[2023-04-02 13:45] VITALS: BP 132/69
== END 2023-04-02 13:45 | disposition left against medical advice (07) ==
LOC: ED 09:12 → DIA 09:44 → ED 09:44
PROVIDERS: Family Medicine
DX: I12.0 Hypertensive chronic kidney disease with stage 5 chronic kidney disease or end stage renal disease (principal); E11.22 Type 2 diabetes mellitus with diabetic chronic kidney disease; N18.6 End stage renal disease; Z99.2 Dependence on renal dialysis; E78.5 Hyperlipidemia, unspecified; Z53.29 Procedure and treatment not carried out because of patient's decision for other reasons
CPT/HCPCS: Q5106 EC

== ENCOUNTER 2023-04-04 09:31 | Emergency (ER) | payer MEDICAID ==
[~2023-04-04] VITALS: Ht 160 cm; Wt 88.3 kg
[2023-04-04 09:58] VITALS: BP 164/85
[2023-04-04 10:00] VITALS: BP 151/75
[2023-04-04 10:53] LABS: BASO% 0.6 % (0-3); HEMATOCRIT 28.3 % (39.0-50.0); HEMOGLOBIN 8.9 g/dl (14.0-18.0); IMMATURE GRANULOCYTES 0.1 % (0.0-5.0); LYMPH% 12.5 % (15-41); MEAN CELL VOLUME 91.9 fL CALC (80.0-100.0); MEAN CORPUSCULAR HGB 28.9 pG CALC (26.0-32.0); MEAN CORPUSCULAR HGB CONC 31.4 g/dL CAL (32.0-36.0); MONO% 8.4 % (2-13); NEUT# 5.37 thou/uL (1.82-7.42); NEUT% 74.4 % (42-76); RED BLOOD COUNT 3.08 mill/uL (4.70-6.10); RED CELL DISTRI WIDTH 13.5 % (11.5-15.5)
[2023-04-04 11:04] LABS: ALBUMIN 4.1 g/dL (3.2-5.0); BILIRUBIN, TOTAL 0.2 mg/dL (0.2-1.3); POTASSIUM 4.9 mmol/l (3.5-5.1)
[2023-04-04 11:15] LABS: CREATININE 15.6 mg/dL (0.7-1.3)
[2023-04-04 12:45] VITALS: BP 159/81
== END 2023-04-04 12:54 | disposition home or self-care (01) ==
LOC: ED 09:31 → DIA 09:58 → ED 12:54
PROVIDERS: Family Medicine
DX: I12.0 Hypertensive chronic kidney disease with stage 5 chronic kidney disease or end stage renal disease (principal); E11.22 Type 2 diabetes mellitus with diabetic chronic kidney disease; N18.6 End stage renal disease; Z99.2 Dependence on renal dialysis; E78.5 Hyperlipidemia, unspecified

== ENCOUNTER 2023-04-07 09:26 | Emergency (ER) | payer MEDICAID ==
[~2023-04-07] VITALS: Ht 160 cm; Wt 88.6 kg
[2023-04-07 09:32] VITALS: BP 124/64
[2023-04-07 10:00] VITALS: BP 133/72
[2023-04-07 11:33] LABS: BASO% 0.8 % (0-3); EOS% 4.2 % (0-8); HEMATOCRIT 26.4 % (39.0-50.0); HEMOGLOBIN 8.3 g/dl (14.0-18.0); IMMATURE GRANULOCYTES 0.5 % (0.0-5.0); LYMPH% 12.7 % (15-41); MEAN CELL VOLUME 91.3 fL CALC (80.0-100.0); MEAN CORPUSCULAR HGB 28.7 pG CALC (26.0-32.0); MEAN CORPUSCULAR HGB CONC 31.4 g/dL CAL (32.0-36.0); NEUT# 6.06 thou/uL (1.82-7.42); NEUT% 72.8 % (42-76); RED BLOOD COUNT 2.89 mill/uL (4.70-6.10); RED CELL DISTRI WIDTH 13.4 % (11.5-15.5)
[2023-04-07 11:35] VITALS: BP 141/68
[2023-04-07 11:40] LABS: BILIRUBIN, TOTAL 0.2 mg/dL (0.2-1.3); POTASSIUM 4.9 mmol/l (3.5-5.1); TOTAL PROTEIN 6.7 g/dL (6.3-8.2)
[2023-04-07 11:56] LABS: CREATININE 17.8 mg/dL (0.7-1.3)
== END 2023-04-07 13:45 | disposition left against medical advice (07) ==
LOC: ED 09:26 → DIA 09:56 → ED 09:56 → DIA 10:32
PROVIDERS: Family Medicine
DX: I12.0 Hypertensive chronic kidney disease with stage 5 chronic kidney disease or end stage renal disease (principal); E11.22 Type 2 diabetes mellitus with diabetic chronic kidney disease; N18.6 End stage renal disease; Z99.2 Dependence on renal dialysis; E78.5 Hyperlipidemia, unspecified; Z53.29 Procedure and treatment not carried out because of patient's decision for other reasons

== ENCOUNTER 2023-04-09 09:11 | Emergency (ER) | payer MEDICAID ==
[~2023-04-09] VITALS: Ht 167.6 cm; Wt 89.0 kg
[2023-04-09 10:18] VITALS: BP 119/72
[2023-04-09 11:41] LABS: BASO% 0.7 % (0-3); EOS% 5.2 % (0-8); HEMATOCRIT 28.3 % (39.0-50.0); HEMOGLOBIN 8.6 g/dl (14.0-18.0); IMMATURE GRANULOCYTES 0.1 % (0.0-5.0); LYMPH% 13.4 % (15-41); MEAN CELL VOLUME 93.1 fL CALC (80.0-100.0); MEAN CORPUSCULAR HGB 28.3 pG CALC (26.0-32.0); MEAN CORPUSCULAR HGB CONC 30.4 g/dL CAL (32.0-36.0); MONO% 11.3 % (2-13); NEUT# 4.65 thou/uL (1.82-7.42); NEUT% 69.3 % (42-76); RED BLOOD COUNT 3.04 mill/uL (4.70-6.10); RED CELL DISTRI WIDTH 13.6 % (11.5-15.5)
[2023-04-09 12:06] VITALS: BP 126/65
[2023-04-09 12:19] LABS: ALBUMIN 4.3 g/dL (3.2-5.0); BILIRUBIN, TOTAL 0.2 mg/dL (0.2-1.3); POTASSIUM 4.6 mmol/l (3.5-5.1); TOTAL PROTEIN 7.2 g/dL (6.3-8.2)
[2023-04-09 12:34] LABS: CREATININE 15.3 mg/dL (0.7-1.3)
== END 2023-04-09 14:25 | disposition left against medical advice (07) ==
LOC: ED 09:11 → DIA 10:20
PROVIDERS: Family Medicine
DX: I12.0 Hypertensive chronic kidney disease with stage 5 chronic kidney disease or end stage renal disease (principal); E11.22 Type 2 diabetes mellitus with diabetic chronic kidney disease; N18.6 End stage renal disease; Z99.2 Dependence on renal dialysis; E78.5 Hyperlipidemia, unspecified

== ENCOUNTER 2023-04-11 09:25 | Emergency (ER) | payer MEDICAID ==
[~2023-04-11] VITALS: Ht 167.6 cm; Wt 87.0 kg
[2023-04-11 10:48] LABS: BASO% 0.5 % (0-3); EOS% 6.2 % (0-8); HEMATOCRIT 27.4 % (39.0-50.0); HEMOGLOBIN 8.4 g/dl (14.0-18.0); IMMATURE GRANULOCYTES 0.3 % (0.0-5.0); LYMPH% 15.5 % (15-41); MEAN CELL VOLUME 92.9 fL CALC (80.0-100.0); MEAN CORPUSCULAR HGB 28.5 pG CALC (26.0-32.0); MEAN CORPUSCULAR HGB CONC 30.7 g/dL CAL (32.0-36.0); MONO% 8.3 % (2-13); NEUT# 4.32 thou/uL (1.82-7.42); NEUT% 69.2 % (42-76); RED BLOOD COUNT 2.95 mill/uL (4.70-6.10); RED CELL DISTRI WIDTH 13.3 % (11.5-15.5)
[2023-04-11 11:01] LABS: ALBUMIN 4.1 g/dL (3.2-5.0); BILIRUBIN, TOTAL 0.2 mg/dL (0.2-1.3); POTASSIUM 4.9 mmol/l (3.5-5.1); TOTAL PROTEIN 6.8 g/dL (6.3-8.2)
[2023-04-11 11:25] LABS: CREATININE 14.5 mg/dL (0.7-1.3)
[2023-04-11 13:48] VITALS: BP 141/72
== END 2023-04-11 13:40 | disposition home or self-care (01) ==
LOC: ED 09:25 → DIA 09:36 → ED 13:40
PROVIDERS: Internal Medicine Nephrology
DX: I12.0 Hypertensive chronic kidney disease with stage 5 chronic kidney disease or end stage renal disease (principal); E11.22 Type 2 diabetes mellitus with diabetic chronic kidney disease; N18.6 End stage renal disease; Z99.2 Dependence on renal dialysis; E78.5 Hyperlipidemia, unspecified

== ENCOUNTER 2023-04-14 10:03 | Emergency (ER) | payer MEDICAID ==
[~2023-04-14] VITALS: Ht 167.6 cm; Wt 86.4 kg
[2023-04-14 10:15] VITALS: BP 153/76
[2023-04-14 11:58] LABS: BASO% 0.7 % (0-3); EOS% 5.4 % (0-8); HEMATOCRIT 27.7 % (39.0-50.0); HEMOGLOBIN 8.6 g/dl (14.0-18.0); IMMATURE GRANULOCYTES 0.1 % (0.0-5.0); LYMPH% 14.9 % (15-41); MEAN CELL VOLUME 92.6 fL CALC (80.0-100.0); MEAN CORPUSCULAR HGB 28.8 pG CALC (26.0-32.0); MONO% 7.5 % (2-13); NEUT# 5.03 thou/uL (1.82-7.42); NEUT% 71.4 % (42-76); RED BLOOD COUNT 2.99 mill/uL (4.70-6.10); RED CELL DISTRI WIDTH 13.4 % (11.5-15.5)
[2023-04-14 12:11] LABS: ALBUMIN 4.1 g/dL (3.2-5.0); BILIRUBIN, TOTAL 0.2 mg/dL (0.2-1.3); TOTAL PROTEIN 6.9 g/dL (6.3-8.2)
[2023-04-14 12:18] LABS: POTASSIUM 5.2 mmol/l (3.5-5.1)
[2023-04-14 12:19] LABS: CREATININE 15.9 mg/dL (0.7-1.3)
[2023-04-14 15:15] VITALS: BP 139/85
== END 2023-04-14 14:13 | disposition left against medical advice (07) ==
LOC: ED 10:03 → DIA 10:31 → ED 10:31
PROVIDERS: Family Medicine
DX: E11.22 Type 2 diabetes mellitus with diabetic chronic kidney disease (principal); I12.0 Hypertensive chronic kidney disease with stage 5 chronic kidney disease or end stage renal disease; N18.6 End stage renal disease; Z99.2 Dependence on renal dialysis; E78.5 Hyperlipidemia, unspecified; Z53.29 Procedure and treatment not carried out because of patient's decision for other reasons

== ENCOUNTER 2023-04-16 09:27 | Emergency (ER) | payer MEDICAID ==
[~2023-04-16] VITALS: Ht 167.6 cm; Wt 85.0 kg
[2023-04-16 09:33] VITALS: BP 171/79
[2023-04-16 09:45] VITALS: BP 159/82
[2023-04-16 10:00] VITALS: BP 174/89
[2023-04-16 11:08] LABS: BASO% 0.8 % (0-3); EOS% 4.6 % (0-8); HEMATOCRIT 29.1 % (39.0-50.0); IMMATURE GRANULOCYTES 0.2 % (0.0-5.0); LYMPH% 14.6 % (15-41); MEAN CELL VOLUME 93.3 fL CALC (80.0-100.0); MEAN CORPUSCULAR HGB 28.8 pG CALC (26.0-32.0); MEAN CORPUSCULAR HGB CONC 30.9 g/dL CAL (32.0-36.0); MONO% 6.6 % (2-13); NEUT# 4.76 thou/uL (1.82-7.42); NEUT% 73.2 % (42-76); RED BLOOD COUNT 3.12 mill/uL (4.70-6.10); RED CELL DISTRI WIDTH 13.4 % (11.5-15.5)
[2023-04-16 11:15] LABS: ALBUMIN 4.2 g/dL (3.2-5.0)
[2023-04-16 11:24] LABS: BILIRUBIN, TOTAL 0.3 mg/dL (0.2-1.3); POTASSIUM 5.3 mmol/l (3.5-5.1)
[2023-04-16 11:25] LABS: CREATININE 15.7 mg/dL (0.7-1.3)
[2023-04-16 13:25] VITALS: BP 187/87
[2023-04-16] MEDS ORDERED: VIBRAMYCIN100 M2 PO (16:27)
== END 2023-04-16 13:05 | disposition left against medical advice (07) ==
LOC: ED 09:27 → DIA 09:36
PROVIDERS: Internal Medicine Nephrology
DX: I12.0 Hypertensive chronic kidney disease with stage 5 chronic kidney disease or end stage renal disease (principal); E11.22 Type 2 diabetes mellitus with diabetic chronic kidney disease; N18.6 End stage renal disease; Z99.2 Dependence on renal dialysis; E78.5 Hyperlipidemia, unspecified
CPT/HCPCS: Q5106 EC

== ENCOUNTER 2023-04-16 13:12 | Emergency (ER) | payer MEDICAID ==
[~2023-04-16] VITALS: Ht 167.6 cm; Wt 84.0 kg
[2023-04-16] VITALS (16 sets, daily range): BP systolic 72–151; BP diastolic 45–85
[2023-04-16 13:53] LABS: BASO% 1.1 % (0-3); HEMATOCRIT 32.1 % (39.0-50.0); HEMOGLOBIN 9.6 g/dl (14.0-18.0); IMMATURE GRANULOCYTES 0.6 % (0.0-5.0); LYMPH% 12.9 % (15-41); MEAN CELL VOLUME 94.7 fL CALC (80.0-100.0); MEAN CORPUSCULAR HGB 28.3 pG CALC (26.0-32.0); MEAN CORPUSCULAR HGB CONC 29.9 g/dL CAL (32.0-36.0); MONO% 6.6 % (2-13); NEUT# 4.63 thou/uL (1.82-7.42); NEUT% 74.8 % (42-76); RED BLOOD COUNT 3.39 mill/uL (4.70-6.10); RED CELL DISTRI WIDTH 13.6 % (11.5-15.5)
[2023-04-16 14:05] LABS: ALBUMIN 4.7 g/dL (3.2-5.0); BILIRUBIN, TOTAL 0.4 mg/dL (0.2-1.3); POTASSIUM 4.3 mmol/l (3.5-5.1)
[2023-04-16 14:08] LABS: CREATININE 10.8 mg/dL (0.7-1.3); TOTAL PROTEIN 8.5 g/dL (6.3-8.2)
[2023-04-16] MEDS ORDERED: VIBRAMYCIN100 M2 PO (16:27)
== END 2023-04-16 16:40 | disposition home or self-care (01) ==
LOC: ED 13:12
PROVIDERS: Nurse Practitioner
DX: I95.3 Hypotension of hemodialysis (principal); R79.89 Other specified abnormal findings of blood chemistry; I12.0 Hypertensive chronic kidney disease with stage 5 chronic kidney disease or end stage renal disease; E11.22 Type 2 diabetes mellitus with diabetic chronic kidney disease; N18.6 End stage renal disease; Z99.2 Dependence on renal dialysis; E78.5 Hyperlipidemia, unspecified

== ENCOUNTER 2023-04-18 09:06 | Emergency (ER) | payer MEDICAID ==
[~2023-04-18] VITALS: Ht 170.2 cm; Wt 86.4 kg
[~2023-04-18 09:06] MED LIST changes: +VIBRAMYCIN100 M2 PO
[2023-04-18 11:09] VITALS: BP 141/75
[2023-04-18 11:24] LABS: BASO% 1.1 % (0-3); EOS% 4.8 % (0-8); HEMATOCRIT 28.6 % (39.0-50.0); HEMOGLOBIN 8.9 g/dl (14.0-18.0); LYMPH% 16.3 % (15-41); MEAN CELL VOLUME 93.5 fL CALC (80.0-100.0); MEAN CORPUSCULAR HGB 29.1 pG CALC (26.0-32.0); MEAN CORPUSCULAR HGB CONC 31.1 g/dL CAL (32.0-36.0); MONO% 8.9 % (2-13); NEUT# 5.06 thou/uL (1.82-7.42); NEUT% 68.9 % (42-76); RED BLOOD COUNT 3.06 mill/uL (4.70-6.10); RED CELL DISTRI WIDTH 13.8 % (11.5-15.5)
[2023-04-18 11:27] LABS: ALBUMIN 4.4 g/dL (3.2-5.0); TOTAL PROTEIN 7.2 g/dL (6.3-8.2)
[2023-04-18 11:37] LABS: BILIRUBIN, TOTAL 0.2 mg/dL (0.2-1.3); POTASSIUM 5.3 mmol/l (3.5-5.1)
[2023-04-18 11:38] LABS: CREATININE 16.3 mg/dL (0.7-1.3)
== END 2023-04-18 12:58 | disposition left against medical advice (07) ==
LOC: ED 09:06 → DIA 09:33 → ED 10:31 → DIA 12:58
PROVIDERS: Family Medicine
DX: I12.0 Hypertensive chronic kidney disease with stage 5 chronic kidney disease or end stage renal disease (principal); E11.22 Type 2 diabetes mellitus with diabetic chronic kidney disease; N18.6 End stage renal disease; Z99.2 Dependence on renal dialysis; E78.5 Hyperlipidemia, unspecified

== ENCOUNTER 2023-04-21 08:53 | Emergency (ER) | payer MEDICAID ==
[2023-04-21 10:44] LABS: BASO% 0.7 % (0-3); EOS% 5.2 % (0-8); HEMATOCRIT 26.3 % (39.0-50.0); HEMOGLOBIN 8.2 g/dl (14.0-18.0); LYMPH% 15.6 % (15-41); MEAN CELL VOLUME 92.6 fL CALC (80.0-100.0); MEAN CORPUSCULAR HGB 28.9 pG CALC (26.0-32.0); MEAN CORPUSCULAR HGB CONC 31.2 g/dL CAL (32.0-36.0); MONO% 6.9 % (2-13); NEUT# 4.78 thou/uL (1.82-7.42); NEUT% 71.6 % (42-76); RED BLOOD COUNT 2.84 mill/uL (4.70-6.10); RED CELL DISTRI WIDTH 13.8 % (11.5-15.5)
[2023-04-21 10:57] LABS: TOTAL PROTEIN 6.6 g/dL (6.3-8.2)
[2023-04-21 11:07] LABS: BILIRUBIN, TOTAL 0.4 mg/dL (0.2-1.3); POTASSIUM 5.3 mmol/l (3.5-5.1)
[2023-04-21 11:08] LABS: CREATININE 17.8 mg/dL (0.7-1.3)
== END 2023-04-21 09:19 | disposition left against medical advice (07) ==
LOC: ED 08:53 → LWOBS 09:19 → ED 09:19
PROVIDERS: Internal Medicine Nephrology
DX: Z53.21 Procedure and treatment not carried out due to patient leaving prior to being seen by health care provider (principal)

== ENCOUNTER 2023-04-21 09:36 | Emergency (ER) | payer MEDICAID ==
[~2023-04-21] VITALS: Ht 170.2 cm; Wt 84.0 kg
[2023-04-21 12:55] VITALS: BP 143/64
== END 2023-04-21 12:54 | disposition left against medical advice (07) ==
LOC: ED 09:36 → DIA 10:00 → ED 10:00 → DIA 12:54
DX: I12.0 Hypertensive chronic kidney disease with stage 5 chronic kidney disease or end stage renal disease (principal); E11.22 Type 2 diabetes mellitus with diabetic chronic kidney disease; N18.6 End stage renal disease; Z99.2 Dependence on renal dialysis; E78.5 Hyperlipidemia, unspecified

== ENCOUNTER 2023-04-25 08:10 | Emergency (ER) | payer MEDICAID ==
[~2023-04-25] VITALS: Ht 170.2 cm; Wt 87.6 kg
[2023-04-25 08:19] VITALS: BP 170/84
[2023-04-25] MEDS ORDERED: EMLA CREAM5 GM/TUBE EX (08:20)
[2023-04-25 10:33] LABS: BASO% 1.1 % (0-3); EOS% 6.3 % (0-8); HEMATOCRIT 29.3 % (39.0-50.0); HEMOGLOBIN 8.9 g/dl (14.0-18.0); IMMATURE GRANULOCYTES 0.2 % (0.0-5.0); MEAN CELL VOLUME 93.9 fL CALC (80.0-100.0); MEAN CORPUSCULAR HGB 28.5 pG CALC (26.0-32.0); MEAN CORPUSCULAR HGB CONC 30.4 g/dL CAL (32.0-36.0); MONO% 8.5 % (2-13); NEUT# 4.17 thou/uL (1.82-7.42); NEUT% 66.9 % (42-76); RED BLOOD COUNT 3.12 mill/uL (4.70-6.10)
[2023-04-25 10:39] LABS: ALBUMIN 4.2 g/dL (3.2-5.0); BILIRUBIN, TOTAL 0.4 mg/dL (0.2-1.3); POTASSIUM 5.1 mmol/l (3.5-5.1); TOTAL PROTEIN 6.9 g/dL (6.3-8.2)
[2023-04-25 10:46] LABS: CREATININE 15.5 mg/dL (0.7-1.3)
[2023-04-25 11:40] VITALS: BP 160/89
== END 2023-04-25 13:25 | disposition left against medical advice (07) ==
LOC: ED 08:10 → DIA 08:31 → ED 08:31
PROVIDERS: Family Medicine
DX: I12.0 Hypertensive chronic kidney disease with stage 5 chronic kidney disease or end stage renal disease (principal); E11.22 Type 2 diabetes mellitus with diabetic chronic kidney disease; N18.6 End stage renal disease; Z99.2 Dependence on renal dialysis; E78.5 Hyperlipidemia, unspecified; Z53.29 Procedure and treatment not carried out because of patient's decision for other reasons

== ENCOUNTER 2023-04-30 08:33 | Emergency (ER) | payer MEDICAID ==
[~2023-04-30] VITALS: Ht 170.2 cm; Wt 88.4 kg
[2023-04-30 09:18] VITALS: BP 135/71
[2023-04-30 09:30] VITALS: BP 137/77
[2023-04-30 09:45] VITALS: BP 135/68
[2023-04-30 10:17] LABS: EOS% 6.8 % (0-8); HEMATOCRIT 27.4 % (39.0-50.0); HEMOGLOBIN 8.4 g/dl (14.0-18.0); IMMATURE GRANULOCYTES 0.7 % (0.0-5.0); LYMPH% 18.3 % (15-41); MEAN CELL VOLUME 94.2 fL CALC (80.0-100.0); MEAN CORPUSCULAR HGB 28.9 pG CALC (26.0-32.0); MEAN CORPUSCULAR HGB CONC 30.7 g/dL CAL (32.0-36.0); MONO% 8.8 % (2-13); NEUT# 3.79 thou/uL (1.82-7.42); NEUT% 64.4 % (42-76); RED BLOOD COUNT 2.91 mill/uL (4.70-6.10); RED CELL DISTRI WIDTH 13.8 % (11.5-15.5)
[2023-04-30 10:41] LABS: ALBUMIN 4.2 g/dL (3.2-5.0); BILIRUBIN, TOTAL 0.4 mg/dL (0.2-1.3); TOTAL PROTEIN 6.9 g/dL (6.3-8.2)
[2023-04-30 10:48] LABS: POTASSIUM 5.2 mmol/l (3.5-5.1)
[2023-04-30 10:49] LABS: CREATININE 15.9 mg/dL (0.7-1.3)
[2023-04-30 12:27] VITALS: BP 145/71
[2023-04-30 12:28] VITALS: BP 145/71
== END 2023-04-30 12:28 | disposition left against medical advice (07) ==
LOC: ED 08:33 → DIA 09:27 → ED 09:27
PROVIDERS: Family Medicine
DX: I12.0 Hypertensive chronic kidney disease with stage 5 chronic kidney disease or end stage renal disease (principal); E11.22 Type 2 diabetes mellitus with diabetic chronic kidney disease; N18.6 End stage renal disease; Z99.2 Dependence on renal dialysis; E78.5 Hyperlipidemia, unspecified; Z53.29 Procedure and treatment not carried out because of patient's decision for other reasons

== ENCOUNTER 2023-05-02 09:14 | Emergency (ER) | payer MEDICAID ==
[~2023-05-02] VITALS: Ht 170.2 cm; Wt 88.6 kg
[2023-05-02 09:41] VITALS: BP 160/85
[2023-05-02 09:45] VITALS: BP 161/85
[2023-05-02 10:01] VITALS: BP 165/85
--- NOTE | 2023-05-02 10:05 | NUR ---
PT ESCORTED FROM ED TO DIALYSIS SUITE FOR PRESCRIBED DIALYSIS TREATMENT. PT DECLINES OFFER FOR TRANSPORT WITH WHEELCHAIR. INSIST ON AMBULATING. PT ACCOMPANIED BY Howie GOMEZ RN. GAIT STEADY AND BALANCED. HAND-OFF REPORT RECEIVED FROM YOLI REDDY.
--- NOTE | 2023-05-02 10:21 | NUR ---
HEMODIALYSIS TREATMENT INITIATED AT 10:21 SEE HEMODIALYSIS TREATMENT PROCESS INTERVENTION AND TABLO TREATMENT FLOWSHEET FOR TREATMENT SPECIFIC DETAILS.
[2023-05-02 12:31] LABS: EOS% 6.4 % (0-8); HEMOGLOBIN 8.2 g/dl (14.0-18.0); IMMATURE GRANULOCYTES 0.2 % (0.0-5.0); LYMPH% 17.9 % (15-41); MEAN CELL VOLUME 95.1 fL CALC (80.0-100.0); MEAN CORPUSCULAR HGB 28.9 pG CALC (26.0-32.0); MEAN CORPUSCULAR HGB CONC 30.4 g/dL CAL (32.0-36.0); MONO% 7.9 % (2-13); NEUT# 3.95 thou/uL (1.82-7.42); NEUT% 66.6 % (42-76); RED BLOOD COUNT 2.84 mill/uL (4.70-6.10); RED CELL DISTRI WIDTH 13.4 % (11.5-15.5)
[2023-05-02 12:37] LABS: ALBUMIN 4.1 g/dL (3.2-5.0); BILIRUBIN, TOTAL 0.4 mg/dL (0.2-1.3); TOTAL PROTEIN 6.7 g/dL (6.3-8.2)
[2023-05-02 12:44] LABS: CREATININE 15.6 mg/dL (0.7-1.3); POTASSIUM 5.2 mmol/l (3.5-5.1)
--- NOTE | 2023-05-02 13:10 | NUR ---
HEMODIALYSIS TREATMENT COMPLETED AT 1307 SEE HEMODIALYSIS TREATMENT PROCESS INTERVENTION AND TABLO TREATMENT FLOWSHEET FOR TREATMENT SPECIFIC DETAILS.
--- NOTE | 2023-05-02 13:11 | NUR ---
Patient decides to leave AMA. Multiple attempts made to ecourage patient to remain here for continued treatment. Explained to patient all risks of leaving against medical advice including . Pt verbalized understanding of all risks. Pt also encouraged to return to [facility] at any time, especially if symptoms continue or become worse. Pt verbalized understanding.
[2023-05-02 13:12] VITALS: BP 166/81
== END 2023-05-02 13:11 | disposition left against medical advice (07) ==
LOC: ED 09:14 → DIA 09:38 → ED 09:38
PROVIDERS: Internal Medicine Nephrology
DX: I12.0 Hypertensive chronic kidney disease with stage 5 chronic kidney disease or end stage renal disease (principal); E11.22 Type 2 diabetes mellitus with diabetic chronic kidney disease; N18.6 End stage renal disease; Z99.2 Dependence on renal dialysis; E78.5 Hyperlipidemia, unspecified; Z53.29 Procedure and treatment not carried out because of patient's decision for other reasons

== ENCOUNTER 2023-05-05 09:22 | Emergency (ER) | payer MEDICAID ==
[~2023-05-05] VITALS: Ht 170.2 cm; Wt 88.6 kg
--- NOTE | 2023-05-05 10:35 | NUR ---
PT ESCORTED FROM ED TO DIALYSIS SUITE FOR PRESCRIBED DIALYSIS TREATMENT. PT DECLINES OFFER FOR TRANSPORT WITH WHEELCHAIR. INSIST ON AMBULATING. PT ACCOMPANIED BY Alex SCHMITT RN. GAIT STEADY AND BALANCED. HAND-OFF REPORT SPOKE WITH MORNING NURSE EZEKIEL.
--- NOTE | 2023-05-05 10:49 | NUR ---
HEMODIALYSIS TREATMENT INITIATED AT 1049. SEE HEMODIALYSIS TREATMENT PROCESS INTERVENTION AND TABLO TREATMENT FLOWSHEET FOR TREATMENT SPECIFIC DETAILS.
[2023-05-05 11:09] LABS: BASO% 0.9 % (0-3); EOS% 6.4 % (0-8); HEMATOCRIT 24.6 % (39.0-50.0); HEMOGLOBIN 7.5 g/dl (14.0-18.0); IMMATURE GRANULOCYTES 0.4 % (0.0-5.0); LYMPH% 17.2 % (15-41); MEAN CORPUSCULAR HGB CONC 30.5 g/dL CAL (32.0-36.0); MONO% 6.8 % (2-13); NEUT# 4.79 thou/uL (1.82-7.42); NEUT% 68.3 % (42-76); RED BLOOD COUNT 2.59 mill/uL (4.70-6.10); RED CELL DISTRI WIDTH 13.5 % (11.5-15.5)
[2023-05-05 11:20] LABS: BILIRUBIN, TOTAL 0.3 mg/dL (0.2-1.3); TOTAL PROTEIN 6.8 g/dL (6.3-8.2)
--- NOTE | 2023-05-05 11:43 | NUR ---
INFORMED LIQUOR MERCHANT OF PATIENTS HEMOGLOBIN OF 7.5.
[2023-05-05 11:44] LABS: POTASSIUM 5.3 mmol/l (3.5-5.1)
[2023-05-05 11:45] LABS: CREATININE 17.6 mg/dL (0.7-1.3)
--- NOTE | 2023-05-05 12:04 | NUR ---
INFORMED SHOELACE TIPPING MACHINE OPERATOR OF PATIENTS SBP. SEE EMAR FOR NEW ORDERS.
--- NOTE | 2023-05-05 12:30 | NUR ---
ONE TIME DOSE OF CLONIDINE GIVEN ORDERED FOR BP OF 176/95. PATIENT HAS NO COMPLAINTS AT THIS TIME.
[2023-05-05 12:31] VITALS: BP 171/86
--- NOTE | 2023-05-05 13:10 | NUR ---
RETACRIT HELD PER SENIOR ARCHITECTURAL DESIGNER DUE TO PATIENTS BP.
--- NOTE | 2023-05-05 13:19 | NUR ---
HEMODIALYSIS TREATMENT COMPLETED AT 1337 PER PT'S REQUEST. PT DECLINES FURTHER TREATMENT AT THIS TIME. EDUCATION PROVIDED REGARDING IMPORTANCE OF COMPLETING ENTIRE PRESCRIBED TX. PT VERBALIZES UNDERSTANDING. CONTINUES TO REQUEST TX TO BE ENDED. SEE HEMODIALYSIS TREATMENT PROCESS INTERVENTION AND TABLO TREATMENT FLOWSHEET FOR TREATMENT SPECIFIC DETAILS.
--- NOTE | 2023-05-05 13:37 | NUR ---
PATIENT LEFT AMA. PROPER FORM COMPLETED.
== END 2023-05-05 13:37 | disposition left against medical advice (07) ==
LOC: ED 09:22 → DIA 10:11
PROVIDERS: Family Medicine
DX: I12.0 Hypertensive chronic kidney disease with stage 5 chronic kidney disease or end stage renal disease (principal); E11.22 Type 2 diabetes mellitus with diabetic chronic kidney disease; N18.6 End stage renal disease; Z99.2 Dependence on renal dialysis; E78.5 Hyperlipidemia, unspecified; Z53.29 Procedure and treatment not carried out because of patient's decision for other reasons

== ENCOUNTER 2023-05-07 08:36 | Emergency (ER) | payer MEDICAID ==
[~2023-05-07] VITALS: Ht 170.2 cm; Wt 88.6 kg
--- NOTE | 2023-05-07 10:54 | NUR ---
HEMODIALYSIS TREATMENT INITIATED AT 1054. SEE HEMODIALYSIS TREATMENT PROCESS INTERVENTION AND TABLO TREATMENT FLOWSHEET FOR TREATMENT SPECIFIC DETAILS.
[2023-05-07 11:08] LABS: BASO% 0.8 % (0-3); EOS% 8.2 % (0-8); HEMATOCRIT 25.2 % (39.0-50.0); HEMOGLOBIN 7.8 g/dl (14.0-18.0); IMMATURE GRANULOCYTES 0.2 % (0.0-5.0); LYMPH% 16.9 % (15-41); MEAN CELL VOLUME 94.7 fL CALC (80.0-100.0); MEAN CORPUSCULAR HGB 29.3 pG CALC (26.0-32.0); MONO% 10.3 % (2-13); NEUT# 3.95 thou/uL (1.82-7.42); NEUT% 63.6 % (42-76); RED BLOOD COUNT 2.66 mill/uL (4.70-6.10); RED CELL DISTRI WIDTH 13.4 % (11.5-15.5)
[2023-05-07 11:30] LABS: ALBUMIN 4.1 g/dL (3.2-5.0); BILIRUBIN, TOTAL 0.3 mg/dL (0.2-1.3); TOTAL PROTEIN 6.8 g/dL (6.3-8.2)
[2023-05-07 11:43] LABS: CREATININE 15.4 mg/dL (0.7-1.3)
--- NOTE | 2023-05-07 13:25 | NUR ---
HEMODIALYSIS TREATMENT COMPLETED AT 1325 PER PT'S REQUEST. PT DECLINES FURTHER TREATMENT AT THIS TIME. EDUCATION PROVIDED REGARDING IMPORTANCE OF COMPLETING ENTIRE PRESCRIBED TX. PT VERBALIZES UNDERSTANDING. CONTINUES TO REQUEST TX TO BE ENDED. SEE HEMODIALYSIS TREATMENT PROCESS INTERVENTION AND TABLO TREATMENT FLOWSHEET FOR TREATMENT SPECIFIC DETAILS.
[2023-05-07 13:30] VITALS: BP 181/88
--- NOTE | 2023-05-07 13:30 | NUR ---
AMA Patient decides to leave AMA. Multiple attempts made to ecourage patient to remain here for continued treatment. Explained to patient all risks of leaving against medical advice including . Pt verbalized understanding of all risks. Pt also encouraged to return to [facility] at any time, especially if symptoms continue or become worse. Pt verbalized understanding. DR. Cardenas AND ED PHYSICIAN AWARE.
== END 2023-05-07 14:00 | disposition left against medical advice (07) ==
LOC: ED 08:36 → DIA 10:32 → ED 10:32 → DIA 14:00
PROVIDERS: Family Medicine
DX: I12.0 Hypertensive chronic kidney disease with stage 5 chronic kidney disease or end stage renal disease (principal); E11.22 Type 2 diabetes mellitus with diabetic chronic kidney disease; N18.6 End stage renal disease; Z99.2 Dependence on renal dialysis; E78.5 Hyperlipidemia, unspecified; Z53.29 Procedure and treatment not carried out because of patient's decision for other reasons

== ENCOUNTER 2023-05-09 08:53 | Emergency (ER) | payer MEDICAID ==
[2023-05-09] VITALS (8 sets, daily range): BP systolic 133–164; BP diastolic 69–87
[~2023-05-09] VITALS: Ht 170.2 cm; Wt 88.2 kg
[2023-05-09 11:34] LABS: BASO% 0.9 % (0-3); HEMATOCRIT 25.7 % (39.0-50.0); IMMATURE GRANULOCYTES 0.2 % (0.0-5.0); LYMPH% 18.1 % (15-41); MEAN CELL VOLUME 94.8 fL CALC (80.0-100.0); MEAN CORPUSCULAR HGB 29.5 pG CALC (26.0-32.0); MEAN CORPUSCULAR HGB CONC 31.1 g/dL CAL (32.0-36.0); MONO% 8.3 % (2-13); NEUT# 3.39 thou/uL (1.82-7.42); NEUT% 62.5 % (42-76); RED BLOOD COUNT 2.71 mill/uL (4.70-6.10); RED CELL DISTRI WIDTH 13.5 % (11.5-15.5)
[2023-05-09 11:45] LABS: ALBUMIN 4.1 g/dL (3.2-5.0); BILIRUBIN, TOTAL 0.2 mg/dL (0.2-1.3); POTASSIUM 4.8 mmol/l (3.5-5.1); TOTAL PROTEIN 6.9 g/dL (6.3-8.2)
[2023-05-09 11:56] LABS: CREATININE 15.1 mg/dL (0.7-1.3)
== END 2023-05-09 13:40 | disposition home or self-care (01) ==
LOC: ED 08:53 → DIA 09:11 → ED 13:40
PROVIDERS: Internal Medicine Nephrology
DX: I12.0 Hypertensive chronic kidney disease with stage 5 chronic kidney disease or end stage renal disease (principal); E11.22 Type 2 diabetes mellitus with diabetic chronic kidney disease; N18.6 End stage renal disease; Z99.2 Dependence on renal dialysis; E78.5 Hyperlipidemia, unspecified

== ENCOUNTER 2023-05-12 08:28 | Emergency (ER) | payer MEDICAID ==
[~2023-05-12] VITALS: Ht 170.2 cm; Wt 89.4 kg
[2023-05-12 11:23] VITALS: BP 144/86
[2023-05-12 11:27] LABS: BASO% 0.9 % (0-3); EOS% 8.1 % (0-8); HEMATOCRIT 24.5 % (39.0-50.0); HEMOGLOBIN 7.7 g/dl (14.0-18.0); IMMATURE GRANULOCYTES 0.1 % (0.0-5.0); LYMPH% 17.4 % (15-41); MEAN CORPUSCULAR HGB 29.8 pG CALC (26.0-32.0); MEAN CORPUSCULAR HGB CONC 31.4 g/dL CAL (32.0-36.0); MONO% 8.8 % (2-13); NEUT# 4.8 thou/uL (1.82-7.42); NEUT% 64.7 % (42-76); RED BLOOD COUNT 2.58 mill/uL (4.70-6.10); RED CELL DISTRI WIDTH 13.6 % (11.5-15.5)
[2023-05-12 11:32] LABS: TOTAL PROTEIN 6.8 g/dL (6.3-8.2)
[2023-05-12 11:57] LABS: BILIRUBIN, TOTAL 0.3 mg/dL (0.2-1.3); CREATININE 17.2 mg/dL (0.7-1.3); POTASSIUM 5.2 mmol/l (3.5-5.1)
== END 2023-05-12 13:13 | disposition left against medical advice (07) ==
LOC: ED 08:28 → DIA 09:09
PROVIDERS: Family Medicine
DX: I12.0 Hypertensive chronic kidney disease with stage 5 chronic kidney disease or end stage renal disease (principal); E11.22 Type 2 diabetes mellitus with diabetic chronic kidney disease; N18.6 End stage renal disease; Z99.2 Dependence on renal dialysis; E78.5 Hyperlipidemia, unspecified

== ENCOUNTER 2023-05-14 08:59 | Emergency (ER) | payer MEDICAID ==
[~2023-05-14] VITALS: Ht 170.2 cm; Wt 88.6 kg
[2023-05-14 11:26] VITALS: BP 190/93
[2023-05-14 12:13] LABS: BILIRUBIN, TOTAL 0.2 mg/dL (0.2-1.3); TOTAL PROTEIN 6.8 g/dL (6.3-8.2)
[2023-05-14 12:21] LABS: BASO% 0.7 % (0-3); EOS% 9.4 % (0-8); HEMATOCRIT 25.1 % (39.0-50.0); HEMOGLOBIN 7.7 g/dl (14.0-18.0); IMMATURE GRANULOCYTES 0.3 % (0.0-5.0); LYMPH% 15.7 % (15-41); MEAN CELL VOLUME 95.1 fL CALC (80.0-100.0); MEAN CORPUSCULAR HGB 29.2 pG CALC (26.0-32.0); MEAN CORPUSCULAR HGB CONC 30.7 g/dL CAL (32.0-36.0); MONO% 8.9 % (2-13); NEUT# 4.43 thou/uL (1.82-7.42); RED BLOOD COUNT 2.64 mill/uL (4.70-6.10); RED CELL DISTRI WIDTH 13.8 % (11.5-15.5)
[2023-05-14 12:27] LABS: CREATININE 16.2 mg/dL (0.7-1.3); POTASSIUM 5.3 mmol/l (3.5-5.1)
== END 2023-05-14 13:55 | disposition left against medical advice (07) ==
LOC: ED 08:59 → DIA 09:30
PROVIDERS: Internal Medicine Nephrology
DX: I12.0 Hypertensive chronic kidney disease with stage 5 chronic kidney disease or end stage renal disease (principal); E11.22 Type 2 diabetes mellitus with diabetic chronic kidney disease; N18.6 End stage renal disease; Z99.2 Dependence on renal dialysis; E78.5 Hyperlipidemia, unspecified; Z53.29 Procedure and treatment not carried out because of patient's decision for other reasons

== ENCOUNTER 2023-05-16 09:42 | Emergency (ER) | payer MEDICAID ==
[~2023-05-16] VITALS: Ht 170.2 cm; Wt 88.6 kg
[2023-05-16 09:50] VITALS: BP 171/89
[2023-05-16 11:47] VITALS: BP 185/105
[2023-05-16 12:32] LABS: BASO% 0.9 % (0-3); EOS% 10.7 % (0-8); HEMOGLOBIN 7.6 g/dl (14.0-18.0); IMMATURE GRANULOCYTES 0.2 % (0.0-5.0); LYMPH% 14.1 % (15-41); MEAN CELL VOLUME 96.2 fL CALC (80.0-100.0); MEAN CORPUSCULAR HGB 29.2 pG CALC (26.0-32.0); MEAN CORPUSCULAR HGB CONC 30.4 g/dL CAL (32.0-36.0); MONO% 8.2 % (2-13); NEUT# 4.21 thou/uL (1.82-7.42); NEUT% 65.9 % (42-76); RED BLOOD COUNT 2.6 mill/uL (4.70-6.10)
[2023-05-16 12:42] LABS: ALBUMIN 4.1 g/dL (3.2-5.0); BILIRUBIN, TOTAL 0.2 mg/dL (0.2-1.3); TOTAL PROTEIN 6.8 g/dL (6.3-8.2)
[2023-05-16 12:50] LABS: CREATININE 15.6 mg/dL (0.7-1.3); POTASSIUM 5.7 mmol/l (3.5-5.1)
== END 2023-05-16 14:20 | disposition left against medical advice (07) ==
LOC: ED 09:42 → DIA 09:51 → ED 09:51 → DIA 14:20
PROVIDERS: Family Medicine
DX: I12.0 Hypertensive chronic kidney disease with stage 5 chronic kidney disease or end stage renal disease (principal); E11.22 Type 2 diabetes mellitus with diabetic chronic kidney disease; N18.6 End stage renal disease; Z99.2 Dependence on renal dialysis; E78.5 Hyperlipidemia, unspecified; Z53.29 Procedure and treatment not carried out because of patient's decision for other reasons

== ENCOUNTER 2023-05-19 09:39 | Emergency (ER) | payer MEDICAID ==
[~2023-05-19] VITALS: Ht 170.2 cm; Wt 90.0 kg
[2023-05-19 11:12] LABS: BASO% 0.8 % (0-3); EOS% 12.1 % (0-8); HEMATOCRIT 24.9 % (39.0-50.0); HEMOGLOBIN 7.6 g/dl (14.0-18.0); IMMATURE GRANULOCYTES 0.3 % (0.0-5.0); LYMPH% 16.9 % (15-41); MEAN CELL VOLUME 96.1 fL CALC (80.0-100.0); MEAN CORPUSCULAR HGB 29.3 pG CALC (26.0-32.0); MEAN CORPUSCULAR HGB CONC 30.5 g/dL CAL (32.0-36.0); MONO% 8.3 % (2-13); NEUT# 4.38 thou/uL (1.82-7.42); NEUT% 61.6 % (42-76); RED BLOOD COUNT 2.59 mill/uL (4.70-6.10); RED CELL DISTRI WIDTH 13.9 % (11.5-15.5)
[2023-05-19 11:25] LABS: ALBUMIN 4.1 g/dL (3.2-5.0); BILIRUBIN, TOTAL 0.2 mg/dL (0.2-1.3); TOTAL PROTEIN 6.8 g/dL (6.3-8.2)
[2023-05-19 11:27] VITALS: BP 156/78
[2023-05-19 11:34] LABS: CREATININE 16.9 mg/dL (0.7-1.3); POTASSIUM 5.4 mmol/l (3.5-5.1)
== END 2023-05-19 13:20 | disposition left against medical advice (07) ==
LOC: ED 09:39 → DIA 10:33 → ED 10:33 → DIA 13:20
PROVIDERS: Internal Medicine Nephrology
DX: I12.0 Hypertensive chronic kidney disease with stage 5 chronic kidney disease or end stage renal disease (principal); E11.22 Type 2 diabetes mellitus with diabetic chronic kidney disease; N18.6 End stage renal disease; Z99.2 Dependence on renal dialysis; E78.5 Hyperlipidemia, unspecified; Z53.29 Procedure and treatment not carried out because of patient's decision for other reasons

== ENCOUNTER 2023-05-21 08:52 | Emergency (ER) | payer MEDICAID ==
[~2023-05-21] VITALS: Ht 170.2 cm; Wt 89.4 kg
[2023-05-21 09:06] VITALS: BP 185/88
[2023-05-21 09:15] VITALS: BP 193/92
[2023-05-21 09:31] VITALS: BP 162/82
[2023-05-21 10:01] VITALS: BP 166/81
[2023-05-21 10:31] VITALS: BP 128/63
[2023-05-21 11:16] VITALS: BP 143/77
[2023-05-21 11:18] LABS: BASO% 0.9 % (0-3); EOS% 10.7 % (0-8); HEMATOCRIT 24.5 % (39.0-50.0); HEMOGLOBIN 7.5 g/dl (14.0-18.0); IMMATURE GRANULOCYTES 0.1 % (0.0-5.0); LYMPH% 13.4 % (15-41); MEAN CELL VOLUME 95.7 fL CALC (80.0-100.0); MEAN CORPUSCULAR HGB 29.3 pG CALC (26.0-32.0); MEAN CORPUSCULAR HGB CONC 30.6 g/dL CAL (32.0-36.0); MONO% 8.9 % (2-13); NEUT# 5.26 thou/uL (1.82-7.42); RED BLOOD COUNT 2.56 mill/uL (4.70-6.10); RED CELL DISTRI WIDTH 13.9 % (11.5-15.5)
[2023-05-21 11:39] LABS: BILIRUBIN, TOTAL 0.2 mg/dL (0.2-1.3); TOTAL PROTEIN 6.9 g/dL (6.3-8.2)
[2023-05-21 11:49] LABS: POTASSIUM 5.4 mmol/l (3.5-5.1)
[2023-05-21 11:50] LABS: CREATININE 15.6 mg/dL (0.7-1.3)
== END 2023-05-21 13:08 | disposition left against medical advice (07) ==
LOC: ED 08:52 → DIA 09:17 → ED 09:17 → DIA 13:08
PROVIDERS: Internal Medicine Nephrology
DX: I12.0 Hypertensive chronic kidney disease with stage 5 chronic kidney disease or end stage renal disease (principal); E11.22 Type 2 diabetes mellitus with diabetic chronic kidney disease; N18.6 End stage renal disease; Z99.2 Dependence on renal dialysis; E78.5 Hyperlipidemia, unspecified; Z53.29 Procedure and treatment not carried out because of patient's decision for other reasons

== ENCOUNTER 2023-05-23 09:44 | Emergency (ER) | payer MEDICAID ==
[~2023-05-23] VITALS: Ht 170.2 cm; Wt 90.4 kg
[2023-05-23 10:15] VITALS: BP 157/80
[2023-05-23 10:30] VITALS: BP 159/82
[2023-05-23 10:46] VITALS: BP 146/73
[2023-05-23 11:01] VITALS: BP 148/75
[2023-05-23 12:02] LABS: EOS% 10.6 % (0-8); HEMATOCRIT 23.9 % (39.0-50.0); HEMOGLOBIN 7.3 g/dl (14.0-18.0); IMMATURE GRANULOCYTES 0.3 % (0.0-5.0); LYMPH% 14.3 % (15-41); MEAN CELL VOLUME 95.2 fL CALC (80.0-100.0); MEAN CORPUSCULAR HGB 29.1 pG CALC (26.0-32.0); MEAN CORPUSCULAR HGB CONC 30.5 g/dL CAL (32.0-36.0); MONO% 9.4 % (2-13); NEUT# 4.98 thou/uL (1.82-7.42); NEUT% 64.4 % (42-76); RED BLOOD COUNT 2.51 mill/uL (4.70-6.10); RED CELL DISTRI WIDTH 13.6 % (11.5-15.5)
[2023-05-23 12:13] LABS: BILIRUBIN, TOTAL 0.2 mg/dL (0.2-1.3); TOTAL PROTEIN 6.7 g/dL (6.3-8.2)
[2023-05-23 12:24] VITALS: BP 154/79
[2023-05-23 12:52] LABS: CREATININE 14.5 mg/dL (0.7-1.3); POTASSIUM 5.3 mmol/l (3.5-5.1)
== END 2023-05-23 13:50 | disposition left against medical advice (07) ==
LOC: ED 09:44 → DIA 10:16 → ED 10:16 → DIA 13:50
PROVIDERS: Family Medicine
DX: I12.0 Hypertensive chronic kidney disease with stage 5 chronic kidney disease or end stage renal disease (principal); E11.22 Type 2 diabetes mellitus with diabetic chronic kidney disease; N18.6 End stage renal disease; Z99.2 Dependence on renal dialysis; E78.5 Hyperlipidemia, unspecified; Z53.29 Procedure and treatment not carried out because of patient's decision for other reasons

== ENCOUNTER 2023-05-28 09:43 | Emergency (ER) | payer MEDICAID ==
[~2023-05-28] VITALS: Ht 170.2 cm; Wt 89.8 kg
[2023-05-28 11:44] VITALS: BP 172/84
[2023-05-28 11:57] LABS: BASO% 1.2 % (0-3); EOS% 9.8 % (0-8); HEMATOCRIT 23.7 % (39.0-50.0); HEMOGLOBIN 7.3 g/dl (14.0-18.0); IMMATURE GRANULOCYTES 0.1 % (0.0-5.0); LYMPH% 14.6 % (15-41); MEAN CELL VOLUME 96.3 fL CALC (80.0-100.0); MEAN CORPUSCULAR HGB 29.7 pG CALC (26.0-32.0); MEAN CORPUSCULAR HGB CONC 30.8 g/dL CAL (32.0-36.0); MONO% 9.4 % (2-13); NEUT# 4.49 thou/uL (1.82-7.42); NEUT% 64.9 % (42-76); RED BLOOD COUNT 2.46 mill/uL (4.70-6.10); RED CELL DISTRI WIDTH 13.9 % (11.5-15.5)
[2023-05-28 12:11] LABS: ALBUMIN 3.9 g/dL (3.2-5.0); BILIRUBIN, TOTAL 0.4 mg/dL (0.2-1.3); POTASSIUM 4.7 mmol/l (3.5-5.1); TOTAL PROTEIN 6.6 g/dL (6.3-8.2)
[2023-05-28 12:27] LABS: CREATININE 15.2 mg/dL (0.7-1.3)
== END 2023-05-28 13:30 | disposition left against medical advice (07) ==
LOC: ED 09:43 → DIA 10:50 → ED 13:30
PROVIDERS: Internal Medicine Nephrology
DX: I12.0 Hypertensive chronic kidney disease with stage 5 chronic kidney disease or end stage renal disease (principal); E11.22 Type 2 diabetes mellitus with diabetic chronic kidney disease; N18.6 End stage renal disease; Z99.2 Dependence on renal dialysis; E78.5 Hyperlipidemia, unspecified; D63.1 Anemia in chronic kidney disease; Z53.29 Procedure and treatment not carried out because of patient's decision for other reasons

== ENCOUNTER 2023-05-30 09:46 | Emergency (ER) | payer MEDICAID ==
[~2023-05-30] VITALS: Ht 170.2 cm; Wt 89.6 kg
[2023-05-30 11:21] LABS: BASO% 0.9 % (0-3); EOS% 8.9 % (0-8); HEMATOCRIT 23.8 % (39.0-50.0); HEMOGLOBIN 7.3 g/dl (14.0-18.0); IMMATURE GRANULOCYTES 0.1 % (0.0-5.0); LYMPH% 13.2 % (15-41); MEAN CORPUSCULAR HGB 29.4 pG CALC (26.0-32.0); MEAN CORPUSCULAR HGB CONC 30.7 g/dL CAL (32.0-36.0); MONO% 7.9 % (2-13); NEUT# 4.72 thou/uL (1.82-7.42); RED BLOOD COUNT 2.48 mill/uL (4.70-6.10); RED CELL DISTRI WIDTH 14.1 % (11.5-15.5)
[2023-05-30 11:34] LABS: ALBUMIN 3.9 g/dL (3.2-5.0); BILIRUBIN, TOTAL 0.5 mg/dL (0.2-1.3); POTASSIUM 4.8 mmol/l (3.5-5.1); TOTAL PROTEIN 6.8 g/dL (6.3-8.2)
[2023-05-30 11:36] LABS: CREATININE 13.9 mg/dL (0.7-1.3)
[2023-05-30 12:47] VITALS: BP 169/82
== END 2023-05-30 13:18 | disposition left against medical advice (07) ==
LOC: ED 09:46 → DIA 10:33 → ED 10:33
PROVIDERS: Family Medicine
DX: I12.0 Hypertensive chronic kidney disease with stage 5 chronic kidney disease or end stage renal disease (principal); E11.22 Type 2 diabetes mellitus with diabetic chronic kidney disease; N18.6 End stage renal disease; Z99.2 Dependence on renal dialysis; E78.5 Hyperlipidemia, unspecified; Z53.29 Procedure and treatment not carried out because of patient's decision for other reasons

== ENCOUNTER 2023-06-02 09:38 | Emergency (ER) | payer MEDICAID ==
[~2023-06-02] VITALS: Ht 170.2 cm; Wt 88.6 kg
[2023-06-02 11:19] LABS: EOS% 8.5 % (0-8); HEMATOCRIT 23.3 % (39.0-50.0); HEMOGLOBIN 7.2 g/dl (14.0-18.0); IMMATURE GRANULOCYTES 0.1 % (0.0-5.0); LYMPH% 14.3 % (15-41); MEAN CELL VOLUME 95.9 fL CALC (80.0-100.0); MEAN CORPUSCULAR HGB 29.6 pG CALC (26.0-32.0); MEAN CORPUSCULAR HGB CONC 30.9 g/dL CAL (32.0-36.0); MONO% 8.6 % (2-13); NEUT# 4.86 thou/uL (1.82-7.42); NEUT% 67.5 % (42-76); RED BLOOD COUNT 2.43 mill/uL (4.70-6.10); RED CELL DISTRI WIDTH 14.1 % (11.5-15.5)
[2023-06-02 11:37] LABS: ALBUMIN 4.1 g/dL (3.2-5.0); BILIRUBIN, TOTAL 0.4 mg/dL (0.2-1.3)
[2023-06-02 11:50] LABS: CREATININE 17.2 mg/dL (0.7-1.3); POTASSIUM 5.2 mmol/l (3.5-5.1)
[2023-06-02 12:28] VITALS: BP 143/69
== END 2023-06-02 13:25 | disposition left against medical advice (07) ==
LOC: ED 09:38 → DIA 10:36
PROVIDERS: Family Medicine
DX: I12.0 Hypertensive chronic kidney disease with stage 5 chronic kidney disease or end stage renal disease (principal); E11.22 Type 2 diabetes mellitus with diabetic chronic kidney disease; N18.6 End stage renal disease; Z99.2 Dependence on renal dialysis; E78.5 Hyperlipidemia, unspecified; Z53.29 Procedure and treatment not carried out because of patient's decision for other reasons

== ENCOUNTER 2023-06-04 09:57 | Emergency (ER) | payer MEDICAID ==
[~2023-06-04] VITALS: Ht 170.2 cm; Wt 88.7 kg
[2023-06-04 11:46] LABS: BASO% 0.8 % (0-3); EOS% 8.7 % (0-8); HEMATOCRIT 24.1 % (39.0-50.0); HEMOGLOBIN 7.5 g/dl (14.0-18.0); IMMATURE GRANULOCYTES 0.2 % (0.0-5.0); MEAN CELL VOLUME 96.4 fL CALC (80.0-100.0); MEAN CORPUSCULAR HGB CONC 31.1 g/dL CAL (32.0-36.0); MONO% 8.8 % (2-13); NEUT# 3.94 thou/uL (1.82-7.42); NEUT% 64.5 % (42-76); RED BLOOD COUNT 2.5 mill/uL (4.70-6.10); RED CELL DISTRI WIDTH 13.9 % (11.5-15.5)
[2023-06-04 12:04] LABS: ALBUMIN 3.9 g/dL (3.2-5.0); BILIRUBIN, TOTAL 0.4 mg/dL (0.2-1.3); TOTAL PROTEIN 6.8 g/dL (6.3-8.2)
[2023-06-04 12:14] LABS: CREATININE 16.9 mg/dL (0.7-1.3); POTASSIUM 5.2 mmol/l (3.5-5.1)
[2023-06-04 12:26] VITALS: BP 155/78
[2023-06-04 13:24] VITALS: BP 131/75
== END 2023-06-04 13:44 | disposition left against medical advice (07) ==
LOC: ED 09:57 → DIA 10:54 → ED 10:54 → DIA 13:44
PROVIDERS: Family Medicine
DX: I12.0 Hypertensive chronic kidney disease with stage 5 chronic kidney disease or end stage renal disease (principal); E11.22 Type 2 diabetes mellitus with diabetic chronic kidney disease; N18.6 End stage renal disease; Z99.2 Dependence on renal dialysis; E78.5 Hyperlipidemia, unspecified; Z53.29 Procedure and treatment not carried out because of patient's decision for other reasons
CPT/HCPCS: Q5106 EC

== ENCOUNTER 2023-06-06 09:05 | Emergency (ER) | payer MEDICAID ==
[~2023-06-06] VITALS: Ht 170.2 cm; Wt 88.4 kg
[2023-06-06 11:01] LABS: EOS% 8.6 % (0-8); HEMATOCRIT 25.5 % (39.0-50.0); HEMOGLOBIN 7.8 g/dl (14.0-18.0); IMMATURE GRANULOCYTES 0.2 % (0.0-5.0); LYMPH% 17.2 % (15-41); MEAN CELL VOLUME 95.9 fL CALC (80.0-100.0); MEAN CORPUSCULAR HGB 29.3 pG CALC (26.0-32.0); MEAN CORPUSCULAR HGB CONC 30.6 g/dL CAL (32.0-36.0); MONO% 9.4 % (2-13); NEUT# 3.94 thou/uL (1.82-7.42); NEUT% 63.6 % (42-76); RED BLOOD COUNT 2.66 mill/uL (4.70-6.10); RED CELL DISTRI WIDTH 14.2 % (11.5-15.5)
[2023-06-06 11:10] LABS: ALBUMIN 4.2 g/dL (3.2-5.0); BILIRUBIN, TOTAL 0.4 mg/dL (0.2-1.3)
[2023-06-06 11:16] LABS: POTASSIUM 5.2 mmol/l (3.5-5.1)
[2023-06-06 11:19] LABS: CREATININE 15.7 mg/dL (0.7-1.3)
[2023-06-06 11:29] VITALS: BP 163/83
== END 2023-06-06 12:56 | disposition left against medical advice (07) ==
LOC: ED 09:05 → DIA 09:29 → ED 09:29 → DIA 10:30
PROVIDERS: Family Medicine
DX: I12.0 Hypertensive chronic kidney disease with stage 5 chronic kidney disease or end stage renal disease (principal); E11.22 Type 2 diabetes mellitus with diabetic chronic kidney disease; N18.6 End stage renal disease; Z99.2 Dependence on renal dialysis; E78.5 Hyperlipidemia, unspecified; Z53.29 Procedure and treatment not carried out because of patient's decision for other reasons

== ENCOUNTER 2023-06-09 08:44 | Emergency (ER) | payer MEDICAID ==
[~2023-06-09] VITALS: Ht 170.2 cm; Wt 88.6 kg
[2023-06-09 11:03] LABS: BASO% 0.8 % (0-3); EOS% 8.2 % (0-8); HEMATOCRIT 25.1 % (39.0-50.0); HEMOGLOBIN 7.8 g/dl (14.0-18.0); IMMATURE GRANULOCYTES 0.2 % (0.0-5.0); LYMPH% 20.9 % (15-41); MEAN CELL VOLUME 94.7 fL CALC (80.0-100.0); MEAN CORPUSCULAR HGB 29.4 pG CALC (26.0-32.0); MEAN CORPUSCULAR HGB CONC 31.1 g/dL CAL (32.0-36.0); MONO% 9.5 % (2-13); NEUT# 3.69 thou/uL (1.82-7.42); NEUT% 60.4 % (42-76); RED BLOOD COUNT 2.65 mill/uL (4.70-6.10); RED CELL DISTRI WIDTH 13.8 % (11.5-15.5)
[2023-06-09 11:12] LABS: ALBUMIN 4.2 g/dL (3.2-5.0); BILIRUBIN, TOTAL 0.4 mg/dL (0.2-1.3); POTASSIUM 4.9 mmol/l (3.5-5.1); TOTAL PROTEIN 7.2 g/dL (6.3-8.2)
[2023-06-09 11:19] LABS: CREATININE 17.6 mg/dL (0.7-1.3)
[2023-06-09 11:53] VITALS: BP 173/84
== END 2023-06-09 12:45 | disposition left against medical advice (07) ==
LOC: ED 08:44 → DIA 09:10 → ED 09:10 → DIA 12:45
PROVIDERS: Internal Medicine Nephrology
DX: I12.0 Hypertensive chronic kidney disease with stage 5 chronic kidney disease or end stage renal disease (principal); E11.22 Type 2 diabetes mellitus with diabetic chronic kidney disease; N18.6 End stage renal disease; Z99.2 Dependence on renal dialysis; E78.5 Hyperlipidemia, unspecified; Z53.29 Procedure and treatment not carried out because of patient's decision for other reasons

== ENCOUNTER 2023-06-11 09:18 | Emergency (ER) | payer MEDICAID ==
[~2023-06-11] VITALS: Ht 170.2 cm; Wt 87.2 kg
[2023-06-11 14:36] VITALS: BP 157/78
== END 2023-06-11 17:00 | disposition left against medical advice (07) ==
LOC: ED 09:18 → DIA 09:37
PROVIDERS: Family Medicine
DX: I12.0 Hypertensive chronic kidney disease with stage 5 chronic kidney disease or end stage renal disease (principal); E11.22 Type 2 diabetes mellitus with diabetic chronic kidney disease; N18.6 End stage renal disease; Z99.2 Dependence on renal dialysis; E78.5 Hyperlipidemia, unspecified; Z53.29 Procedure and treatment not carried out because of patient's decision for other reasons

== ENCOUNTER 2023-06-13 09:08 | Emergency (ER) | payer MEDICAID ==
[~2023-06-13] VITALS: Ht 170.2 cm; Wt 88.6 kg
[2023-06-13 09:16] VITALS: BP 208/99
[2023-06-13 09:30] VITALS: BP 186/86
[2023-06-13 10:00] VITALS: BP 187/86
[2023-06-13 10:30] VITALS: BP 207/103
[2023-06-13 11:44] LABS: BASO% 0.9 % (0-3); EOS% 7.6 % (0-8); HEMOGLOBIN 8.3 g/dl (14.0-18.0); IMMATURE GRANULOCYTES 0.2 % (0.0-5.0); LYMPH% 20.8 % (15-41); MEAN CELL VOLUME 93.4 fL CALC (80.0-100.0); MEAN CORPUSCULAR HGB 28.7 pG CALC (26.0-32.0); MEAN CORPUSCULAR HGB CONC 30.7 g/dL CAL (32.0-36.0); MONO% 7.6 % (2-13); NEUT# 3.64 thou/uL (1.82-7.42); NEUT% 62.9 % (42-76); RED BLOOD COUNT 2.89 mill/uL (4.70-6.10); RED CELL DISTRI WIDTH 13.6 % (11.5-15.5)
[2023-06-13 12:03] LABS: ALBUMIN 4.2 g/dL (3.2-5.0); BILIRUBIN, TOTAL 0.4 mg/dL (0.2-1.3); TOTAL PROTEIN 7.3 g/dL (6.3-8.2)
[2023-06-13 12:09] LABS: CREATININE 17.1 mg/dL (0.7-1.3)
[2023-06-13 13:30] VITALS: BP 112/105
== END 2023-06-13 13:40 | disposition left against medical advice (07) ==
LOC: ED 09:08 → DIA 09:27
PROVIDERS: Family Medicine
DX: I12.0 Hypertensive chronic kidney disease with stage 5 chronic kidney disease or end stage renal disease (principal); E11.22 Type 2 diabetes mellitus with diabetic chronic kidney disease; N18.6 End stage renal disease; Z99.2 Dependence on renal dialysis; E78.5 Hyperlipidemia, unspecified; Z53.29 Procedure and treatment not carried out because of patient's decision for other reasons

== ENCOUNTER 2023-06-16 09:33 | Emergency (ER) | payer MEDICAID ==
[~2023-06-16] VITALS: Ht 170.2 cm; Wt 88.8 kg
[2023-06-16 10:15] VITALS: BP 186/89
[2023-06-16 10:30] VITALS: BP 171/83
[2023-06-16 10:46] VITALS: BP 173/83
[2023-06-16 11:00] VITALS: BP 177/81
[2023-06-16 13:35] LABS: BASO% 0.9 % (0-3); EOS% 6.1 % (0-8); HEMATOCRIT 26.4 % (39.0-50.0); HEMOGLOBIN 8.2 g/dl (14.0-18.0); IMMATURE GRANULOCYTES 0.2 % (0.0-5.0); MEAN CELL VOLUME 93.3 fL CALC (80.0-100.0); MEAN CORPUSCULAR HGB CONC 31.1 g/dL CAL (32.0-36.0); MONO% 9.2 % (2-13); NEUT# 4.5 thou/uL (1.82-7.42); NEUT% 68.6 % (42-76); RED BLOOD COUNT 2.83 mill/uL (4.70-6.10); RED CELL DISTRI WIDTH 13.5 % (11.5-15.5)
[2023-06-16 14:17] LABS: CREATININE 18.5 mg/dL (0.7-1.3); POTASSIUM 5.6 mmol/l (3.5-5.1)
[2023-06-16 15:05] VITALS: BP 172/83
== END 2023-06-16 12:35 | disposition left against medical advice (07) ==
LOC: ED 09:33 → DIA 10:42 → ED 10:42 → DIA 12:35
PROVIDERS: Pediatrics
DX: I12.0 Hypertensive chronic kidney disease with stage 5 chronic kidney disease or end stage renal disease (principal); E11.22 Type 2 diabetes mellitus with diabetic chronic kidney disease; N18.6 End stage renal disease; Z99.2 Dependence on renal dialysis; D63.1 Anemia in chronic kidney disease; E78.5 Hyperlipidemia, unspecified; Z53.29 Procedure and treatment not carried out because of patient's decision for other reasons

== ENCOUNTER 2023-06-23 09:55 | Emergency (ER) | payer MEDICAID ==
[~2023-06-23] VITALS: Ht 170.2 cm; Wt 89.7 kg
[2023-06-23 10:09] VITALS: BP 135/63
[2023-06-23 10:30] VITALS: BP 133/70
[2023-06-23 10:45] VITALS: BP 125/66
--- NOTE | 2023-06-23 11:04 | NUR ---
HEMODIALYSIS TREATMENT INITIATED AT 1104. SEE HEMODIALYSIS TREATMENT PROCESS INTERVENTION AND TABLO TREATMENT FLOWSHEET FOR TREATMENT SPECIFIC DETAILS.
[2023-06-23 13:03] LABS: BASO% 0.9 % (0-3); EOS% 5.2 % (0-8); HEMATOCRIT 24.6 % (39.0-50.0); HEMOGLOBIN 7.7 g/dl (14.0-18.0); LYMPH% 21.7 % (15-41); MEAN CELL VOLUME 92.5 fL CALC (80.0-100.0); MEAN CORPUSCULAR HGB 28.9 pG CALC (26.0-32.0); MEAN CORPUSCULAR HGB CONC 31.3 g/dL CAL (32.0-36.0); NEUT# 4.07 thou/uL (1.82-7.42); NEUT% 64.2 % (42-76); RED BLOOD COUNT 2.66 mill/uL (4.70-6.10); RED CELL DISTRI WIDTH 13.2 % (11.5-15.5)
[2023-06-23 13:16] LABS: ALBUMIN 4.3 g/dL (3.2-5.0); BILIRUBIN, TOTAL 0.4 mg/dL (0.2-1.3); POTASSIUM 5.1 mmol/l (3.5-5.1); TOTAL PROTEIN 7.2 g/dL (6.3-8.2)
[2023-06-23 13:20] VITALS: BP 126/63
--- NOTE | 2023-06-23 13:20 | NUR ---
HEMODIALYSIS TREATMENT COMPLETED AT 1320 PER PT'S REQUEST. PT DECLINES FURTHER TREATMENT AT THIS TIME. EDUCATION PROVIDED REGARDING IMPORTANCE OF COMPLETING ENTIRE PRESCRIBED TX. PT VERBALIZES UNDERSTANDING. CONTINUES TO REQUEST TX TO BE ENDED. SEE HEMODIALYSIS TREATMENT PROCESS INTERVENTION AND TABLO TREATMENT FLOWSHEET FOR TREATMENT SPECIFIC DETAILS.
--- NOTE | 2023-06-23 13:20 | NUR ---
AMA Patient decides to leave AM. Multiple attempts made to ecourage patient to remain here for continued treatment. Explained to patient all risks of leaving against medical advice including . Pt verbalized understanding of all risks. Pt also encouraged to return to [facility] at any time, especially if symptoms continue or become worse. Pt verbalized understanding. DR. HERZOG AND DR. CYR AWARE.
[2023-06-23 13:26] LABS: CREATININE 18.8 mg/dL (0.7-1.3)
== END 2023-06-23 11:10 | disposition left against medical advice (07) ==
LOC: ED 09:55 → DIA 10:05 → ED 10:05 → DIA 11:10
PROVIDERS: Family Medicine
DX: I12.0 Hypertensive chronic kidney disease with stage 5 chronic kidney disease or end stage renal disease (principal); E11.22 Type 2 diabetes mellitus with diabetic chronic kidney disease; N18.6 End stage renal disease; Z99.2 Dependence on renal dialysis; E78.5 Hyperlipidemia, unspecified; Z53.29 Procedure and treatment not carried out because of patient's decision for other reasons

== ENCOUNTER 2023-06-25 10:05 | Emergency (ER) | payer MEDICAID ==
[~2023-06-25] VITALS: Ht 170.2 cm; Wt 88.2 kg
[2023-06-25 10:15] VITALS: BP 181/148
[2023-06-25 10:25] VITALS: BP 174/83
--- NOTE | 2023-06-25 10:30 | NUR ---
PT ESCORTED FROM ED TO DIALYSIS SUITE FOR PRESCRIBED DIALYSIS TREATMENT. PT DECLINES OFFER FOR TRANSPORT WITH WHEELCHAIR. INSIST ON AMBULATING. PT ACCOMPANIED BY MASOUD REDDY. GAIT STEADY AND BALANCED. HAND-OFF REPORT RECEIVED FROM CHYNA BAINS.
--- NOTE | 2023-06-25 10:41 | NUR ---
HEMODIALYSIS TREATMENT INITIATED AT . 1041 SEE HEMODIALYSIS TREATMENT PROCESS INTERVENTION AND TABLO TREATMENT FLOWSHEET FOR TREATMENT SPECIFIC DETAILS.
[2023-06-25 10:56] LABS: BASO% 0.9 % (0-3); EOS% 5.6 % (0-8); HEMATOCRIT 25.3 % (39.0-50.0); HEMOGLOBIN 7.9 g/dl (14.0-18.0); IMMATURE GRANULOCYTES 0.2 % (0.0-5.0); LYMPH% 18.9 % (15-41); MEAN CORPUSCULAR HGB 28.7 pG CALC (26.0-32.0); MEAN CORPUSCULAR HGB CONC 31.2 g/dL CAL (32.0-36.0); MONO% 9.2 % (2-13); NEUT# 3.82 thou/uL (1.82-7.42); NEUT% 65.2 % (42-76); RED BLOOD COUNT 2.75 mill/uL (4.70-6.10)
[2023-06-25 11:07] LABS: BILIRUBIN, TOTAL 0.4 mg/dL (0.2-1.3); POTASSIUM 4.6 mmol/l (3.5-5.1)
[2023-06-25 11:15] LABS: CREATININE 17.8 mg/dL (0.7-1.3)
--- NOTE | 2023-06-25 12:54 | NUR ---
HEMODIALYSIS TREATMENT COMPLETED AT . 1254 SEE HEMODIALYSIS TREATMENT PROCESS INTERVENTION AND TABLO TREATMENT FLOWSHEET FOR TREATMENT SPECIFIC DETAILS.
--- NOTE | 2023-06-25 13:20 | NUR ---
Patient decides to leave AMA. Multiple attempts made to ecourage patient to remain here for continued treatment. Explained to patient all risks of leaving against medical advice including . Pt verbalized understanding of all risks. Pt also encouraged to return to [facility] at any time, especially if symptoms continue or become worse. Pt verbalized understanding.
[2023-06-25 13:47] VITALS: BP 167/81
== END 2023-06-25 13:21 | disposition left against medical advice (07) ==
LOC: ED 10:05 → DIA 10:12
PROVIDERS: Family Medicine
DX: I12.0 Hypertensive chronic kidney disease with stage 5 chronic kidney disease or end stage renal disease (principal); E11.22 Type 2 diabetes mellitus with diabetic chronic kidney disease; N18.6 End stage renal disease; Z99.2 Dependence on renal dialysis; E78.5 Hyperlipidemia, unspecified; Z53.29 Procedure and treatment not carried out because of patient's decision for other reasons

== ENCOUNTER 2023-06-27 09:34 | Emergency (ER) | payer MEDICAID ==
[~2023-06-27] VITALS: Ht 170.2 cm; Wt 89.6 kg
[2023-06-27 09:53] VITALS: BP 194/97
[2023-06-27 10:01] VITALS: BP 185/103
[2023-06-27 10:30] VITALS: BP 174/82
[2023-06-27 11:01] VITALS: BP 176/87
--- NOTE | 2023-06-27 11:43 | NUR ---
HEMODIALYSIS TREATMENT INITIATED AT 1143. SEE HEMODIALYSIS TREATMENT PROCESS INTERVENTION AND TABLO TREATMENT FLOWSHEET FOR TREATMENT SPECIFIC DETAILS.
[2023-06-27 12:19] LABS: BASO% 1.1 % (0-3); HEMATOCRIT 25.3 % (39.0-50.0); IMMATURE GRANULOCYTES 0.2 % (0.0-5.0); LYMPH% 17.2 % (15-41); MEAN CELL VOLUME 91.7 fL CALC (80.0-100.0); MEAN CORPUSCULAR HGB CONC 31.6 g/dL CAL (32.0-36.0); MONO% 6.5 % (2-13); NEUT# 4.2 thou/uL (1.82-7.42); RED BLOOD COUNT 2.76 mill/uL (4.70-6.10); RED CELL DISTRI WIDTH 13.1 % (11.5-15.5)
[2023-06-27 12:35] LABS: ALBUMIN 4.1 g/dL (3.2-5.0); BILIRUBIN, TOTAL 0.3 mg/dL (0.2-1.3); POTASSIUM 4.8 mmol/l (3.5-5.1); TOTAL PROTEIN 7.2 g/dL (6.3-8.2)
[2023-06-27 12:42] LABS: CREATININE 16.8 mg/dL (0.7-1.3)
--- NOTE | 2023-06-27 13:58 | NUR ---
HEMODIALYSIS TREATMENT COMPLETED AT 1358 PER PT'S REQUEST. PT DECLINES FURTHER TREATMENT AT THIS TIME. EDUCATION PROVIDED REGARDING IMPORTANCE OF COMPLETING ENTIRE PRESCRIBED TX. PT VERBALIZES UNDERSTANDING. CONTINUES TO REQUEST TX TO BE ENDED. SEE HEMODIALYSIS TREATMENT PROCESS INTERVENTION AND TABLO TREATMENT FLOWSHEET FOR TREATMENT SPECIFIC DETAILS.
[2023-06-27 14:00] VITALS: BP 179/90
--- NOTE | 2023-06-27 14:10 | NUR ---
AMA Patient decides to leave [place]. Multiple attempts made to ecourage patient to remain here for continued treatment. Explained to patient all risks of leaving against medical advice including . Pt verbalized understanding of all risks. Pt also encouraged to return to [facility] at any time, especially if symptoms continue or become worse. Pt verbalized understanding. DR. HERZOG AND DR. EGAN AWARE.
== END 2023-06-27 14:00 | disposition left against medical advice (07) ==
LOC: ED 09:34 → DIA 10:12 → ED 10:12 → DIA 14:00 → ED 14:00
PROVIDERS: Family Medicine
DX: I12.0 Hypertensive chronic kidney disease with stage 5 chronic kidney disease or end stage renal disease (principal); E11.22 Type 2 diabetes mellitus with diabetic chronic kidney disease; N18.6 End stage renal disease; Z99.2 Dependence on renal dialysis; E78.5 Hyperlipidemia, unspecified; Z53.29 Procedure and treatment not carried out because of patient's decision for other reasons

== ENCOUNTER 2023-06-30 10:01 | Emergency (ER) | payer MEDICAID ==
[~2023-06-30] VITALS: Ht 170.2 cm; Wt 89.2 kg
[2023-06-30 10:15] VITALS: BP 201/95
[2023-06-30 10:31] VITALS: BP 176/84
[2023-06-30 10:46] VITALS: BP 179/86
[2023-06-30 11:00] VITALS: BP 180/96
[2023-06-30 12:42] LABS: BASO% 0.6 % (0-3); HEMATOCRIT 23.5 % (39.0-50.0); HEMOGLOBIN 7.5 g/dl (14.0-18.0); IMMATURE GRANULOCYTES 0.2 % (0.0-5.0); LYMPH% 15.8 % (15-41); MEAN CELL VOLUME 92.2 fL CALC (80.0-100.0); MEAN CORPUSCULAR HGB 29.4 pG CALC (26.0-32.0); MEAN CORPUSCULAR HGB CONC 31.9 g/dL CAL (32.0-36.0); MONO% 8.4 % (2-13); NEUT# 4.5 thou/uL (1.82-7.42); RED BLOOD COUNT 2.55 mill/uL (4.70-6.10); RED CELL DISTRI WIDTH 13.1 % (11.5-15.5)
[2023-06-30 12:58] LABS: ALBUMIN 4.1 g/dL (3.2-5.0); POTASSIUM 5.1 mmol/l (3.5-5.1)
[2023-06-30 13:15] LABS: BILIRUBIN, TOTAL 0.5 mg/dL (0.2-1.3)
[2023-06-30 13:17] LABS: CREATININE 18.1 mg/dL (0.7-1.3)
[2023-06-30 14:15] VITALS: BP 150/77
== END 2023-06-30 11:50 | disposition left against medical advice (07) ==
LOC: ED 10:01 → DIA 10:52 → ED 11:50
PROVIDERS: Family Medicine
DX: I12.0 Hypertensive chronic kidney disease with stage 5 chronic kidney disease or end stage renal disease (principal); E11.22 Type 2 diabetes mellitus with diabetic chronic kidney disease; N18.6 End stage renal disease; Z99.2 Dependence on renal dialysis; E78.5 Hyperlipidemia, unspecified; Z53.29 Procedure and treatment not carried out because of patient's decision for other reasons

== ENCOUNTER 2023-07-02 10:43 | Emergency (ER) | payer MEDICAID ==
[~2023-07-02] VITALS: Ht 170.2 cm; Wt 88.8 kg
[2023-07-02 11:40] VITALS: BP 160/81
[2023-07-02 11:45] VITALS: BP 179/91
--- NOTE | 2023-07-02 13:20 | NUR ---
PT ESCORTED FROM ED TO DIALYSIS SUITE FOR PRESCRIBED DIALYSIS TREATMENT. PT DECLINES OFFER FOR TRANSPORT WITH WHEELCHAIR. INSIST ON AMBULATING. PT ACCOMPANIED BY Howie GOMEZ RN. GAIT STEADY AND BALANCED. HAND-OFF REPORT RECEIVED FROM Howie Sullivan LPN
--- NOTE | 2023-07-02 13:27 | NUR ---
HEMODIALYSIS TREATMENT INITIATED AT 1327. SEE HEMODIALYSIS TREATMENT PROCESS INTERVENTION AND TABLO TREATMENT FLOWSHEET FOR TREATMENT SPECIFIC DETAILS.
[2023-07-02 13:57] LABS: BASO% 1.4 % (0-3); EOS% 6.3 % (0-8); HEMATOCRIT 25.4 % (39.0-50.0); HEMOGLOBIN 8.1 g/dl (14.0-18.0); IMMATURE GRANULOCYTES 0.2 % (0.0-5.0); LYMPH% 17.2 % (15-41); MEAN CELL VOLUME 92.4 fL CALC (80.0-100.0); MEAN CORPUSCULAR HGB 29.5 pG CALC (26.0-32.0); MEAN CORPUSCULAR HGB CONC 31.9 g/dL CAL (32.0-36.0); MONO% 8.8 % (2-13); NEUT# 4.3 thou/uL (1.82-7.42); NEUT% 66.1 % (42-76); RED BLOOD COUNT 2.75 mill/uL (4.70-6.10)
[2023-07-02 14:10] LABS: ALBUMIN 4.4 g/dL (3.2-5.0); BILIRUBIN, TOTAL 0.4 mg/dL (0.2-1.3); TOTAL PROTEIN 7.6 g/dL (6.3-8.2)
[2023-07-02 14:20] LABS: CREATININE 17.5 mg/dL (0.7-1.3)
[2023-07-02 15:20] VITALS: BP 140/96
--- NOTE | 2023-07-02 15:23 | NUR ---
HEMODIALYSIS TREATMENT COMPLETED AT 1523 PER PT'S REQUEST. PT DECLINES FURTHER TREATMENT AT THIS TIME. EDUCATION PROVIDED REGARDING IMPORTANCE OF COMPLETING ENTIRE PRESCRIBED TX. PT VERBALIZES UNDERSTANDING. CONTINUES TO REQUEST TX TO BE ENDED. SEE HEMODIALYSIS TREATMENT PROCESS INTERVENTION AND TABLO TREATMENT FLOWSHEET FOR TREATMENT SPECIFIC DETAILS.
[2023-07-02 15:25] VITALS: BP 170/89
[2023-07-02 15:30] VITALS: BP 132/93
[2023-07-02 15:45] VITALS: BP 126/88
--- NOTE | 2023-07-02 16:55 | NUR ---
Patient decides to leave AMA. Multiple attempts made to encourage patient to remain here for continued treatment. Explained to patient all risks of leaving against medical advice including . Pt verbalized understanding of all risks. Pt also encouraged to return to [facility] at any time, especially if symptoms continue or become worse. Pt verbalized understanding. DR. HERZOG AND DR. EGAN AWARE.
== END 2023-07-02 15:30 | disposition left against medical advice (07) ==
LOC: ED 10:43 → DIA 11:49 → ED 11:49 → DIA 15:30
PROVIDERS: Family Medicine
DX: I12.0 Hypertensive chronic kidney disease with stage 5 chronic kidney disease or end stage renal disease (principal); E11.22 Type 2 diabetes mellitus with diabetic chronic kidney disease; N18.6 End stage renal disease; Z99.2 Dependence on renal dialysis; E78.5 Hyperlipidemia, unspecified; Z53.29 Procedure and treatment not carried out because of patient's decision for other reasons

== ENCOUNTER 2023-07-04 08:29 | Emergency (ER) | payer MEDICAID ==
[~2023-07-04] VITALS: Ht 170.2 cm; Wt 88.8 kg
[2023-07-04 08:58] VITALS: BP 173/85
[2023-07-04 09:00] VITALS: BP 166/85
[2023-07-04 09:15] VITALS: BP 178/89
--- NOTE | 2023-07-04 09:30 | NUR ---
PT ESCORTED FROM ED TO DIALYSIS SUITE FOR PRESCRIBED DIALYSIS TREATMENT. PT DECLINES OFFER FOR TRANSPORT WITH WHEELCHAIR. INSIST ON AMBULATING. PT ACCOMPANIED BY MASOUD REDDY. GAIT STEADY AND BALANCED. HAND-OFF REPORT RECEIVED FROM OLIVA REDDY.
[2023-07-04 09:31] VITALS: BP 175/80
--- NOTE | 2023-07-04 09:51 | NUR ---
HEMODIALYSIS TREATMENT INITIATED AT .09:51 SEE HEMODIALYSIS TREATMENT PROCESS INTERVENTION AND TABLO TREATMENT FLOWSHEET FOR TREATMENT SPECIFIC DETAILS.
[2023-07-04 10:41] LABS: EOS% 6.1 % (0-8); HEMATOCRIT 23.4 % (39.0-50.0); HEMOGLOBIN 7.5 g/dl (14.0-18.0); IMMATURE GRANULOCYTES 0.2 % (0.0-5.0); LYMPH% 17.8 % (15-41); MEAN CELL VOLUME 92.1 fL CALC (80.0-100.0); MEAN CORPUSCULAR HGB 29.5 pG CALC (26.0-32.0); MEAN CORPUSCULAR HGB CONC 32.1 g/dL CAL (32.0-36.0); NEUT# 4.12 thou/uL (1.82-7.42); NEUT% 65.9 % (42-76); RED BLOOD COUNT 2.54 mill/uL (4.70-6.10)
[2023-07-04 11:01] LABS: ALBUMIN 4.1 g/dL (3.2-5.0); BILIRUBIN, TOTAL 0.4 mg/dL (0.2-1.3); TOTAL PROTEIN 7.2 g/dL (6.3-8.2)
[2023-07-04 11:09] LABS: CREATININE 17.6 mg/dL (0.7-1.3)
--- NOTE | 2023-07-04 12:06 | NUR ---
HEMODIALYSIS TREATMENT COMPLETED AT .12:06 SEE HEMODIALYSIS TREATMENT PROCESS INTERVENTION AND TABLO TREATMENT FLOWSHEET FOR TREATMENT SPECIFIC DETAILS.
[2023-07-04 12:46] VITALS: BP 161/75
--- NOTE | 2023-07-04 12:46 | NUR ---
Patient decides to leave AMA. Multiple attempts made to ecourage patient to remain here for continued treatment. Explained to patient all risks of leaving against medical advice including . Pt verbalized understanding of all risks. Pt also encouraged to return to [facility] at any time, especially if symptoms continue or become worse. Pt verbalized understanding.
[2023-07-04 12:51] VITALS: BP 161/75
== END 2023-07-04 12:40 | disposition left against medical advice (07) ==
LOC: ED 08:29 → DIA 09:36 → ED 09:36
PROVIDERS: Family Medicine
DX: I12.0 Hypertensive chronic kidney disease with stage 5 chronic kidney disease or end stage renal disease (principal); E11.22 Type 2 diabetes mellitus with diabetic chronic kidney disease; N18.6 End stage renal disease; Z99.2 Dependence on renal dialysis; E78.5 Hyperlipidemia, unspecified; Z53.29 Procedure and treatment not carried out because of patient's decision for other reasons

== ENCOUNTER 2023-07-09 10:11 | Emergency (ER) | payer MEDICAID ==
[~2023-07-09] VITALS: Ht 170.2 cm; Wt 88.0 kg
[2023-07-09 11:19] VITALS: BP 182/91
--- NOTE | 2023-07-09 12:20 | NUR ---
PT ESCORTED FROM ED TO DIALYSIS SUITE FOR PRESCRIBED DIALYSIS TREATMENT. PT DECLINES OFFER FOR TRANSPORT WITH WHEELCHAIR. INSIST ON AMBULATING. PT ACCOMPANIED BY Howie GOMEZ RN. GAIT STEADY AND BALANCED. HAND-OFF REPORT RECEIVED FROM ED NURSE.
--- NOTE | 2023-07-09 12:27 | NUR ---
HEMODIALYSIS TREATMENT INITIATED AT 1227. SEE HEMODIALYSIS TREATMENT PROCESS INTERVENTION AND TABLO TREATMENT FLOWSHEET FOR TREATMENT SPECIFIC DETAILS.
--- NOTE | 2023-07-09 14:39 | NUR ---
HEMODIALYSIS TREATMENT COMPLETED AT 1439 PER PT'S REQUEST. PT DECLINES FURTHER TREATMENT AT THIS TIME. EDUCATION PROVIDED REGARDING IMPORTANCE OF COMPLETING ENTIRE PRESCRIBED TX. PT VERBALIZES UNDERSTANDING. CONTINUES TO REQUEST TX TO BE ENDED. SEE HEMODIALYSIS TREATMENT PROCESS INTERVENTION AND TABLO TREATMENT FLOWSHEET FOR TREATMENT SPECIFIC DETAILS.
[2023-07-09 14:40] VITALS: BP 159/82
--- NOTE | 2023-07-09 14:50 | NUR ---
Patient decides to leave AMA. Multiple attempts made to encourage patient to remain here for continued treatment. Explained to patient all risks of leaving against medical advice including . Pt verbalized understanding of all risks. Pt also encouraged to return to [facility] at any time, especially if symptoms continue or become worse. Pt verbalized understanding. Dr. Mckeon and Dr. Moran aware of patients decision.
[2023-07-09 15:18] LABS: BASO% 0.7 % (0-3); EOS% 7.1 % (0-8); HEMATOCRIT 24.6 % (39.0-50.0); HEMOGLOBIN 7.7 g/dl (14.0-18.0); IMMATURE GRANULOCYTES 0.5 % (0.0-5.0); LYMPH% 16.8 % (15-41); MEAN CELL VOLUME 94.3 fL CALC (80.0-100.0); MEAN CORPUSCULAR HGB 29.5 pG CALC (26.0-32.0); MEAN CORPUSCULAR HGB CONC 31.3 g/dL CAL (32.0-36.0); MONO% 9.3 % (2-13); NEUT# 3.86 thou/uL (1.82-7.42); NEUT% 65.6 % (42-76); RED BLOOD COUNT 2.61 mill/uL (4.70-6.10); RED CELL DISTRI WIDTH 13.3 % (11.5-15.5)
[2023-07-09 15:54] LABS: POTASSIUM 5.3 mmol/l (3.5-5.1)
[2023-07-09 15:55] LABS: CREATININE 16.6 mg/dL (0.7-1.3)
== END 2023-07-09 14:50 | disposition left against medical advice (07) ==
LOC: ED 10:11 → DIA 11:39
PROVIDERS: Family Medicine
DX: I12.0 Hypertensive chronic kidney disease with stage 5 chronic kidney disease or end stage renal disease (principal); E11.22 Type 2 diabetes mellitus with diabetic chronic kidney disease; N18.6 End stage renal disease; Z99.2 Dependence on renal dialysis; D63.1 Anemia in chronic kidney disease; E78.5 Hyperlipidemia, unspecified; Z53.29 Procedure and treatment not carried out because of patient's decision for other reasons

== ENCOUNTER 2023-07-11 09:41 | Emergency (ER) | payer MEDICAID ==
[2023-07-11] VITALS (7 sets, daily range): BP systolic 134–204; BP diastolic 54–86
[~2023-07-11] VITALS: Ht 170.2 cm; Wt 87.2 kg
--- NOTE | 2023-07-11 10:45 | NUR ---
PT ESCORTED FROM ED TO DIALYSIS SUITE FOR PRESCRIBED DIALYSIS TREATMENT. PT DECLINES OFFER FOR TRANSPORT WITH WHEELCHAIR. INSIST ON AMBULATING. PT ACCOMPANIED BY Howie GOMEZ RN. GAIT STEADY AND BALANCED. HAND-OFF REPORT RECEIVED FROM Howie TOMAS RN.
--- NOTE | 2023-07-11 11:02 | NUR ---
HEMODIALYSIS TREATMENT INITIATED AT 1102. SEE HEMODIALYSIS TREATMENT PROCESS INTERVENTION AND TABLO TREATMENT FLOWSHEET FOR TREATMENT SPECIFIC DETAILS.
--- NOTE | 2023-07-11 12:01 | NUR ---
Retacrit ordered for Pharmacy to dose. Retacrit to be held at this time due to uncontrolled hypertension (BP 204/80).
[2023-07-11 12:26] LABS: BASO% 0.8 % (0-3); EOS% 6.6 % (0-8); HEMATOCRIT 24.1 % (39.0-50.0); HEMOGLOBIN 7.5 g/dl (14.0-18.0); IMMATURE GRANULOCYTES 0.3 % (0.0-5.0); LYMPH% 15.9 % (15-41); MEAN CELL VOLUME 95.6 fL CALC (80.0-100.0); MEAN CORPUSCULAR HGB 29.8 pG CALC (26.0-32.0); MEAN CORPUSCULAR HGB CONC 31.1 g/dL CAL (32.0-36.0); MONO% 9.8 % (2-13); NEUT# 4.44 thou/uL (1.82-7.42); NEUT% 66.6 % (42-76); RED BLOOD COUNT 2.52 mill/uL (4.70-6.10); RED CELL DISTRI WIDTH 13.3 % (11.5-15.5)
[2023-07-11 12:41] LABS: BILIRUBIN, TOTAL 0.4 mg/dL (0.2-1.3)
[2023-07-11 12:49] LABS: CREATININE 16.7 mg/dL (0.7-1.3); POTASSIUM 5.4 mmol/l (3.5-5.1)
--- NOTE | 2023-07-11 13:16 | NUR ---
HEMODIALYSIS TREATMENT COMPLETED AT 1316 PER PT'S REQUEST. PT DECLINES FURTHER TREATMENT AT THIS TIME. EDUCATION PROVIDED REGARDING IMPORTANCE OF COMPLETING ENTIRE PRESCRIBED TX. PT VERBALIZES UNDERSTANDING. CONTINUES TO REQUEST TX TO BE ENDED. SEE HEMODIALYSIS TREATMENT PROCESS INTERVENTION AND TABLO TREATMENT FLOWSHEET FOR TREATMENT SPECIFIC DETAILS.
--- NOTE | 2023-07-11 13:25 | NUR ---
Patient decides to leave AMA. Multiple attempts made to encourage patient to remain here for continued treatment. Explained to patient all risks of leaving against medical advice including . Pt verbalized understanding of all risks. Pt also encouraged to return to [facility] at any time, especially if symptoms continue or become worse. Pt verbalized understanding. Dr. Mckeon and Dr. Moran aware of patients decision.
== END 2023-07-11 13:25 | disposition left against medical advice (07) ==
LOC: ED 09:41 → DIA 10:00 → ED 10:00
PROVIDERS: Family Medicine
DX: I12.0 Hypertensive chronic kidney disease with stage 5 chronic kidney disease or end stage renal disease (principal); E11.22 Type 2 diabetes mellitus with diabetic chronic kidney disease; N18.6 End stage renal disease; D63.1 Anemia in chronic kidney disease; Z99.2 Dependence on renal dialysis; E78.5 Hyperlipidemia, unspecified; Z53.29 Procedure and treatment not carried out because of patient's decision for other reasons

== ENCOUNTER 2023-07-14 09:54 | Emergency (ER) | payer MEDICAID ==
[~2023-07-14] VITALS: Ht 170.2 cm; Wt 88.0 kg
[2023-07-14 10:06] VITALS: BP 132/67
[2023-07-14 10:15] VITALS: BP 134/70
[2023-07-14 10:30] VITALS: BP 111/47
[2023-07-14 10:45] VITALS: BP 129/72
--- NOTE | 2023-07-14 11:08 | NUR ---
HEMODIALYSIS TREATMENT INITIATED AT 1108. SEE HEMODIALYSIS TREATMENT PROCESS INTERVENTION AND TABLO TREATMENT FLOWSHEET FOR TREATMENT SPECIFIC DETAILS.
[2023-07-14 11:22] LABS: BASO% 1.1 % (0-3); EOS% 6.4 % (0-8); HEMATOCRIT 22.9 % (39.0-50.0); HEMOGLOBIN 7.3 g/dl (14.0-18.0); IMMATURE GRANULOCYTES 0.6 % (0.0-5.0); LYMPH% 18.4 % (15-41); MEAN CELL VOLUME 93.9 fL CALC (80.0-100.0); MEAN CORPUSCULAR HGB 29.9 pG CALC (26.0-32.0); MEAN CORPUSCULAR HGB CONC 31.9 g/dL CAL (32.0-36.0); MONO% 8.5 % (2-13); NEUT# 4.07 thou/uL (1.82-7.42); RED BLOOD COUNT 2.44 mill/uL (4.70-6.10); RED CELL DISTRI WIDTH 13.3 % (11.5-15.5)
[2023-07-14 11:45] LABS: ALBUMIN 3.9 g/dL (3.2-5.0); BILIRUBIN, TOTAL 0.3 mg/dL (0.2-1.3); TOTAL PROTEIN 6.7 g/dL (6.3-8.2)
[2023-07-14 11:56] LABS: CREATININE 18.6 mg/dL (0.7-1.3); POTASSIUM 5.2 mmol/l (3.5-5.1)
[2023-07-14 13:21] VITALS: BP 129/60
--- NOTE | 2023-07-14 13:21 | NUR ---
HEMODIALYSIS TREATMENT COMPLETED AT 1321 PER PT'S REQUEST. PT DECLINES FURTHER TREATMENT AT THIS TIME. EDUCATION PROVIDED REGARDING IMPORTANCE OF COMPLETING ENTIRE PRESCRIBED TX. PT VERBALIZES UNDERSTANDING. CONTINUES TO REQUEST TX TO BE ENDED. SEE HEMODIALYSIS TREATMENT PROCESS INTERVENTION AND TABLO TREATMENT FLOWSHEET FOR TREATMENT SPECIFIC DETAILS.
--- NOTE | 2023-07-14 13:30 | NUR ---
Patient decides to leave AMA. Multiple attempts made to encourage patient to remain here for continued treatment. Explained to patient all risks of leaving against medical advice including . Pt verbalized understanding of all risks. Pt also encouraged to return to [facility] at any time, especially if symptoms continue or become worse. Pt verbalized understanding. Dr. Mckeon and Dr. Moran aware of patients decision.
== END 2023-07-14 13:30 | disposition left against medical advice (07) ==
LOC: ED 09:54 → DIA 10:45
PROVIDERS: Family Medicine
DX: I12.0 Hypertensive chronic kidney disease with stage 5 chronic kidney disease or end stage renal disease (principal); E11.22 Type 2 diabetes mellitus with diabetic chronic kidney disease; N18.6 End stage renal disease; D63.1 Anemia in chronic kidney disease; Z99.2 Dependence on renal dialysis; E78.5 Hyperlipidemia, unspecified; Z53.29 Procedure and treatment not carried out because of patient's decision for other reasons

== ENCOUNTER 2023-07-16 10:15 | Emergency (ER) | payer MEDICAID ==
[~2023-07-16] VITALS: Ht 170.2 cm; Wt 88.4 kg
[2023-07-16 10:36] VITALS: BP 192/89
[2023-07-16 11:17] LABS: BASO% 0.9 % (0-3); HEMATOCRIT 24.2 % (39.0-50.0); HEMOGLOBIN 7.6 g/dl (14.0-18.0); IMMATURE GRANULOCYTES 0.4 % (0.0-5.0); LYMPH% 16.2 % (15-41); MEAN CELL VOLUME 93.8 fL CALC (80.0-100.0); MEAN CORPUSCULAR HGB 29.5 pG CALC (26.0-32.0); MEAN CORPUSCULAR HGB CONC 31.4 g/dL CAL (32.0-36.0); MONO% 10.3 % (2-13); NEUT# 3.79 thou/uL (1.82-7.42); NEUT% 67.2 % (42-76); RED BLOOD COUNT 2.58 mill/uL (4.70-6.10); RED CELL DISTRI WIDTH 13.7 % (11.5-15.5)
[2023-07-16 11:36] LABS: ALBUMIN 4.1 g/dL (3.2-5.0); BILIRUBIN, TOTAL 0.4 mg/dL (0.2-1.3)
[2023-07-16 11:44] LABS: POTASSIUM 5.2 mmol/l (3.5-5.1)
[2023-07-16 11:45] LABS: CREATININE 17.4 mg/dL (0.7-1.3)
[2023-07-16 13:10] VITALS: BP 154/70
[2023-07-16 13:15] VITALS: BP 154/70
== END 2023-07-16 13:15 | disposition left against medical advice (07) ==
LOC: ED 10:15 → DIA 10:44
PROVIDERS: Family Medicine
DX: I12.0 Hypertensive chronic kidney disease with stage 5 chronic kidney disease or end stage renal disease (principal); E11.22 Type 2 diabetes mellitus with diabetic chronic kidney disease; N18.6 End stage renal disease; Z99.2 Dependence on renal dialysis; E78.5 Hyperlipidemia, unspecified; Z53.29 Procedure and treatment not carried out because of patient's decision for other reasons

== ENCOUNTER 2023-07-18 09:55 | Emergency (ER) | payer MEDICAID ==
[~2023-07-18] VITALS: Ht 170.2 cm; Wt 87.4 kg
[2023-07-18 11:58] LABS: BASO% 0.8 % (0-3); EOS% 5.6 % (0-8); HEMATOCRIT 24.7 % (39.0-50.0); HEMOGLOBIN 7.9 g/dl (14.0-18.0); IMMATURE GRANULOCYTES 0.2 % (0.0-5.0); LYMPH% 17.5 % (15-41); MEAN CELL VOLUME 93.6 fL CALC (80.0-100.0); MEAN CORPUSCULAR HGB 29.9 pG CALC (26.0-32.0); MONO% 10.1 % (2-13); NEUT# 4.03 thou/uL (1.82-7.42); NEUT% 65.8 % (42-76); RED BLOOD COUNT 2.64 mill/uL (4.70-6.10); RED CELL DISTRI WIDTH 13.8 % (11.5-15.5)
[2023-07-18 12:12] LABS: ALBUMIN 4.2 g/dL (3.2-5.0); BILIRUBIN, TOTAL 0.4 mg/dL (0.2-1.3); POTASSIUM 4.8 mmol/l (3.5-5.1); TOTAL PROTEIN 7.1 g/dL (6.3-8.2)
[2023-07-18 12:22] LABS: CREATININE 16.9 mg/dL (0.7-1.3)
[2023-07-18 14:05] VITALS: BP 146/72
== END 2023-07-18 14:15 | disposition left against medical advice (07) ==
LOC: ED 09:55 → DIA 11:15 → ED 14:15
PROVIDERS: Family Medicine
DX: I12.0 Hypertensive chronic kidney disease with stage 5 chronic kidney disease or end stage renal disease (principal); E11.22 Type 2 diabetes mellitus with diabetic chronic kidney disease; N18.6 End stage renal disease; Z99.2 Dependence on renal dialysis; E78.5 Hyperlipidemia, unspecified; Z53.29 Procedure and treatment not carried out because of patient's decision for other reasons

== ENCOUNTER 2023-07-21 09:35 | Emergency (ER) | payer MEDICAID ==
[~2023-07-21] VITALS: Ht 170.2 cm; Wt 89.2 kg
[2023-07-21 09:45] VITALS: BP 138/77
[2023-07-21 10:00] VITALS: BP 125/65
[2023-07-21 11:01] VITALS: BP 127/66
[2023-07-21 12:32] VITALS: BP 127/66
[2023-07-21 13:25] LABS: BASO% 0.6 % (0-3); EOS% 6.3 % (0-8); HEMATOCRIT 24.6 % (39.0-50.0); IMMATURE GRANULOCYTES 0.3 % (0.0-5.0); MEAN CELL VOLUME 93.5 fL CALC (80.0-100.0); MEAN CORPUSCULAR HGB 30.4 pG CALC (26.0-32.0); MEAN CORPUSCULAR HGB CONC 32.5 g/dL CAL (32.0-36.0); MONO% 7.3 % (2-13); NEUT# 4.05 thou/uL (1.82-7.42); NEUT% 65.5 % (42-76); RED BLOOD COUNT 2.63 mill/uL (4.70-6.10)
[2023-07-21 13:37] LABS: ALBUMIN 4.2 g/dL (3.2-5.0); BILIRUBIN, TOTAL 0.4 mg/dL (0.2-1.3); TOTAL PROTEIN 7.2 g/dL (6.3-8.2)
[2023-07-21 13:53] LABS: CREATININE 19.1 mg/dL (0.7-1.3); POTASSIUM 5.4 mmol/l (3.5-5.1)
== END 2023-07-21 12:33 | disposition left against medical advice (07) ==
LOC: ED 09:35 → DIA 09:58
PROVIDERS: Family Medicine
DX: I12.0 Hypertensive chronic kidney disease with stage 5 chronic kidney disease or end stage renal disease (principal); E11.22 Type 2 diabetes mellitus with diabetic chronic kidney disease; N18.6 End stage renal disease; Z99.2 Dependence on renal dialysis; E78.5 Hyperlipidemia, unspecified; Z53.29 Procedure and treatment not carried out because of patient's decision for other reasons

== ENCOUNTER 2023-07-25 09:34 | Emergency (ER) | payer MEDICAID ==
[2023-07-25] VITALS (9 sets, daily range): BP systolic 149–173; BP diastolic 75–91
[~2023-07-25] VITALS: Ht 170.2 cm; Wt 88.4 kg
[2023-07-25 14:22] LABS: BASO% 0.8 % (0-3); HEMATOCRIT 25.4 % (39.0-50.0); HEMOGLOBIN 8.1 g/dl (14.0-18.0); IMMATURE GRANULOCYTES 0.2 % (0.0-5.0); LYMPH% 15.6 % (15-41); MEAN CELL VOLUME 93.7 fL CALC (80.0-100.0); MEAN CORPUSCULAR HGB 29.9 pG CALC (26.0-32.0); MEAN CORPUSCULAR HGB CONC 31.9 g/dL CAL (32.0-36.0); MONO% 8.7 % (2-13); NEUT# 4.48 thou/uL (1.82-7.42); NEUT% 68.7 % (42-76); RED BLOOD COUNT 2.71 mill/uL (4.70-6.10); RED CELL DISTRI WIDTH 14.2 % (11.5-15.5)
[2023-07-25 14:35] LABS: ALBUMIN 4.2 g/dL (3.2-5.0); BILIRUBIN, TOTAL 0.4 mg/dL (0.2-1.3); TOTAL PROTEIN 7.3 g/dL (6.3-8.2)
[2023-07-25 14:43] LABS: CREATININE 18.2 mg/dL (0.7-1.3); POTASSIUM 5.3 mmol/l (3.5-5.1)
== END 2023-07-25 14:10 | disposition left against medical advice (07) ==
LOC: ED 09:34 → DIA 10:39
PROVIDERS: Family Medicine
DX: I12.0 Hypertensive chronic kidney disease with stage 5 chronic kidney disease or end stage renal disease (principal); E11.22 Type 2 diabetes mellitus with diabetic chronic kidney disease; N18.6 End stage renal disease; D63.1 Anemia in chronic kidney disease; Z99.2 Dependence on renal dialysis; E78.5 Hyperlipidemia, unspecified; Z53.29 Procedure and treatment not carried out because of patient's decision for other reasons

== ENCOUNTER 2023-07-29 10:30 | Emergency (ER) | payer MEDICAID ==
[~2023-07-29] VITALS: Ht 170.2 cm; Wt 87.4 kg
--- NOTE | 2023-07-29 11:11 | NUR ---
HEMODIALYSIS TREATMENT INITIATED AT . 11:11 SEE HEMODIALYSIS TREATMENT PROCESS INTERVENTION AND TABLO TREATMENT FLOWSHEET FOR TREATMENT SPECIFIC DETAILS.
--- NOTE | 2023-07-29 12:10 | NUR ---
HEMODIALYSIS TREATMENT COMPLETED AT . 1210 SEE HEMODIALYSIS TREATMENT PROCESS INTERVENTION AND TABLO TREATMENT FLOWSHEET FOR TREATMENT SPECIFIC DETAILS.
--- NOTE | 2023-07-29 12:19 | NUR ---
Patient decides to leave AMA. Multiple attempts made to ecourage patient to remain here for continued treatment. Explained to patient all risks of leaving against medical advice including . Pt verbalized understanding of all risks. Pt also encouraged to return to [facility] at any time, especially if symptoms continue or become worse. Pt verbalized understanding.
[2023-07-29 12:24] VITALS: BP 145/76
== END 2023-07-29 12:19 | disposition home or self-care (01) ==
LOC: ED 10:30 → DIA 10:48 → ED 10:48
DX: I12.0 Hypertensive chronic kidney disease with stage 5 chronic kidney disease or end stage renal disease (principal); E11.22 Type 2 diabetes mellitus with diabetic chronic kidney disease; N18.6 End stage renal disease; Z99.2 Dependence on renal dialysis; E78.5 Hyperlipidemia, unspecified

== ENCOUNTER 2023-08-01 09:13 | Emergency (ER) | payer MEDICAID ==
[~2023-08-01] VITALS: Ht 170.2 cm; Wt 89.2 kg
[2023-08-01 09:18] VITALS: BP 196/88
[2023-08-01 09:31] VITALS: BP 170/76
[2023-08-01 09:45] VITALS: BP 177/80
--- NOTE | 2023-08-01 10:08 | NUR ---
PT ESCORTED FROM ED TO DIALYSIS SUITE FOR PRESCRIBED DIALYSIS TREATMENT. PT DECLINES OFFER FOR TRANSPORT WITH WHEELCHAIR. INSIST ON AMBULATING. PT ACCOMPANIED BY MASOUD REDDY. GAIT STEADY AND BALANCED. HAND-OFF REPORT RECEIVED FROM SUSAN REDDY.
--- NOTE | 2023-08-01 10:20 | NUR ---
HEMODIALYSIS TREATMENT INITIATED AT . 10:20 SEE HEMODIALYSIS TREATMENT PROCESS INTERVENTION AND TABLO TREATMENT FLOWSHEET FOR TREATMENT SPECIFIC DETAILS.
[2023-08-01 10:48] LABS: ALBUMIN 3.9 g/dL (3.2-5.0); BILIRUBIN, TOTAL 0.3 mg/dL (0.2-1.3); EOS% 5.5 % (0-8); HEMATOCRIT 23.5 % (39.0-50.0); HEMOGLOBIN 7.6 g/dl (14.0-18.0); IMMATURE GRANULOCYTES 0.2 % (0.0-5.0); LYMPH% 17.7 % (15-41); MEAN CELL VOLUME 91.8 fL CALC (80.0-100.0); MEAN CORPUSCULAR HGB 29.7 pG CALC (26.0-32.0); MEAN CORPUSCULAR HGB CONC 32.3 g/dL CAL (32.0-36.0); MONO% 7.4 % (2-13); NEUT# 4.26 thou/uL (1.82-7.42); NEUT% 68.2 % (42-76); POTASSIUM 4.9 mmol/l (3.5-5.1); RED BLOOD COUNT 2.56 mill/uL (4.70-6.10); RED CELL DISTRI WIDTH 13.5 % (11.5-15.5); TOTAL PROTEIN 6.9 g/dL (6.3-8.2)
[2023-08-01 11:01] LABS: CREATININE 19.7 mg/dL (0.7-1.3)
[2023-08-01 12:36] VITALS: BP 184/88
--- NOTE | 2023-08-01 12:36 | NUR ---
HEMODIALYSIS TREATMENT COMPLETED AT . 12:36 SEE HEMODIALYSIS TREATMENT PROCESS INTERVENTION AND TABLO TREATMENT FLOWSHEET FOR TREATMENT SPECIFIC DETAILS.
--- NOTE | 2023-08-01 12:48 | NUR ---
Patient decides to leave AMA. Multiple attempts made to ecourage patient to remain here for continued treatment. Explained to patient all risks of leaving against medical advice including . Pt verbalized understanding of all risks. Pt also encouraged to return to [facility] at any time, especially if symptoms continue or become worse. Pt verbalized understanding.
== END 2023-08-01 12:48 | disposition left against medical advice (07) ==
LOC: ED 09:13 → DIA 09:33 → ED 09:33 → DIA 12:48 → ED 12:48
PROVIDERS: Emergency Medicine
DX: I12.0 Hypertensive chronic kidney disease with stage 5 chronic kidney disease or end stage renal disease (principal); E11.22 Type 2 diabetes mellitus with diabetic chronic kidney disease; N18.6 End stage renal disease; Z99.2 Dependence on renal dialysis; E78.5 Hyperlipidemia, unspecified; Z53.29 Procedure and treatment not carried out because of patient's decision for other reasons

== ENCOUNTER 2023-08-04 08:25 | Emergency (ER) | payer MEDICAID ==
[~2023-08-04] VITALS: Ht 170.2 cm; Wt 89.0 kg
--- NOTE | 2023-08-04 08:44 | NUR ---
PT ESCORTED FROM ED TO DIALYSIS SUITE FOR PRESCRIBED DIALYSIS TREATMENT. PT DECLINES OFFER FOR TRANSPORT WITH WHEELCHAIR. INSIST ON AMBULATING. PT ACCOMPANIED BY MASOUD Rodgers RN. GAIT STEADY AND BALANCED. HAND-OFF REPORT RECEIVED FROM SUSAN REDDY.
--- NOTE | 2023-08-04 08:49 | NUR ---
HEMODIALYSIS TREATMENT INITIATED AT . 08:49 SEE HEMODIALYSIS TREATMENT PROCESS INTERVENTION AND TABLO TREATMENT FLOWSHEET FOR TREATMENT SPECIFIC DETAILS.
[2023-08-04 09:07] LABS: BASO% 0.8 % (0-3); EOS% 5.3 % (0-8); HEMATOCRIT 22.6 % (39.0-50.0); HEMOGLOBIN 7.4 g/dl (14.0-18.0); IMMATURE GRANULOCYTES 0.2 % (0.0-5.0); LYMPH% 19.4 % (15-41); MEAN CELL VOLUME 93.4 fL CALC (80.0-100.0); MEAN CORPUSCULAR HGB 30.6 pG CALC (26.0-32.0); MEAN CORPUSCULAR HGB CONC 32.7 g/dL CAL (32.0-36.0); MONO% 6.4 % (2-13); NEUT# 4.24 thou/uL (1.82-7.42); NEUT% 67.9 % (42-76); RED BLOOD COUNT 2.42 mill/uL (4.70-6.10); RED CELL DISTRI WIDTH 13.1 % (11.5-15.5)
[2023-08-04 09:19] LABS: BILIRUBIN, TOTAL 0.4 mg/dL (0.2-1.3); POTASSIUM 4.8 mmol/l (3.5-5.1)
[2023-08-04 09:36] LABS: CREATININE 20.1 mg/dL (0.7-1.3)
--- NOTE | 2023-08-04 11:03 | NUR ---
HEMODIALYSIS TREATMENT COMPLETED AT . 1103 SEE HEMODIALYSIS TREATMENT PROCESS INTERVENTION AND TABLO TREATMENT FLOWSHEET FOR TREATMENT SPECIFIC DETAILS.
[2023-08-04 11:39] VITALS: BP 150/68
--- NOTE | 2023-08-04 11:39 | NUR ---
Patient decides to leave AMA. Multiple attempts made to ecourage patient to remain here for continued treatment. Explained to patient all risks of leaving against medical advice including . Pt verbalized understanding of all risks. Pt also encouraged to return to [facility] at any time, especially if symptoms continue or become worse. Pt verbalized understanding.
== END 2023-08-04 11:38 | disposition left against medical advice (07) ==
LOC: ED 08:25 → DIA 08:44 → ED 11:38
PROVIDERS: Family Medicine
DX: I12.0 Hypertensive chronic kidney disease with stage 5 chronic kidney disease or end stage renal disease (principal); E11.22 Type 2 diabetes mellitus with diabetic chronic kidney disease; N18.6 End stage renal disease; Z99.2 Dependence on renal dialysis; E78.5 Hyperlipidemia, unspecified; Z53.29 Procedure and treatment not carried out because of patient's decision for other reasons
CPT/HCPCS: J1644

== ENCOUNTER 2023-08-06 08:18 | Emergency (ER) | payer MEDICAID ==
[2023-08-06 08:40] VITALS: BP 156/76
[2023-08-06 08:45] VITALS: BP 150/73
[2023-08-06 09:01] VITALS: BP 176/90
--- NOTE | 2023-08-06 09:20 | NUR ---
HEMODIALYSIS TREATMENT INITIATED AT . 09:20 SEE HEMODIALYSIS TREATMENT PROCESS INTERVENTION AND TABLO TREATMENT FLOWSHEET FOR TREATMENT SPECIFIC DETAILS.
[2023-08-06 09:51] LABS: HEMATOCRIT 23.8 % (39.0-50.0); HEMOGLOBIN 7.7 g/dl (14.0-18.0); IMMATURE GRANULOCYTES 0.3 % (0.0-5.0); LYMPH% 18.9 % (15-41); MEAN CORPUSCULAR HGB 30.1 pG CALC (26.0-32.0); MEAN CORPUSCULAR HGB CONC 32.4 g/dL CAL (32.0-36.0); MONO% 8.5 % (2-13); NEUT# 3.83 thou/uL (1.82-7.42); NEUT% 66.3 % (42-76); RED BLOOD COUNT 2.56 mill/uL (4.70-6.10)
[2023-08-06 10:00] LABS: ALBUMIN 4.1 g/dL (3.2-5.0); BILIRUBIN, TOTAL 0.3 mg/dL (0.2-1.3); TOTAL PROTEIN 7.1 g/dL (6.3-8.2)
[2023-08-06 10:09] LABS: CREATININE 18.8 mg/dL (0.7-1.3)
[2023-08-06 11:32] VITALS: BP 174/82
--- NOTE | 2023-08-06 11:34 | NUR ---
HEMODIALYSIS TREATMENT COMPLETED AT . 1134 SEE HEMODIALYSIS TREATMENT PROCESS INTERVENTION AND TABLO TREATMENT FLOWSHEET FOR TREATMENT SPECIFIC DETAILS.
--- NOTE | 2023-08-06 11:44 | NUR ---
Patient decides to leave AMA. Multiple attempts made to ecourage patient to remain here for continued treatment. Explained to patient all risks of leaving against medical advice including . Pt verbalized understanding of all risks. Pt also encouraged to return to [facility] at any time, especially if symptoms continue or become worse. Pt verbalized understanding.
== END 2023-08-06 11:40 | disposition left against medical advice (07) ==
LOC: ED 08:18 → DIA 08:57 → ED 11:40 → DIA 11:40
PROVIDERS: Family Medicine
DX: I12.0 Hypertensive chronic kidney disease with stage 5 chronic kidney disease or end stage renal disease (principal); E11.22 Type 2 diabetes mellitus with diabetic chronic kidney disease; N18.6 End stage renal disease; Z99.2 Dependence on renal dialysis; E78.5 Hyperlipidemia, unspecified; D63.1 Anemia in chronic kidney disease; Z53.29 Procedure and treatment not carried out because of patient's decision for other reasons
CPT/HCPCS: J1644

== ENCOUNTER 2023-08-08 08:05 | Emergency (ER) | payer MEDICAID ==
[~2023-08-08] VITALS: Ht 170.2 cm; Wt 87.4 kg
[2023-08-08 08:13] VITALS: BP 170/78
[2023-08-08 08:16] VITALS: BP 161/65
--- NOTE | 2023-08-08 08:50 | NUR ---
PT ESCORTED FROM ED TO DIALYSIS SUITE FOR PRESCRIBED DIALYSIS TREATMENT. PT DECLINES OFFER FOR TRANSPORT WITH WHEELCHAIR. INSIST ON AMBULATING. PT ACCOMPANIED BY MASOUD REDDY. GAIT STEADY AND BALANCED. HAND-OFF REPORT RECEIVED FROM VICTOR M REDDY.
--- NOTE | 2023-08-08 09:14 | NUR ---
HEMODIALYSIS TREATMENT INITIATED AT .09:14 SEE HEMODIALYSIS TREATMENT PROCESS INTERVENTION AND TABLO TREATMENT FLOWSHEET FOR TREATMENT SPECIFIC DETAILS.
[2023-08-08 09:35] LABS: BASO% 0.6 % (0-3); EOS% 5.5 % (0-8); HEMATOCRIT 23.9 % (39.0-50.0); HEMOGLOBIN 7.7 g/dl (14.0-18.0); IMMATURE GRANULOCYTES 0.3 % (0.0-5.0); LYMPH% 17.7 % (15-41); MEAN CELL VOLUME 92.6 fL CALC (80.0-100.0); MEAN CORPUSCULAR HGB 29.8 pG CALC (26.0-32.0); MEAN CORPUSCULAR HGB CONC 32.2 g/dL CAL (32.0-36.0); MONO% 8.8 % (2-13); NEUT# 4.18 thou/uL (1.82-7.42); NEUT% 67.1 % (42-76); RED BLOOD COUNT 2.58 mill/uL (4.70-6.10)
[2023-08-08 10:02] LABS: ALBUMIN 4.2 g/dL (3.2-5.0); POTASSIUM 4.8 mmol/l (3.5-5.1); TOTAL PROTEIN 7.1 g/dL (6.3-8.2)
[2023-08-08 10:20] LABS: BILIRUBIN, TOTAL 0.5 mg/dL (0.2-1.3)
[2023-08-08 10:21] LABS: CREATININE 17.8 mg/dL (0.7-1.3)
--- NOTE | 2023-08-08 11:29 | NUR ---
HEMODIALYSIS TREATMENT COMPLETED AT .1129 SEE HEMODIALYSIS TREATMENT PROCESS INTERVENTION AND TABLO TREATMENT FLOWSHEET FOR TREATMENT SPECIFIC DETAILS.
--- NOTE | 2023-08-08 11:54 | NUR ---
Patient decides to leave AMA. Multiple attempts made to ecourage patient to remain here for continued treatment. Explained to patient all risks of leaving against medical advice including . Pt verbalized understanding of all risks. Pt also encouraged to return to [facility] at any time, especially if symptoms continue or become worse. Pt verbalized understanding.
[2023-08-08 11:55] VITALS: BP 157/87
== END 2023-08-08 11:54 | disposition left against medical advice (07) ==
LOC: ED 08:05 → DIA 08:32
PROVIDERS: Emergency Medicine
DX: I12.0 Hypertensive chronic kidney disease with stage 5 chronic kidney disease or end stage renal disease (principal); E11.22 Type 2 diabetes mellitus with diabetic chronic kidney disease; N18.6 End stage renal disease; Z99.2 Dependence on renal dialysis; E78.5 Hyperlipidemia, unspecified; Z53.29 Procedure and treatment not carried out because of patient's decision for other reasons
CPT/HCPCS: J1644

== ENCOUNTER 2023-08-11 08:17 | Emergency (ER) | payer MEDICAID ==
[~2023-08-11] VITALS: Ht 170.2 cm; Wt 88.2 kg
[2023-08-11 09:38] LABS: BASO% 0.6 % (0-3); EOS% 5.2 % (0-8); HEMATOCRIT 23.3 % (39.0-50.0); HEMOGLOBIN 7.6 g/dl (14.0-18.0); IMMATURE GRANULOCYTES 0.6 % (0.0-5.0); LYMPH% 18.7 % (15-41); MEAN CELL VOLUME 92.8 fL CALC (80.0-100.0); MEAN CORPUSCULAR HGB 30.3 pG CALC (26.0-32.0); MEAN CORPUSCULAR HGB CONC 32.6 g/dL CAL (32.0-36.0); MONO% 9.1 % (2-13); NEUT# 4.73 thou/uL (1.82-7.42); NEUT% 65.8 % (42-76); RED BLOOD COUNT 2.51 mill/uL (4.70-6.10); RED CELL DISTRI WIDTH 12.9 % (11.5-15.5)
[2023-08-11 10:02] LABS: CREATININE 19.1 mg/dL (0.7-1.3); POTASSIUM 5.2 mmol/l (3.5-5.1)
[2023-08-11 11:51] VITALS: BP 156/80
== END 2023-08-11 11:51 | disposition left against medical advice (07) ==
LOC: ED 08:17 → DIA 08:40 → ED 08:40 → DIA 11:51
PROVIDERS: Emergency Medicine
DX: I12.0 Hypertensive chronic kidney disease with stage 5 chronic kidney disease or end stage renal disease (principal); E11.22 Type 2 diabetes mellitus with diabetic chronic kidney disease; N18.6 End stage renal disease; Z99.2 Dependence on renal dialysis; E78.5 Hyperlipidemia, unspecified; Z53.29 Procedure and treatment not carried out because of patient's decision for other reasons
CPT/HCPCS: J1644

== ENCOUNTER 2023-08-13 08:41 | Emergency (ER) | payer MEDICAID ==
[~2023-08-13] VITALS: Ht 170.2 cm; Wt 87.2 kg
[2023-08-13 09:56] LABS: BASO% 0.5 % (0-3); EOS% 4.5 % (0-8); HEMATOCRIT 24.1 % (39.0-50.0); HEMOGLOBIN 7.7 g/dl (14.0-18.0); IMMATURE GRANULOCYTES 0.3 % (0.0-5.0); LYMPH% 17.8 % (15-41); MEAN CELL VOLUME 93.4 fL CALC (80.0-100.0); MEAN CORPUSCULAR HGB 29.8 pG CALC (26.0-32.0); MONO% 8.7 % (2-13); NEUT# 4.37 thou/uL (1.82-7.42); NEUT% 68.2 % (42-76); RED BLOOD COUNT 2.58 mill/uL (4.70-6.10); RED CELL DISTRI WIDTH 13.3 % (11.5-15.5)
[2023-08-13 10:08] LABS: BILIRUBIN, TOTAL 0.3 mg/dL (0.2-1.3); TOTAL PROTEIN 7.1 g/dL (6.3-8.2)
[2023-08-13 10:16] LABS: POTASSIUM 5.2 mmol/l (3.5-5.1)
[2023-08-13 10:17] LABS: CREATININE 18.1 mg/dL (0.7-1.3)
[2023-08-13 12:45] VITALS: BP 157/77
== END 2023-08-13 12:15 | disposition left against medical advice (07) ==
LOC: ED 08:41 → DIA 09:24
PROVIDERS: Family Medicine
DX: I12.0 Hypertensive chronic kidney disease with stage 5 chronic kidney disease or end stage renal disease (principal); E11.22 Type 2 diabetes mellitus with diabetic chronic kidney disease; N18.6 End stage renal disease; Z99.2 Dependence on renal dialysis; E78.5 Hyperlipidemia, unspecified; Z53.29 Procedure and treatment not carried out because of patient's decision for other reasons

== ENCOUNTER 2023-08-15 07:38 | Emergency (ER) | payer MEDICAID ==
[~2023-08-15] VITALS: Ht 170.2 cm; Wt 84.4 kg
[2023-08-15 07:50] VITALS: BP 141/71
[2023-08-15 08:00] VITALS: BP 134/70
[2023-08-15 08:31] VITALS: BP 133/75
[2023-08-15 09:01] VITALS: BP 143/77
[2023-08-15 09:30] VITALS: BP 145/77
[2023-08-15 10:23] LABS: BASO% 0.6 % (0-3); EOS% 4.6 % (0-8); HEMATOCRIT 24.3 % (39.0-50.0); HEMOGLOBIN 7.8 g/dl (14.0-18.0); IMMATURE GRANULOCYTES 0.2 % (0.0-5.0); LYMPH% 15.8 % (15-41); MEAN CELL VOLUME 93.5 fL CALC (80.0-100.0); MEAN CORPUSCULAR HGB CONC 32.1 g/dL CAL (32.0-36.0); NEUT# 4.51 thou/uL (1.82-7.42); NEUT% 69.8 % (42-76); RED BLOOD COUNT 2.6 mill/uL (4.70-6.10); RED CELL DISTRI WIDTH 13.8 % (11.5-15.5)
[2023-08-15 10:42] LABS: ALBUMIN 4.2 g/dL (3.2-5.0); TOTAL PROTEIN 7.2 g/dL (6.3-8.2)
[2023-08-15 11:18] LABS: BILIRUBIN, TOTAL 0.5 mg/dL (0.2-1.3); POTASSIUM 5.3 mmol/l (3.5-5.1)
[2023-08-15 11:20] LABS: CREATININE 17.6 mg/dL (0.7-1.3)
[2023-08-15 12:29] VITALS: BP 163/80
== END 2023-08-15 12:25 | disposition home or self-care (01) ==
LOC: ED 07:38 → DIA 08:01 → ED 08:01 → DIA 12:25
PROVIDERS: Family Medicine
DX: I12.0 Hypertensive chronic kidney disease with stage 5 chronic kidney disease or end stage renal disease (principal); E11.22 Type 2 diabetes mellitus with diabetic chronic kidney disease; N18.6 End stage renal disease; Z99.2 Dependence on renal dialysis; E78.5 Hyperlipidemia, unspecified; Z53.29 Procedure and treatment not carried out because of patient's decision for other reasons
CPT/HCPCS: J1644

== ENCOUNTER 2023-09-05 10:23 | Emergency (ER) | payer MEDICAID ==
[~2023-09-05] VITALS: Ht 170.2 cm; Wt 86.6 kg
[2023-09-05 10:35] VITALS: BP 163/80
[2023-09-05 12:20] LABS: BASO% 0.8 % (0-3); EOS% 3.2 % (0-8); HEMATOCRIT 25.5 % (39.0-50.0); HEMOGLOBIN 8.1 g/dl (14.0-18.0); IMMATURE GRANULOCYTES 0.3 % (0.0-5.0); LYMPH% 14.7 % (15-41); MEAN CELL VOLUME 95.1 fL CALC (80.0-100.0); MEAN CORPUSCULAR HGB 30.2 pG CALC (26.0-32.0); MEAN CORPUSCULAR HGB CONC 31.8 g/dL CAL (32.0-36.0); MONO% 8.8 % (2-13); NEUT# 4.27 thou/uL (1.82-7.42); NEUT% 72.2 % (42-76); RED BLOOD COUNT 2.68 mill/uL (4.70-6.10); RED CELL DISTRI WIDTH 14.5 % (11.5-15.5)
[2023-09-05 12:31] LABS: POTASSIUM 4.4 mmol/l (3.5-5.1); TOTAL PROTEIN 6.9 g/dL (6.3-8.2)
[2023-09-05 13:12] LABS: BILIRUBIN, TOTAL 0.5 mg/dL (0.2-1.3); CREATININE 11.9 mg/dL (0.7-1.3)
[2023-09-05 14:35] VITALS: BP 160/77
== END 2023-09-05 14:35 | disposition left against medical advice (07) ==
LOC: ED 10:23 → DIA 10:46 → ED 11:13
PROVIDERS: Family Medicine
DX: I12.0 Hypertensive chronic kidney disease with stage 5 chronic kidney disease or end stage renal disease (principal); E11.22 Type 2 diabetes mellitus with diabetic chronic kidney disease; N18.6 End stage renal disease; Z99.2 Dependence on renal dialysis; E78.5 Hyperlipidemia, unspecified; Z53.29 Procedure and treatment not carried out because of patient's decision for other reasons

== ENCOUNTER 2023-09-08 08:11 | Emergency (ER) | payer MEDICAID ==
[~2023-09-08] VITALS: Ht 170.2 cm; Wt 87.0 kg
[2023-09-08 08:52] VITALS: BP 141/70
[2023-09-08 09:00] VITALS: BP 134/63
--- NOTE | 2023-09-08 09:15 | NUR ---
PATIENT ESCORTED TO DIALYSIS ROOM. DECLINED NEEDING WC. PATIENT ALERT AND ORIENTED. STABLE CONDITION.
--- NOTE | 2023-09-08 09:29 | NUR ---
HEMODIALYSIS STARTED AT 0929. PATIENT TOLERATING WELL.
--- NOTE | 2023-09-08 09:55 | NUR ---
SPOKE WITH MEDIA ANALYTICS MANAGER ON FLUID REMOVAL AMOUNT. MEDIA ANALYTICS MANAGER SAID TO REMOVE 1L.
[2023-09-08 10:05] LABS: BASO% 0.6 % (0-3); EOS% 2.3 % (0-8); HEMATOCRIT 26.3 % (39.0-50.0); HEMOGLOBIN 8.3 g/dl (14.0-18.0); IMMATURE GRANULOCYTES 0.1 % (0.0-5.0); MEAN CELL VOLUME 94.6 fL CALC (80.0-100.0); MEAN CORPUSCULAR HGB 29.9 pG CALC (26.0-32.0); MEAN CORPUSCULAR HGB CONC 31.6 g/dL CAL (32.0-36.0); MONO% 6.9 % (2-13); NEUT# 7.36 thou/uL (1.82-7.42); NEUT% 78.1 % (42-76); RED BLOOD COUNT 2.78 mill/uL (4.70-6.10); RED CELL DISTRI WIDTH 14.6 % (11.5-15.5)
[2023-09-08 10:08] LABS: ALBUMIN 4.1 g/dL (3.2-5.0); BILIRUBIN, TOTAL 0.5 mg/dL (0.2-1.3); POTASSIUM 4.9 mmol/l (3.5-5.1)
[2023-09-08 10:15] LABS: CREATININE 17.5 mg/dL (0.7-1.3)
[2023-09-08 10:20] VITALS: BP 155/67
--- NOTE | 2023-09-08 12:16 | NUR ---
PATIENT REQUESTED DIALYSIS ENDED. EXPLAINED IMPORTANCE OF FINISHING PRESCRIBED TX. PATIENT STILL DECLINED. PATIENT IS STABLE.
--- NOTE | 2023-09-08 12:25 | NUR ---
PATIENT LEFT AMA. PROPER FORM SIGNED. PATIENT STABLE.
== END 2023-09-08 12:28 | disposition left against medical advice (07) ==
LOC: ED 08:11 → DIA 09:22 → ED 09:22
PROVIDERS: Family Medicine
DX: I12.0 Hypertensive chronic kidney disease with stage 5 chronic kidney disease or end stage renal disease (principal); E11.22 Type 2 diabetes mellitus with diabetic chronic kidney disease; N18.6 End stage renal disease; Z99.2 Dependence on renal dialysis; E78.5 Hyperlipidemia, unspecified; Z53.29 Procedure and treatment not carried out because of patient's decision for other reasons
CPT/HCPCS: Q5106 EC